=== PATIENT | male | born 1940 | race Caucasian/White ===

== ENCOUNTER 2016-11-19 09:12 | Inpatient (IN) | payer OTHER, MEDICARE ==
[~2016-11-19] VITALS: Ht 188 cm; Wt 93.3 kg
[2016-11-19] VITALS (13 sets, daily range): BP systolic 114–157; BP diastolic 59–89; PULSE 73–108; RESP 16–20; TEMP 97.4–98.7; O2SAT 90–98
[2016-11-19] MEDS ORDERED: SODIUM CHLORIDE 0.9% FLUSH 5 ML FLUSH IVF PRN (09:30)
[2016-11-19] MEDS ORDERED: ASPIRIN 325 MG TAB PO ONE (09:30)
[2016-11-19] MEDS ORDERED: NITROGLYCERIN 0.4 MG SL 25 TABS/BTL SL PRN (09:30)
--- NOTE | 2016-11-19 09:30 | PD ---
HPI Chief Complaint: Cardiac Complaint Time Seen by Provider: 09:19 Travel History International Travel<30 days: No (unknown) Contact w/Intl Traveler<30days: No (unknown) History of Present Illness HPI 76yo M with PMH of CAD s/p cardiac stent in 2004, HLD, NIDDM presents to the ED with c/o intermittent chest discomfort for 3 days. States it is worst with exertion and lasts minutes. States he had sob while walking to the room which is new. Chest discomfort is midsternal and radiates up to throat. Denies any fever, cough, n/v, abdominal pain, focal weakness or numbness. Pt follows with Dr. Oliveira and has not had a stress test in over a year. Former smoker. PFSH Past Medical History Autoimmune Disease: No Blood Disorders: No Cancer: No Cardiovascular Problems: No Endocrine: No Genitourinary: No Musculoskeletal: No Neurologic: No Psychiatric: No Respiratory: No Past Surgical History Abdominal Surgery: Yes (HERNIA REPAIR) Genitourinary Surgery: Yes (CYST REMOVED FROM KIDNEY) Social History Alcohol Use: No Tobacco Use: No Substance Use: No Allergies-Medications (Allergen,Severity, Reaction): Coded Allergies: No Known Allergies (Verified Allergy, Severe, 12/26/04) Uncoded Allergies: AKA (Allergy, Mild, 12/26/04) Reported Meds & Prescriptions Reported Meds & Active Scripts Active Reported Losartan (Losartan Potassium) 25 Mg Tab 25 Mg PO BID Lipitor (Atorvastatin Calcium) 80 Mg Tab 80 Mg PO HS Glimepiride 1 Mg Tab 1 Mg PO DAILY Take with breakfast or first main meal Metoprolol Tartrate 50 Mg Tab 50 Mg PO BID Metformin (Metformin HCl) 500 Mg Tab 500 Mg PO BID With meals Review of Systems Except as stated in HPI: all other systems reviewed are Neg Physical Exam Narrative GENERAL: 76yo M not in distress. SKIN: Warm and dry. HEAD: Atraumatic. Normocephalic. EYES: Pupils equal and round. No scleral icterus. No injection or drainage. ENT: No nasal bleeding or discharge. Mucous membranes pink and moist. NECK: Trachea midline. No JVD. CARDIOVASCULAR: Regular rate and rhythm. No murmur appreciated. RESPIRATORY: No accessory muscle use. Clear to auscultation. Breath sounds equal bilaterally. GASTROINTESTINAL: Abdomen soft, non-tender, nondistended. Hepatic and splenic margins not palpable. MUSCULOSKELETAL: No obvious deformities. No clubbing. No cyanosis. +Trace bilateral lower edema. NEUROLOGICAL: Awake and alert. No obvious cranial nerve deficits. Motor grossly within normal limits. Normal speech. PSYCHIATRIC: Appropriate mood and affect; insight and judgment normal. Data Data Last Documented VS Vital Signs Date Time Temp Pulse Resp B/P Pulse Ox O2 Delivery O2 Flow Rate FiO2 11/19/16 09:20 146/67 141/68 11/19/16 09:20 98 Nasal Cannula 2 11/19/16 09:20 16 11/19/16 09:14 97.6 108 Orders Electrocardiogram (11/19/16 ) Basic Metabolic Panel (Bmp) (11/19/16 09:25) Ckmb (Isoenzyme) Profile (11/19/16 09:25) Complete Blood Count With Diff (11/19/16 09:25) Magnesium (Mg) (11/19/16 09:25) Prothrombin Time / Inr (Pt) (11/19/16 09:25) Act Partial Throm Time (Ptt) (11/19/16 09:25) Troponin I (11/19/16 09:25) Chest, Single Ap (11/19/16 09:25) Ecg Monitoring (11/19/16 09:25) Bilateral Bp Monitoring (11/19/16 09:25) Iv Access Insert/Monitor (11/19/16 09:25) Oximetry (11/19/16 09:25) Oxygen Administration (11/19/16 09:25) Sodium Chloride 0.9% Flush (Ns Flush) (11/19/16 09:30) Aspirin (Aspirin) (11/19/16 09:30) Nitroglycerin Sl (Nitrostat Sl) (11/19/16 09:30) B-Type Natriuretic Peptide (11/19/16 09:30) CKMB (11/19/16 09:35) CKMB% (11/19/16 09:35) Type And Screen (11/19/16 10:56) Red Blood Cells (Rbc) (11/19/16 10:56) Blood Product Administration .UPON TRANSFUSION (11/19/16 10:56) Sodium Chlor 0.9% 250 Ml Inj (Ns 250 Ml (11/19/16 11:00) Pantoprazole Inj (Protonix Inj) (11/19/16 11:00) Pantoprazole Inj (Protonix Inj) (11/19/16 11:00) Consult Cardiology (11/19/16 ) Consult Gastroenterology (11/19/16 ) ^ Other Nursing Orders (11/19/16 11:15) NPO (11/19/16 11:15) ^ Consent (11/19/16 11:16) (Hub Use Only)Inp Phy Cons/Ref (11/19/16 ) (Hub Use Only)Inp Phy Cons/Ref (11/19/16 ) Admit Order (Ed Use Only) (11/19/16 11:23) Labs Laboratory Tests Test 11/19/16 11/19/16 11/19/16 09:35 10:00 11:17 White Blood Count 7.3 TH/MM3 Red Blood Count 3.28 MIL/MM3 Hemoglobin 7.5 GM/DL Hematocrit 24.0 % Mean Corpuscular Volume 73.3 FL Mean Corpuscular Hemoglobin 22.8 PG Mean Corpuscular Hemoglobin 31.1 % Concent Red Cell Distribution Width 16.0 % Platelet Count 244 TH/MM3 Mean Platelet Volume 7.7 FL Neutrophils (%) (Auto) 65.6 % Lymphocytes (%) (Auto) 22.2 % Monocytes (%) (Auto) 6.5 % Eosinophils (%) (Auto) 4.9 % Basophils (%) (Auto) 0.8 % Neutrophils # (Auto) 4.8 TH/MM3 Lymphocytes # (Auto) 1.6 TH/MM3 Monocytes # (Auto) 0.5 TH/MM3 Eosinophils # (Auto) 0.4 TH/MM3 Basophils # (Auto) 0.1 TH/MM3 CBC Comment AUTO DIFF Differential Comment AUTO DIFF CONFIRMED Prothrombin Time 11.3 SEC Prothromb Time International 1.0 RATIO Ratio Activated Partial 26.1 SEC Thromboplast Time Sodium Level 136 MEQ/L Potassium Level 4.4 MEQ/L Chloride Level 102 MEQ/L Carbon Dioxide Level 23.9 MEQ/L Anion Gap 10 MEQ/L Blood Urea Nitrogen 21 MG/DL Creatinine 1.20 MG/DL Estimat Glomerular Filtration 59 ML/MIN Rate Random Glucose 126 MG/DL Calcium Level 8.8 MG/DL Magnesium Level 2.2 MG/DL Total Creatine Kinase 103 U/L Creatine Kinase MB 2.7 NG/ML Troponin I 0.17 NG/ML B-Type Natriuretic Peptide 274 PG/ML Blood Type O NEGATIVE Antibody Screen NEGATIVE Crossmatch Leukocyte-Reduced Red Blood Cells Blood Bank Comment MDM Medical Decision Making Medical Screen Exam Complete: Yes Emergency Medical Condition: Yes Interpretation(s) EKG: NSR 97bpm. LAD. Q wave III, V2. STD I, V5, V6. TWI aVL, V2. Differential Diagnosis Unstable angina vs. GERD vs. musculoskeletal pain vs. PNA Narrative Course 76yo M with history significant for CAD s/p cardiac stent with symptoms concerning for unstable angina. EKG significant for findings of ischemia in lateral leads. Will obtain cardiac enzymes, CXR, and give aspirin and sublingual nitroglycerin PRN chest pain. Pt denies any chest pain while lying down at this time. Labs reviewed, H/H is 7.5/24.0. Pt denies any black stool or hematemesis. However, when I did rectal exam, stool is black and hemaprompt positive. Will transfuse 2units of PRBC and start IV protonix. Troponin is elevated at 0.17. Discussed with Dr. Oliveira who will come see the patient. Pt cannot be anticoagulated at this time because of GI bleed. CXR showed no consolidative infiltrates. Pt states he had colonoscopy about 2 years ago and had polyps removed. Had endoscopy as well 2 years ago with no acute findings. Discussed with Dr. Brar who will come see the patient. Discussed with Dr. Phillips and accepted to his service. Pt is hemodynamically stable at this time. Critical Care Narrative Aggregate critical care time was 40 minutes. Time to perform other separately billable procedures was note included in the critical care time. My time did not include minutes spent treating any other patients simultaneously or on activities that did not directly contribute to the patient's treatment. The services I provided to this patient were to treat and/or prevent clinically significant deterioration that could result in: cardiovascular collapse or . I provided critical care services requiring my management, as noted below: Chart data review, documentation time, medication orders and management, vital sign assessments/reviewing monitor data, ordering and reviewing lab tests, ordering and interpreting/reviewing x-rays and diagnostic studies, care of the patient and discussion of the patient with the admitting physicians. Diagnosis Primary Impression: GI bleed Qualified Code: K92.1 - Gastrointestinal hemorrhage with melena Additional Impression: NSTEMI (non-ST elevated myocardial infarction) Admitting Information Admitting Physician Requests: it Devika Herrera DO Nov 19, 2016 09:30
--- NOTE | 2016-11-19 09:47 | RADRPT ---
EXAM DATE/TIME: 11/19/2016 09:37 [facility] COMPARISON: No previous studies available for comparison. INDICATIONS : Chest pain. MEDICAL HISTORY : Myocardial infarction. SURGICAL HISTORY : Coronary artery stent. ENCOUNTER: Initial ACUITY: 3 days PAIN SCORE: 5/10 LOCATION: Left upper chest FINDINGS: A single view of the chest demonstrates the lungs to be symmetrically aerated without evidence of mas s, consolidative infiltrate or effusion. The cardiomediastinal contours are unremarkable. Osseous s tructures are intact. Mild prominence of the interstitium of indeterminate chronicity. CONCLUSION: Mild prominence of the interstitium indeterminate chronicity. No consolidative infiltrates. Fabricio Gregory MD on November 19, 2016 at 9:45 Board Certified Radiologist. This report was verified electronically.
[2016-11-19 09:50] LABS: AUTOMATED NEUTROPHIL # 4.8 TH/MM3 (1.8-7.7); BASOPHIL # 0.1 TH/MM3 (0-0.2); BASOPHIL % 0.8 % (0.0-2.0); EOSINOPHIL # 0.4 TH/MM3 (0-0.4); EOSINOPHIL % 4.9 % (0.0-4.0); LYMPH % 22.2 % (9.0-44.0); LYMPHOCYTE # 1.6 TH/MM3 (1.0-4.8); MEAN CELL VOLUME 73.3 FL (80.0-100.0); MEAN CORPUSCULAR HEMOGLOBIN 22.8 PG (27.0-34.0); MEAN CORPUSCULAR HGB CONC 31.1 % (32.0-36.0); MONO % 6.5 % (0.0-8.0); NEUT % 65.6 % (16.0-70.0); PLATELET COUNT 244 TH/MM3 (150-450); RED BLOOD COUNT 3.28 MIL/MM3 (4.50-5.90); WHITE BLOOD COUNT 7.3 TH/MM3 (4.0-11.0)
[2016-11-19 09:53] LABS: HEMO FLAGS AUTO DIFF
[2016-11-19 10:01] LABS: APTT (PATIENT) 26.1 SEC (24.3-30.1); PROTHROMBIN TIME - PATIENT 11.3 SEC (9.8-11.6)
[2016-11-19 10:12] LABS: ANION GAP 10 MEQ/L (5-15); BICARBONATE 23.9 MEQ/L (21.0-32.0); BLOOD UREA NITROGEN 21 MG/DL (7-18); CHLORIDE 102 MEQ/L (98-107); GLOMERULAR FILTRATION RATE 59 ML/MIN (>89); MAGNESIUM 2.2 MG/DL (1.5-2.5); POTASSIUM 4.4 MEQ/L (3.5-5.1); SODIUM (NA) 136 MEQ/L (136-145)
[2016-11-19 10:16] LABS: CREATINE KINASE 103 U/L (39-308)
[2016-11-19 10:22] LABS: SCAN/DIFF AUTO DIFF CONFIRMED
[2016-11-19 10:29] LABS: CKMB 2.7 NG/ML (0.5-3.6)
[2016-11-19] MEDS ORDERED: PANTOPRAZOLE INJ 80 MG in SODIUM CHLORIDE 0.9% INJ 35 ML IV ONE (11:00)
[2016-11-19] MEDS ORDERED: SODIUM CHLOR 0.9% 250 ML INJ 250 ML IV ONE (11:00)
[2016-11-19] MEDS ORDERED: MORPHINE SULFATE 4 MG/ML INJ IV PUSH PRN (11:30)
[2016-11-19] MEDS: SODIUM CHLOR 0.9% 1000 ML INJ 1,000 ML IV SCH (11:30)
[2016-11-19] MEDS ORDERED: ONDANSETRON HCL 4 MG/2 ML VIAL IV PUSH PRN (11:30)
--- NOTE | 2016-11-19 11:50 | PD.CONS ---
HPI History of Present Illness This is a 76 year old male patient with a hx of coronary artery disease on daily ASA, who has been having acid indigestion with shortness of breath on minimal exertion x 3 days. He states that these were the same symptoms he had with his first heart attack and therefore decided to come to the ER. He reports that the pressure goes from his epigastric area, up his esophagus and to bilateral shoulders and neck. He denies any nausea or vomiting. No significant abdominal pain, other than occasional slight/mild suprapubic pain related to his prostate/decreased flow. He occasionally gets reflux and takes Pepto Bismol as needed. Usually, he only occasionally has symptoms of GERD, but he has been having this more frequently over the past 3 days. Of note, he did take the Pepto Bismol last night. He is not sure if it helped or not, because he has found that his symptoms are aggravated by activity and if he sits down and rests, then it will be okay. He called Dr. Oliveira to see if he could get in to see him today and was instructed to come to the ER for evaluation. He was noted to have anemia. He denies any nausea, vomiting, or bowel changes at home. He has lost 10 lbs over the past few months, but has changed his diet and eating differently. He reports that he last had an EGD/ Colonoscopy about 2 years ago and he reports that this was normal other than removal of 3-4 small polyps. He cannot recall who did this. (Nahomy Rodriguez) PFSH Past Medical History CAD/IA Colon Polyps BPH Pilonidal cyst GERD Past Surgical History Cardiac cath I&D Pilonidal cyst Right carotid endarterectomy EGD/Colonoscopy (Nahomy Rodriguez) Coded Allergies: No Known Allergies (Verified Allergy, Severe, 12/26/04) Uncoded Allergies: AKA (Allergy, Mild, 12/26/04) Medications Allergies Coded Allergies Type Severity Reaction Last Updated Verified No Known Allergies Allergy Severe 12/26/04 Yes Uncoded Allergies Type Severity Reaction Last Updated Verified AKA Allergy Mild 12/26/04 Family History No family hx of esophageal, gastric, colorectal cancer. Social History no tobacco, etoh, or illicit drug (Nahomy Rodriguez) Review of Systems Constitutional: COMPLAINS OF: Fatigue, Weight loss (diet has changed) Respiratory: COMPLAINS OF: Cough, Shortness of breath Cardiovascular: COMPLAINS OF: Chest pain Gastrointestinal: COMPLAINS OF: Black stools, Heartburn, DENIES: Abdominal pain, Bloody stools, Constipation, Diarrhea, Nausea, Vomiting, Anorexia, Hematemesis Integumentary: DENIES: Abnormal pigmentation Hematologic/lymphatic: DENIES: Bruising Neurologic: DENIES: Headache Psychiatric: DENIES: Confusion (Nahomy Rodriguez) GI Exam Vitals I&O Vital Signs Date Time Temp Pulse Resp B/P Pulse Ox O2 Delivery O2 Flow Rate FiO2 11/19/16 09:20 146/67 141/68 11/19/16 09:20 98 Nasal Cannula 2 11/19/16 09:20 16 97 Nasal Cannula 2 11/19/16 09:14 97.6 108 20 140/63 90 Room Air Imaging Last Impressions Chest X-Ray 11/19/16 0925 Signed Impressions: Service Date/Time: Saturday, November 19, 2016 09:37 - CONCLUSION: Mild prominence of the interstitium indeterminate chronicity. No consolidative infiltrates. Fabricio Gregory MD Laboratory Test 11/19/16 11/19/16 09:35 10:00 White Blood Count 7.3 TH/MM3 Red Blood Count 3.28 MIL/MM3 Hemoglobin 7.5 GM/DL Hematocrit 24.0 % Mean Corpuscular Volume 73.3 FL Mean Corpuscular Hemoglobin 22.8 PG Mean Corpuscular Hemoglobin 31.1 % Concent Red Cell Distribution Width 16.0 % Platelet Count 244 TH/MM3 Mean Platelet Volume 7.7 FL Neutrophils (%) (Auto) 65.6 % Lymphocytes (%) (Auto) 22.2 % Monocytes (%) (Auto) 6.5 % Eosinophils (%) (Auto) 4.9 % Basophils (%) (Auto) 0.8 % Neutrophils # (Auto) 4.8 TH/MM3 Lymphocytes # (Auto) 1.6 TH/MM3 Monocytes # (Auto) 0.5 TH/MM3 Eosinophils # (Auto) 0.4 TH/MM3 Basophils # (Auto) 0.1 TH/MM3 CBC Comment AUTO DIFF Differential Comment AUTO DIFF CONFIRMED Prothrombin Time 11.3 SEC Prothromb Time International 1.0 RATIO Ratio Activated Partial 26.1 SEC Thromboplast Time Sodium Level 136 MEQ/L Potassium Level 4.4 MEQ/L Chloride Level 102 MEQ/L Carbon Dioxide Level 23.9 MEQ/L Anion Gap 10 MEQ/L Blood Urea Nitrogen 21 MG/DL Creatinine 1.20 MG/DL Estimat Glomerular Filtration 59 ML/MIN Rate Random Glucose 126 MG/DL Calcium Level 8.8 MG/DL Magnesium Level 2.2 MG/DL Total Creatine Kinase 103 U/L Creatine Kinase MB 2.7 NG/ML Troponin I 0.17 NG/ML B-Type Natriuretic Peptide 274 PG/ML Physical Examination HEENT: Normocephalic; atraumatic; no jaundice. CHEST: CTA. CARDIAC: RRR ABDOMEN: Soft, nondistended, nontender; no hepatosplenomegaly; bowel sounds are present in all four quadrants. EXTREMITIES: No clubbing, cyanosis, or edema. SKIN: Normal; no rash; no jaundice. [employer]: No focal deficits; alert and oriented times three. (Nahomy Rodriguez) Assessment and Plan Plan ASSESSMENT: - GIB, Hemoccult (+) Stool. Pt found to have microcytic anemia on admission and was noted to have black stool on exam. Of note, he has not seen black stool at home and did take Pepto Bismol last night. However, it was hemoccult positive. He is on a daily ASA at home. Had EGD/Colonoscopy 2 years ago and was unremarkable other than colon polyps. - Anemia, Microcytic, hypochromic. 7.5/24.0. MCV 73.3. MCHC 31.1. - GERD. States usually only has occasional symptoms. However, has had frequent episodes x 3 days- but related to activity/exertion and improves with rest. - Chest pain/SOB. Pt c/o reflux pain in esophagus radiating to shoulders and neck with associated sob that is aggravated by movement and relieved with rest. States this is the same discomfort he had with his previous IA. Cardiology consulted. - CAD, Hx stent placement. Followed by Dr. Oliveira. PLAN: - Plan for EGD once cleared by cardiology - Obtain consents - NPO - Protonix Gtt - Monitor HH - Transfuse as necessary - Supportive care - Further recommendations to follow based on results of above - Pt seen and examined by Dr. Brar and myself and this note is written on her behalf (Nahomy Rodriguez) Physician Comments seen, examined agree with above ct abdomen/pelvis if not cleared for egd until late afternoon today-cler liquid he has microcytic anemia, suggesting possible iron deficiency, chronic most likely -needs further investigation (Yue Brar MD) Nahomy Rodrgiuez Nov 19, 2016 11:50 Yue Brar MD Nov 19, 2016 15:25
[2016-11-19] MEDS ORDERED: GLUCAGON 1 MG/ML VIAL OTHER PRN (12:00)
[2016-11-19] MEDS ORDERED: DEXTROSE 50% IN WATER 50 ML VIAL(D50) IV PUSH PRN (12:00)
--- NOTE | 2016-11-19 12:06 | HHI.HP ---
[facility]ician Chaka Greenwood MD Admission Diagnosis NSTEMI, GI bleed Diagnoses: (1) NSTEMI (non-ST elevated myocardial infarction) Diagnosis: Principal (2) GI bleed Diagnosis: Principal Chief Complaint: chest pain Travel History International Travel<30 Days: No (unknown) Contact w/Intl Traveler <30 Da: No (unknown) Traveled to Known Affected Are: No History of Present Illness patient is a pleasant 76 y/o male with history of CAD- s/p stent placement, hypertension, dyslipidemia and diabetes who presented to ER with chest pain. he says that he's had on and off midsternal chest pain for the past few days. the pain is worse with exertion and is associated with exertional dyspnea. he says that he's feeling lightheaded whenever he's standing up. he denies any abdominal pain, nausea or vomiting. he denies any rectal bleed or black stools. Review of Systems Constitutional: COMPLAINS OF: Dizziness, DENIES: Fever, Weight loss, Chills, Night Sweats Eyes: DENIES: Blurred vision, Diplopia, Vision loss, Double Vision Ears, nose, mouth, throat: DENIES: Tinnitus, Vertigo, Throat pain, Epistaxis Respiratory: DENIES: Apneas, Cough, Snoring, Wheezing, Hemoptysis, Sputum production, Shortness of breath Cardiovascular: COMPLAINS OF: Chest pain, Dyspnea on Exertion, DENIES: Palpitations, Syncope, PND, Lower Extremity Edema, Orthopnea, Claudication Gastrointestinal: DENIES: Abdominal pain, Black stools, Bloody stools, Constipation, Diarrhea, Nausea, Vomiting, Difficulty Swallowing, Anorexia Genitourinary: DENIES: Urinary frequency, Urgency, Hematuria, Dysuria Musculoskeletal: DENIES: Joint pain, Muscle aches, Stiffness, Joint Swelling Integumentary: DENIES: Rash Neurologic: DENIES: Abnormal gait, Headache, Localized weakness, Paresthesias, Seizures, Speech Problems, Tremor, Poor Balance Psychiatric: DENIES: Anxiety, Confusion, Mood changes, Depression, Hallucinations, Agitation, Suicidal Ideation, Homicidal Ideation, Delusions Past Family Social History Past Medical History CAD/OR Colon Polyps BPH Pilonidal cyst Past Surgical History Cardiac cath I&D Pilonidal cyst carotid endarterectomy Reported Medications to be verified. Allergies: Coded Allergies: No Known Allergies (Verified Allergy, Severe, 12/26/04) Uncoded Allergies: AKA (Allergy, Mild, 12/26/04) Active Ordered Medications Current Medications IV Flush (NS Flush) 2 ml UNSCH PRN IVF FLUSH AFTER USING IV ACCESS; Start 11/19 at 09:30 Aspirin (Aspirin) 325 mg ONCE ONCE PO Last administered on 11/19/16 10:07; Start 11/19/16 at 09:30; Stop 11/19/16 at 09:31; Status DC Nitroglycerin 0.4 mg 0.4 mg Q5M PRN SL CHEST PAIN Last administered on 10:07; Start 11/19/16 at 09:30 Sodium Chloride 250 ml @ 15 mls/hr ONCE ONCE IV ; Start 11/19/16 at 11:00; Stop 11/20/16 at 03:39 Pantoprazole Sodium 80 mg/ Sodium Chloride 35 ml @ 420 mls/hr ONCE ONCE IV ; Start 11/19/16 at 11:00; Stop 11/19/16 at 11:04; Status DC Pantoprazole Sodium/Sodium Chloride (Protonix Inj/NS Inj) 100 ml @ 10 mls/hr Q10H IV ; Start 11/19/16 at 11:00 Pantoprazole Sodium 40 mg 40 mg Q24H IV PUSH ; Start 11/20/16 at 09:00 Sodium Chloride (NS 1000 ml Inj) 1,000 ml @ 75 mls/hr [id number] IV ; Start at 11:30 Morphine Sulfate (Morphine Inj) 2 mg Q4HR PRN IV PUSH PAIN; Start 11/19/16 at 11:30 Ondansetron HCl (Zofran Inj) 4 mg Q8HR PRN IV PUSH NAUSEA; Start 11/19/16 at 11 :30 Family History No family hx of esophageal, gastric, colorectal cancer. Social History no tobacco, etoh, or illicit drug Physical Exam Vital Signs Vital Signs Date Time Temp Pulse Resp B/P Pulse Ox O2 Delivery O2 Flow Rate FiO2 11/19/16 09:20 146/67 141/68 11/19/16 09:20 98 Nasal Cannula 2 11/19/16 09:20 16 97 Nasal Cannula 2 11/19/16 09:14 97.6 108 20 140/63 90 Room Air Physical Exam GENERAL: This is a well-nourished, well-developed patient, in no apparent distress. SKIN: No rashes, ecchymoses or lesions. Cool and dry. HEAD: Atraumatic. Normocephalic. No temporal or scalp tenderness. EYES: Pupils equal round and reactive. Extraocular motions intact. No scleral icterus. No injection or drainage. ENT: Nose without bleeding, purulent drainage or septal hematoma. Throat without erythema, tonsillar hypertrophy or exudate. Uvula midline. Airway patent. NECK: Trachea midline. No JVD or lymphadenopathy. Supple, nontender, no meningeal signs. CARDIOVASCULAR: Regular rate and rhythm without murmurs, gallops, or rubs. RESPIRATORY: Clear to auscultation. Breath sounds equal bilaterally. No wheezes , rales, or rhonchi. GASTROINTESTINAL: Abdomen soft, non-tender, nondistended. No hepato-splenomegaly , or palpable masses. No guarding. MUSCULOSKELETAL: Extremities without clubbing, cyanosis, or edema. No joint tenderness, effusion, or edema noted. No calf tenderness. Negative Homans sign bilaterally. NEUROLOGICAL: Awake and alert. Cranial nerves II through XII intact. Motor and sensory grossly within normal limits. Five out of 5 muscle strength in all muscle groups. Normal speech. Laboratory Laboratory Tests Test 11/19/16 11/19/16 09:35 10:00 White Blood Count 7.3 Red Blood Count 3.28 Hemoglobin 7.5 Hematocrit 24.0 Mean Corpuscular Volume 73.3 Mean Corpuscular Hemoglobin 22.8 Mean Corpuscular Hemoglobin 31.1 Concent Red Cell Distribution Width 16.0 Platelet Count 244 Mean Platelet Volume 7.7 Neutrophils (%) (Auto) 65.6 Lymphocytes (%) (Auto) 22.2 Monocytes (%) (Auto) 6.5 Eosinophils (%) (Auto) 4.9 Basophils (%) (Auto) 0.8 Neutrophils # (Auto) 4.8 Lymphocytes # (Auto) 1.6 Monocytes # (Auto) 0.5 Eosinophils # (Auto) 0.4 Basophils # (Auto) 0.1 CBC Comment AUTO DIFF Differential Comment AUTO DIFF CONFIRMED Prothrombin Time 11.3 Prothromb Time International 1.0 Ratio Activated Partial 26.1 Thromboplast Time Sodium Level 136 Potassium Level 4.4 Chloride Level 102 Carbon Dioxide Level 23.9 Anion Gap 10 Blood Urea Nitrogen 21 Creatinine 1.20 Estimat Glomerular Filtration 59 Rate Random Glucose 126 Calcium Level 8.8 Magnesium Level 2.2 Total Creatine Kinase 103 Creatine Kinase MB 2.7 Troponin I 0.17 B-Type Natriuretic Peptide 274 Result Diagram: 11/19/1693411/19/16934 Imaging Last Impressions Chest X-Ray 11/19/16924 Signed Impressions: Service Date/Time: Saturday, November 19, 2016 09:37 - CONCLUSION: Mild prominence of the interstitium indeterminate chronicity. No consolidative infiltrates. Fabricio Gregory MD Assessment and Plan Assessment and Plan A/P - NSTEMI with history of CAD- s/p stent placement received aspirin- will continue to trend the enzymes- no anticoagulation due to GI bleed- cardiology consulted -anemia due to GI bleed will receive PRBC transfusion- will monitor H/H- started on PPI- GI consulted -diabetes mellitus; accu-check with SSI -hypertension/ dyslipidemia; will verify and resume home meds as appropriate -DVT prophylaxis with SCD's- no chemical prophylaxis due to GI bleed Discussed Condition With ER physician and the patient. Physician Certification 2 Midnight Certification Type: Admission for Inpatient Services Order for Inpatient Services The services are ordered in accordance with Medicare regulations or non- Medicare payer requirements, as applicable. In the case of services not specified as inpatient-only, they are appropriately provided as inpatient services in accordance with the 2-midnight benchmark. Estimated LOS (days): 2 days is the estimated time the patient will need to remain in the hospital, assuming treatment plan goals are met and no additional complications. Post-Hospital Plan: Home Problem Qualifiers (1) GI bleed: Qualified Code: K92.1 - Gastrointestinal hemorrhage with melena Pepito Phillips MD Nov 19, 2016 12:06
[2016-11-19] MEDS: PANTOPRAZOLE INJ 80 MG in SODIUM CHLORIDE 0.9% INJ 100 ML IV SCH ×2 (12:19→22:03)
[2016-11-19] MEDS ORDERED: METF500T PO (12:21)
[2016-11-19] MEDS ORDERED: GLIM1TAB PO (12:22)
[2016-11-19] MEDS ORDERED: METO50TA PO (12:22)
[2016-11-19] MEDS ORDERED: LOSA25TA PO (12:23)
[2016-11-19] MEDS ORDERED: LIPI80TA PO (12:23)
--- NOTE | 2016-11-19 14:58 | EKG ---
Date Performed: 11/19/2016 Time Performed: 09:30:29 PTAGE: 76 years EKG: BASELINE ARTIFACT PRESENT. Sinus rhythm POSSIBLE RIGHT VENTRICULAR CONDUCTION DELAY ANTERIOR MYOCARDIAL INFARCTION ABNORMAL ECG COMPARED TO PRIOR ELECTROCARDIOGRAM, Both EKGs have marked artifact but there appears to be evolutionary changes consistent with prior anteroseptal myocardial infarction. PREVIOUS TRACING : 12/28/2004 08.53 DOCTOR: Shane Oliveira Interpretating Date/Time 11/19/2016 14:56:34
[2016-11-19] MEDS: DIATRIZOATE MEGLUM/DIATRIZOATE SOD 9 ML CUP PO ONE (15:45)
[2016-11-19] MEDS: INSULIN ASPART SUPPLEMENTAL SCALE SQ SCH ×2 (16:00→21:00)
[2016-11-19] MEDS: METFORMIN HOLD POST IV CONTRAST XX SCH (21:18)
[2016-11-19] MEDS ORDERED: IOHEXOL 350 MG/ML 10 ML VIAL (for RAD DIAG) IV ONE (21:20)
--- NOTE | 2016-11-19 21:35 | RADRPT ---
EXAM DATE/TIME: 11/19/2016 21:11 [place] COMPARISON: No previous studies available for comparison. INDICATIONS : Diffuse abdominal pain and rectal bleeding. IV CONTRAST: 96 cc Omnipaque 350 (iohexol) IV ORAL CONTRAST: Prescribed oral contrast ingested. RADIATION DOSE: 13.62 CTDIvol (mGy) MEDICAL HISTORY : Cardiovascular disease. Hypertension. SURGICAL HISTORY : None. ENCOUNTER: Initial ACUITY: 1 day PAIN SCALE: 5/10 LOCATION: abdomen TECHNIQUE: Volumetric scanning of the abdomen and pelvis was performed. Using automated exposure control and ad justment of the mA and/or kV according to patient size, radiation dose was kept as low as reasonably achievable to obtain optimal diagnostic quality images. FINDINGS: LOWER LUNGS: The visualized lower lungs are clear. LIVER: Homogeneous density without lesion. There is no dilation of the biliary tree. No calcified gallston es. SPLEEN: Normal size without lesion. PANCREAS: Within normal limits. KIDNEYS: Normal in size and shape. There is no mass, stone or hydronephrosis. There are renal vascular calcif ications. There are minimal bilateral pleural effusions. ADRENAL GLANDS: Within normal limits. VASCULAR: There is no aortic aneurysm. BOWEL/MESENTERY: The stomach, small bowel, and colon demonstrate no acute abnormality. There is no free intraperitone al air or fluid. ABDOMINAL WALL: Within normal limits. RETROPERITONEUM: There is no lymphadenopathy. BLADDER: No wall thickening or mass. REPRODUCTIVE: Within normal limits. INGUINAL: There is no lymphadenopathy or hernia. MUSCULOSKELETAL: Within normal limits for patient age. CONCLUSION: 1. Bilateral pleural effusions. 2. Unremarkable bowel gas pattern with no inflammatory change. Brandan Caro MD on November 19, 2016 at 21:26 Board Certified Radiologist. This report was verified electronically.
[2016-11-19 23:14] LABS: HEMATOCRIT 29.5 % (39.0-51.0)
[2016-11-19 23:47] LABS: INDIRECT BILIRUBIN 0.5 MG/DL (0.0-0.8); TOTAL BILIRUBIN ADULT 0.7 MG/DL (0.2-1.0)
[2016-11-20] VITALS (18 sets, daily range): BP systolic 127–159; BP diastolic 64–85; PULSE 72–102; RESP 16–18; TEMP 98–99.1; O2SAT 94–96
[2016-11-20] MEDS: SODIUM CHLOR 0.9% 1000 ML INJ 1,000 ML IV SCH ×2 (00:50→12:23)
[2016-11-20] MEDS: PANTOPRAZOLE INJ 80 MG in SODIUM CHLORIDE 0.9% INJ 100 ML IV SCH ×2 (05:37→16:15)
--- NOTE | 2016-11-20 05:59 | MB ---
cc: REGINALDO MOORE,TOMASZ PICKERING M.D. DATE OF CONSULTATION 11/19/[address] Tomasz Greenwood. PRIMARY FIELD SERVICE TECHNICIAN Dr. Shane Oliveira REASON FOR CONSULTATION Elevation of troponins. HISTORY OF PRESENT ILLNESS Dwight Brown is a pleasant 76-year-old male who presented to [facility] on November 19, 2016, with a complaint of chest pain and shortness of breath. He states that over the past few days he has noticed some mid-sternal chest pain. The pain seems to get worse with exertion and he has also noticed some dyspnea. He has also been feeling lightheaded whenever he stands up. He denies any abdominal pain, nausea or vomiting. She also denies any rectal bleeding or black stool. PAST MEDICAL HISTORY 1. Coronary artery disease with myocardial infarction (2004). 2. Colon polyps. 3. BPH. 4. Pilonidal cyst. 5. GERD. PAST SURGICAL HISTORY 1. Cardiac catheterization (December 27, 2004): LAD is a medium to large vessel with a moderate 75% mid-lesion and then a 95% mid to distal lesion. The left circumflex is nondominant and has a long 75% narrowing. The RCA is dominant with diffusely mild to moderate irregularity. Intervention on the [id number] LAD with a Cypher stent (2.5 x 13). The proximal to mid-LAD with a bifurcation intervention of the LAD and diagonal with a Cypher stent (2.5 x 13) in the diagonal and a Cypher stent(3 x 23) in the LAD. 2. I&D of pilonidal cyst 3. Right carotid endarterectomy. 4. EGD/colonoscopy. ALLERGIES No known drug allergies. MEDICATIONS 1. Losartan 25 mg b.i.d. 2. Metoprolol tartrate 50 mg b.i.d. 3. Metformin 500 mg b.i.d. 4. Lipitor 80 mg every night 5. Glimepiride 1 mg p.o. daily. FAMILY HISTORY Denies premature coronary artery disease or sudden cardiac within the family. SOCIAL HISTORY Denies tobacco, alcohol and no illicit drug use. REVIEW OF SYSTEMS 14 systems were reviewed including osteopathic pertinent positives and negatives above, otherwise negative. PHYSICAL EXAMINATION Vital Signs: Temperature 98.7, heart rate 81, blood pressure 116/89, respirations 18, pulse ox 98% on room air. In General: The patient appears well, in no acute distress, alert, awake and oriented x 3. Extraocular muscles intact. Mucous membranes moist. Neck: Supple. No JVD at 45 degrees. No carotid bruits heard bilaterally. Carotid upstroke is brisk in nature. Heart: Regular rate and rhythm. Positive first and second heart sounds with no murmurs, gallops or rubs. PMI is nondisplaced. Lungs: Clear to auscultation bilaterally. No wheezes, rales or rhonchi. Abdomen: Soft, nontender, nondistended. No organomegaly noted. Extremities: No clubbing, cyanosis or edema. Femoral and distal pulses intact bilaterally. Neurologically: No focal deficits. Skin: Warm, dry and intact. Osteopathic Exam: No kyphoscoliosis, lordosis or paraspinal tender points. LABORATORY WORK Hemoglobin 7.5 increasing to 9.3 after 2 units of blood, platelets 244. Potassium 4.4, BUN 21, creatinine 1.2. Troponin 0.17 increasing to 0.2. ELECTROCARDIOGRAM (November 19, 2016 at 0930) Sinus rhythm, possible right ventricular conduction delay, anterior myocardial infarction, IMPRESSIONS 1. Elevated troponin most likely due to symptomatic anemia with demand ischemia. 2. Symptomatic anemia. 3. GI bleed with hemoccult-positive stool. 4. GERD. 5. Coronary artery disease with above coronary artery stenting. RECOMMENDATIONS 1. Dwight Brown was having chest pain and shortness of breath as well as lightheadedness and was found to have a hemoglobin of 7.5. He most likely has symptomatic anemia. He was noted to have mild elevation of his troponins. 2. He is to undergo EGD and colonoscopy. He is at moderate to high risk with elevation of his troponins, although I feel that at this time there is no further intervention from a cardiology standpoint which will change his overall risk. He would be unable to undergo cardiac catheterization and further intervention due to his current GI bleed. 3. Depending on the results of the EGD and colonoscopy, it is felt that he should be placed on full anticoagulation and antiplatelet therapy. Consideration would be made for stress testing due to elevated troponins. 4. We will check a 2-D echo to look at his overall left ventricular function, cardiac structure and possible valvopathies. 5. Since receiving blood the patient feels better and has been up and moving without chest pain, shortness of breath or dizziness. Thank you for allowing me to see Dwight Brown. If there are any questions, please do not hesitate to call. Reginaldo Moore DO VGP/SSB /11:33 PM /5:36 AM
[2016-11-20] MEDS: INSULIN ASPART SUPPLEMENTAL SCALE SQ SCH ×4 (07:00→21:00)
[2016-11-20 07:21] LABS: HEMATOCRIT 27.9 % (39.0-51.0)
[2016-11-20 07:40] LABS: HDL CHOLESTEROL 44.5 MG/DL (40.0-60.0)
--- NOTE | 2016-11-20 08:51 | HHI.PR ---
Subjective Remarks resting comfortably with no chest pain, sob or dizziness. says that he feels good now after blood transfusion. no other complaints. Objective Vitals Vital Signs Date Time Temp Pulse Resp B/P Pulse Ox O2 Delivery O2 Flow Rate FiO2 11/20/16 08:00 99.1 83 16 142/68 96 11/20/16 08:00 75 11/20/16 04:00 82 11/20/16 04:00 98.5 82 16 127/69 96 11/20/16 00:00 86 11/20/16 00:00 98.7 86 18 134/64 96 11/19/16 20:00 98.4 87 18 157/76 97 11/19/16 20:00 87 11/19/16 18:00 76 11/19/16 17:00 77 11/19/16 16:45 98.7 81 18 116/89 98 11/19/16 16:00 95 11/19/16 16:00 98.7 82 18 136/71 95 11/19/16 15:00 83 11/19/16 14:00 73 11/19/16 14:00 98.4 81 16 114/66 98 11/19/16 13:45 97.9 88 16 115/59 98 11/19/16 13:00 83 11/19/16 12:45 97.4 86 18 154/72 98 11/19/16 12:45 90 11/19/16 12:15 78 16 141/67 98 Nasal Cannula 2 11/19/16 09:20 146/67 141/68 11/19/16 09:20 98 Nasal Cannula 2 11/19/16 09:20 16 97 Nasal Cannula 2 11/19/16 09:14 97.6 108 20 140/63 90 Room Air I/O 11/19/16 11/19/16 11/19/16 11/20/16 11/20/16 11/20/16 07:00 15:00 23:00 07:00 15:00 23:00 Intake Total 646 ml 1105 ml Output Total 850 ml 3100 ml Balance -204 ml -1995 ml Intake Oral 0 ml 480 ml IV Total 646 ml 625 ml Output Urine Total 850 ml 3100 ml # Bowel Movements 0 0 Result Diagram: 11/20/16 0640 11/19/16 0935 Imaging Last Impressions Chest X-Ray 11/19/1625 Signed Impressions: Service Date/Time: Saturday, November 19, 2016 09:37 - CONCLUSION: Mild prominence of the interstitium indeterminate chronicity. No consolidative infiltrates. Fabricio Gregory MD Abdomen/Pelvis CT 11/19/16 0000 Signed Impressions: Service Date/Time: Saturday, November 19, 2016 21:11 - CONCLUSION: 1. Bilateral pleural effusions. 2. Unremarkable bowel gas pattern with no inflammatory change. Brandan Caro MD Objective Remarks GENERAL: This is a well-nourished, well-developed patient, in no apparent distress. CARDIOVASCULAR: Regular rate and regular rhythm without murmurs, gallops, or rubs. RESPIRATORY: Clear to auscultation. Breath sounds equal bilaterally. No wheezes , rales, or rhonchi. GASTROINTESTINAL: Abdomen soft, non-tender, nondistended. Normal, active bowel sounds MUSCULOSKELETAL: Extremities without clubbing, cyanosis, or edema. NEURO: Alert & Oriented x4 to person, place, time, situation. Moves all ext x4 Procedures none Medications and IVs Current Medications IV Flush (NS Flush) 2 ml UNSCH PRN IVF FLUSH AFTER USING IV ACCESS; Start 11/19 at 09:30 Aspirin (Aspirin) 325 mg ONCE ONCE PO Last administered on 11/19/16 10:07; Start 11/19/16 at 09:30; Stop 11/19/16 at 09:31; Status DC Nitroglycerin 0.4 mg 0.4 mg Q5M PRN SL CHEST PAIN Last administered on 10:07; Start 11/19/16 at 09:30 Sodium Chloride 250 ml @ 15 mls/hr ONCE ONCE IV Last administered on 11:00; Start 11/19/16 at 11:00; Stop 11/20/16 at 03:39; Status DC Pantoprazole Sodium 80 mg/ Sodium Chloride 35 ml @ 420 mls/hr ONCE ONCE IV Last administered on 11/19/16 12:19; Start 11/19/16 at 11:00; Stop 11/19/16 at 11:04; Status DC Pantoprazole Sodium/Sodium Chloride (Protonix Inj/NS Inj) 100 ml @ 10 mls/hr Q10H IV Last administered on 11/20/16 05:37; Start 11/19/16 at 11:00 Pantoprazole Sodium 40 mg 40 mg Q24H IV PUSH ; Start 11/20/16 at 09:00; Stop at 09:00; Status DC Sodium Chloride (NS 1000 ml Inj) 1,000 ml @ 75 mls/hr [id number] IV Last administered on 11/20/16 00:50; Start 11/19/16 at 11:30 Morphine Sulfate (Morphine Inj) 2 mg Q4HR PRN IV PUSH PAIN; Start 11/19/16 at 11:30 Ondansetron HCl (Zofran Inj) 4 mg Q8HR PRN IV PUSH NAUSEA; Start 11/19/16 at 11 :30 Dextrose (D50w (Vial) Inj) 25 ml UNSCH PRN IV PUSH HYPOGLYCEMIA-SEE COMMENTS; Start 11/19/16 at 12:00 Glucagon (Glucagon Inj) 1 mg UNSCH PRN OTHER HYPOGLYCEMIA-SEE COMMENTS; Start 11/19/16 at 12:00 Insulin Aspart (NovoLOG SUPPLEMENTAL SCALE) 1 ACHS SLIDING SCALE SQ ; Start at 16:00 Diatrizoate Meglum/ Diatrizoate Sod ( Gastroview Liq) 18 ml ONCE ONCE PO Last administered on 11/19/16 15:45; Start 11/19/16 at 15:45; Stop 11/19/16 at 15:46; Status DC Iohexol (Omnipaque 350 Inj) 96 ml STK-MED ONCE IV Last administered on 21:20; Start 11/19/16 at 21:20; Stop 11/19/16 at 21:21; Status DC Miscellaneous Information HOLD METFORMIN FOR... Q24H XX Last administered on 21:18; Start 11/19/16 at 21:18; Stop 11/21/16 at 21:18 A/P Assessment and Plan - elevated troponin- likely due to demand ischemia with history of CAD- s/p stent placement no anticoagulation due to GI bleed- cardiology consult appreciated- echo pending. -anemia due to GI bleed s/p PRBC transfusion- will monitor H/H- started on PPI- GI consult appreciated- needs further GI workup. -diabetes mellitus; accu-check with SSI -hypertension/ dyslipidemia; will gradually start BP meds if BP stable- resume statin. -DVT prophylaxis with SCD's- no chemical prophylaxis due to GI bleed Pepito Phillips MD Nov 20, 2016 08:51
[2016-11-20] MEDS ORDERED: PANTOPRAZOLE SODIUM 40 MG VIAL IV PUSH SCH (09:00)
--- NOTE | 2016-11-20 11:54 | PD.CARD.PN ---
Subjective Subjective Remarks No chest pain, no shortness of breath, no lightheadedness Objective Medications Current Medications Medications (Trade) Dose Ordered Sig/Kell Route Start Time Stop Time Status Last Admin (NS Flush) 2 ml UNSCH PRN IVF 11/19/16 09:30 Nitroglycerin 0.4 mg 0.4 mg Q5M PRN SL 11/19/16 09:30 11/19/16 10:07 Pantoprazole Sodium 80 mg/ Sodium Chloride 100 ml @ 10 mls/hr Q10H IV 11/19/16 11:00 11/20/16 05:37 (NS 1000 ml Inj) 1,000 ml @ 75 mls/hr [id number] IV 11/19/16 11:30 11/20/16 00:50 (Morphine Inj) 2 mg Q4HR PRN IV PUSH 11/19/16 11:30 (Zofran Inj) 4 mg Q8HR PRN IV PUSH 11/19/16 11:30 (D50w (Vial) Inj) 25 ml UNSCH PRN IV PUSH 11/19/16 12:00 (Glucagon Inj) 1 mg UNSCH PRN OTHER 11/19/16 12:00 Miscellaneous Information HOLD METFORMIN FOR... Q24H XX 11/19/16 21:18 11/21/16 21:18 11/19/16 21:18 (Lipitor) 80 mg HS PO 11/20/16 21:00 Vital Signs / I&O Vital Signs Date Time Temp Pulse Resp B/P Pulse Ox O2 Delivery O2 Flow Rate FiO2 11/20/16 11:00 72 11/20/16 10:00 78 11/20/16 09:00 78 11/20/16 08:00 99.1 83 16 142/68 96 11/20/16 08:00 75 11/20/16 07:00 75 11/20/16 04:00 82 11/20/16 04:00 98.5 82 16 127/69 96 11/20/16 00:00 86 11/20/16 00:00 98.7 86 18 134/64 96 11/19/16 20:00 98.4 87 18 157/76 97 11/19/16 20:00 87 11/19/16 18:00 76 11/19/16 17:00 77 11/19/16 16:45 98.7 81 18 116/89 98 11/19/16 16:00 95 11/19/16 16:00 98.7 82 18 136/71 95 11/19/16 15:00 83 11/19/16 14:00 73 11/19/16 14:00 98.4 81 16 114/66 98 11/19/16 13:45 97.9 88 16 115/59 98 11/19/16 13:00 83 11/19/16 12:45 97.4 86 18 154/72 98 11/19/16 12:45 90 11/19/16 12:15 78 16 141/67 98 Nasal Cannula 2 I/O 11/19/16 11/19/16 11/19/16 11/20/16 11/20/16 11/20/16 07:00 15:00 23:00 07:00 15:00 23:00 Intake Total 646 ml 1105 ml Output Total 850 ml 3100 ml Balance -204 ml -1995 ml Intake Oral 0 ml 480 ml IV Total 646 ml 625 ml Output Urine Total 850 ml 3100 ml # Bowel Movements 0 0 Physical Exam GENERAL: NAD SKIN: Warm and dry. HEAD: Atraumatic. Normocephalic. EYES: Pupils equal and round. No scleral icterus. No injection or drainage. ENT: No nasal bleeding or discharge. Mucous membranes pink and moist. NECK: Trachea midline. No JVD. CARDIOVASCULAR: Regular rate and rhythm. RESPIRATORY: No accessory muscle use. Decreased breath sounds bilaterally GASTROINTESTINAL: Abdomen soft, non-tender, nondistended. Hepatic and splenic margins not palpable. MUSCULOSKELETAL: Extremities without clubbing, cyanosis, or edema. No obvious deformities. NEUROLOGICAL: Awake and alert. No obvious cranial nerve deficits. Motor grossly within normal limits. Five out of 5 muscle strength in the arms and legs. Normal speech. PSYCHIATRIC: Appropriate mood and affect; insight and judgment normal. Laboratory Laboratory Tests Test 11/19/16 11/19/16 11/19/16 11/20/16 16:01 22:30 22:39 06:40 Troponin I 0.20 NG/ML 0.24 NG/ML Total Bilirubin 0.7 MG/DL Direct Bilirubin 0.2 MG/DL Indirect Bilirubin 0.5 MG/DL Aspartate Amino Transf 17 U/L (AST/SGOT) Alanine Aminotransferase 23 U/L (ALT/SGPT) Alkaline Phosphatase 47 U/L Total Protein 6.9 GM/DL Albumin 3.8 GM/DL Lipase 96 U/L Hemoglobin 9.3 GM/DL 8.7 GM/DL Hematocrit 29.5 % 27.9 % Triglycerides Level 86 MG/DL Cholesterol Level 94 MG/DL LDL Cholesterol 32 MG/DL HDL Cholesterol 44.5 MG/DL Cholesterol/HDL Ratio 2.11 RATIO Assessment and Plan Problem List: (1) GI bleed (2) NSTEMI (non-ST elevated myocardial infarction) Assessment and Plan 1) Elevated troponin secondary to symptomatic anemia 2) CP/SOB/Lightheadedness due to symptomatic anemia 3) Hemodynamically stable with no chest pain after blood transfusion 4) For EGD/C-scope 5) Received blood, will give Lasix due to the amount of fluid given Problem Qualifiers (1) GI bleed: Qualified Code: K92.1 - Gastrointestinal hemorrhage with melena Reginaldo Moore DO Nov 20, 2016 11:54
[2016-11-20] MEDS ORDERED: FUROSEMIDE 40 MG/4 ML VIAL IV PUSH ONE (12:00)
--- NOTE | 2016-11-20 12:02 | EC ---
Study Study Date:11/20/2016 STUDY CONCLUSIONS SUMMARY - Left ventricle: The cavity size was normal. Wall thickness was normal. Systolic function was at the lower limits of normal. The estimated ejection fraction was in the range of 50% to 55%. Moderate hypokinesis of the mid-distal anteroseptal, anterior, and anterolateral myocardium. - Aortic valve: Valve area: 2.74cm^2 (Vmax). - Pulmonary arteries: Systolic pressure was mildly increased. PA peak pressure: 48mm Hg (S). If LV function is below 40, please consider prescribing an ACEI or ARB or document rationale for non-use. PROCEDURE DATA STUDY STATUS: Elective. Procedure: Transthoracic echocardiography. Image quality was good. Scanning was performed from the parasternal, apical, and subcostal acoustic windows. Study completion: The patient tolerated the procedure well. Transthoracic echocardiography. M-mode, complete 2D, complete spectral Doppler, and color Doppler. Patient status: Inpatient. CARDIAC ANATOMY LEFT VENTRICLE: The cavity size was normal. Wall thickness was normal. Systolic function was at the lower limits of normal. The estimated ejection fraction was in the range of 50% to 55%. Regional wall motion abnormalities: Moderate hypokinesis of the mid-distal anteroseptal, anterior, and anterolateral myocardium. AORTIC VALVE: Trileaflet; mildly thickened, mildly calcified leaflets. Doppler: Transvalvular velocity was within the normal range. There was no stenosis. No regurgitation. Valve area: 2.74cm^2 (Vmax). AORTA: Aortic root: The aortic root was normal in size. MITRAL VALVE: Structurally normal valve. Doppler: Transvalvular velocity was within the normal range. There was no evidence for stenosis. Trace regurgitation. Peak gradient: 3mm Hg (D). LEFT ATRIUM: The atrium was normal in size. RIGHT VENTRICLE: The cavity size was normal. Wall thickness was normal. PULMONIC VALVE: Doppler: Transvalvular velocity was within the normal range. There was no evidence for stenosis. No regurgitation. TRICUSPID VALVE: Structurally normal valve. Doppler: Transvalvular velocity was within the normal range. Trace regurgitation. PULMONARY ARTERY: Systolic pressure was mildly increased. RIGHT ATRIUM: The atrium was normal in size. PERICARDIUM: There was no pericardial effusion. SYSTEMIC VEINS: Inferior vena cava: The vessel was normal in size. BASIC MEASUREMENTS ADULT NORMAL Left ventricle LV internal dimension, ED, chordal level, 50.1 mm 43-52 PLAX LV internal dimension, ES, chordal level, 35.9 mm 23-38 PLAX Fractional shortening, chordal level, PLAX *28 % >29 LV posterior wall thickness, ED 8.41 mm IVS/LVPW ratio, ED 0.98 <1.3 Ventricular septum Septal thickness, ED 8.28 mm Aortic valve Leaflet separation 17 mm 15-26 BASIC MEASUREMENTS ADULT NORMAL Aortic valve Leaflet separation 17 mm 15-26 Aorta Root diameter, ED 26 mm 20-37 Left atrium Anterior-posterior dimension, ES 37 mm 19-40 LA/aortic root ratio 1.42 DOPPLER MEASUREMENTS ADULT NORMAL Main pulmonary artery Pressure, S *48 mm Hg =30 Aortic valve Peak velocity, S 125 cm/s Valve area, Vmax 2.74 cm^2 Mitral valve Peak E-wave velocity 82.9 cm/s Peak A-wave velocity 87.9 cm/s Deceleration time *120 ms 150-230 Peak gradient, D 3 mm Hg Peak E/A ratio 0.9 Maximal regurgitant velocity 277 cm/s Tricuspid valve Regurgitant peak velocity 225 cm/s Peak RV-RA gradient, S 20 mm Hg Maximal regurgitant velocity 225 cm/s Systemic veins Estimated CVP 10 mm Hg Right ventricle RV pressure, S *51 mm Hg <30 Pulmonic valve Peak velocity, S 82.8 cm/s LEGEND: Mean values are shown as u=mean value. Asterisk (*) desai values outside specified normal range. Amended Aelxandro Benson [id number]
[2016-11-20] MEDS ORDERED: PROPOFOL 200 MG/20 ML AMP IV ONE (14:39)
[2016-11-20] MEDS ORDERED: PEG (High)/E-LYTE SOLN 4000 ML BTL PO ONE (15:00)
[2016-11-20] MEDS ORDERED: ATORVASTATIN 80 MG TAB PO SCH (21:00)
[2016-11-20] MEDS: METFORMIN HOLD POST IV CONTRAST XX SCH (21:18)
[2016-11-21] VITALS (18 sets, daily range): BP systolic 107–159; BP diastolic 46–84; PULSE 73–105; RESP 18; TEMP 98–98.3; O2SAT 93–98
[2016-11-21] MEDS: PANTOPRAZOLE INJ 80 MG in SODIUM CHLORIDE 0.9% INJ 100 ML IV SCH (03:00)
[2016-11-21] MEDS: SODIUM CHLOR 0.9% 1000 ML INJ 1,000 ML IV SCH ×2 (03:30→16:50)
[2016-11-21] MEDS: INSULIN ASPART SUPPLEMENTAL SCALE SQ SCH ×3 (05:53→16:00)
[2016-11-21 06:47] LABS: HEMATOCRIT 26.5 % (39.0-51.0)
[2016-11-21] MEDS ORDERED: PROPOFOL 200 MG/20 ML AMP IV ONE (09:00)
--- NOTE | 2016-11-21 10:43 | HHI.PR ---
Subjective Remarks resting comfortably with no distress. denies abdominal pain, chest pain or sob. d/w the RN and no acute issues over night. Objective Vitals Vital Signs Date Time Temp Pulse Resp B/P Pulse Ox O2 Delivery O2 Flow Rate FiO2 11/21/16 09:30 82 20 111/63 95 11/21/16 09:13 97.9 83 18 110/61 93 11/21/16 08:22 98.0 85 18 107/46 98 11/21/16 06:00 78 11/21/16 05:00 85 11/21/16 04:00 85 11/21/16 04:00 98.0 86 18 107/46 94 11/21/16 03:00 90 11/21/16 02:05 90 11/21/16 01:00 105 11/21/16 00:00 90 11/21/16 00:00 98.0 96 18 159/84 94 11/20/16 23:00 102 11/20/16 22:00 100 11/20/16 21:00 90 11/20/16 20:00 98.0 96 18 159/84 94 11/20/16 20:00 90 11/20/16 19:00 87 11/20/16 18:00 84 11/20/16 17:00 93 11/20/16 16:00 98.7 94 18 145/85 95 11/20/16 16:00 100 11/20/16 15:10 99 16 130/66 94 11/20/16 15:00 105 16 123/64 95 11/20/16 14:48 98.3 106 16 Automatic Cuff 95 11/20/16 14:25 99.0 78 16 139/79 96 11/20/16 13:00 96 11/20/16 12:00 78 11/20/16 12:00 99.0 92 16 139/79 96 11/20/16 11:00 72 I/O 11/20/16 11/20/16 11/20/16 11/21/16 11/21/16 11/21/16 07:00 15:00 23:00 07:00 15:00 23:00 Intake Total 1105 ml 400 ml 1430 ml 1440 ml 300 ml Output Total 3100 ml 2100 ml 1200 ml Balance -1995 ml 400 ml -670 ml 240 ml 300 ml Intake Oral 480 ml 100 ml 420 ml IV Total 625 ml 1330 ml 1020 ml 300 ml Other 400 ml Output Urine Total 3100 ml 2100 ml 1200 ml # Bowel Movements 0 0 8 Result Diagram: 11/21/16 0611/19/16 0935 Imaging Last Impressions Chest X-Ray 11/19/1625 Signed Impressions: Service Date/Time: Saturday, November 19, 2016 09:37 - CONCLUSION: Mild prominence of the interstitium indeterminate chronicity. No consolidative infiltrates. Fabricio Gregory MD Abdomen/Pelvis CT 11/19/16 0000 Signed Impressions: Service Date/Time: Saturday, November 19, 2016 21:11 - CONCLUSION: 1. Bilateral pleural effusions. 2. Unremarkable bowel gas pattern with no inflammatory change. Brandan Caro MD Objective Remarks GENERAL: This is a well-nourished, well-developed patient, in no apparent distress. CARDIOVASCULAR: Regular rate and regular rhythm without murmurs, gallops, or rubs. RESPIRATORY: Clear to auscultation. Breath sounds equal bilaterally. No wheezes , rales, or rhonchi. GASTROINTESTINAL: Abdomen soft, non-tender, nondistended. Normal, active bowel sounds MUSCULOSKELETAL: Extremities without clubbing, cyanosis, or edema. NEURO: Alert & Oriented x4 to person, place, time, situation. Moves all ext x4 Procedures colonoscopy Medications and IVs Current Medications IV Flush (NS Flush) 2 ml UNSCH PRN IVF FLUSH AFTER USING IV ACCESS; Start 11/19 at 09:30 Aspirin (Aspirin) 325 mg ONCE ONCE PO Last administered on 11/19/16 10:07; Start 11/19/16 at 09:30; Stop 11/19/16 at 09:31; Status DC Nitroglycerin 0.4 mg 0.4 mg Q5M PRN SL CHEST PAIN Last administered on 10:07; Start 11/19/16 at 09:30 Sodium Chloride 250 ml @ 15 mls/hr ONCE ONCE IV Last administered on 11:00; Start 11/19/16 at 11:00; Stop 11/20/16 at 03:39; Status DC Pantoprazole Sodium 80 mg/ Sodium Chloride 35 ml @ 420 mls/hr ONCE ONCE IV Last administered on 11/19/16 12:19; Start 11/19/16 at 11:00; Stop 11/19/16 at 11:04; Status DC Pantoprazole Sodium/Sodium Chloride (Protonix Inj/NS Inj) 100 ml @ 10 mls/hr Q10H IV Last administered on 11/20/16 16:15; Start 11/19/16 at 11:00 Pantoprazole Sodium 40 mg 40 mg Q24H IV PUSH ; Start 11/20/16 at 09:00; Stop at 09:00; Status DC Sodium Chloride (NS 1000 ml Inj) 1,000 ml @ 75 mls/hr [id number] IV Last administered on 11/21/16 03:30; Start 11/19/16 at 11:30 Morphine Sulfate (Morphine Inj) 2 mg Q4HR PRN IV PUSH PAIN; Start 11/19/16 at 11:30 Ondansetron HCl (Zofran Inj) 4 mg Q8HR PRN IV PUSH NAUSEA; Start 11/19/16 at 11 :30 Dextrose (D50w (Vial) Inj) 25 ml UNSCH PRN IV PUSH HYPOGLYCEMIA-SEE COMMENTS; Start 11/19/16 at 12:00 Glucagon (Glucagon Inj) 1 mg UNSCH PRN OTHER HYPOGLYCEMIA-SEE COMMENTS; Start 11/19/16 at 12:00 Insulin Aspart (NovoLOG SUPPLEMENTAL SCALE) 1 ACHS SLIDING SCALE SQ ; Start at 16:00 Diatrizoate Meglum/ Diatrizoate Sod ( Gastroview Liq) 18 ml ONCE ONCE PO Last administered on 11/19/16 15:45; Start 11/19/16 at 15:45; Stop 11/19/16 at 15:46; Status DC Iohexol (Omnipaque 350 Inj) 96 ml STK-MED ONCE IV Last administered on 21:20; Start 11/19/16 at 21:20; Stop 11/19/16 at 21:21; Status DC Miscellaneous Information HOLD METFORMIN FOR... Q24H XX Last administered on 21:18; Start 11/19/16 at 21:18; Stop 11/21/16 at 21:18 Atorvastatin Calcium (Lipitor) 80 mg HS PO Last administered on 11/20/16 20:27 ; Start 11/20/16 at 21:00 Furosemide (Lasix Inj) 40 mg ONCE ONCE IV PUSH Last administered on 11/20/16 12:00; Start 11/20/16 at 12:00; Stop 11/20/16 at 12:01; Status DC Polyethylene Glycol/ Electrolytes (Colyte Liq) 4,000 ml ONCE ONCE PO Last administered on 11/20/16t 16:15; Start 11/20/16 at 15:00; Stop 11/20/16 at 15:01 ; Status DC Propofol (Diprivan 200 Mg/20 ml Inj) 140 mg STK-MED ONCE IV ; Start 11/20/16 at 14:39; Stop 11/20/16 at 14:54; Status DC Propofol (Diprivan 200 Mg/20 ml Inj) 140 mg STK-MED ONCE IV ; Start 11/21/16 at 09:00; Stop 11/21/16 at 09:17; Status DC A/P Assessment and Plan - elevated troponin- likely due to demand ischemia with history of CAD- s/p stent placement cardiology following- echo with EF 50% to 55%.Moderate hypokinesis of the mid-distal anteroseptal, anterior,and anterolateral myocardium. -anemia due to GI bleed s/p PRBC transfusion- H/H fairly stable. s/p colonoscopy with diverticulosis and internal/external hemorrhoids hematology and capsule endoscopy as outpatient. cleared for discharge by GI.consider starting aspirin as outpatient when ok with GI. -diabetes mellitus; accu-check with SSI -hypertension/ dyslipidemia; will gradually start BP meds if BP stable- f/u as outpatient.resumed statin. -DVT prophylaxis with SCD's- no chemical prophylaxis due to GI bleed Discharge Planning dc home when cleared by cardiology. see med list. f/u; pcp,GI, hematology and cardiology. d/w the patient and RN. Pepito Phillips MD Nov 21, 2016 10:43 Pepito Phillips MD Nov 21, 2016 10:43
[2016-11-21] MEDS ORDERED: METO25TA3 PO (10:47)
--- NOTE | 2016-11-21 10:48 | HHI.DCPOC ---
Discharge Care Plan Diagnosis: (1) GI bleed Your Health Problems Are: Bleeding Tendency Shortness of Breath Goals to Promote Your Health * To prevent worsening of your condition and complications * To maintain your health at the optimal level Directions to Meet Your Goals Take your medications as prescribed Follow your dietary instruction Follow activity as directed Keep your appointments as scheduled Take your immunizations and boosters as scheduled If your symptoms worsen call your PCP, if no PCP go to Urgent Care Center or Emergency Room Smoking is Dangerous to Your Health. Avoid second hand smoke Call the 24-hour hour crisis hotline for domestic abuse at Pepito Phillips MD Nov 21, 2016 10:47
[2016-11-21] MEDS ORDERED: BENEPOW8 PO (10:49)
--- NOTE | 2016-11-21 12:29 | PD.CARD.PN ---
Subjective Subjective Remarks No chest pain, no shortness of breath, doing well since receiving blood Objective Medications Current Medications Medications (Trade) Dose Ordered Sig/Kell Route Start Time Stop Time Status Last Admin (NS Flush) 2 ml UNSCH PRN IVF 11/19/16 09:30 Nitroglycerin 0.4 mg 0.4 mg Q5M PRN SL 11/19/16 09:30 11/19/16 10:07 (NS 1000 ml Inj) 1,000 ml @ 75 mls/hr [id number] IV 11/19/16 11:30 11/21/16 03:30 (Morphine Inj) 2 mg Q4HR PRN IV PUSH 11/19/16 11:30 (Zofran Inj) 4 mg Q8HR PRN IV PUSH 11/19/16 11:30 (D50w (Vial) Inj) 25 ml UNSCH PRN IV PUSH 11/19/16 12:00 (Glucagon Inj) 1 mg UNSCH PRN OTHER 11/19/16 12:00 Miscellaneous Information HOLD METFORMIN FOR... Q24H XX 11/19/16 21:18 11/21/16 21:18 11/19/16 21:18 (Lipitor) 80 mg HS PO 11/20/16 21:00 11/20/16 20:27 Vital Signs / I&O Vital Signs Date Time Temp Pulse Resp B/P Pulse Ox O2 Delivery O2 Flow Rate FiO2 11/21/16 12:16 91 11/21/16 12:16 98.2 96 18 123/62 93 11/21/16 09:30 82 20 111/63 95 11/21/16 09:13 97.9 83 18 110/61 93 11/21/16 08:22 98.0 85 18 107/46 98 11/21/16 08:00 90 11/21/16 08:00 98.0 90 18 125/65 95 11/21/16 06:00 78 11/21/16 05:00 85 11/21/16 04:00 85 11/21/16 04:00 98.0 86 18 107/46 94 11/21/16 03:00 90 11/21/16 02:05 90 11/21/16 01:00 105 11/21/16 00:00 90 11/21/16 00:00 98.0 96 18 159/84 94 11/20/16 23:00 102 11/20/16 22:00 100 11/20/16 21:00 90 11/20/16 20:00 98.0 96 18 159/84 94 11/20/16 20:00 90 11/20/16 19:00 87 11/20/16 18:00 84 11/20/16 17:00 93 11/20/16 16:00 98.7 94 18 145/85 95 11/20/16 16:00 100 11/20/16 15:10 99 16 130/66 94 11/20/16 15:00 105 16 123/64 95 11/20/16 14:48 98.3 106 16 Automatic Cuff 95 11/20/16 14:25 99.0 78 16 139/79 96 11/20/16 13:00 96 I/O 11/20/16 11/20/16 11/20/16 11/21/16 11/21/16 11/21/16 07:00 15:00 23:00 07:00 15:00 23:00 Intake Total 1105 ml 400 ml 1430 ml 1440 ml 300 ml Output Total 3100 ml 2100 ml 1200 ml Balance -1995 ml 400 ml -670 ml 240 ml 300 ml Intake Oral 480 ml 100 ml 420 ml IV Total 625 ml 1330 ml 1020 ml 300 ml Other 400 ml Output Urine Total 3100 ml 2100 ml 1200 ml # Bowel Movements 0 0 8 Physical Exam GENERAL: NAD SKIN: Warm and dry. HEAD: Atraumatic. Normocephalic. EYES: Pupils equal and round. No scleral icterus. No injection or drainage. ENT: No nasal bleeding or discharge. Mucous membranes pink and moist. NECK: Trachea midline. No JVD. CARDIOVASCULAR: Regular rate and rhythm. RESPIRATORY: No accessory muscle use. Decreased breath sounds bilaterally GASTROINTESTINAL: Abdomen soft, non-tender, nondistended. Hepatic and splenic margins not palpable. MUSCULOSKELETAL: Extremities without clubbing, cyanosis, or edema. No obvious deformities. NEUROLOGICAL: Awake and alert. No obvious cranial nerve deficits. Motor grossly within normal limits. Five out of 5 muscle strength in the arms and legs. Normal speech. PSYCHIATRIC: Appropriate mood and affect; insight and judgment normal. Laboratory Laboratory Tests Test 11/20/16 11/21/16 19:03 06:25 Hemoglobin 9.7 GM/DL 8.5 GM/DL Hematocrit 31.0 % 26.5 % Assessment and Plan Problem List: (1) GI bleed (2) NSTEMI (non-ST elevated myocardial infarction) Assessment and Plan 1) Elevated troponin secondary to symptomatic anemia 2) CP/SOB/Lightheadedness due to symptomatic anemia 3) Hemodynamically stable with no chest pain after blood transfusion 4) Had C-scope, possible EGD today 5) Would restart ASA as soon as allowable by GI 6) Can follow up outpatient for stress test with Dr. Oliveira on discharge Problem Qualifiers (1) GI bleed: Qualified Code: K92.1 - Gastrointestinal hemorrhage with melena Reginaldo Moore DO Nov 21, 2016 12:29
--- NOTE | 2016-11-21 18:02 | HHI.DS ---
Discharge Summary Admission Date Nov 19, 2016 at 11:25 Discharge Date: Nov 21, 2016 Admitting Diagnosis NSTEMI, GI bleed (1) NSTEMI (non-ST elevated myocardial infarction) ICD Code: I21.4 Diagnosis: Principal (2) GI bleed ICD Code: K92.2 Diagnosis: Principal Procedures colonoscopy Brief History - From Admission patient is a pleasant 76 y/o male with history of CAD- s/p stent placement, hypertension, dyslipidemia and diabetes who presented to ER with chest pain. he says that he's had on and off midsternal chest pain for the past few days. the pain is worse with exertion and is associated with exertional dyspnea. he says that he's feeling lightheaded whenever he's standing up. he denies any abdominal pain, nausea or vomiting. he denies any rectal bleed or black stools. CBC/BMP: 11/21/16 0625 11/19/16 0935 Significant Findings Laboratory Tests Test 11/19/16 11/19/16 11/19/16 11/19/16 09:35 10:00 16:01 22:30 Red Blood Count 3.28 MIL/MM3 (4.50-5.90) Hemoglobin 7.5 GM/DL (13.0-17.0) Hematocrit 24.0 % (39.0-51.0) Mean Corpuscular Volume 73.3 FL (80.0-100.0) Mean Corpuscular Hemoglobin 22.8 PG (27.0-34.0) Mean Corpuscular Hemoglobin 31.1 % Concent (32.0-36.0) Eosinophils (%) (Auto) 4.9 % (0.0-4.0) Blood Urea Nitrogen 21 MG/DL (7-18) Estimat Glomerular Filtration 59 ML/MIN (>89) Rate Random Glucose 126 MG/DL (74-106) Troponin I 0.17 NG/ML 0.20 NG/ML 0.24 NG/ML (0.02-0.05) (0.02-0.05) (0.02-0.05) B-Type Natriuretic Peptide 274 PG/ML (0-100) Test 11/19/16 11/20/16 11/20/16 11/21/16 22:39 06:40 19:03 06:25 Hemoglobin 9.3 GM/DL 8.7 GM/DL 9.7 GM/DL 8.5 GM/DL (13.0-17.0) (13.0-17.0) (13.0-17.0) (13.0-17.0) Hematocrit 29.5 % 27.9 % 31.0 % 26.5 % (39.0-51.0) (39.0-51.0) (39.0-51.0) (39.0-51.0) Cholesterol Level 94 MG/DL (120-200) Imaging Last Impressions Chest X-Ray 11/19/16 0925 Signed Impressions: Service Date/Time: Saturday, November 19, 2016 09:37 - CONCLUSION: Mild prominence of the interstitium indeterminate chronicity. No consolidative infiltrates. Fabricio Gregory MD Abdomen/Pelvis CT 11/19/16 0000 Signed Impressions: Service Date/Time: Saturday, November 19, 2016 21:11 - CONCLUSION: 1. Bilateral pleural effusions. 2. Unremarkable bowel gas pattern with no inflammatory change. Brandan Caro MD PE at Discharge GENERAL: This is a well-nourished, well-developed patient, in no apparent distress. CARDIOVASCULAR: Regular rate and regular rhythm without murmurs, gallops, or rubs. RESPIRATORY: Clear to auscultation. Breath sounds equal bilaterally. No wheezes , rales, or rhonchi. GASTROINTESTINAL: Abdomen soft, non-tender, nondistended. Normal, active bowel sounds MUSCULOSKELETAL: Extremities without clubbing, cyanosis, or edema. NEURO: Alert & Oriented x4 to person, place, time, situation. Moves all ext x4 Hospital Course - elevated troponin- likely due to demand ischemia with history of CAD- s/p stent placement cardiology following- echo with EF 50% to 55%.Moderate hypokinesis of the mid-distal anteroseptal, anterior,and anterolateral myocardium. -anemia due to GI bleed s/p PRBC transfusion- H/H fairly stable. s/p colonoscopy with diverticulosis and internal/external hemorrhoids hematology and capsule endoscopy as outpatient. cleared for discharge by GI. -diabetes mellitus; accu-check with SSI -hypertension/ dyslipidemia; will gradually start BP meds if BP stable- f/u as outpatient.resumed statin. -DVT prophylaxis with SCD's- no chemical prophylaxis due to GI bleed Pt Condition on Discharge: Good Discharge Disposition: Discharge Home Discharge Time: <= 30 minutes Discharge Instructions DIET: Follow Instructions for: Heart Healthy Diet, Diabetic Diet Activities you can perform: Regular-No Restrictions Follow up Referrals: Cardiology Gastroenterology Oncology PCP Follow-up New Medications: Metoprolol Tartrate (Metoprolol Tartrate) 25 Mg Tab 25 MG PO DAILY cad #30 Ref 0 TAB Wheat Dextrin Powder (Benefiber Powder) 1 Scoop Container 1 SCOOP PO DAILY Mix in water or juice Constipation #1 Ref 0 CONTAINER Continued Medications: Atorvastatin (Lipitor) 80 Mg Tab 80 MG PO HS Cholesterol Management #30 Ref 0 TAB Glimepiride (Glimepiride) 1 Mg Tab 1 MG PO DAILY Take with breakfast or first main meal Blood Sugar Management #30 Ref 0 TAB Losartan (Losartan) 25 Mg Tab 25 MG PO BID Blood Pressure Management #30 Ref 0 TAB Metformin (Metformin) 500 Mg Tab 500 MG PO BID With meals Blood Sugar Management #60 Ref 0 TAB Discontinued Medications: Metoprolol Tartrate (Metoprolol Tartrate) 50 Mg Tab 50 MG PO BID #60 Ref 0 TAB Pepito Phillips MD Nov 21, 2016 18:02
== END 2016-11-21 19:40 | disposition home or self-care (01) | DRG 281 ==
LOC: NEPA 09:12 → NEDA 11:25 → HCIN 12:34
PROVIDERS: ADMIT Internal Medicine; ATTEND Internal Medicine
PROC: 30233N1 Transfusion of Nonautologous Red Blood Cells into Peripheral Vein, Percutaneous Approach (ICD-10-PCS; 2016-11-19)
PROC: 0DB38ZX Excision of Lower Esophagus, Via Natural or Artificial Opening Endoscopic, Diagnostic (ICD-10-PCS; 2016-11-20)
PROC: 0DB68ZX Excision of Stomach, Via Natural or Artificial Opening Endoscopic, Diagnostic (ICD-10-PCS; 2016-11-20)
PROC: 0DB98ZX Excision of Duodenum, Via Natural or Artificial Opening Endoscopic, Diagnostic (ICD-10-PCS; 2016-11-20)
PROC: 0DJD8ZZ Inspection of Lower Intestinal Tract, Via Natural or Artificial Opening Endoscopic (ICD-10-PCS; principal; 2016-11-21 08:20)
DX: I21.4 Non-ST elevation (NSTEMI) myocardial infarction (principal); K92.2 Gastrointestinal hemorrhage, unspecified; D50.0 Iron deficiency anemia secondary to blood loss (chronic); K20.9 Esophagitis, unspecified; I10 Essential (primary) hypertension; K29.80 Duodenitis without bleeding; K29.70 Gastritis, unspecified, without bleeding; K57.90 Diverticulosis of intestine, part unspecified, without perforation or abscess without bleeding; E11.9 Type 2 diabetes mellitus without complications; K64.8 Other hemorrhoids; K64.4 Residual hemorrhoidal skin tags; K21.9 Gastro-esophageal reflux disease without esophagitis; E78.5 Hyperlipidemia, unspecified; I25.10 Atherosclerotic heart disease of native coronary artery without angina pectoris; I25.2 Old myocardial infarction; K46.9 Unspecified abdominal hernia without obstruction or gangrene; N40.0 Benign prostatic hyperplasia without lower urinary tract symptoms; Z86.010 Personal history of colon polyps; Z95.5 Presence of coronary angioplasty implant and graft; Z87.891 Personal history of nicotine dependence; Z79.82 Long term (current) use of aspirin
CPT/HCPCS: 36430; 71010; 74177; 80048; 80061; 80076; 82550; 82552; 82948; 83690; 83735; 83880; 84484; 85014; 85018; 85025; 85610; 85730; 86850; 86900; 86901; 86920; 88305; 88312; 93005; 93306; 96374; C9113; J1815; J1940; J7030; J7050; P9016; Q9963; Q9967

== ENCOUNTER 2016-12-12 09:03 | Inpatient (IN) | payer OTHER, MEDICARE ==
[2016-12-12] VITALS (16 sets, daily range): BP systolic 114–189; BP diastolic 53–85; PULSE 72–123; RESP 14–24; TEMP 97.6–98; O2SAT 92–100
[~2016-12-12] VITALS: Ht 188 cm; Wt 93.8 kg
[~2016-12-12 09:03] MED LIST: BENEPOW8 PO; GLIM1TAB PO; LIPI80TA PO; LOSA25TA PO; METF500T PO; METO25TA3 PO
[2016-12-12 09:09] LABS: MEAN CORPUSCULAR HGB CONC 29.2 % (32.0-36.0)
[2016-12-12] MEDS ORDERED: SODIUM CHLORIDE 0.9% FLUSH 5 ML FLUSH IVF PRN (09:15)
[2016-12-12] MEDS ORDERED: FUROSEMIDE 100 MG/10 ML VIAL IV PUSH ONE (09:30)
[2016-12-12] MEDS ORDERED: PIPERACIL-TAZO 3.375 GM PREMIX 50 ML IV ONE (09:30)
[2016-12-12] MEDS ORDERED: VANCOMYCIN INJ 1,000 MG in SODIUM CHLOR 0.9% 250 ML INJ 250 ML IV ONE (09:30)
[2016-12-12 09:36] LABS: AUTOMATED NEUTROPHIL # 8.5 TH/MM3 (1.8-7.7); BASOPHIL # 0.1 TH/MM3 (0-0.2); BASOPHIL % 0.9 % (0.0-2.0); EOSINOPHIL # 1.3 TH/MM3 (0-0.4); EOSINOPHIL % 7.9 % (0.0-4.0); HEMATOCRIT 30.3 % (39.0-51.0); LYMPH % 31.2 % (9.0-44.0); LYMPHOCYTE # 5.1 TH/MM3 (1.0-4.8); MEAN CELL VOLUME 73.2 FL (80.0-100.0); MEAN CORPUSCULAR HEMOGLOBIN 21.4 PG (27.0-34.0); MONO % 7.8 % (0.0-8.0); NEUT % 52.2 % (16.0-70.0); PLATELET COUNT 455 TH/MM3 (150-450); RED BLOOD COUNT 4.14 MIL/MM3 (4.50-5.90); RED CELL DISTRIBUTION WIDTH 18.2 % (11.6-17.2); WHITE BLOOD COUNT 16.2 TH/MM3 (4.0-11.0)
[2016-12-12 09:37] LABS: HEMO FLAGS AUTO DIFF
[2016-12-12 09:43] LABS: APTT (PATIENT) 21.3 SEC (24.3-30.1); PROTHROMBIN TIME - PATIENT 10.7 SEC (9.8-11.6)
[2016-12-12 09:48] LABS: BLOOD GAS CARBOXYHEMOGLOBIN 2.2 % (0-4); BLOOD GAS HCO3 24 mmol/L (22-26); BLOOD GAS METHEMOGLOBIN 0.9 % (0-2); BLOOD GAS O2 HGB SATURATION 97 % (90-100); BLOOD GAS OXYGEN CONTENT 13.2 Vol % (12.0-20.0); BLOOD GAS PCO2 48 mmHg (38-42); BLOOD GAS PO2 472 mmHG (61-120); BLOOD GAS TOTAL HGB 8.7 G/DL (12.0-16.0); CRITICAL VALUE NO; TEMP CORR TO 98.6
[2016-12-12 09:49] LABS: DRAW SITE LT RADIAL; FIO2 100 %; NUMBER OF ARTERIAL PUNCTURES 1; OXYGEN DEVICE BIPAP; STAT YES; ULNAR PULSE Y; VENT SETTINGS IPAP 10/ EPAP 5
[2016-12-12 09:58] LABS: ANION GAP 9 MEQ/L (5-15); BICARBONATE 26.4 MEQ/L (21.0-32.0); BLOOD UREA NITROGEN 18 MG/DL (7-18); CHLORIDE 98 MEQ/L (98-107); GLOMERULAR FILTRATION RATE 53 ML/MIN (>89); MAGNESIUM 2.3 MG/DL (1.5-2.5); POTASSIUM 3.9 MEQ/L (3.5-5.1); SODIUM (NA) 133 MEQ/L (136-145)
--- NOTE | 2016-12-12 10:00 | RADRPT ---
EXAM DATE/TIME: 12/12/2016 09:26 [facility] COMPARISON: CHEST SINGLE AP, November 19, 2016, 9:37. INDICATIONS : Chest pain and short of breath today MEDICAL HISTORY : Myocardial infarction. SURGICAL HISTORY : Coronary artery stent. ENCOUNTER: Initial ACUITY: 1 day PAIN SCORE: Non-responsive. LOCATION: Bilateral chest FINDINGS: A single AP portable erect view of the chest was obtained and demonstrates new bilateral interstitial and alveolar opacities in the perihilar regions and both lung bases. The left costophrenic angle is now blunted. The heart size is at the upper limits of normal. The bony thorax remains intact and ther e are overlying electrocardiogram leads. CONCLUSION: New bilateral pulmonary infiltrates and small left effusion. Findings are most characteristic of adelaida estive heart failure. Brandan Caro MD on December 12, 2016 at 9:54 Board Certified Radiologist. This report was verified electronically.
[2016-12-12] MEDS ORDERED: ATOR40TA16 PO (10:10)
[2016-12-12] MEDS ORDERED: METO50TA PO (10:10)
[2016-12-12 10:12] LABS: DIGOXIN LESS THAN 0.1 NG/ML (0.8-2.0)
[2016-12-12 10:14] LABS: CREATINE KINASE 70 U/L (39-308)
[2016-12-12] MEDS ORDERED: ASPI81CH CHEW (10:20)
[2016-12-12] MEDS ORDERED: BENEPOW8 PO (10:20)
[2016-12-12] MEDS ORDERED: VITA100018 PO (10:20)
[2016-12-12] MEDS ORDERED: MULT-207 PO (10:20)
[2016-12-12 10:28] LABS: SCAN/DIFF AUTO DIFF CONFIRMED
--- NOTE | 2016-12-12 10:29 | PD ---
HPI Chief Complaint: Respiratory Distress Time Seen by Provider: 09:07 Travel History International Travel<30 days: No Contact w/Intl Traveler<30days: No Traveled to known affect area: No History of Present Illness HPI Patient 76-year-old male presents emergency Department with acute onset shortness of breath. Per EMS he was sat 92 on room air on their first arrival and by the time they had amount of the embolus he was satting 80% on room air. He was placed on CPAP prior to arrival. Patient states she's type symptoms never happened to him before. Denies any fever states she's had cough with production of sputum but he swallows it and does not know what color it is. Patient does have significant history of admitted for non-elevation VT in October of this year at which time he was also anemic to hemoglobin of 7.3. He was managed medically did have a colonoscopy which was negative and was ultimately discharged home. He had an EF of 50-55% at that time. He did have some mild elevations of pulmonary artery pressures. Denies history of COPD or CHF. PFSH Past Medical History Autoimmune Disease: No Blood Disorders: No Cancer: No Cardiac Catheterization: Yes Cardiovascular Problems: Yes Diabetes: Yes Patient Takes Glucophage: Yes Endocrine: No Gastrointestinal Disorders: No Genitourinary: No Hypertension: Yes Musculoskeletal: No Neurologic: No Psychiatric: No Respiratory: Yes Myocardial Infarction: Yes Past Surgical History Abdominal Surgery: Yes (HERNIA REPAIR) Genitourinary Surgery: Yes (CYST REMOVED FROM KIDNEY) Other Surgery: Yes Social History Alcohol Use: No Tobacco Use: No Substance Use: No Allergies-Medications (Allergen,Severity, Reaction): Coded Allergies: No Known Allergies (Verified Allergy, Severe, 12/26/04) Uncoded Allergies: AKA (Allergy, Mild, 12/26/04) Reported Meds & Prescriptions Reported Meds & Active Scripts Active Reported One Daily (Multiple Vitamin) 1 Tab 1 Tab PO DAILY Vitamin D3 (Cholecalciferol) 1,000 Unit Tab 1,000 Units PO BID Aspirin 81 Mg Chew 162 Mg CHEW HS Benefiber Powder (Wheat Dextrin Powder) 1 Scoop Container 1 Scoop PO DAILY PRN Mix in water or juice Metoprolol Tartrate 50 Mg Tab 50 Mg PO BID Atorvastatin (Atorvastatin Calcium) 40 Mg Tab 40 Mg PO HS Losartan (Losartan Potassium) 25 Mg Tab 25 Mg PO BID Glimepiride 1 Mg Tab 1 Mg PO DAILY Take with breakfast or first main meal Metformin (Metformin HCl) 500 Mg Tab 500 Mg PO BID With meals Review of Systems Except as stated in HPI: all other systems reviewed are Neg Physical Exam Narrative GENERAL: Well-developed, well-nourished, obvious respiratory distress. SKIN: Warm and dry. HEAD: Atraumatic. Normocephalic. EYES: Pupils equal and round. No scleral icterus. No injection or drainage. ENT: No nasal bleeding or discharge. Mucous membranes pink and moist. NECK: Trachea midline. No JVD. CARDIOVASCULAR: Regular rate and rhythm. No murmur appreciated. RESPIRATORY: No accessory muscle use. Diffuse rales. Breath sounds equal bilaterally. Intercostal and super clavicular retractions. Tripod position, leaning forward. GASTROINTESTINAL: Abdomen soft, non-tender, nondistended. Hepatic and splenic margins not palpable. MUSCULOSKELETAL: No obvious deformities. No clubbing. No cyanosis. No edema. NEUROLOGICAL: Awake and alert. No obvious cranial nerve deficits. Motor grossly within normal limits. Normal speech. PSYCHIATRIC: Appropriate mood and affect; insight and judgment normal. Data Data Last Documented VS Vital Signs Date Time Temp Pulse Resp B/P Pulse Ox O2 Delivery O2 Flow Rate FiO2 12/12/16 10:00 100 22 123/58 100 BiPAP 12/12/16 09:24 100 12/12/16 09:03 97.6 Orders Electrocardiogram (12/12/16 09:07) Basic Metabolic Panel (Bmp) (12/12/16 09:07) B-Type Natriuretic Peptide (12/12/16 09:07) Ckmb (Isoenzyme) Profile (12/12/16 09:07) Complete Blood Count With Diff (12/12/16 09:07) Digoxin (12/12/16 09:07) Magnesium (Mg) (12/12/16 09:07) Prothrombin Time / Inr (Pt) (12/12/16 09:07) Act Partial Throm Time (Ptt) (12/12/16 09:07) Troponin I (12/12/16 09:07) Chest, Single Ap (12/12/16 09:07) Ecg Monitoring (12/12/16 09:07) Bilateral Bp Monitoring (12/12/16 09:07) Iv Access Insert/Monitor (12/12/16 09:07) Oximetry (12/12/16 09:07) Oxygen Administration (12/12/16 09:07) Sodium Chloride 0.9% Flush (Ns Flush) (12/12/16 09:15) Arterial Blood Gas (Abg) (12/12/16 ) Blood Culture (12/12/16 09:10) Lactic Acid (12/12/16 09:10) Furosemide Inj (Lasix Inj) (12/12/16 09:30) Vancomycin Inj (Vancomycin Inj) (12/12/16 09:30) Piperacil-Tazo 3.375 Gm Premix (Zosyn 3. (12/12/16 09:30) Electrocardiogram (12/12/16 ) Type And Screen (12/12/16 09:38) Admit Order (Ed Use Only) (12/12/16 ) Vital Signs (Adult) TOÑA.Q4H (12/12/16 10:38) Diet Heart Healthy (12/12/16 Lunch) Ondansetron Inj (Zofran Inj) (12/12/16 10:45) Resp Oxygen Truong C Titrat 1-4 L (12/12/16 ) Intake + Output 06,14,22 (12/12/16 10:38) Basic Metabolic Panel (Bmp) (12/13/16 06:00) Troponin I (12/12/16 15:00) Troponin I (12/12/16 21:00) Complete Blood Count With Diff (12/13/16 06:00) Labs Laboratory Tests Test 12/12/16 12/12/16 09:10 09:45 White Blood Count 16.2 TH/MM3 Red Blood Count 4.14 MIL/MM3 Hemoglobin 8.9 GM/DL Hematocrit 30.3 % Mean Corpuscular Volume 73.2 FL Mean Corpuscular Hemoglobin 21.4 PG Mean Corpuscular Hemoglobin 29.2 % Concent Red Cell Distribution Width 18.2 % Platelet Count 455 TH/MM3 Mean Platelet Volume 8.2 FL Neutrophils (%) (Auto) 52.2 % Lymphocytes (%) (Auto) 31.2 % Monocytes (%) (Auto) 7.8 % Eosinophils (%) (Auto) 7.9 % Basophils (%) (Auto) 0.9 % Neutrophils # (Auto) 8.5 TH/MM3 Lymphocytes # (Auto) 5.1 TH/MM3 Monocytes # (Auto) 1.3 TH/MM3 Eosinophils # (Auto) 1.3 TH/MM3 Basophils # (Auto) 0.1 TH/MM3 CBC Comment AUTO DIFF Differential Comment AUTO DIFF CONFIRMED Prothrombin Time 10.7 SEC Prothromb Time International 1.0 RATIO Ratio Activated Partial 21.3 SEC Thromboplast Time Sodium Level 133 MEQ/L Potassium Level 3.9 MEQ/L Chloride Level 98 MEQ/L Carbon Dioxide Level 26.4 MEQ/L Anion Gap 9 MEQ/L Blood Urea Nitrogen 18 MG/DL Creatinine 1.32 MG/DL Estimat Glomerular Filtration 53 ML/MIN Rate Random Glucose 252 MG/DL Lactic Acid Level 2.4 mmol/L Calcium Level 8.8 MG/DL Magnesium Level 2.3 MG/DL Total Creatine Kinase 70 U/L Troponin I 0.20 NG/ML B-Type Natriuretic Peptide 278 PG/ML Digoxin Level LESS THAN 0.1 NG/ML Blood Gas Puncture Site LT RADIAL Blood Gas Patient Temperature 98.6 Blood Gas HCO3 24 mmol/L Blood Gas Base Excess -1.0 mmol/L Blood Gas Oxygen Saturation 97 % Arterial Blood pH 7.33 Arterial Blood Partial 48 mmHg Pressure CO2 Arterial Blood Partial 472 mmHG Pressure O2 Arterial Blood Oxygen Content 13.2 Vol % Arterial Blood 2.2 % Carboxyhemoglobin Arterial Blood Methemoglobin 0.9 % Blood Gas Hemoglobin 8.7 G/DL Oxygen Delivery Device BIPAP Blood Gas Ventilator Setting IPAP 10/ EPAP 5 Blood Gas Inspired Oxygen 100 % [facility] Medical Decision Making Medical Screen Exam Complete: Yes Emergency Medical Condition: Yes Differential Diagnosis Acute pulmonary edema, hypertensive emergency, ACS, VT, CHF, COPD, pneumonia. Narrative Course Patient was roomed in the emergency department, he is significant short of breath on CPAP on arrival. Transferred to the bed and immediately changed to BiPAP, over the next 10-15 minutes he was doing significantly better and saturations remained at 100%. He was tachycardic on arrival to the 130s and over the next hour his heart rate actually normalized. ABG is reassuring showing only minimal respiratory acidosis. Chest x-ray does show signs consistent with acute pulmonary edema. Initially hypertensive in the 180s 190s systolic without intervention other than BiPAP his blood pressure normalized to 120-130's systolic. He was given Lasix 80 mg IV. Continued on BiPAP. The remainder of his labs do show an elevated troponin of 0.20. On his last admission in October was 0.25. Creatinine elevated to 1.4. White blood cell count of 16,000. Patient does meet SIRS criteria and is possible is from pneumonia and he was given vancomycin and Zosyn and blood cultures were drawn and sent. A lactic acid of 2.4. Additional fluid bolus was kept to a minimum secondary to acute pulmonary edema. Patient overall emergency department is improving significantly. We'll discuss with [facility], and will consider starting heparin drip given a troponin of 0.20. The patient does have a history of anemia but has a recent colonoscopy which is negative. Patient was discussed with and we agree at this point to hold heparin given how well he is doing and that his troponin falls in the equivocal range. Patient does follow with Dr. Oliveira states he just saw him and states his EKG has been unchanged for several years. His EKG is reassuring here. We'll go to the ICU, patient has improved significantly during ER course. Critical Care Narrative Aggregate critical care time was 35 minutes. Time to perform other separately billable procedures was not included in the critical care time. My time did not include minutes spent treating any other patients simultaneously or on activities that did not directly contribute to the patient's treatment. The services I provided to this patient were to treat and/or prevent clinically significant deterioration that could result in: , Disability, Organ failure. I provided critical care services requiring my management, as noted below: Chart data review, documentation time, medication orders and management, vital sign assessments/reviewing monitor data, ordering and reviewing lab tests, ordering and interpreting/reviewing x-rays and diagnostic studies, care of the patient and discussion of the patient with the admitting physicians. Diagnosis Primary Impression: Acute pulmonary edema Additional Impressions: Acute respiratory failure with hypoxia Elevated troponin Anemia Admitting Information Admitting Physician Requests: Admit Condition: Stable Doug Franco MD Dec 12, 2016 10:29
[2016-12-12] MEDS ORDERED: ONDANSETRON HCL 4 MG/2 ML VIAL IV PUSH PRN (10:45)
--- NOTE | 2016-12-12 11:42 | HHI.HP ---
[facility] Primary Care Physician Chaka Greenwood MD Admission Diagnosis Hypoxic Respiratory Failure, Acute Pulmonary Edema. Diagnoses: (1) Acute respiratory failure with hypoxia Diagnosis: Principal (2) Acute pulmonary edema Diagnosis: Principal Chief Complaint: shortness of breath Travel History International Travel<30 Days: No Contact w/Intl Traveler <30 Da: No Traveled to Known Affected Are: No History of Present Illness patient is a 76 y/o male , known to me from previous admission, who was just recently evaluated by GI for anemia- presented to ER with shortness of breath. he says that his sob started earlier this morning. he denies any chest pain, fever, chills although had mild dry cough. he denies any recent weight gain or worsening pedal edema. he received IV diuretic in ER and placed on BiPaP. at the time of my evaluation he was feeling better with some improvement of his sob. Review of Systems Constitutional: DENIES: Fever, Weight loss, Chills, Night Sweats Eyes: DENIES: Blurred vision, Diplopia, Vision loss, Double Vision Ears, nose, mouth, throat: DENIES: Tinnitus, Vertigo, Throat pain, Epistaxis Respiratory: COMPLAINS OF: Cough, Shortness of breath, DENIES: Apneas, Snoring , Wheezing, Hemoptysis, Sputum production Cardiovascular: DENIES: Chest pain, Palpitations, Syncope, Dyspnea on Exertion , PND, Lower Extremity Edema, Orthopnea, Claudication Gastrointestinal: DENIES: Abdominal pain, Black stools, Bloody stools, Constipation, Diarrhea, Nausea, Vomiting, Difficulty Swallowing, Anorexia Genitourinary: DENIES: Urinary frequency, Urgency, Hematuria, Dysuria Musculoskeletal: DENIES: Joint pain, Muscle aches, Stiffness, Joint Swelling Integumentary: DENIES: Rash Neurologic: DENIES: Abnormal gait, Headache, Localized weakness, Paresthesias, Seizures, Speech Problems, Tremor, Poor Balance Psychiatric: DENIES: Anxiety, Confusion, Mood changes, Depression, Hallucinations, Agitation, Suicidal Ideation, Homicidal Ideation, Delusions Past Family Social History Past Medical History CAD- s/p stent anemia diabetes mellitus dyslipidemia hypertension Past Surgical History cardiac stent placement. Reported Medications One Daily (Multiple Vitamin) 1 Tab 1 Tab PO DAILY Vitamin D3 (Cholecalciferol) 1,000 Unit Tab 1,000 Units PO BID Aspirin 81 Mg Chew 162 Mg CHEW HS Benefiber Powder (Wheat Dextrin Powder) 1 Scoop Container 1 Scoop PO DAILY PRN Mix in water or juice Metoprolol Tartrate 50 Mg Tab 50 Mg PO BID Atorvastatin (Atorvastatin Calcium) 40 Mg Tab 40 Mg PO HS Losartan (Losartan Potassium) 25 Mg Tab 25 Mg PO BID Glimepiride 1 Mg Tab 1 Mg PO DAILY Take with breakfast or first main meal Metformin (Metformin HCl) 500 Mg Tab 500 Mg PO BID With meals Allergies: Coded Allergies: No Known Allergies (Verified Allergy, Severe, 12/26/04) Uncoded Allergies: AKA (Allergy, Mild, 12/26/04) Active Ordered Medications Current Medications IV Flush (NS Flush) 2 ml UNSCH PRN IVF FLUSH AFTER USING IV ACCESS; Start 12/12 at 09:15 Furosemide 80 mg 80 mg ONCE ONCE IV PUSH Last administered on 12/12/16 09:39 ; Start 12/12/16 at 09:30; Stop 12/12/16 at 09:31; Status DC Vancomycin HCl 1000 mg/Sodium Chloride 250 ml @ 250 mls/hr ONCE ONCE IV Last administered on 12/12/16 10:23; Start 12/12/16 at 09:30; Stop 12/12/16 at 10:29 ; Status DC Piperacillin Sod/ Tazobactam Sod (Zosyn 3.375 Gm Premix) 50 ml @ 100 mls/hr ONCE ONCE IV Last administered on 12/12/16 09:39; Start 12/12/16 at 09:30; Stop 12/12/16 at 09:59; Status DC Ondansetron HCl (Zofran Inj) 4 mg Q8H PRN IV PUSH NAUSEA; Start 12/12/16 at 10: 45 Social History no smoking or drinking. Physical Exam Vital Signs Vital Signs Date Time Temp Pulse Resp B/P Pulse Ox O2 Delivery O2 Flow Rate FiO2 12/12/16 10:00 100 22 123/58 100 BiPAP 12/12/16 09:24 107 24 130/77 100 BiPAP 100 12/12/16 09:11 100 BiPAP 100 12/12/16 09:11 100 100 12/12/16 09:11 100 BiPAP 100 12/12/16 09:03 114 24 100 BiPAP 100 12/12/16 09:03 97.6 123 24 189/85 99 Physical Exam GENERAL:on BiPaP SKIN: No rashes, ecchymoses or lesions. Cool and dry. HEAD: Atraumatic. Normocephalic. No temporal or scalp tenderness. EYES: Pupils equal round and reactive. Extraocular motions intact. No scleral icterus. No injection or drainage. ENT: Nose without bleeding, purulent drainage or septal hematoma. Throat without erythema, tonsillar hypertrophy or exudate. Uvula midline. Airway patent. NECK: Trachea midline. No JVD or lymphadenopathy. Supple, nontender, no meningeal signs. CARDIOVASCULAR: Regular rate and rhythm without murmurs, gallops, or rubs. RESPIRATORY: Clear to auscultation. Breath sounds equal bilaterally. No wheezes , rales, or rhonchi. GASTROINTESTINAL: Abdomen soft, non-tender, nondistended. No hepato-splenomegaly , or palpable masses. No guarding. MUSCULOSKELETAL: Extremities without clubbing, cyanosis, or edema. No joint tenderness, effusion, or edema noted. No calf tenderness. Negative Homans sign bilaterally. NEUROLOGICAL: Awake and alert. Cranial nerves II through XII intact. Motor and sensory grossly within normal limits. Five out of 5 muscle strength in all muscle groups. Normal speech. Laboratory Laboratory Tests Test 12/12/16 12/12/16 12/12/16 09:10 09:45 09:50 White Blood Count 16.2 Red Blood Count 4.14 Hemoglobin 8.9 Hematocrit 30.3 Mean Corpuscular Volume 73.2 Mean Corpuscular Hemoglobin 21.4 Mean Corpuscular Hemoglobin 29.2 Concent Red Cell Distribution Width 18.2 Platelet Count 455 Mean Platelet Volume 8.2 Neutrophils (%) (Auto) 52.2 Lymphocytes (%) (Auto) 31.2 Monocytes (%) (Auto) 7.8 Eosinophils (%) (Auto) 7.9 Basophils (%) (Auto) 0.9 Neutrophils # (Auto) 8.5 Lymphocytes # (Auto) 5.1 Monocytes # (Auto) 1.3 Eosinophils # (Auto) 1.3 Basophils # (Auto) 0.1 CBC Comment AUTO DIFF Differential Comment AUTO DIFF CONFIRMED Prothrombin Time 10.7 Prothromb Time International 1.0 Ratio Activated Partial 21.3 Thromboplast Time Sodium Level 133 Potassium Level 3.9 Chloride Level 98 Carbon Dioxide Level 26.4 Anion Gap 9 Blood Urea Nitrogen 18 Creatinine 1.32 Estimat Glomerular Filtration 53 Rate Random Glucose 252 Lactic Acid Level 2.4 Calcium Level 8.8 Magnesium Level 2.3 Total Creatine Kinase 70 Troponin I 0.20 B-Type Natriuretic Peptide 278 Digoxin Level LESS THAN 0.1 Blood Gas Puncture Site LT RADIAL Blood Gas Patient Temperature 98.6 Blood Gas HCO3 24 Blood Gas Base Excess -1.0 Blood Gas Oxygen Saturation 97 Arterial Blood pH 7.33 Arterial Blood Partial 48 Pressure CO2 Arterial Blood Partial 472 Pressure O2 Arterial Blood Oxygen Content 13.2 Arterial Blood 2.2 Carboxyhemoglobin Arterial Blood Methemoglobin 0.9 Blood Gas Hemoglobin 8.7 Oxygen Delivery Device BIPAP Blood Gas Ventilator Setting IPAP 10/ EPAP 5 Blood Gas Inspired Oxygen 100 Blood Type O NEGATIVE Antibody Screen NEGATIVE Date/Time Procedure Status Source Growth 12/12/16 09:10 Aerobic Blood Culture Received Blood Peripheral Pending 12/12/16 09:10 Anaerobic Blood Culture Received Blood Peripheral Pending Result Diagram: 12/12/16 0910 12/12/16 0910 Imaging Last Impressions Chest X-Ray 12/12/16906 Signed Impressions: Service Date/Time: Monday, December 12, 2016 09:26 - CONCLUSION: New bilateral pulmonary infiltrates and small left effusion. Findings are most characteristic of congestive heart failure. Brandan Caro MD EKG; sinus tachycardia Assessment and Plan Assessment and Plan A/P - acute hypoxemic respiratory failure to acute on chronic diastolic CHF continue with diuretics- monitor I/O- keep on oxygen to keep O2 sat > 90%- neb treatment as needed- will consult cardiology -mildly elevated troponin likely due to fluid overload- will check the trend- continue aspirin and BB- cardiology consult as noted above -diabetes mellitus; hold oral hypoglycemics- accu-check with SSI -hypertension/ dyslipidemia; resume home meds -anemia- recently evaluated by GI- will monitor H/H -DVT prophylaxis with SCD's Discussed Condition With ER physician and the patient. Physician Certification 2 Midnight Certification Type: Admission for Inpatient Services Order for Inpatient Services The services are ordered in accordance with Medicare regulations or non- Medicare payer requirements, as applicable. In the case of services not specified as inpatient-only, they are appropriately provided as inpatient services in accordance with the 2-midnight benchmark. Estimated LOS (days): 2 days is the estimated time the patient will need to remain in the hospital, assuming treatment plan goals are met and no additional complications. Post-Hospital Plan: Home Pepito Phillips MD Dec 12, 2016 11:42
[2016-12-12] MEDS ORDERED: DEXTROSE 50% IN WATER 50 ML VIAL(D50) IV PUSH PRN (11:45)
[2016-12-12] MEDS ORDERED: GLUCAGON 1 MG/ML VIAL OTHER PRN (11:45)
[2016-12-12] MEDS: POTASSIUM CHLORIDE 20 MEQ CONTROLLED RELEASE TAB PO SCH (12:20)
--- NOTE | 2016-12-12 16:49 | EKG ---
Date Performed: 12/12/2016 Time Performed: 09:10:56 PTAGE: 76 years EKG: SINUS TACHYCARDIA POSSIBLE RIGHT VENTRICULAR CONDUCTION DELAY POSSIBLE INFERIOR MYOCARDIAL INFARCTION ANTEROLATERAL MYOCARDIAL INFARCTION ACUTE [place] PREVIOUS TRACING : 11/19/2016 09.30 Largely unchanged from prior tracing, but cannot rule out acute ischemia. Clinical correlation recommended. DOCTOR: Goyo Young Interpretating Date/Time 12/12/2016 16:48:13
--- NOTE | 2016-12-12 16:55 | EKG ---
Date Performed: 12/12/2016 Time Performed: 10:01:45 PTAGE: 76 years EKG: SINUS TACHYCARDIA POSSIBLE RIGHT VENTRICULAR CONDUCTION DELAY ANTEROLATERAL MYOCARDIAL INFA RCTION Compared to prior tracing no significant change ABNORMAL ECG PREVIOUS TRACING : 12/12/2016 09.10 DOCTOR: Goyo Young Interpretating Date/Time 12/12/2016 16:53:21
[2016-12-12] MEDS: INSULIN ASPART SUPPLEMENTAL SCALE SQ SCH ×2 (17:35→20:55)
[2016-12-12] MEDS: METOPROLOL TARTRATE 50 MG TAB PO SCH (20:54)
[2016-12-12] MEDS: ATORVASTATIN 40 MG TAB PO SCH (20:55)
[2016-12-12] MEDS: ASPIRIN 81 MG CHEW TAB CHEW SCH (20:55)
[2016-12-12] MEDS ORDERED: LOSARTAN 25 MG TAB PO SCH (21:00)
--- NOTE | 2016-12-12 23:27 | MB ---
cc: REGINALDO LOYA DO DATE OF CONSULTATION 12/12/16 REASON FOR CONSULTATION Shortness of breath/ elevated troponin. HISTORY OF PRESENT ILLNESS Dwight Brown is a pleasant 76-year-old male who presented to [facility] emergency room on December 12, 2016 due to shortness of breath. He states that he was sleeping at home. He woke up and appeared to be short of breath. He denies any chest pain during the events. On arrival to the emergency room, he was found to have a heart rate of 114, blood pressure of 189/85. At that time he was placed on BiPap. He received IV diuretics while in the emergency room. At the time of me seeing him he says the shortness of breath has greatly improved and no longer is on BiPap. PAST MEDICAL HISTORY 1. Coronary artery disease with a history of myocardial infarction (2004) 2. Colon polyps. 3. BPH. 4. Pilonidal cyst 5. Gastroesophageal reflux disease 6. Recent GI bleed with symptomatic anemia. PAST SURGICAL HISTORY 1. Colonoscopy (November 21, 2016) showing diverticulosis and internal and external hemorrhoids. 2. Cardiac catheterization (December 27, 2004) LAD with moderate 75% mid-lesion and then a 95% mid to distal lesion. A left circumflex is nondominant and has a long 75% narrowing. The RCA is dominant with diffuse mild to moderate irregularities. Intervention of the [id number] LAD with a Cypher stent (2.5 x 13). The proximal to mid LAD with a bifurcation intervention of the LAD and diagonal with a Cypher stent (2.5 x 13) in the diagonal and a Cypher stent (12/24/2022) in the LAD. 3. I&D of a pilonidal cyst 4. Right carotid endarterectomy. ALLERGIES NO KNOWN DRUG ALLERGIES. MEDICATIONS 1. Aspirin 81 mg daily 2. Losartan 25 mg b.i.d. 3. Metoprolol tartrate 50 mg b.i.d. 4. Metformin 500 mg b.i.d. 5. Lipitor 40 mg every night. 6. Glimepiride 1 mg daily. FAMILY HISTORY Denies premature coronary artery disease or sudden cardiac within the family. SOCIAL HISTORY Denies tobacco, alcohol or drugs. REVIEW OF SYSTEMS 14 systems were reviewed including osteopathic. Pertinent positives and negatives as above, otherwise negative. PHYSICAL EXAMINATION VITAL SIGNS: Temperature 98.0, heart rate 72, blood pressure 114/55, respirations 20, pulse ox 99% on 5 liters. GENERAL: The patient appears well in no acute distress, alert, awake and oriented x3. HEENT: Extraocular muscles intact. Mucous membranes moist. NECK: Supple. No JVD at 45 degrees. No carotid bruits heard bilaterally. Carotid upstroke is brisk in nature. HEART: Regular rate and rhythm. Positive first and second heart sounds with no murmurs, gallops or rubs. PMI is difficult to ascertain. LUNGS: Decreased breath sounds at bilateral bases with minimal rales. ABDOMEN: Soft, nontender, nondistended. No organomegaly noted. EXTREMITIES: No clubbing, cyanosis or edema. Femoral and distal pulses intact bilaterally. NEUROLOGIC: No focal deficits. SKIN: Warm, dry and intact. OSTEOPATHIC: No kyphoscoliosis, lordosis or paraspinal tender points. LABORATORY FINDINGS White blood cells 16.2, hemoglobin 8.9, hematocrit 30.3, platelets 455. Potassium 3.9, BUN 18, creatinine 1.32, lactic acid 2.4. Troponin 0.26, total creatinine kinase 70. BNP 278. CARDIOLOGY STUDIES Electrocardiogram (December 12, 2016 at 10:01) sinus tachycardia, incomplete right bundle branch block, possible old anterolateral myocardial infarction. IMPRESSION 1. Acute congestive heart failure. 2. Accelerated hypertension 3. Mild elevation of troponin which may be type 1 versus type 2 in nature. 4. Acute kidney injury. 5. Lactic acidosis. 6. History of coronary artery disease as above. 7. Anemia with recent GI bleed. 8. Leukocytosis. RECOMMENDATIONS 1. Mr. Brown came in with accelerated hypertension and shortness of breath and has since been diuresed. We will continue to diurese him. 2. He does have a mildly elevated troponin which may be due to his accelerated hypertension and fluid overload state. 3. He may need an ischemic workup at some point whether inpatient or outpatient as before. My only concern is with his recent GI bleed and anemia. This will be further discussed with him throughout the hospital course. 4. We will continue him on his aspirin, metoprolol and losartan. 5. Further recommendations will be made based on hospital course. Thank you for allowing me to see Dwight Brown. If you have any questions, please do not hesitate to call. Reginaldo IKRK /10:35 PM /11:09 PM
[2016-12-13] VITALS (14 sets, daily range): BP systolic 94–123; BP diastolic 50–57; PULSE 67–92; RESP 14–22; TEMP 97.6–98.2; O2SAT 92–98
[2016-12-13] MEDS ORDERED: CHLORHEXIDINE GLUCONATE 2 % 1 PACK (2 CLOTHS)(extra cloths) TOP PRN (02:00)
[2016-12-13] MEDS: CHLORHEXIDINE GLUCONATE 2 % 1 PACK (2 CLOTHS)(taper/protocol) TOP SCH (04:00)
[2016-12-13] MEDS: INSULIN ASPART SUPPLEMENTAL SCALE SQ SCH ×4 (06:23→21:00)
[2016-12-13 07:46] LABS: AUTOMATED NEUTROPHIL # 6.8 TH/MM3 (1.8-7.7); BASOPHIL # 0.1 TH/MM3 (0-0.2); BASOPHIL % 0.5 % (0.0-2.0); EOSINOPHIL # 0.5 TH/MM3 (0-0.4); EOSINOPHIL % 4.9 % (0.0-4.0); HEMATOCRIT 22.5 % (39.0-51.0); LYMPH % 21.5 % (9.0-44.0); LYMPHOCYTE # 2.3 TH/MM3 (1.0-4.8); MEAN CELL VOLUME 71.4 FL (80.0-100.0); MEAN CORPUSCULAR HEMOGLOBIN 22.2 PG (27.0-34.0); MEAN CORPUSCULAR HGB CONC 31.1 % (32.0-36.0); MONO % 9.7 % (0.0-8.0); NEUT % 63.4 % (16.0-70.0); PLATELET COUNT 260 TH/MM3 (150-450); RED BLOOD COUNT 3.15 MIL/MM3 (4.50-5.90); RED CELL DISTRIBUTION WIDTH 18.3 % (11.6-17.2); WHITE BLOOD COUNT 10.8 TH/MM3 (4.0-11.0)
[2016-12-13 07:58] LABS: HEMO FLAGS AUTO DIFF
[2016-12-13 08:16] LABS: BICARBONATE 29.7 MEQ/L (21.0-32.0); POTASSIUM 3.8 MEQ/L (3.5-5.1)
--- NOTE | 2016-12-13 08:21 | HHI.PR ---
Subjective Remarks resting comfortably with no distress. sob has much improved. no chest pain. no evidence of active GI bleed. Objective Vitals Vital Signs Date Time Temp Pulse Resp B/P Pulse Ox O2 Delivery O2 Flow Rate FiO2 12/13/16 06:00 73 12/13/16 04:00 75 12/13/16 04:00 98.2 75 20 94/50 97 12/13/16 02:00 72 12/13/16 00:00 97.8 77 22 117/56 98 12/13/16 00:00 77 12/12/16 22:00 72 12/12/16 20:00 98.0 92 20 114/55 96 12/12/16 20:00 92 12/12/16 19:10 99 Nasal Cannula 5.00 12/12/16 18:00 87 12/12/16 16:24 100 Nasal Cannula 5.00 12/12/16 16:00 97.6 91 16 115/59 99 12/12/16 16:00 91 12/12/16 15:10 89 12/12/16 14:00 78 16 116/53 93 Nasal Cannula 5 12/12/16 13:00 86 15 147/62 92 Nasal Cannula 4 12/12/16 12:20 96 Nasal Cannula 5 12/12/16 12:00 75 15 130/63 95 Nasal Cannula 5 12/12/16 11:34 95 35 12/12/16 11:00 92 14 121/62 100 BiPAP 12/12/16 10:00 100 22 123/58 100 BiPAP 12/12/16 09:24 107 24 130/77 100 BiPAP 100 12/12/16 09:11 100 BiPAP 100 12/12/16 09:11 100 100 12/12/16 09:11 100 BiPAP 100 12/12/16 09:03 114 24 100 BiPAP 100 12/12/16 09:03 97.6 123 24 189/85 99 I/O 12/12/16 12/12/16 12/12/16 12/13/16 12/13/16 12/13/16 07:00 15:00 23:00 07:00 15:00 23:00 Intake Total 140 ml 120 ml Output Total 2000 ml 1800 ml 650 ml Balance -2000 ml -1660 ml -530 ml Intake Oral 140 ml 120 ml IV Total 0 ml 0 ml Output Urine Total 2000 ml 1800 ml 650 ml # Voids 2 # Bowel Movements 0 1 Result Diagram: 12/13/16 0610 12/12/16 0910 Imaging Last Impressions Chest X-Ray 12/12/16906 Signed Impressions: Service Date/Time: Monday, December 12, 2016 09:26 - CONCLUSION: New bilateral pulmonary infiltrates and small left effusion. Findings are most characteristic of congestive heart failure. Brandan Caro MD Objective Remarks GENERAL: This is a well-nourished, well-developed patient, in no apparent distress. CARDIOVASCULAR: Regular rate and regular rhythm without murmurs, gallops, or rubs. RESPIRATORY: Clear to auscultation. Breath sounds equal bilaterally. No wheezes , rales, or rhonchi. GASTROINTESTINAL: Abdomen soft, non-tender, nondistended. Normal, active bowel sounds MUSCULOSKELETAL: Extremities without clubbing, cyanosis, or edema. NEURO: Alert & Oriented x4 to person, place, time, situation. Moves all ext x4 Procedures none Medications and IVs Current Medications IV Flush (NS Flush) 2 ml UNSCH PRN IVF FLUSH AFTER USING IV ACCESS; Start 12/12 at 09:15 Furosemide 80 mg 80 mg ONCE ONCE IV PUSH Last administered on 12/12/16 09:39 ; Start 12/12/16 at 09:30; Stop 12/12/16 at 09:31; Status DC Vancomycin HCl 1000 mg/Sodium Chloride 250 ml @ 250 mls/hr ONCE ONCE IV Last administered on 12/12/16 10:23; Start 12/12/16 at 09:30; Stop 12/12/16 at 10:29 ; Status DC Piperacillin Sod/ Tazobactam Sod (Zosyn 3.375 Gm Premix) 50 ml @ 100 mls/hr ONCE ONCE IV Last administered on 12/12/16 09:39; Start 12/12/16 at 09:30; Stop 12/12/16 at 09:59; Status DC Ondansetron HCl (Zofran Inj) 4 mg Q8H PRN IV PUSH NAUSEA; Start 12/12/16 at 10: 45 Furosemide (Lasix Inj) 40 mg DAILY IV PUSH ; Start 12/13/16 at 09:00 Potassium Chloride (KCl) 20 meq DAILY PO Last administered on 12/12/16 12:20; Start 12/12/16 at 12:00 Aspirin (Aspirin Chew) 162 mg HS CHEW Last administered on 12/12/16 20:55; Start 12/12/16 at 21:00 Atorvastatin Calcium (Lipitor) 40 mg HS PO Last administered on 12/12/16 20:55 ; Start 12/12/16 at 21:00 Losartan Potassium (Cozaar) 25 mg BID PO Last administered on 12/12/16 22:03; Start 12/12/16 at 21:00 Metoprolol Tartrate (Lopressor) 50 mg BID PO Last administered on 12/12/16 20: 54; Start 12/12/16 at 21:00 Dextrose (D50w (Vial) Inj) 25 ml UNSCH PRN IV PUSH HYPOGLYCEMIA-SEE COMMENTS; Start 12/12/16 at 11:45 Glucagon (Glucagon Inj) 1 mg UNSCH PRN OTHER HYPOGLYCEMIA-SEE COMMENTS; Start 12/12/16 at 11:45 Insulin Aspart (NovoLOG SUPPLEMENTAL SCALE) 1 ACHS SLIDING SCALE SQ Last administered on 12/12/16 17:35; Start 12/12/16 at 16:00 Miscellaneous Information Patient in critical care unit? Ass... Q361D XX ; Start 12/13/16 at 02:00 Chlorhexidine Gluconate (Chlorhexidine 2% Cloth) 3 pack DAILY@04 TOP Last administered on 12/13/16 04:00; Start 12/13/16 at 04:00; Stop 12/17/16 at 04:01 Chlorhexidine Gluconate (Chlorhexidine 2% Cloth) 3 pack UNSCH PRN TOP HYGIENIC CARE; Start 12/13/16 at 02:00; Stop 12/18/16 at 01:51 A/P Assessment and Plan A/P - acute hypoxemic respiratory failure to acute on chronic diastolic CHF- improving continue with diuretics- monitor I/O- keep on oxygen to keep O2 sat > 90%- neb treatment as needed- consulted cardiology -mildly elevated troponin likely due to fluid overload- continue aspirin and BB - cardiology consulted -diabetes mellitus; hold oral hypoglycemics- accu-check with SSI -hypertension;hold Cozaar due to low-normal BP's- will continue BB- will monitor and adjust the regimen as needed -anemia- recently evaluated by GI- repeat H/H this afternoon and transfuse as needed- will consider GI reevaluation -DVT prophylaxis with SCD's Pepito Phillips MD Dec 13, 2016 08:21
[2016-12-13] MEDS: FUROSEMIDE 40 MG/4 ML VIAL IV PUSH SCH (08:50)
[2016-12-13] MEDS: METOPROLOL TARTRATE 50 MG TAB PO SCH ×2 (08:51→21:40)
[2016-12-13] MEDS: POTASSIUM CHLORIDE 20 MEQ CONTROLLED RELEASE TAB PO SCH (08:51)
--- NOTE | 2016-12-13 09:24 | PD.CARD.PN ---
Subjective Subjective Remarks No chest pain, no shortness of breath Objective Medications Current Medications Medications (Trade) Dose Ordered Sig/Kell Route Start Time Stop Time Status Last Admin (NS Flush) 2 ml UNSCH PRN IVF 12/12/16 09:15 (Zofran Inj) 4 mg Q8H PRN IV PUSH 12/12/16 10:45 (Lasix Inj) 40 mg DAILY IV PUSH 12/13/16 09:00 12/13/16 08:50 (KCl) 20 meq DAILY PO 12/12/16 12:00 12/13/16 08:51 (Aspirin Chew) 162 mg HS CHEW 12/12/16 21:00 12/12/16 20:55 (Lipitor) 40 mg HS PO 12/12/16 21:00 12/12/16 20:55 (Cozaar) 25 mg BID PO 12/12/16 21:00 Hold 12/12/16 22:03 (Lopressor) 50 mg BID PO 12/12/16 21:00 12/13/16 08:51 (D50w (Vial) Inj) 25 ml UNSCH PRN IV PUSH 12/12/16 11:45 (Glucagon Inj) 1 mg UNSCH PRN OTHER 12/12/16 11:45 Miscellaneous Information Patient in critical care unit? Ass... Q361D XX 12/13/16 02:00 (Chlorhexidine 2% Cloth) 3 pack DAILY@04 TOP 12/13/16 04:00 12/17/16 04:01 12/13/16 04:00 (Chlorhexidine 2% Cloth) 3 pack UNSCH PRN TOP 12/13/16 02:00 12/18/16 01:51 Vital Signs / I&O Vital Signs Date Time Temp Pulse Resp B/P Pulse Ox O2 Delivery O2 Flow Rate FiO2 12/13/16 08:11 93 Nasal Cannula 5.00 12/13/16 06:00 73 12/13/16 04:00 75 12/13/16 04:00 98.2 75 20 94/50 97 12/13/16 02:00 72 12/13/16 00:00 97.8 77 22 117/56 98 12/13/16 00:00 77 12/12/16 22:00 72 12/12/16 20:00 98.0 92 20 114/55 96 12/12/16 20:00 92 12/12/16 19:10 99 Nasal Cannula 5.00 12/12/16 18:00 87 12/12/16 16:24 100 Nasal Cannula 5.00 12/12/16 16:00 97.6 91 16 115/59 99 12/12/16 16:00 91 12/12/16 15:10 89 12/12/16 14:00 78 16 116/53 93 Nasal Cannula 5 12/12/16 13:00 86 15 147/62 92 Nasal Cannula 4 12/12/16 12:20 96 Nasal Cannula 5 12/12/16 12:00 75 15 130/63 95 Nasal Cannula 5 12/12/16 11:34 95 35 12/12/16 11:00 92 14 121/62 100 BiPAP 12/12/16 10:00 100 22 123/58 100 BiPAP 12/12/16 09:24 107 24 130/77 100 BiPAP 100 I/O 12/12/16 12/12/16 12/12/16 12/13/16 12/13/16 12/13/16 07:00 15:00 23:00 07:00 15:00 23:00 Intake Total 140 ml 120 ml Output Total 2000 ml 1800 ml 650 ml Balance -2000 ml -1660 ml -530 ml Intake Oral 140 ml 120 ml IV Total 0 ml 0 ml Output Urine Total 2000 ml 1800 ml 650 ml # Voids 2 # Bowel Movements 0 1 Physical Exam GENERAL: NAD, AAOx3 SKIN: Warm and dry. HEAD: Atraumatic. Normocephalic. EYES: Pupils equal and round. No scleral icterus. No injection or drainage. ENT: No nasal bleeding or discharge. Mucous membranes pink and moist. NECK: Trachea midline. No JVD. CARDIOVASCULAR: Regular rate and rhythm. RESPIRATORY: No accessory muscle use. Clear to auscultation. Breath sounds equal bilaterally. GASTROINTESTINAL: Abdomen soft, non-tender, nondistended. Hepatic and splenic margins not palpable. MUSCULOSKELETAL: Extremities without clubbing, cyanosis, or edema. No obvious deformities. NEUROLOGICAL: Awake and alert. No obvious cranial nerve deficits. Motor grossly within normal limits. Five out of 5 muscle strength in the arms and legs. Normal speech. PSYCHIATRIC: Appropriate mood and affect; insight and judgment normal. Laboratory Laboratory Tests Test 12/12/16 12/12/16 12/12/16 12/12/16 09:45 09:50 15:41 21:50 Blood Gas Puncture Site LT RADIAL Blood Gas Patient Temperature 98.6 Blood Gas HCO3 24 mmol/L Blood Gas Base Excess -1.0 mmol/L Blood Gas Oxygen Saturation 97 % Arterial Blood pH 7.33 Arterial Blood Partial 48 mmHg Pressure CO2 Arterial Blood Partial 472 mmHG Pressure O2 Arterial Blood Oxygen Content 13.2 Vol % Arterial Blood 2.2 % Carboxyhemoglobin Arterial Blood Methemoglobin 0.9 % Blood Gas Hemoglobin 8.7 G/DL Oxygen Delivery Device BIPAP Blood Gas Ventilator Setting IPAP 10/ EPAP 5 Blood Gas Inspired Oxygen 100 % Blood Type O NEGATIVE Antibody Screen NEGATIVE Troponin I 0.26 NG/ML 0.26 NG/ML Test 12/13/16 12/13/16 03:30 06:10 Nasal Screen MRSA (PCR) NEGATIVE White Blood Count 10.8 TH/MM3 Red Blood Count 3.15 MIL/MM3 Hemoglobin 7.0 GM/DL Hematocrit 22.5 % Mean Corpuscular Volume 71.4 FL Mean Corpuscular Hemoglobin 22.2 PG Mean Corpuscular Hemoglobin 31.1 % Concent Red Cell Distribution Width 18.3 % Platelet Count 260 TH/MM3 Mean Platelet Volume 8.2 FL Neutrophils (%) (Auto) 63.4 % Lymphocytes (%) (Auto) 21.5 % Monocytes (%) (Auto) 9.7 % Eosinophils (%) (Auto) 4.9 % Basophils (%) (Auto) 0.5 % Neutrophils # (Auto) 6.8 TH/MM3 Lymphocytes # (Auto) 2.3 TH/MM3 Monocytes # (Auto) 1.0 TH/MM3 Eosinophils # (Auto) 0.5 TH/MM3 Basophils # (Auto) 0.1 TH/MM3 CBC Comment AUTO DIFF Sodium Level 136 MEQ/L Potassium Level 3.8 MEQ/L Chloride Level 98 MEQ/L Carbon Dioxide Level 29.7 MEQ/L Anion Gap 8 MEQ/L Blood Urea Nitrogen 20 MG/DL Creatinine 1.20 MG/DL Estimat Glomerular Filtration 59 ML/MIN Rate Random Glucose 106 MG/DL Calcium Level 8.4 MG/DL Assessment and Plan Problem List: (1) Acute respiratory failure with hypoxia (2) Acute pulmonary edema (3) Elevated troponin (4) Anemia (5) GI bleed Assessment and Plan 1) No active ACS, will continue medical management of elevated trop 2) Elevated trop most likely due to fluid overload status, accelerated hypertension 3) Would hold off further ischemic evaluation with anemia, recent GI bleed 4) Drop in Hgb over night, may need repeat GI evaluation but more specifically capsule endoscopy outpt, avoid anticoagulation at this time Reginaldo Moore DO Dec 13, 2016 09:24
[2016-12-13 10:01] LABS: OVALOCYTES 1+ (NORMAL); SCAN/DIFF AUTO DIFF CONFIRMED
[2016-12-13 13:27] LABS: HEMATOCRIT 23.7 % (39.0-51.0)
[2016-12-13] MEDS: ASPIRIN 81 MG CHEW TAB CHEW SCH (21:40)
[2016-12-13] MEDS: ATORVASTATIN 40 MG TAB PO SCH (21:40)
[2016-12-14] VITALS (16 sets, daily range): BP systolic 114–142; BP diastolic 56–68; PULSE 65–81; RESP 14–20; TEMP 97.8–98.5; O2SAT 93–98
[2016-12-14] MEDS: CHLORHEXIDINE GLUCONATE 2 % 1 PACK (2 CLOTHS)(taper/protocol) TOP SCH (04:37)
[2016-12-14] MEDS: INSULIN ASPART SUPPLEMENTAL SCALE SQ SCH ×4 (06:29→21:00)
[2016-12-14 07:41] LABS: AUTOMATED NEUTROPHIL # 5.5 TH/MM3 (1.8-7.7); BASOPHIL # 0.1 TH/MM3 (0-0.2); BASOPHIL % 0.7 % (0.0-2.0); EOSINOPHIL # 0.6 TH/MM3 (0-0.4); EOSINOPHIL % 6.4 % (0.0-4.0); HEMATOCRIT 23.8 % (39.0-51.0); LYMPHOCYTE # 2.3 TH/MM3 (1.0-4.8); MEAN CORPUSCULAR HEMOGLOBIN 21.9 PG (27.0-34.0); MEAN CORPUSCULAR HGB CONC 30.4 % (32.0-36.0); MONO % 8.1 % (0.0-8.0); NEUT % 59.8 % (16.0-70.0); PLATELET COUNT 260 TH/MM3 (150-450); RED CELL DISTRIBUTION WIDTH 18.1 % (11.6-17.2); WHITE BLOOD COUNT 9.2 TH/MM3 (4.0-11.0)
[2016-12-14 07:48] LABS: HEMO FLAGS AUTO DIFF
[2016-12-14 08:18] LABS: BICARBONATE 29.9 MEQ/L (21.0-32.0); POTASSIUM 4.1 MEQ/L (3.5-5.1)
--- NOTE | 2016-12-14 08:22 | PD.CARD.PN ---
Subjective Subjective Remarks No chest pain, no shortness of breath Objective Medications Current Medications Medications (Trade) Dose Ordered Sig/Kell Route Start Time Stop Time Status Last Admin (NS Flush) 2 ml UNSCH PRN IVF 12/12/16 09:15 (Zofran Inj) 4 mg Q8H PRN IV PUSH 12/12/16 10:45 (Lasix Inj) 40 mg DAILY IV PUSH 12/13/16 09:00 12/13/16 08:50 (KCl) 20 meq DAILY PO 12/12/16 12:00 12/13/16 08:51 (Aspirin Chew) 162 mg HS CHEW 12/12/16 21:00 12/13/16 21:40 (Lipitor) 40 mg HS PO 12/12/16 21:00 12/13/16 21:40 (Cozaar) 25 mg BID PO 12/12/16 21:00 Hold 12/12/16 22:03 (Lopressor) 50 mg BID PO 12/12/16 21:00 12/13/16 21:40 (D50w (Vial) Inj) 25 ml UNSCH PRN IV PUSH 12/12/16 11:45 (Glucagon Inj) 1 mg UNSCH PRN OTHER 12/12/16 11:45 Miscellaneous Information Patient in critical care unit? Ass... Q361D XX 12/13/16 02:00 (Chlorhexidine 2% Cloth) 3 pack DAILY@04 TOP 12/13/16 04:00 12/17/16 04:01 12/14/16 04:37 (Chlorhexidine 2% Cloth) 3 pack UNSCH PRN TOP 12/13/16 02:00 12/18/16 01:51 Vital Signs / I&O Vital Signs Date Time Temp Pulse Resp B/P Pulse Ox O2 Delivery O2 Flow Rate FiO2 12/14/16 06:00 72 12/14/16 04:00 98.1 71 18 125/59 94 12/14/16 04:00 73 12/14/16 02:00 71 12/14/16 00:00 97.9 70 15 122/58 93 12/14/16 00:00 70 12/13/16 22:00 92 12/13/16 21:09 92 Nasal Cannula 5.00 12/13/16 20:00 80 12/13/16 20:00 98.0 80 14 123/57 98 12/13/16 18:00 88 12/13/16 16:00 69 12/13/16 16:00 97.9 69 14 112/56 96 12/13/16 14:00 78 12/13/16 12:00 97.6 67 14 115/56 98 12/13/16 12:00 80 12/13/16 10:00 80 I/O 12/13/16 12/13/16 12/13/16 12/14/16 12/14/16 12/14/16 07:00 15:00 23:00 07:00 15:00 23:00 Intake Total 120 ml 200 ml 300 ml 480 ml Output Total 650 ml 1200 ml 950 ml 300 ml Balance -530 ml -1000 ml -650 ml 180 ml Intake Oral 120 ml 200 ml 300 ml 480 ml IV Total 0 ml 0 ml 0 ml 0 ml Output Urine Total 650 ml 1200 ml 950 ml 300 ml # Voids 2 2 1 # Bowel Movements 1 0 0 1 Physical Exam GENERAL: NAD, AAOx3 SKIN: Warm and dry. HEAD: Atraumatic. Normocephalic. EYES: Pupils equal and round. No scleral icterus. No injection or drainage. ENT: No nasal bleeding or discharge. Mucous membranes pink and moist. NECK: Trachea midline. No JVD. CARDIOVASCULAR: Regular rate and rhythm. RESPIRATORY: No accessory muscle use. Clear to auscultation. Breath sounds equal bilaterally. GASTROINTESTINAL: Abdomen soft, non-tender, nondistended. Hepatic and splenic margins not palpable. MUSCULOSKELETAL: Extremities without clubbing, cyanosis, or edema. No obvious deformities. NEUROLOGICAL: Awake and alert. No obvious cranial nerve deficits. Motor grossly within normal limits. Five out of 5 muscle strength in the arms and legs. Normal speech. PSYCHIATRIC: Appropriate mood and affect; insight and judgment normal. Laboratory Laboratory Tests Test 12/13/16 12/14/16 13:10 07:10 Hemoglobin 7.4 GM/DL 7.2 GM/DL Hematocrit 23.7 % 23.8 % White Blood Count 9.2 TH/MM3 Red Blood Count 3.30 MIL/MM3 Mean Corpuscular Volume 72.0 FL Mean Corpuscular Hemoglobin 21.9 PG Mean Corpuscular Hemoglobin 30.4 % Concent Red Cell Distribution Width 18.1 % Platelet Count 260 TH/MM3 Mean Platelet Volume 7.9 FL Neutrophils (%) (Auto) 59.8 % Lymphocytes (%) (Auto) 25.0 % Monocytes (%) (Auto) 8.1 % Eosinophils (%) (Auto) 6.4 % Basophils (%) (Auto) 0.7 % Neutrophils # (Auto) 5.5 TH/MM3 Lymphocytes # (Auto) 2.3 TH/MM3 Monocytes # (Auto) 0.7 TH/MM3 Eosinophils # (Auto) 0.6 TH/MM3 Basophils # (Auto) 0.1 TH/MM3 CBC Comment AUTO DIFF Sodium Level 137 MEQ/L Potassium Level 4.1 MEQ/L Chloride Level 99 MEQ/L Carbon Dioxide Level 29.9 MEQ/L Anion Gap 8 MEQ/L Blood Urea Nitrogen 19 MG/DL Creatinine 1.06 MG/DL Estimat Glomerular Filtration 68 ML/MIN Rate Random Glucose 106 MG/DL Calcium Level 8.4 MG/DL Assessment and Plan Problem List: (1) Acute respiratory failure with hypoxia (2) Acute pulmonary edema (3) Elevated troponin (4) Anemia (5) GI bleed Assessment and Plan 1) No active ACS, will continue medical management of elevated trop 2) Elevated trop most likely due to fluid overload status, accelerated hypertension 3) Would hold off further ischemic evaluation with anemia, recent GI bleed 4) Hgb 7.2, may need 1 unit PRBC, will discuss with primary team Reginaldo Moore DO Dec 14, 2016 08:22
[2016-12-14] MEDS: METOPROLOL TARTRATE 50 MG TAB PO SCH ×2 (08:23→21:20)
[2016-12-14] MEDS: FUROSEMIDE 40 MG/4 ML VIAL IV PUSH SCH (08:23)
[2016-12-14] MEDS: POTASSIUM CHLORIDE 20 MEQ CONTROLLED RELEASE TAB PO SCH (08:23)
--- NOTE | 2016-12-14 08:42 | HHI.PR ---
Subjective Remarks resting comfortably with no distress. no chest pain. d/w the RN and no acute issues over night. Objective Vitals Vital Signs Date Time Temp Pulse Resp B/P Pulse Ox O2 Delivery O2 Flow Rate FiO2 12/14/16 08:28 96 Nasal Cannula 2.00 12/14/16 06:00 72 12/14/16 04:00 98.1 71 18 125/59 94 12/14/16 04:00 73 12/14/16 02:00 71 12/14/16 00:00 97.9 70 15 122/58 93 12/14/16 00:00 70 12/13/16 22:00 92 12/13/16 21:09 92 Nasal Cannula 5.00 12/13/16 20:00 80 12/13/16 20:00 98.0 80 14 123/57 98 12/13/16 18:00 88 12/13/16 16:00 69 12/13/16 16:00 97.9 69 14 112/56 96 12/13/16 14:00 78 12/13/16 12:00 97.6 67 14 115/56 98 12/13/16 12:00 80 12/13/16 10:00 80 I/O 12/13/16 12/13/16 12/13/16 12/14/16 12/14/16 12/14/16 07:00 15:00 23:00 07:00 15:00 23:00 Intake Total 120 ml 200 ml 300 ml 480 ml Output Total 650 ml 1200 ml 950 ml 300 ml Balance -530 ml -1000 ml -650 ml 180 ml Intake Oral 120 ml 200 ml 300 ml 480 ml IV Total 0 ml 0 ml 0 ml 0 ml Output Urine Total 650 ml 1200 ml 950 ml 300 ml # Voids 2 2 1 # Bowel Movements 1 0 0 1 Result Diagram: 12/14/16 0710 12/14/16 0710 Imaging Last Impressions Chest X-Ray 12/12/1607 Signed Impressions: Service Date/Time: Monday, December 12, 2016 09:26 - CONCLUSION: New bilateral pulmonary infiltrates and small left effusion. Findings are most characteristic of congestive heart failure. Brandan Caro MD Objective Remarks GENERAL: This is a well-nourished, well-developed patient, in no apparent distress. CARDIOVASCULAR: Regular rate and regular rhythm without murmurs, gallops, or rubs. RESPIRATORY: Clear to auscultation. Breath sounds equal bilaterally. No wheezes , rales, or rhonchi. GASTROINTESTINAL: Abdomen soft, non-tender, nondistended. Normal, active bowel sounds MUSCULOSKELETAL: Extremities without clubbing, cyanosis, or edema. NEURO: Alert & Oriented x4 to person, place, time, situation. Moves all ext x4 Procedures none Medications and IVs Current Medications IV Flush (NS Flush) 2 ml UNSCH PRN IVF FLUSH AFTER USING IV ACCESS; Start 12/12 at 09:15 Furosemide 80 mg 80 mg ONCE ONCE IV PUSH Last administered on 12/12/16 09:39 ; Start 12/12/16 at 09:30; Stop 12/12/16 at 09:31; Status DC Vancomycin HCl 1000 mg/Sodium Chloride 250 ml @ 250 mls/hr ONCE ONCE IV Last administered on 12/12/16 10:23; Start 12/12/16 at 09:30; Stop 12/12/16 at 10:29 ; Status DC Piperacillin Sod/ Tazobactam Sod (Zosyn 3.375 Gm Premix) 50 ml @ 100 mls/hr ONCE ONCE IV Last administered on 12/12/16 09:39; Start 12/12/16 at 09:30; Stop 12/12/16 at 09:59; Status DC Ondansetron HCl (Zofran Inj) 4 mg Q8H PRN IV PUSH NAUSEA; Start 12/12/16 at 10: 45 Furosemide (Lasix Inj) 40 mg DAILY IV PUSH Last administered on 12/14/16 08:23 ; Start 12/13/16 at 09:00 Potassium Chloride (KCl) 20 meq DAILY PO Last administered on 12/14/16 08:23; Start 12/12/16 at 12:00 Aspirin (Aspirin Chew) 162 mg HS CHEW Last administered on 12/13/16 21:40; Start 12/12/16 at 21:00 Atorvastatin Calcium (Lipitor) 40 mg HS PO Last administered on 12/13/16 21:40 ; Start 12/12/16 at 21:00 Losartan Potassium (Cozaar) 25 mg BID PO Last administered on 12/12/16 22:03; Start 12/12/16 at 21:00; Status Hold Metoprolol Tartrate (Lopressor) 50 mg BID PO Last administered on 12/14/16 08: 23; Start 12/12/16 at 21:00 Dextrose (D50w (Vial) Inj) 25 ml UNSCH PRN IV PUSH HYPOGLYCEMIA-SEE COMMENTS; Start 12/12/16 at 11:45 Glucagon (Glucagon Inj) 1 mg UNSCH PRN OTHER HYPOGLYCEMIA-SEE COMMENTS; Start 12/12/16 at 11:45 Insulin Aspart (NovoLOG SUPPLEMENTAL SCALE) 1 ACHS SLIDING SCALE SQ Last administered on 12/13/16 11:00; Start 12/12/16 at 16:00 Miscellaneous Information Patient in critical care unit? Ass... Q361D XX ; Start 12/13/16 at 02:00 Chlorhexidine Gluconate (Chlorhexidine 2% Cloth) 3 pack DAILY@04 TOP Last administered on 12/14/16 04:37; Start 12/13/16 at 04:00; Stop 12/17/16 at 04:01 Chlorhexidine Gluconate (Chlorhexidine 2% Cloth) 3 pack UNSCH PRN TOP HYGIENIC CARE; Start 12/13/16 at 02:00; Stop 12/18/16 at 01:51 A/P Assessment and Plan A/P - acute hypoxemic respiratory failure to acute on chronic diastolic CHF- improving continue with diuretics- monitor I/O- keep on oxygen to keep O2 sat > 90%- neb treatment as needed- cardiology following. -mildly elevated troponin likely due to fluid overload- continue aspirin and BB - cardiology follow-up appreciated; no ischemic work-up at this time due to GI bleed. -diabetes mellitus; hold oral hypoglycemics- accu-check with SSI -hypertension;hold Cozaar due to low-normal BP's- will continue BB- will monitor and adjust the regimen as needed -anemia- recently evaluated by GI- H/H slowly dropping; will transfuse with PRBC and continue to monitor H/H -DVT prophylaxis with SCD's transfer to telemetry. Pepito Phillips MD Dec 14, 2016 08:42
[2016-12-14] MEDS ORDERED: FUROSEMIDE 20 MG/2 ML VIAL IV PUSH ONE (08:45)
[2016-12-14 09:15] LABS: SCAN/DIFF AUTO DIFF CONFIRMED
[2016-12-14 20:24] LABS: HEMATOCRIT 29.6 % (39.0-51.0)
[2016-12-14] MEDS: ASPIRIN 81 MG CHEW TAB CHEW SCH (21:20)
[2016-12-14] MEDS: ATORVASTATIN 40 MG TAB PO SCH (21:20)
[2016-12-15] VITALS (13 sets, daily range): BP systolic 120–128; BP diastolic 60–71; PULSE 63–91; RESP 18–20; TEMP 97.5–98.8; O2SAT 94–97
[2016-12-15] MEDS: CHLORHEXIDINE GLUCONATE 2 % 1 PACK (2 CLOTHS)(taper/protocol) TOP SCH (04:00)
[2016-12-15] MEDS: INSULIN ASPART SUPPLEMENTAL SCALE SQ SCH ×3 (06:46→15:49)
[2016-12-15] MEDS: FUROSEMIDE 40 MG/4 ML VIAL IV PUSH SCH (08:24)
[2016-12-15] MEDS: POTASSIUM CHLORIDE 20 MEQ CONTROLLED RELEASE TAB PO SCH (08:24)
[2016-12-15] MEDS: METOPROLOL TARTRATE 50 MG TAB PO SCH (08:25)
--- NOTE | 2016-12-15 09:50 | HHI.PR ---
Subjective Remarks resting comfortably with no distress. no sob, chest pain or active GI bleed. d/w the RN and no acute issues over night. Objective Vitals Vital Signs Date Time Temp Pulse Resp B/P Pulse Ox O2 Delivery O2 Flow Rate FiO2 12/15/16 09:00 87 12/15/16 08:00 75 12/15/16 07:00 67 12/15/16 07:00 97.5 63 18 127/60 96 12/15/16 04:00 75 12/15/16 04:00 98.2 75 18 122/65 96 12/15/16 00:00 97.9 64 18 126/60 96 12/15/16 00:00 64 12/14/16 21:33 94 Nasal Cannula 2.00 12/14/16 20:00 98.1 81 18 126/59 94 12/14/16 20:00 81 12/14/16 19:00 81 12/14/16 18:34 77 12/14/16 17:00 70 12/14/16 16:00 98.5 80 17 142/67 93 12/14/16 16:00 73 12/14/16 15:00 70 12/14/16 14:00 65 12/14/16 12:00 72 12/14/16 12:00 97.9 65 20 120/68 98 12/14/16 10:00 66 I/O 12/14/16 12/14/16 12/14/16 12/15/16 12/15/16 12/15/16 07:00 15:00 23:00 07:00 15:00 23:00 Intake Total 480 ml 300 ml 220 ml Output Total 300 ml 2200 ml 500 ml Balance 180 ml -1900 ml -280 ml Intake Oral 480 ml 300 ml 220 ml IV Total 0 ml Output Urine Total 300 ml 2200 ml 500 ml # Voids 1 4 # Bowel Movements 1 0 0 Result Diagram: 12/14/16195812/14/16709 Imaging Last Impressions Chest X-Ray 12/12/16906 Signed Impressions: Service Date/Time: Monday, December 12, 2016 09:26 - CONCLUSION: New bilateral pulmonary infiltrates and small left effusion. Findings are most characteristic of congestive heart failure. Brandan Caro MD Objective Remarks GENERAL: This is a well-nourished, well-developed patient, in no apparent distress. CARDIOVASCULAR: Regular rate and regular rhythm without murmurs, gallops, or rubs. RESPIRATORY: Clear to auscultation. Breath sounds equal bilaterally. No wheezes , rales, or rhonchi. GASTROINTESTINAL: Abdomen soft, non-tender, nondistended. Normal, active bowel sounds MUSCULOSKELETAL: Extremities without clubbing, cyanosis, or edema. NEURO: Alert & Oriented x4 to person, place, time, situation. Moves all ext x4 Procedures none Medications and IVs Current Medications IV Flush (NS Flush) 2 ml UNSCH PRN IVF FLUSH AFTER USING IV ACCESS; Start 12/12 at 09:15 Furosemide 80 mg 80 mg ONCE ONCE IV PUSH Last administered on 12/12/16 09:39 ; Start 12/12/16 at 09:30; Stop 12/12/16 at 09:31; Status DC Vancomycin HCl 1000 mg/Sodium Chloride 250 ml @ 250 mls/hr ONCE ONCE IV Last administered on 12/12/16 10:23; Start 12/12/16 at 09:30; Stop 12/12/16 at 10:29 ; Status DC Piperacillin Sod/ Tazobactam Sod (Zosyn 3.375 Gm Premix) 50 ml @ 100 mls/hr ONCE ONCE IV Last administered on 12/12/16 09:39; Start 12/12/16 at 09:30; Stop 12/12/16 at 09:59; Status DC Ondansetron HCl (Zofran Inj) 4 mg Q8H PRN IV PUSH NAUSEA; Start 12/12/16 at 10: 45 Furosemide (Lasix Inj) 40 mg DAILY IV PUSH Last administered on 12/15/16 08:24 ; Start 12/13/16 at 09:00 Potassium Chloride (KCl) 20 meq DAILY PO Last administered on 12/15/16 08:24; Start 12/12/16 at 12:00 Aspirin (Aspirin Chew) 162 mg HS CHEW Last administered on 12/14/16 21:20; Start 12/12/16 at 21:00 Atorvastatin Calcium (Lipitor) 40 mg HS PO Last administered on 12/14/16 21:20 ; Start 12/12/16 at 21:00 Losartan Potassium (Cozaar) 25 mg BID PO Last administered on 12/12/16 22:03; Start 12/12/16 at 21:00; Status Hold Metoprolol Tartrate (Lopressor) 50 mg BID PO Last administered on 12/15/16 08: 25; Start 12/12/16 at 21:00 Dextrose (D50w (Vial) Inj) 25 ml UNSCH PRN IV PUSH HYPOGLYCEMIA-SEE COMMENTS; Start 12/12/16 at 11:45 Glucagon (Glucagon Inj) 1 mg UNSCH PRN OTHER HYPOGLYCEMIA-SEE COMMENTS; Start 12/12/16 at 11:45 Insulin Aspart (NovoLOG SUPPLEMENTAL SCALE) 1 ACHS SLIDING SCALE SQ Last administered on 12/14/16 21:00; Start 12/12/16 at 16:00 Miscellaneous Information Patient in critical care unit? Ass... Q361D XX ; Start 12/13/16 at 02:00 Chlorhexidine Gluconate (Chlorhexidine 2% Cloth) 3 pack DAILY@04 TOP Last administered on 12/15/16 04:00; Start 12/13/16 at 04:00; Stop 12/17/16 at 04:01 Chlorhexidine Gluconate (Chlorhexidine 2% Cloth) 3 pack UNSCH PRN TOP HYGIENIC CARE; Start 12/13/16 at 02:00; Stop 12/18/16 at 01:51 Furosemide (Lasix Inj) 20 mg ONCE ONCE IV PUSH Last administered on 12/14/16 12:40; Start 12/14/16 at 08:45; Stop 12/14/16 at 09:01; Status DC A/P Assessment and Plan A/P - acute hypoxemic respiratory failure due to acute on chronic diastolic CHF- improving continue with diuretics- monitor I/O-- neb treatment as needed- cardiology following. walk test today. -mildly elevated troponin likely due to fluid overload- continue aspirin ( per my discussion with ) and BB- cardiology follow-up appreciated; no ischemic work-up at this time due to recent GI bleed. -diabetes mellitus; hold oral hypoglycemics- accu-check with SSI -hypertension;hold Cozaar due to low-normal BP's- will continue BB- will monitor and adjust the regimen as needed -anemia- recently evaluated by GI- transfused with PRBC with improved H/H; will repeat H/H today. of note case was briefly d/w the GI and recommended outpatient f/u with capsule endoscopy and this was d/w the patient. -DVT prophylaxis with SCD's transfer to telemetry. Discharge Planning likely dc home later today - pending H/H and walk test. see med list. f/u; pcp, GI and cardiology. d/w the patient and RN. Pepito Phillips MD Dec 15, 2016 09:50
[2016-12-15] MEDS ORDERED: POTA-163 PO (09:53)
[2016-12-15] MEDS ORDERED: FURO1TAB60 PO (09:53)
--- NOTE | 2016-12-15 09:53 | HHI.DCPOC ---
Discharge Care Plan Diagnosis: (1) Anemia (2) Acute pulmonary edema Your Health Problems Are: Bleeding Tendency Cough Shortness of Breath Goals to Promote Your Health * To prevent worsening of your condition and complications * To maintain your health at the optimal level Directions to Meet Your Goals Take your medications as prescribed Follow your dietary instruction Follow activity as directed Keep your appointments as scheduled Take your immunizations and boosters as scheduled If your symptoms worsen call your PCP, if no PCP go to Urgent Care Center or Emergency Room Smoking is Dangerous to Your Health. Avoid second hand smoke Call the 24-hour hour crisis hotline for domestic abuse at Pepito Phillips MD Dec 15, 2016 09:53
--- NOTE | 2016-12-15 09:54 | HHI.DS ---
Discharge Summary Admission Date Dec 12, 2016 at 10:40 Discharge Date: Dec 15, 2016 Admitting Diagnosis Hypoxic Respiratory Failure, Acute Pulmonary Edema. (1) Acute respiratory failure with hypoxia ICD Code: J96.01 Diagnosis: Principal (2) Acute pulmonary edema ICD Code: J81.0 Diagnosis: Principal Procedures none Brief History - From Admission patient is a 76 y/o male , known to me from previous admission, who was just recently evaluated by GI for anemia- presented to ER with shortness of breath. he says that his sob started earlier this morning. he denies any chest pain, fever, chills although had mild dry cough. he denies any recent weight gain or worsening pedal edema. he received IV diuretic in ER and placed on BiPaP. at the time of my evaluation he was feeling better with some improvement of his sob. CBC/BMP: 12/14/16195812/14/16 0710 Significant Findings Laboratory Tests Test 12/12/16 12/12/16 12/13/16 12/13/16 15:41 21:50 06:10 13:10 Troponin I 0.26 NG/ML 0.26 NG/ML (0.02-0.05) (0.02-0.05) Red Blood Count 3.15 MIL/MM3 (4.50-5.90) Hemoglobin 7.0 GM/DL 7.4 GM/DL (13.0-17.0) (13.0-17.0) Hematocrit 22.5 % 23.7 % (39.0-51.0) (39.0-51.0) Mean Corpuscular Volume 71.4 FL (80.0-100.0) Mean Corpuscular Hemoglobin 22.2 PG (27.0-34.0) Mean Corpuscular Hemoglobin 31.1 % Concent (32.0-36.0) Red Cell Distribution Width 18.3 % (11.6-17.2) Monocytes (%) (Auto) 9.7 % (0.0-8.0) Eosinophils (%) (Auto) 4.9 % (0.0-4.0) Monocytes # (Auto) 1.0 TH/MM3 (0-0.9) Eosinophils # (Auto) 0.5 TH/MM3 (0-0.4) Ovalocytes 1+ (NORMAL) Blood Urea Nitrogen 20 MG/DL (7-18) Estimat Glomerular Filtration 59 ML/MIN (>89) Rate Calcium Level 8.4 MG/DL (8.5-10.1) Test 12/14/16 12/14/16 07:10 19:59 Red Blood Count 3.30 MIL/MM3 (4.50-5.90) Hemoglobin 7.2 GM/DL 9.4 GM/DL (13.0-17.0) (13.0-17.0) Hematocrit 23.8 % 29.6 % (39.0-51.0) (39.0-51.0) Mean Corpuscular Volume 72.0 FL (80.0-100.0) Mean Corpuscular Hemoglobin 21.9 PG (27.0-34.0) Mean Corpuscular Hemoglobin 30.4 % Concent (32.0-36.0) Red Cell Distribution Width 18.1 % (11.6-17.2) Monocytes (%) (Auto) 8.1 % (0.0-8.0) Eosinophils (%) (Auto) 6.4 % (0.0-4.0) Eosinophils # (Auto) 0.6 TH/MM3 (0-0.4) Blood Urea Nitrogen 19 MG/DL (7-18) Estimat Glomerular Filtration 68 ML/MIN (>89) Rate Calcium Level 8.4 MG/DL (8.5-10.1) Imaging Last Impressions Chest X-Ray 12/12/16 0907 Signed Impressions: Service Date/Time: Monday, December 12, 2016 09:26 - CONCLUSION: New bilateral pulmonary infiltrates and small left effusion. Findings are most characteristic of congestive heart failure. Brandan Caro MD PE at Discharge GENERAL: This is a well-nourished, well-developed patient, in no apparent distress. CARDIOVASCULAR: Regular rate and regular rhythm without murmurs, gallops, or rubs. RESPIRATORY: Clear to auscultation. Breath sounds equal bilaterally. No wheezes , rales, or rhonchi. GASTROINTESTINAL: Abdomen soft, non-tender, nondistended. Normal, active bowel sounds MUSCULOSKELETAL: Extremities without clubbing, cyanosis, or edema. NEURO: Alert & Oriented x4 to person, place, time, situation. Moves all ext x4 Hospital Course - acute hypoxemic respiratory failure due to acute on chronic diastolic CHF- improving continue with diuretics- monitor I/O-- neb treatment as needed- cardiology following. -mildly elevated troponin likely due to fluid overload- continue BB and aspirin. cardiology follow-up appreciated; no ischemic work-up at this time due to recent GI bleed. -diabetes mellitus; hold oral hypoglycemics- accu-check with SSI -hypertension;hold Cozaar due to low-normal BP's- will continue BB- will monitor and adjust the regimen as needed -anemia- recently evaluated by GI- transfused with PRBC with improved H/H; will repeat H/H today. of note case was briefly d/w the GI and recommended outpatient f/u with capsule endoscopy and this was d/w the patient. -DVT prophylaxis with SCD's Pt Condition on Discharge: Good Discharge Disposition: Disch w/ Home Health Serv Discharge Time: <= 30 minutes Discharge Instructions DIET: Follow Instructions for: Heart Healthy Diet, Diabetic Diet Activities you can perform: Regular-No Restrictions Follow up Referrals: Cardiology Gastroenterology PCP Follow-up New Medications: Aspirin (Aspirin) 81 Mg Chew 81 MG CHEW DAILY cad Days 30 Ref 0 TAB Furosemide (Lasix) 40 Mg Tab 40 MG PO DAILY chf Days 14 Ref 0 TAB Potassium Chloride ER (Potassium Chloride ER) 20 Meq Tab 20 MEQ PO DAILY Electrolyte Replacement Days 14 Ref 0 TAB Continued Medications: Atorvastatin (Atorvastatin) 40 Mg Tab 40 MG PO HS Cholesterol Management #30 Ref 0 TAB Cholecalciferol (Vitamin D3) 1,000 Unit Tab 1000 UNITS PO BID Nutritional Supplement #1 Ref 0 BOTTLE Glimepiride (Glimepiride) 1 Mg Tab 1 MG PO DAILY Take with breakfast or first main meal Blood Sugar Management #30 Ref 0 TAB Metformin (Metformin) 500 Mg Tab 500 MG PO BID With meals Blood Sugar Management #60 Ref 0 TAB Metoprolol Tartrate (Metoprolol Tartrate) 50 Mg Tab 50 MG PO BID #60 Ref 0 TAB Multiple Vitamin (One Daily) 1 Tab 1 TAB PO DAILY Nutritional Supplement Ref 0 TAB Wheat Dextrin Powder (Benefiber Powder) 1 Scoop Container 1 SCOOP PO DAILY Mix in water or juice PRN CONSTIPATION #1 Ref 0 CONTAINER Discontinued Medications: Aspirin (Aspirin) 81 Mg Chew 162 MG CHEW HS Ref 0 TAB Losartan (Losartan) 25 Mg Tab 25 MG PO BID Blood Pressure Management #30 Ref 0 TAB Pepito Phillips MD Dec 15, 2016 09:54
[2016-12-15] MEDS ORDERED: ASPI81CH CHEW (10:29)
[2016-12-15 10:58] LABS: HEMATOCRIT 29.7 % (39.0-51.0)
[2016-12-15] MEDS ORDERED: OXYGENTANK NAS.CANULA (11:39)
--- NOTE | 2016-12-15 11:40 | HHI.FF ---
Face to Face Verification Diagnosis: (1) CHF (congestive heart failure) Home Health Nursing Order: Medical education Signs/symptoms of disease process CHF education Oxygen administration education Nursing assessment with vital signs I have seen patient Dwight BrownJr on 12/15/16. My clinical findings support the need for the requested home health care services because: Ltd mobility - disease progression I certify that my clinical findings support that this patient is homebound because: Poor cardiac reserve Pepito Phillips MD Dec 15, 2016 11:40
--- NOTE | 2016-12-15 11:43 | HHI.PR ---
Addendum To [facility] Progress Not Reason for addendum: Additonal documentation (walk test performed.failed the walk test; case management consulted for home oxygen.otherwise ok for discharge when home oxygen is available- this was d/w the RN.) Pepito Phillips MD Dec 15, 2016 11:43
--- NOTE | 2016-12-15 15:22 | PD.CARD.PN ---
Subjective Subjective Remarks Patient seen earlier, no chest pain, no shortness of breath Objective Medications Current Medications Medications (Trade) Dose Ordered Sig/Kell Route Start Time Stop Time Status Last Admin (NS Flush) 2 ml UNSCH PRN IVF 12/12/16 09:15 (Zofran Inj) 4 mg Q8H PRN IV PUSH 12/12/16 10:45 (Lasix Inj) 40 mg DAILY IV PUSH 12/13/16 09:00 12/15/16 08:24 (KCl) 20 meq DAILY PO 12/12/16 12:00 12/15/16 08:24 (Aspirin Chew) 162 mg HS CHEW 12/12/16 21:00 12/14/16 21:20 (Lipitor) 40 mg HS PO 12/12/16 21:00 12/14/16 21:20 (Cozaar) 25 mg BID PO 12/12/16 21:00 Hold 12/12/16 22:03 (Lopressor) 50 mg BID PO 12/12/16 21:00 12/15/16 08:25 (D50w (Vial) Inj) 25 ml UNSCH PRN IV PUSH 12/12/16 11:45 (Glucagon Inj) 1 mg UNSCH PRN OTHER 12/12/16 11:45 Miscellaneous Information Patient in critical care unit? Ass... Q361D XX 12/13/16 02:00 (Chlorhexidine 2% Cloth) 3 pack DAILY@04 TOP 12/13/16 04:00 12/17/16 04:01 12/15/16 04:00 (Chlorhexidine 2% Cloth) 3 pack UNSCH PRN TOP 12/13/16 02:00 12/18/16 01:51 Vital Signs / I&O Vital Signs Date Time Temp Pulse Resp B/P Pulse Ox O2 Delivery O2 Flow Rate FiO2 12/15/16 15:00 74 12/15/16 15:00 98.5 81 18 128/60 94 12/15/16 14:00 73 12/15/16 13:00 63 12/15/16 12:00 66 12/15/16 11:15 2.00 12/15/16 11:00 97.9 80 18 125/60 96 12/15/16 11:00 72 12/15/16 10:45 96 Nasal Cannula 2.00 12/15/16 10:00 78 12/15/16 09:00 87 12/15/16 08:00 75 12/15/16 07:00 67 12/15/16 07:00 97.5 63 18 127/60 96 12/15/16 04:00 75 12/15/16 04:00 98.2 75 18 122/65 96 12/15/16 00:00 97.9 64 18 126/60 96 12/15/16 00:00 64 12/14/16 21:33 94 Nasal Cannula 2.00 12/14/16 20:00 98.1 81 18 126/59 94 12/14/16 20:00 81 12/14/16 19:00 81 12/14/16 18:34 77 12/14/16 17:00 70 12/14/16 16:00 98.5 80 17 142/67 93 12/14/16 16:00 73 I/O 12/14/16 12/14/16 12/14/16 12/15/16 12/15/16 12/15/16 07:00 15:00 23:00 07:00 15:00 23:00 Intake Total 480 ml 300 ml 220 ml Output Total 300 ml 2200 ml 500 ml Balance 180 ml -1900 ml -280 ml Intake Oral 480 ml 300 ml 220 ml IV Total 0 ml Output Urine Total 300 ml 2200 ml 500 ml # Voids 1 4 # Bowel Movements 1 0 0 Physical Exam GENERAL: NAD, AAOx3 SKIN: Warm and dry. HEAD: Atraumatic. Normocephalic. EYES: Pupils equal and round. No scleral icterus. No injection or drainage. ENT: No nasal bleeding or discharge. Mucous membranes pink and moist. NECK: Trachea midline. No JVD. CARDIOVASCULAR: Regular rate and rhythm. RESPIRATORY: No accessory muscle use. Clear to auscultation. Breath sounds equal bilaterally. GASTROINTESTINAL: Abdomen soft, non-tender, nondistended. Hepatic and splenic margins not palpable. MUSCULOSKELETAL: Extremities without clubbing, cyanosis, or edema. No obvious deformities. NEUROLOGICAL: Awake and alert. No obvious cranial nerve deficits. Motor grossly within normal limits. Five out of 5 muscle strength in the arms and legs. Normal speech. PSYCHIATRIC: Appropriate mood and affect; insight and judgment normal. Laboratory Laboratory Tests Test 12/14/16 12/15/16 19:59 10:21 Hemoglobin 9.4 GM/DL 9.3 GM/DL Hematocrit 29.6 % 29.7 % Assessment and Plan Problem List: (1) Acute respiratory failure with hypoxia (2) Acute pulmonary edema (3) Elevated troponin (4) Anemia (5) GI bleed Assessment and Plan 1) No active ACS, will continue medical management of elevated trop 2) Elevated trop most likely due to fluid overload status, accelerated hypertension 3) Would hold off further ischemic evaluation with anemia, recent GI bleed, needs further work up with capsule endoscopy by GI 4) Hgb stable after 2 units 5) Try to continue ASA 81mg, if not increased risk of stent thrombosis 6) Cardiovascularly stable for discharge Reginaldo Moore DO Dec 15, 2016 15:22
== END 2016-12-15 16:33 | disposition home health service (06) | DRG 291 ==
LOC: NEPE 09:03 → NEDA 10:40 → HIMN 14:29 → HCPC 12-14 14:24
PROVIDERS: ADMIT Internal Medicine; ATTEND Internal Medicine
PROC: 5A09357 Assistance with Respiratory Ventilation, Less than 24 Consecutive Hours, Continuous Positive Airway Pressure (ICD-10-PCS; principal; 2016-12-12)
PROC: 30233N1 Transfusion of Nonautologous Red Blood Cells into Peripheral Vein, Percutaneous Approach (ICD-10-PCS; 2016-12-14)
DX: I50.33 Acute on chronic diastolic (congestive) heart failure (principal); J96.01 Acute respiratory failure with hypoxia; N17.9 Acute kidney failure, unspecified; E87.2 Acidosis; E11.9 Type 2 diabetes mellitus without complications; Z79.84 Long term (current) use of oral hypoglycemic drugs; D64.9 Anemia, unspecified; I10 Essential (primary) hypertension; E78.5 Hyperlipidemia, unspecified; R74.8 Abnormal levels of other serum enzymes; I25.10 Atherosclerotic heart disease of native coronary artery without angina pectoris; Z95.5 Presence of coronary angioplasty implant and graft; I25.2 Old myocardial infarction; Z79.82 Long term (current) use of aspirin; N40.0 Benign prostatic hyperplasia without lower urinary tract symptoms; Z86.010 Personal history of colon polyps; K21.9 Gastro-esophageal reflux disease without esophagitis; K57.90 Diverticulosis of intestine, part unspecified, without perforation or abscess without bleeding; D72.829 Elevated white blood cell count, unspecified
CPT/HCPCS: 36430; 36600; 71010; 80048; 80162; 82550; 82805; 82948; 83605; 83735; 83880; 84484; 85014; 85018; 85025; 85610; 85730; 86850; 86900; 86901; 86920; 87040; 87641; 93005; 94620; 96365; 96367; 96375; J1815; J1940; J2543; J3370; J7050; P9016

== ENCOUNTER 2017-03-01 10:19 | Inpatient (IN) | payer OTHER, MEDICARE ==
[~2017-03-01] VITALS: Ht 188 cm; Wt 97.0 kg
[2017-03-01] VITALS (62 sets, daily range): BP systolic 75–138; BP diastolic 37–62; PULSE 90–126; RESP 12–41; TEMP 98–98.8; O2SAT 87–99
[~2017-03-01 10:19] MED LIST changes: +ASPI81CH CHEW; +ATOR40TA16 PO; +FURO1TAB60 PO; -LIPI80TA PO; -LOSA25TA PO; -METO25TA3 PO; +METO50TA PO; +MULT-207 PO; +OXYGENTANK NAS.CANULA; +POTA-163 PO; +VITA100018 PO
[2017-03-01] MEDS ORDERED: TOPR50TA PO (10:34)
[2017-03-01 10:57] LABS: AUTOMATED NEUTROPHIL # 18.7 TH/MM3 (1.8-7.7); BASOPHIL % 0.2 % (0.0-2.0); EOSINOPHIL # 0.2 TH/MM3 (0-0.4); EOSINOPHIL % 0.7 % (0.0-4.0); LYMPHOCYTE # 1.1 TH/MM3 (1.0-4.8); MEAN CELL VOLUME 83.6 FL (80.0-100.0); MEAN CORPUSCULAR HEMOGLOBIN 26.6 PG (27.0-34.0); MEAN CORPUSCULAR HGB CONC 31.8 % (32.0-36.0); MONO % 11.6 % (0.0-8.0); NEUT % 82.5 % (16.0-70.0); PLATELET COUNT 416 TH/MM3 (150-450); RED BLOOD COUNT 3.35 MIL/MM3 (4.50-5.90); RED CELL DISTRIBUTION WIDTH 15.5 % (11.6-17.2); WHITE BLOOD COUNT 22.6 TH/MM3 (4.0-11.0)
[2017-03-01 11:00] LABS: HEMO FLAGS AUTO DIFF
[2017-03-01] MEDS ORDERED: methylPREDNISolone SOD SUCC 125 MG/2 ML VIAL IVP ONE (11:00)
[2017-03-01] MEDS ORDERED: SODIUM CHLOR 0.9% 1000 ML INJ 1,000 ML IV ONE ×2 (11:00→13:30)
--- NOTE | 2017-03-01 11:01 | PD ---
HPI Chief Complaint: Respiratory Symptoms Time Seen by Provider: 10:45 Travel History International Travel<30 days: No Contact w/Intl Traveler<30days: No Traveled to known affect area: No History of Present Illness HPI Patient is a 76-year-old male who presents to emergency room with complaints of cough, congestion, fever and overall not feeling well. Patient reports that his symptoms began last week on , reports that he began developing subjective fevers and chills, reports that he has had a productive cough and congestion. Denies chest pain. He does complain of shortness of breath with this cough and is symptoms. Reports myalgias. Patient reports that he has been taking Tylenol for his fevers, take Tylenol prior to coming to the emergency room. Patient reports that he is not feeling better at this time, patient is concerned that has the flu or pneumonia. Patient reports that he didn't get the flu vaccine this year. PFSH Past Medical History Autoimmune Disease: No Blood Disorders: No Anxiety: No Depression: No Heart Rhythm Problems: No Cancer: No Cardiac Catheterization: Yes Cardiovascular Problems: Yes High Cholesterol: Yes Cerebrovascular Accident: No Diabetes: Yes Patient Takes Glucophage: Yes Diminished Hearing: No Endocrine: Yes Gastrointestinal Disorders: No Genitourinary: No Hypertension: Yes Immune Disorder: No Musculoskeletal: No Neurologic: No Psychiatric: No Reproductive: No Respiratory: No Myocardial Infarction: Yes Thyroid Disease: No Influenza Vaccination: Yes ?: Not Past Surgical History Abdominal Surgery: Yes (HERNIA REPAIR) Cardiac Surgery: No Genitourinary Surgery: No Thoracic Surgery: No Other Surgery: Yes (pilonidal cyst) Social History Alcohol Use: Yes Tobacco Use: No Substance Use: No Allergies-Medications (Allergen,Severity, Reaction): Coded Allergies: No Known Allergies (Verified , 03/01/17) Reported Meds & Prescriptions Reported Meds & Active Scripts Active Oxygen tank (Oxygen) 1 Ea Tank 2 Liter SHAKEEL.CANULA CONTINUOUS Oxygen Concentrator Portable Gaseous 2 L/min via Nasal Cannula Continuous For 99 months Aspirin 81 Mg Chew 81 Mg CHEW DAILY 30 Days Reported One Daily (Multiple Vitamin) 1 Tab 1 Tab PO DAILY Vitamin D3 (Cholecalciferol) 1,000 Unit Tab 1,000 Units PO BID Benefiber Powder (Wheat Dextrin Powder) 1 Scoop Container 1 Scoop PO DAILY PRN Mix in water or juice Metoprolol Tartrate 50 Mg Tab 50 Mg PO BID Atorvastatin (Atorvastatin Calcium) 40 Mg Tab 40 Mg PO HS Metformin (Metformin HCl) 500 Mg Tab 500 Mg PO BID With meals Review of Systems General / Constitutional: Positive: Fever, Chills Eyes: No: Visual changes HENT: No: Headaches Cardiovascular: No: Chest Pain or Discomfort, Palpitations, Syncope Respiratory: Positive: Cough, Shortness of Breath, Wheezing Gastrointestinal: No: Nausea, Vomiting, Abdominal Pain Genitourinary: No: Dysuria Musculoskeletal: No: Pain Skin: No Rash Neurologic: No: Weakness Psychiatric: No: Depression Endocrine: No: Polydipsia Hematologic/Lymphatic: No: Easy Bruising Physical Exam Narrative GENERAL: moderate distress SKIN: Focused skin assessment warm/dry. HEAD: Atraumatic. Normocephalic. EYES: Pupils equal and round. No scleral icterus. No injection or drainage. ENT: No nasal bleeding or discharge. Mucous membranes pink and moist. NECK: Trachea midline. No JVD. CARDIOVASCULAR: Regular rate and rhythm. No murmur appreciated. RESPIRATORY: No accessory muscle use. Patient with rales throughout lungs GASTROINTESTINAL: Abdomen soft, non-tender, nondistended. Hepatic and splenic margins not palpable. MUSCULOSKELETAL: No obvious deformities. No clubbing. No cyanosis. No edema. NEUROLOGICAL: Awake and alert. Normal speech. PSYCHIATRIC: Appropriate mood and affect; insight and judgment normal. Data Data Last Documented VS Vital Signs Date Time Temp Pulse Resp B/P Pulse Ox O2 Delivery O2 Flow Rate FiO2 03/01/17 11:48 94 Nasal Cannula 2 03/01/17 11:48 22 03/01/17 11:47 120 109/43 03/01/17 10:21 98.3 Orders Complete Blood Count With Diff (03/01/17 10:44) Basic Metabolic Panel (Bmp) (03/01/17 10:44) Chest, Pa & Lat (03/01/17 10:44) Blood Culture (03/01/17 10:44) Iv Access Insert/Monitor (03/01/17 10:44) Ecg Monitoring (03/01/17 10:44) Oxygen Administration (03/01/17 10:44) Oximetry (03/01/17 10:44) Electrocardiogram (03/01/17 10:44) Electrocardiogram (03/01/17 10:51) Lactic Acid Sepsis Protocol (03/01/17 10:51) Influenzae A/B Antigen (03/01/17 10:51) Arterial Blood Gas (Abg) (03/01/17 10:51) Methylprednisolone So Succ Inj (Solumedr (03/01/17 11:00) Albuterol-Ipratropium Neb (Duoneb Neb) (03/01/17 11:00) Sodium Chlor 0.9% 1000 Ml Inj (Ns 1000 M (03/01/17 11:00) B-Type Natriuretic Peptide (03/01/17 10:58) Azithromycin Inj (Zithromax Inj) (03/01/17 11:30) Ceftriaxone Inj (Rocephin Inj) (03/01/17 11:30) Admit Order (Ed Use Only) (03/01/17 11:54) Labs Laboratory Tests Test 03/01/17 03/01/17 03/01/17 10:35 11:27 11:41 White Blood Count 22.6 TH/MM3 Red Blood Count 3.35 MIL/MM3 Hemoglobin 8.9 GM/DL Hematocrit 28.0 % Mean Corpuscular Volume 83.6 FL Mean Corpuscular Hemoglobin 26.6 PG Mean Corpuscular Hemoglobin 31.8 % Concent Red Cell Distribution Width 15.5 % Platelet Count 416 TH/MM3 Mean Platelet Volume 8.4 FL Neutrophils (%) (Auto) 82.5 % Lymphocytes (%) (Auto) 5.0 % Monocytes (%) (Auto) 11.6 % Eosinophils (%) (Auto) 0.7 % Basophils (%) (Auto) 0.2 % Neutrophils # (Auto) 18.7 TH/MM3 Lymphocytes # (Auto) 1.1 TH/MM3 Monocytes # (Auto) 2.6 TH/MM3 Eosinophils # (Auto) 0.2 TH/MM3 Basophils # (Auto) 0.0 TH/MM3 CBC Comment AUTO DIFF Differential Total Cells 100 Counted Neutrophils % (Manual) 79 % Band Neutrophils % 6 % Lymphocytes % 5 % Monocytes % 9 % Neutrophils # (Manual) 19.4 TH/MM3 Metamyelocytes 1 % Differential Comment FINAL DIFF MANUAL Platelet Estimate NORMAL Platelet Morphology Comment NORMAL Sodium Level 132 MEQ/L Potassium Level 4.4 MEQ/L Chloride Level 90 MEQ/L Carbon Dioxide Level 28.3 MEQ/L Anion Gap 14 MEQ/L Blood Urea Nitrogen 40 MG/DL Creatinine 1.50 MG/DL Estimat Glomerular Filtration 46 ML/MIN Rate Random Glucose 234 MG/DL Calcium Level 8.8 MG/DL B-Type Natriuretic Peptide 888 PG/ML Lactic Acid Level 4.1 mmol/L Blood Gas Puncture Site RT RADIAL Blood Gas Patient Temperature 98.6 Blood Gas HCO3 26 mmol/L Blood Gas Base Excess 2.0 mmol/L Blood Gas Oxygen Saturation 87 % Arterial Blood pH 7.44 Arterial Blood Partial 39 mmHG Pressure CO2 Arterial Blood Partial 58 mmHG Pressure O2 Arterial Blood Oxygen Content 9.1 Vol % Arterial Blood 2.8 % Carboxyhemoglobin Arterial Blood Methemoglobin 0.3 % Blood Gas Hemoglobin 7.4 G/DL Oxygen Delivery Device ROOM AIR Blood Gas Inspired Oxygen 21 % MDM Medical Decision Making Medical Screen Exam Complete: Yes Emergency Medical Condition: Yes Interpretation(s) EKG at 1106: afib at 107bpm, qt/qtc: 310/392 Vital Signs Date Time Temp Pulse Resp B/P Pulse Ox O2 Delivery O2 Flow Rate FiO2 03/01/17 10:21 98.3 90 22 108/62 89 Laboratory Tests Test 03/01/17 10:35 White Blood Count 22.6 TH/MM3 (4.0-11.0) Red Blood Count 3.35 MIL/MM3 (4.50-5.90) Hemoglobin 8.9 GM/DL (13.0-17.0) Hematocrit 28.0 % (39.0-51.0) Mean Corpuscular Volume 83.6 FL (80.0-100.0) Mean Corpuscular Hemoglobin 26.6 PG (27.0-34.0) Mean Corpuscular Hemoglobin 31.8 % Concent (32.0-36.0) Red Cell Distribution Width 15.5 % (11.6-17.2) Platelet Count 416 TH/MM3 (150-450) Mean Platelet Volume 8.4 FL (7.0-11.0) Neutrophils (%) (Auto) 82.5 % (16.0-70.0) Lymphocytes (%) (Auto) 5.0 % (9.0-44.0) Monocytes (%) (Auto) 11.6 % (0.0-8.0) Eosinophils (%) (Auto) 0.7 % (0.0-4.0) Basophils (%) (Auto) 0.2 % (0.0-2.0) Neutrophils # (Auto) 18.7 TH/MM3 (1.8-7.7) Lymphocytes # (Auto) 1.1 TH/MM3 (1.0-4.8) Monocytes # (Auto) 2.6 TH/MM3 (0-0.9) Eosinophils # (Auto) 0.2 TH/MM3 (0-0.4) Basophils # (Auto) 0.0 TH/MM3 (0-0.2) CBC Comment AUTO DIFF Sodium Level 132 MEQ/L (136-145) Potassium Level 4.4 MEQ/L (3.5-5.1) Chloride Level 90 MEQ/L (98-107) Carbon Dioxide Level 28.3 MEQ/L (21.0-32.0) Anion Gap 14 MEQ/L (5-15) Blood Urea Nitrogen 40 MG/DL (7-18) Creatinine 1.50 MG/DL (0.60-1.30) Estimat Glomerular Filtration 46 ML/MIN (>89) Rate Random Glucose 234 MG/DL (74-106) Calcium Level 8.8 MG/DL (8.5-10.1) Last Impressions Chest X-Ray 03/01/17 1044 Signed Impressions: Service Date/Time: Thursday, March 01, 2017 10:59 - CONCLUSION: Bilateral hazy pulmonary infiltrates. This could represent pneumonia versus pulmonary edema. Brandan Caro MD Differential Diagnosis Pneumonia, influenza, viral syndrome, acute bronchitis, electrolyte abnormality , ACS Narrative Course Patient is a 76-year-old male who presents to emergency room with complaints of cough, congestion, fevers and chills since last . Reports that he has been symptomatic for the past week, reports the symptoms are not getting any better; in fact they're getting much worse. Patient reports that he cannot stop coughing, reports myalgias. Patient concerned that he may have pneumonia versus influenza. Patient is hypoxic on evaluation with a pulse ox of 89% on room air. Patient does not use oxygen at home, patient with increased respiratory rate. Patient with rhonchi and rales on exam, steroids as well as neb treatment ordered for patient. X-ray of the chest ordered to evaluate for possible pneumonia. Blood cultures as well as labs and lactate ordered as well. ABG ordered to assess his hypoxia Laboratory Tests Test 03/01/17 10:35 White Blood Count 22.6 TH/MM3 (4.0-11.0) Red Blood Count 3.35 MIL/MM3 (4.50-5.90) Hemoglobin 8.9 GM/DL (13.0-17.0) Hematocrit 28.0 % (39.0-51.0) Mean Corpuscular Volume 83.6 FL (80.0-100.0) Mean Corpuscular Hemoglobin 26.6 PG (27.0-34.0) Mean Corpuscular Hemoglobin 31.8 % Concent (32.0-36.0) Red Cell Distribution Width 15.5 % (11.6-17.2) Platelet Count 416 TH/MM3 (150-450) Mean Platelet Volume 8.4 FL (7.0-11.0) Neutrophils (%) (Auto) 82.5 % (16.0-70.0) Lymphocytes (%) (Auto) 5.0 % (9.0-44.0) Monocytes (%) (Auto) 11.6 % (0.0-8.0) Eosinophils (%) (Auto) 0.7 % (0.0-4.0) Basophils (%) (Auto) 0.2 % (0.0-2.0) Neutrophils # (Auto) 18.7 TH/MM3 (1.8-7.7) Lymphocytes # (Auto) 1.1 TH/MM3 (1.0-4.8) Monocytes # (Auto) 2.6 TH/MM3 (0-0.9) Eosinophils # (Auto) 0.2 TH/MM3 (0-0.4) Basophils # (Auto) 0.0 TH/MM3 (0-0.2) CBC Comment AUTO DIFF Sodium Level 132 MEQ/L (136-145) Potassium Level 4.4 MEQ/L (3.5-5.1) Chloride Level 90 MEQ/L (98-107) Carbon Dioxide Level 28.3 MEQ/L (21.0-32.0) Anion Gap 14 MEQ/L (5-15) Blood Urea Nitrogen 40 MG/DL (7-18) Random Glucose 234 MG/DL (74-106) Calcium Level 8.8 MG/DL (8.5-10.1) Microbiology Date/Time Procedure Status Source Growth 03/01/17 10:35 Aerobic Blood Culture Received Blood Peripheral Pending 03/01/17 10:35 Anaerobic Blood Culture Received Blood Peripheral Pending Microbiology Date/Time Procedure Status Source Growth 03/01/17 10:35 Aerobic Blood Culture Received Blood Peripheral Pending 03/01/17 10:35 Anaerobic Blood Culture Received Blood Peripheral Pending Last Impressions Chest X-Ray 03/01/17 1044 Signed Impressions: Service Date/Time: Wednesday, March 01, 2017 10:59 - CONCLUSION: Bilateral hazy pulmonary infiltrates. This could represent pneumonia versus pulmonary edema. Brandan Caro MD Patient with a WBC of 22.6, patient with shift on his CBC, patient with bilateral hazy pulmonary infiltrates on chest x-ray. Patient with sepsis with source of infection lungs as patient appears to have multilobar pneumonia. Patient has been pancultured, azithromycin as Rocephin ordered. Lactate pending. Sepsis Criteria SIRS Criteria (2 or more): Heart rate over 90, WBC > 50403, < 4000 or > 10% bands Criteria Outcome: Meets sepsis criteria Physician Communication Physician Communication case reviewed with dr garcia who accepts pt to service Diagnosis Primary Impression: Pneumonia Qualified Code: J18.9 - Pneumonia of both upper lobes due to infectious organism Additional Impression: Sepsis Qualified Code: A41.9 - Sepsis, due to unspecified organism Admitting Information Admitting Physician Requests: Admit Christelle Barbosa DO March 01, 2017 11:01
[2017-03-01] MEDS: RESP: ALBUTEROL 2.5 MG/IPRATROPIUM 0.5 MG NEB (SCH) INH ×5 (11:04→23:28)
[2017-03-01 11:05] LABS: POTASSIUM 4.4 MEQ/L (3.5-5.1)
[2017-03-01 11:09] LABS: BICARBONATE 28.3 MEQ/L (21.0-32.0)
--- NOTE | 2017-03-01 11:11 | RADHPO ---
EXAM DATE/TIME: 03/01/2017 10:59 [facility] COMPARISON: CHEST SINGLE AP, December 12, 2016, 9:26. INDICATIONS : Short of breath, cough, fever MEDICAL HISTORY : None. SURGICAL HISTORY : None. ENCOUNTER: Initial ACUITY: 1 week PAIN SCORE: 0/10 LOCATION: Bilateral chest FINDINGS: AP erect and lateral views of the chest were obtained and demonstrate hazy bilateral alveolar infiltr ates greatest in right perihilar region. There is no effusion. The heart size is within normal limits . The bony thorax is intact. There are multiple overlying electrocardiogram leads. CONCLUSION: Bilateral hazy pulmonary infiltrates. This could represent pneumonia versus pulmonary edema. Brandan Caro MD on March 01, 2017 at 11:07 Board Certified Radiologist. This report was verified electronically.
[2017-03-01] MEDS ORDERED: cefTRIAXone INJ 1,000 MG in SODIUM CHLORIDE 0.9% INJ 100 ML IV ONE (11:30)
[2017-03-01] MEDS ORDERED: AZITHROMYCIN INJ 500 MG in SODIUM CHLOR 0.9% 250 ML INJ 250 ML IV ONE (11:30)
[2017-03-01 11:33] LABS: BANDS 6 % (0-6); METAMYELOCYTES 1 % (0-1); NEUTROPHIL # MANUAL DIFF 19.4 TH/MM3 (1.8-7.7); PLATELET ESTIMATE SMEAR NORMAL (NORMAL); PLATELET MORPHOLOGY NORMAL (NORMAL); POLYS (SEG NEUTROPHILS) 79 % (16-70); SCAN/DIFF FINAL DIFF MANUAL; WBC DIFF SAMPLE 100
[2017-03-01 11:49] LABS: BLOOD GAS CARBOXYHEMOGLOBIN 2.8 % (0-4); BLOOD GAS HCO3 26 mmol/L (22-26); BLOOD GAS METHEMOGLOBIN 0.3 % (0-2); BLOOD GAS O2 HGB SATURATION 87 % (90-100); BLOOD GAS OXYGEN CONTENT 9.1 Vol % (12.0-20.0); BLOOD GAS PCO2 39 mmHG (38-42); BLOOD GAS PO2 58 mmHG (61-120); BLOOD GAS TOTAL HGB 7.4 G/DL (12.0-16.0); CRITICAL VALUE YES; DRAW SITE RT RADIAL; FIO2 21 %; NUMBER OF ARTERIAL PUNCTURES 1; OXYGEN DEVICE ROOM AIR; TEMP CORR TO 98.6
[2017-03-01 11:50] LABS: STAT YES; ULNAR PULSE PRESENT
[2017-03-01] MEDS: methylPREDNISolone SOD SUCC 40 MG/1 ML VIAL IV SCH ×2 (12:00)
[2017-03-01] MEDS ORDERED: RESP: ALBUTEROL 2.5 MG/3 ML NEB (PRN) INH ×2 (12:30→18:30)
--- NOTE | 2017-03-01 12:30 | HHI.HP ---
HPI Service [facility] Primary Care Physician Chaka Greenwood MD Admission Diagnosis Sepsis, hypoxia, multilobar pneumonia Diagnoses: Chief Complaint: Cough Travel History International Travel<30 Days: No Contact w/Intl Traveler <30 Da: No Traveled to Known Affected Are: No Sepsis Criteria SIRS Criteria (2 or more): Heart rate over 90, RR > 20 or PaCO2 < 32, WBC > 03994, < 4000 or > 10% bands Sepsis Criteria (SIRS+source): Infect source susp/known Septic Shock Criteria: Lactic acid >=4 Criteria Outcome: Meets SIRS criteria, Meets sepsis criteria, Meets severe sepsis criteria, Meets septic shock criteria History of Present Illness This is a 76-year-old male with a history of chronic respiratory failure, diastolic heart failure, coronary artery disease status post stents, hyperlipidemia, diabetes mellitus, hypertension and chronic anemia with guaiac- positive stool status post colonoscopy 11/11 with diverticulosis, internal and external hemorrhoids. Patient states he also underwent upper endoscopy and capsule endoscopy with negative findings. He presents to emergency room with complaints of cough, congestion, fever and overall not feeling well starting last , reports that he began developing subjective fevers and chills, productive cough with ugly Grayish phlegm, congestion, BIANCHI and myalgias. Denies chest pain, orthopnea, PND, leg swelling and weight gain. In the emergency department, chest x-ray shows bilateral hazy infiltrates could be pneumonia versus pulmonary edema. He was started on IV Rocephin, Zithromax and IV Solu-Medrol. He was also given 1 L fluid bolus. Review of Systems Except as stated in HPI: all other systems reviewed are Neg Past Family Social History Past Medical History As previously mentioned Past Surgical History Hernia repair, pilonidal cyst Reported Medications Oxygen tank (Oxygen) 1 Ea Tank 2 Liter SHAKEEL.CANULA CONTINUOUS Oxygen Concentrator Portable Gaseous 2 L/min via Nasal Cannula Continuous For 99 months Aspirin 81 Mg Chew 81 Mg CHEW DAILY 30 Days Reported One Daily (Multiple Vitamin) 1 Tab 1 Tab PO DAILY Vitamin D3 (Cholecalciferol) 1,000 Unit Tab 1,000 Units PO BID Benefiber Powder (Wheat Dextrin Powder) 1 Scoop Container 1 Scoop PO DAILY PRN Mix in water or juice Metoprolol Tartrate 50 Mg Tab 50 Mg PO BID Atorvastatin (Atorvastatin Calcium) 40 Mg Tab 40 Mg PO HS Metformin (Metformin HCl) 500 Mg Tab 500 Mg PO BID With meals Allergies: Coded Allergies: No Known Allergies (Verified , 03/01/17) Family History No heart disease Social History Occasional alcohol use. Quit tobacco 16 years ago 90 pack year smoker. He lives alone Physical Exam Vital Signs Vital Signs Date Time Temp Pulse Resp B/P Pulse Ox O2 Delivery O2 Flow Rate FiO2 03/01/17 11:48 94 Nasal Cannula 2 03/01/17 11:48 22 94 Nasal Cannula 2 03/01/17 11:47 120 20 109/43 95 Nasal Cannula 2 03/01/17 10:21 98.3 90 22 108/62 89 Physical Exam GENERAL: This is a well-nourished, well-developed patient who is critically ill on nasal cannula SKIN: No rashes, ecchymoses or lesions. Cool and dry. HEAD: Atraumatic. Normocephalic. No temporal or scalp tenderness. EYES: Pupils equal round and reactive. Extraocular motions intact. No scleral icterus. No injection or drainage. ENT: Nose without bleeding, purulent drainage or septal hematoma. Throat without erythema, tonsillar hypertrophy or exudate. Uvula midline. Airway patent. NECK: Trachea midline. + JVD. Supple, nontender, no meningeal signs. CARDIOVASCULAR: Tachycardic RESPIRATORY: Bibasal Rales no wheezes. No retractions GASTROINTESTINAL: Abdomen soft, non-tender, nondistended. No guarding. MUSCULOSKELETAL: Extremities without clubbing, cyanosis with trace leg edema. No joint tenderness, effusion, or edema noted. No calf tenderness. Negative Homans sign bilaterally. NEUROLOGICAL: Awake and alert. Cranial nerves II through XII intact. Motor and sensory grossly within normal limits. Five out of 5 muscle strength in all muscle groups. Normal speech. Laboratory Laboratory Tests Test 03/01/17 03/01/17 03/01/17 10:35 11:27 11:41 White Blood Count 22.6 Red Blood Count 3.35 Hemoglobin 8.9 Hematocrit 28.0 Mean Corpuscular Volume 83.6 Mean Corpuscular Hemoglobin 26.6 Mean Corpuscular Hemoglobin 31.8 Concent Red Cell Distribution Width 15.5 Platelet Count 416 Mean Platelet Volume 8.4 Neutrophils (%) (Auto) 82.5 Lymphocytes (%) (Auto) 5.0 Monocytes (%) (Auto) 11.6 Eosinophils (%) (Auto) 0.7 Basophils (%) (Auto) 0.2 Neutrophils # (Auto) 18.7 Lymphocytes # (Auto) 1.1 Monocytes # (Auto) 2.6 Eosinophils # (Auto) 0.2 Basophils # (Auto) 0.0 CBC Comment AUTO DIFF Differential Total Cells 100 Counted Neutrophils % (Manual) 79 Band Neutrophils % 6 Lymphocytes % 5 Monocytes % 9 Neutrophils # (Manual) 19.4 Metamyelocytes 1 Differential Comment FINAL DIFF MANUAL Platelet Estimate NORMAL Platelet Morphology Comment NORMAL Sodium Level 132 Potassium Level 4.4 Chloride Level 90 Carbon Dioxide Level 28.3 Anion Gap 14 Blood Urea Nitrogen 40 Creatinine 1.50 Estimat Glomerular Filtration 46 Rate Random Glucose 234 Calcium Level 8.8 B-Type Natriuretic Peptide 888 Lactic Acid Level 4.1 Blood Gas Puncture Site RT RADIAL Blood Gas Patient Temperature 98.6 Blood Gas HCO3 26 Blood Gas Base Excess 2.0 Blood Gas Oxygen Saturation 87 Arterial Blood pH 7.44 Arterial Blood Partial 39 Pressure CO2 Arterial Blood Partial 58 Pressure O2 Arterial Blood Oxygen Content 9.1 Arterial Blood 2.8 Carboxyhemoglobin Arterial Blood Methemoglobin 0.3 Blood Gas Hemoglobin 7.4 Oxygen Delivery Device ROOM AIR Blood Gas Inspired Oxygen 21 Date/Time Procedure Status Source Growth 03/01/17 11:30 Influenza Types A,B Antigen (BIANCA) - Final Complete Nasal Aspirate NEGATIVE FOR FLU A AND B ANTIGEN.... 03/01/17 11:25 Aerobic Blood Culture Received Blood Peripheral Pending 03/01/17 11:25 Anaerobic Blood Culture Received Blood Peripheral Pending Result Diagram: 03/01/17 1035 03/01/17 1035 Imaging EKG tracing interpreted by me with sinus tachycardia with Q waves in the anterior and inferiorly leads no significant change from previous Chest x-ray image interpreted by me with bilateral hazy pulmonary infiltrates Last Impressions Chest X-Ray 03/01/17 1044 Signed Impressions: Service Date/Time: Wednesday, March 01, 2017 10:59 - CONCLUSION: Bilateral hazy pulmonary infiltrates. This could represent pneumonia versus pulmonary edema. Brandan Caro MD Assessment and Plan Problem List: (1) Sepsis ICD Code: A41.9 Status: Acute (2) Pneumonia ICD Code: J18.9 Status: Acute (3) CHF (congestive heart failure) ICD Code: I50.9 Status: Acute (4) Acute pulmonary edema ICD Code: J81.0 Status: Acute Assessment and Plan This is a 76-year-old male who presents to emergency room with complaints of cough, congestion, fever and overall not feeling well starting last . Chest x-ray shows bilateral hazy infiltrates. He was started on IV Rocephin, Zithromax and IV Solu-Medrol. He was also given 1 L fluid bolus. Septic shock with tachycardia, tachypnea, leukocytosis and lactic acid 4.1. FLOOR TECH just alerted me SBP 74 post bolus. Will give another liter bolus at 250 Cc an Hour and initiate vasopressor with Levophed. Cautious fluid resuscitation since patient could be in pulmonary edema with history of diastolic heart failure. Continue IV Solu-Medrol. Case discussed with on-call team psychologist Community acquired pneumonia with hypoxia history of chronic respiratory failure. Negative flu antigen. Obtain sputum culture, urinary pneumococcal and Legionella antigen. Start IV Zosyn and follow-up blood culture. Scheduled nebulizations and keep oxygen saturation at least 92% Pulmonary edema with history of diastolic heart failure. As above Acute kidney injury. Patient to receive another liter of fluid. Avoid nephrotoxin. Obtain urinalysis Sinus tachycardia secondary to above. Monitor on telemetry Chronic medical conditions of coronary artery disease status post stents, hyperlipidemia, diabetes mellitus, hypertension and chronic anemia with guaiac- positive stool status post colonoscopy 11/11 with diverticulosis, internal and external hemorrhoids. Patient states he also underwent upper endoscopy and capsule endoscopy with negative findings. Continue outpatient medications as appropriate hold antihypertensives for now. Monitor fingerstick with sliding scale coverage DVT prophylaxis with SCD and early ambulation. Hold pharmacological prophylaxis pending Hemoccult Code Status Full Discussed Condition With Patient and ER staff. He is critically ill with high likelihood of decompensation requiring intubation, mechanical ventilatory evaluation and use of vasodepressor. Patient will be admitted to ICU. Critical care time spent 45 minutes Physician Certification 2 Midnight Certification Type: Admission for Inpatient Services Order for Inpatient Services The services are ordered in accordance with Medicare regulations or non- Medicare payer requirements, as applicable. In the case of services not specified as inpatient-only, they are appropriately provided as inpatient services in accordance with the 2-midnight benchmark. Estimated LOS (days): 2 days is the estimated time the patient will need to remain in the hospital, assuming treatment plan goals are met and no additional complications. Post-Hospital Plan: Not yet determined Problem Qualifiers (1) Sepsis: Qualified Code: A41.9 - Sepsis, due to unspecified organism (2) Pneumonia: Qualified Code: J18.9 - Pneumonia of both upper lobes due to infectious organism Cooper Mcginnis MD March 01, 2017 12:30
[2017-03-01] MEDS ORDERED: ACETAMINOPHEN 325 MG TAB PO PRN ×2 (12:45→18:30)
[2017-03-01] MEDS ORDERED: GLUCAGON 1 MG/ML VIAL OTHER PRN (12:45)
[2017-03-01] MEDS ORDERED: NALOXONE HCL 0.4 MG/ML AMP IV PRN (12:45)
[2017-03-01] MEDS ORDERED: BISACODYL 10 MG SUPP RECTAL PRN (12:45)
[2017-03-01] MEDS ORDERED: SODIUM CHLORIDE 0.9% FLUSH 10 ML FLUSH IV FLUSH PRN ×2 (12:45→18:30)
[2017-03-01] MEDS ORDERED: DEXTROSE 50% IN WATER 50 ML VIAL(D50) IV PUSH PRN (12:45)
[2017-03-01] MEDS ORDERED: ONDANSETRON HCL 4 MG/2 ML VIAL IVP PRN (12:45)
[2017-03-01] MEDS ORDERED: HEPARIN SODIUM - SQ 10,000 UNITS/ML VIAL SQ SCH (13:00)
[2017-03-01] MEDS ORDERED: TERBUTALINE INJ 1 MG/ML AMP SQ PRN (13:15)
[2017-03-01 13:32] LABS: LACTIC ACID GHOST NOT REPORTABLE
[2017-03-01] MEDS ORDERED: CHLORHEXIDINE GLUCONATE 2 % 1 PACK (2 CLOTHS)(extra cloths) TOPICAL PRN (13:45)
[2017-03-01 13:46] LABS: INDIRECT BILIRUBIN 0.5 MG/DL (0.0-0.8); TOTAL BILIRUBIN ADULT 0.8 MG/DL (0.2-1.0)
[2017-03-01] MEDS: PANTOPRAZOLE SOD 40 MG DELAYED RELEASE TAB PO SCH (15:35)
[2017-03-01] MEDS: NOREPINEPHRINE-DEXTROSE DRIP 250 ML IV PRN (15:35)
[2017-03-01] MEDS: PIPERACIL-TAZO 4.5 GM PREMIX 100 ML IV SCH ×2 (15:36→20:38)
[2017-03-01] MEDS ORDERED: RESP: ALBUTEROL 2.5 MG/IPRATROPIUM 0.5 MG NEB (SCH) INH (16:00)
[2017-03-01] MEDS: INSULIN ASPART SUPPLEMENTAL SCALE SQ SCH ×2 (18:00→20:38)
--- NOTE | 2017-03-01 18:00 | PD.PROCEDR ---
Central Line Procedure REASON FOR PROCEDURE Central venous access PROCEDURE PERFORMED Central line placement: Right IJ CONSENT Informed consent for procedure was obtained. The risks and benefits of the procedure were discussed to include but limited to bleeding, clot formation, infection, and even . ANESTHESIA Local injection of 1% Lidocaine DESCRIPTION OF THE PROCEDURE The patient was placed in supine, mild Trendelenburg position. The area was exposed and cleansed with ChloraPrep, times two. Large sterile drape was used to cover the patient, with the site exposed, under sterile conditions including cap, face mask, sterile gown, and sterile gloves. On single attempt, the introducer needle was inserted with negative pressure in syringe and venous flash was obtained. The guide wire was then advanced without any restriction and the needle was removed. The dilator was used without any complications. Using Seldinger technique the triple-lumen catheter was advanced over the guide wire to a depth of 16 centimeters. The guide wire was removed. All ports were aspirated with dark venous blood return and flushed easily with sterile saline. All ports were capped. Antibiotic disc was placed around central line at puncture site. The central line was secured to the skin with two interrupted 2.0 silk sutures. The area was bandaged with sterile see-through central line bandage. RADIOLOGICAL DATA Ultrasound guidance was used to locate right internal jugular vein. Doppler/ color flow was used to confirm venous flow. COMPLICATIONS: No apparent complications ESTIMATED BLOOD LOSS: Less than 1 cc. Abdiel Montejo MD March 01, 2017 18:00
--- NOTE | 2017-03-01 18:06 | PD.CONS ---
[facility] Service Critical Care Medicine Consult Requested By Dr. Thomas Reason for Consult Sepsis Primary Care Physician Chaka Greenwood MD History of Present Illness 76-year-old male. Date of admission 03/01/2017. Date of consultation . Past medical history includes history microinfarction status post stents in 2004, diabetes mellitus, coronary disease, hypertension, gastroesophageal reflux disease, diverticulosis, colonic polyps and BPH. Negative workup for GI bleed 2016 including capsule endoscopy. Patient presents to [place] subjective complaints of cough, fever, sputum production chills since last . No recent sick contacts.\ n the emergency department, chest x-ray shows bilateral hazy infiltrates he had a white cell count 22,000. A lactate of 4.1. Recheck creatinine 1.5. He was started on IV Rocephin, Zithromax and IV Solu-Medrol. He was also given 1 L fluid bolus. On the floor, patient became hypotensive requiring norepinephrine. Chemical Operations Specialist consult for medical management. Patient is not septic appearing. Currently in 4 mcg/m norepinephrine. Making urine. Mentating fine Review of Systems Constitutional: COMPLAINS OF: Fatigue, Fever, DENIES: Weight gain, Weight loss Endocrine: DENIES: Polydipsia, Polyuria Eyes: DENIES: Blurred vision Ears, nose, mouth, throat: DENIES: Tinnitus, Toothache Respiratory: COMPLAINS OF: Cough, Sputum production, Shortness of breath, DENIES: Apneas Cardiovascular: DENIES: Chest pain Gastrointestinal: DENIES: Abdominal pain Genitourinary: DENIES: Urgency Musculoskeletal: DENIES: Joint pain Integumentary: DENIES: Abnormal pigmentation Hematologic/lymphatic: DENIES: Bruising Immunologic/allergic: DENIES: Eczema Neurologic: DENIES: Abnormal gait, Headache Psychiatric: DENIES: Anxiety, Confusion Past Family Social History Allergies: Coded Allergies: No Known Allergies (Verified , 03/01/17) Past Medical History Diverticulosis Gastroesophageal reflux disease Colonic polyps BPH Coronary artery disease status post LA 2004 Hypertension Dyslipidemia Osteoporosis/osteoarthritis internal hemorrhoids Diabetes mellitus Past Surgical History I&D pilonidal cyst Right carotid endarterectomy Hernia repair Cardiac catheterization Reported Medications Metoprolol 50 mg by mouth twice a day Metformin 500 mg by mouth twice a day Atorvastatin 40 mg by mouth daily Multivitamin 1 tablet daily Aspirin 81 mg by mouth daily Oxygen 2 L vitamin D3 1000 units by mouth twice a day Active Ordered Medications Reviewed in EMR Family History Mother from, patient diabetes possibility osteomyelitis. Father unknown. Social History Prior tobacco 3 packs per day tobacco for 55 years quit 2002 no current alcohol or IV drug use Physical Exam Vital Signs Vital Signs Date Time Temp Pulse Resp B/P Pulse Ox O2 Delivery O2 Flow Rate FiO2 03/01/17 16:30 110 24 109/58 96 03/01/17 16:15 114 23 114/60 96 03/01/17 16:00 98.1 106 21 99/53 98 03/01/17 15:45 106 20 103/49 96 03/01/17 15:31 94 Nasal Cannula 3.00 03/01/17 15:30 102 18 110/59 95 03/01/17 15:15 104 20 100/53 91 03/01/17 15:00 108 24 109/61 96 03/01/17 14:45 108 21 97/57 96 03/01/17 14:30 104 15 100/54 93 03/01/17 14:15 106 23 109/52 93 03/01/17 14:00 112 32 91/50 95 03/01/17 13:45 116 22 92/43 92 03/01/17 13:40 114 23 107/49 92 03/01/17 13:30 118 27 90/44 93 03/01/17 13:18 116 17 80/37 92 03/01/17 13:15 120 27 84/49 03/01/17 13:12 118 29 75/43 89 03/01/17 13:00 98.8 110 20 117/53 93 03/01/17 11:48 94 Nasal Cannula 2 03/01/17 11:48 22 94 Nasal Cannula 2 03/01/17 11:47 120 20 109/43 95 Nasal Cannula 2 03/01/17 10:21 98.3 90 22 108/62 89 Physical Exam GENERAL: 76-year-old male, critically ill currently resting in bed in no acute distress SKIN: Warm and dry. HEAD: Atraumatic. Normocephalic. EYES: Pupils equal and round. No scleral icterus. No injection or drainage. ENT: No nasal bleeding or discharge. Mucous membranes pink and moist. NECK: Trachea midline. No JVD. Right IJ clean dry and intact. Prior scar from endarterectomy CARDIOVASCULAR: Tachycardic, RR. S1, S2 no S4. No murmur RESPIRATORY: Few crackles scattered throughout. No wheeze. Breath sounds equal bilaterally. GASTROINTESTINAL: Abdomen soft, non-tender, nondistended. Hypoactive bowel sounds MUSCULOSKELETAL: Extremities without significant peripheral edema. No obvious deformities. NEUROLOGICAL: Awake and alert. No obvious cranial nerve deficits. Motor grossly within normal limits. Five out of 5 muscle strength in the arms and legs. Normal speech. PSYCHIATRIC: Appropriate mood and affect; insight and judgment normal. Laboratory Laboratory Tests Test 03/01/17 03/01/17 03/01/17 03/01/17 10:35 11:27 11:41 13:50 White Blood Count 22.6 Red Blood Count 3.35 Hemoglobin 8.9 Hematocrit 28.0 Mean Corpuscular Volume 83.6 Mean Corpuscular Hemoglobin 26.6 Mean Corpuscular Hemoglobin 31.8 Concent Red Cell Distribution Width 15.5 Platelet Count 416 Mean Platelet Volume 8.4 Neutrophils (%) (Auto) 82.5 Lymphocytes (%) (Auto) 5.0 Monocytes (%) (Auto) 11.6 Eosinophils (%) (Auto) 0.7 Basophils (%) (Auto) 0.2 Neutrophils # (Auto) 18.7 Lymphocytes # (Auto) 1.1 Monocytes # (Auto) 2.6 Eosinophils # (Auto) 0.2 Basophils # (Auto) 0.0 CBC Comment AUTO DIFF Differential Total Cells 100 Counted Neutrophils % (Manual) 79 Band Neutrophils % 6 Lymphocytes % 5 Monocytes % 9 Neutrophils # (Manual) 19.4 Metamyelocytes 1 Differential Comment FINAL DIFF MANUAL Platelet Estimate NORMAL Platelet Morphology Comment NORMAL Sodium Level 132 Potassium Level 4.4 Chloride Level 90 Carbon Dioxide Level 28.3 Anion Gap 14 Blood Urea Nitrogen 40 Creatinine 1.50 Estimat Glomerular Filtration 46 Rate Random Glucose 234 Calcium Level 8.8 Total Bilirubin 0.8 Direct Bilirubin 0.3 Indirect Bilirubin 0.5 Aspartate Amino Transf 55 (AST/SGOT) Alanine Aminotransferase 41 (ALT/SGPT) Alkaline Phosphatase 87 B-Type Natriuretic Peptide 888 Total Protein 7.3 Albumin 2.9 Thyroid Stimulating Hormone 1.310 3rd Gen Lactic Acid Level 4.1 3.6 Blood Gas Puncture Site RT RADIAL Blood Gas Patient Temperature 98.6 Blood Gas HCO3 26 Blood Gas Base Excess 2.0 Blood Gas Oxygen Saturation 87 Arterial Blood pH 7.44 Arterial Blood Partial 39 Pressure CO2 Arterial Blood Partial 58 Pressure O2 Arterial Blood Oxygen Content 9.1 Arterial Blood 2.8 Carboxyhemoglobin Arterial Blood Methemoglobin 0.3 Blood Gas Hemoglobin 7.4 Oxygen Delivery Device ROOM AIR Blood Gas Inspired Oxygen 21 Date/Time Procedure Status Source Growth 03/01/17 11:30 Influenza Types A,B Antigen (BIANCA) - Final Complete Nasal Aspirate NEGATIVE FOR FLU A AND B ANTIGEN.... 03/01/17 11:25 Aerobic Blood Culture Received Blood Peripheral Pending 03/01/17 11:25 Anaerobic Blood Culture Received Blood Peripheral Pending Result Diagram: 03/01/17 1035 03/01/17 1035 Imaging Last Impressions Chest X-Ray 03/01/17 1044 Signed Impressions: Service Date/Time: Wednesday, March 01, 2017 10:59 - CONCLUSION: Bilateral hazy pulmonary infiltrates. This could represent pneumonia versus pulmonary edema. Brandan Caro MD Septic Shock Reassessment Heart: Regular rate and rhythm, Other Lungs: Crackles Skin: Warm, [place] Peripheral Pulses: Bounding Right Radial Bounding Left Radial Bounding Right Popliteal Bounding Left Popliteal Bounding Right Dorsalis Pedis Bounding Left Dorsalis Pedis Bounding Right Posterior Tibial Bounding Left Posterior Tibial Capillary Refill: Brisk, <2 seconds Assessment and Plan Assessment and Plan Neuro/Psych: Acetaminophen for fever [place]/morphine for pain management CV: Septic shock Lactic acidosis History of hypertension History dyslipidemia Coronary artery disease status post stent 2. 2004 Dr. Oliveira Currently normal saline in the 100 cc an hour. Check CVP On norepinephrine at 4 mcg/m. Titrate to keep MAP greater than 65 Follow-up EKG/troponin Holding metoprolol 50 mg by mouth twice a day/home medication for hypertension. Resume when not hypotensive Holding atorvastatin 40 mg by mouth daily/home medication for dyslipidemia. Resume when clinically indicated Serial lactates until clear. Echocardiogram ordered. Prior echocardiogram revealed EF 50-55%. Mild hypokinesis of the anterior septum, anterior and anterolateral mills. GURMEET 48 mmHg. Noted cardiac catheterization Dr. Oliveira 2012 placement of 2 stents in LAD. Continue aspirin 81 mg by mouth daily Resp: Acute hypoxemic respiratory failure Chronic oxygen requirement Prior tobaccoism Chest x-ray reveals bilateral infiltrates. Nasal cannula to maintain saturations greater than equal to 92% Incentive spirometry while awake Duo nebs every 4 hours with albuterol every 2 hours when necessary Follow-up chest x-ray in a.m. GI: Colonic polyps Hemorrhoids Gastroesophageal reflux disease Diverticulosis Elevated AST On ADA/heart healthy diet. Protonix for GI prophylaxis Colace/as needed Senokot for bowel regimen Follow-up CMP in a.m. : BPH [place] will be placed for accurate I's and O's in a critically ill patient Endo: Diabetes mellitus Hold metformin 500 mg by mouth twice a day Sliding scale insulin with Accu-Cheks to maintain euglycemia/before meals chest moderate regimen TSH nl Renal: Acute kidney injury Monitor urine output closely. Accurate I's and O's Follow BMP in a.m. Making greater than 30 cc an hour. Heme: Leukocytosis Normocytic anemia Follow-up CBC in AM. Monitor trends ID: Likely community-acquired pneumonia Vancomycin, Zosyn and Zithromax day #1 Received Rocephin in the ED. Pertinent cultures Influenza negative Blood cultures 2 03/01 pending Sputum, Legionella and pneumococcal antigens pending FEN: Hyponatremia Replace electrolytes as clinically indicated MSK: Osteoporosis At home on vitamin D 3 1000 units by mouth twice a day. PT evaluate and treat Access - Right IJ CVL day 1 placed / Prophylaxis - GI - Protonix - DVT - SCD/heparin Critical Care: The total critical care time was 55 minutes. Time to perform other separately billable procedures was not included in the critical care time. Code Status Full code Discussed Condition With Patient. Care plan discussed and all questions answered. Abdiel Montejo MD March 01, 2017 18:06 Abdiel Montejo MD March 01, 2017 18:06
[2017-03-01] MEDS ORDERED: Vancomycin Consult Pharmacy 1 EA OTHER SCH (18:15)
[2017-03-01] MEDS ORDERED: ONDANSETRON HCL 4 MG/2 ML VIAL IV PRN (18:30)
[2017-03-01] MEDS ORDERED: CHLORHEXIDINE GLUCONATE 2 % 1 PACK (2 CLOTHS) TOP PRN (18:30)
[2017-03-01] MEDS ORDERED: MORPHINE SULFATE 4 MG/ML INJ IV PRN (18:30)
[2017-03-01] MEDS ORDERED: MISCELLANEOUS NURSING INFORMATION XX SCH (18:30)
[2017-03-01] MEDS ORDERED: SENNOSIDES 8.6 MG TAB PO PRN (18:30)
--- NOTE | 2017-03-01 18:50 | RADHPO ---
EXAM DATE/TIME: 03/01/2017 17:53 [facility] COMPARISON: CHEST PA & LAT, March 01, 2017, 10:59. INDICATIONS : Central line placement MEDICAL HISTORY : None. SURGICAL HISTORY : None. ENCOUNTER: Subsequent ACUITY: 1 day PAIN SCORE: 0/10 LOCATION: Right upper chest FINDINGS: A single view of the chest demonstrates right central line in superior vena cava. Bilateral mostly ba silar airspace disease. Small effusions. Heart size within normal limits. CONCLUSION: Right central line in superior vena cava without pneumothorax. Increasing basilar airspace disease si nce exam earlier today. Keith Lopez MD on March 01, 2017 at 18:46 Board Certified Radiologist. This report was verified electronically.
[2017-03-01] MEDS: SODIUM CHLOR 0.9% 1000 ML INJ 1,000 ML IV SCH (20:37)
[2017-03-01] MEDS: CHOLECALCIFEROL (VIT D3) 1000 UNIT TAB PO SCH (20:38)
[2017-03-01] MEDS: DOCUSATE SODIUM 100 MG CAP PO SCH (20:38)
[2017-03-01] MEDS: SODIUM CHLORIDE 0.9% FLUSH 10 ML FLUSH IV FLUSH SCH (20:39)
[2017-03-01 20:56] LABS: MAGNESIUM 2.3 MG/DL (1.5-2.5)
[2017-03-01] MEDS ORDERED: SODIUM CHLORIDE 0.9% FLUSH 10 ML FLUSH IV FLUSH SCH (21:00)
[2017-03-01] MEDS: VANCOMYCIN INJ 1,400 MG in SODIUM CHLORID 0.9% 500 ML INJ 500 ML IV SCH (22:18)
[2017-03-02] VITALS (70 sets, daily range): BP systolic 79–134; BP diastolic 42–70; PULSE 98–136; RESP 15–38; TEMP 97.7–98.6; O2SAT 88–99
[2017-03-02] MEDS: methylPREDNISolone SOD SUCC 40 MG/1 ML VIAL IV SCH (00:05)
[2017-03-02] MEDS: PIPERACIL-TAZO 4.5 GM PREMIX 100 ML IV SCH ×4 (02:59→20:32)
[2017-03-02] MEDS: SODIUM CHLOR 0.9% 1000 ML INJ 1,000 ML IV SCH ×2 (03:00→05:23)
[2017-03-02] MEDS ORDERED: CHLORHEXIDINE GLUCONATE 2 % 1 PACK (2 CLOTHS) TOP SCH (04:00)
[2017-03-02] MEDS: CHLORHEXIDINE GLUCONATE 2 % 1 PACK (2 CLOTHS)(taper/protocol) TOPICAL SCH (04:00)
[2017-03-02] MEDS: RESP: ALBUTEROL 2.5 MG/IPRATROPIUM 0.5 MG NEB (SCH) INH ×5 (04:02→19:19)
[2017-03-02] MEDS: INSULIN ASPART SUPPLEMENTAL SCALE SQ SCH (05:52)
[2017-03-02 06:09] LABS: AUTOMATED NEUTROPHIL # 11.2 TH/MM3 (1.8-7.7); BASOPHIL % 0.1 % (0.0-2.0); EOSINOPHIL % 0.1 % (0.0-4.0); HEMATOCRIT 21.8 % (39.0-51.0); LYMPH % 3.4 % (9.0-44.0); LYMPHOCYTE # 0.4 TH/MM3 (1.0-4.8); MEAN CELL VOLUME 82.4 FL (80.0-100.0); MEAN CORPUSCULAR HEMOGLOBIN 26.3 PG (27.0-34.0); MONO % 5.3 % (0.0-8.0); NEUT % 91.1 % (16.0-70.0); PLATELET COUNT 311 TH/MM3 (150-450); RED BLOOD COUNT 2.64 MIL/MM3 (4.50-5.90); WHITE BLOOD COUNT 12.3 TH/MM3 (4.0-11.0)
[2017-03-02 06:15] LABS: CHLORIDE 95 MEQ/L (98-107); POTASSIUM 3.8 MEQ/L (3.5-5.1); SODIUM (NA) 131 MEQ/L (136-145)
--- NOTE | 2017-03-02 06:15 | RADHPO ---
EXAM DATE/TIME: 03/02/2017 06:04 [facility] COMPARISON: CHEST SINGLE AP, March 01, 2017, 17:53. INDICATIONS : Follow up pneumonia. Short of breath. MEDICAL HISTORY : None. SURGICAL HISTORY : None. ENCOUNTER: Subsequent ACUITY: 3 days PAIN SCORE: 6/10 LOCATION: Bilateral chest FINDINGS: Single portable frontal view the chest shows no interval change in the diffuse bilateral pulmonary in filtrates. Heart is normal in size. No effusions. Right-sided central line. CONCLUSION: Unchanged diffuse pulmonary infiltrates. Dale Ram Jr., MD on March 02, 2017 at 6:13 Board Certified Radiologist. This report was verified electronically.
[2017-03-02 06:16] LABS: HEMO FLAGS DIFF FINAL
[2017-03-02 07:28] LABS: ALKALINE PHOSPHATASE 80 U/L (45-117); ALT (GPT) 35 U/L (12-78); AMYLASE 28 U/L (25-115); AST (GOT) 40 U/L (15-37); BLOOD UREA NITROGEN 45 MG/DL (7-18); CREATINE KINASE 136 U/L (39-308); GLOMERULAR FILTRATION RATE 46 ML/MIN (>89); MAGNESIUM 2.5 MG/DL (1.5-2.5)
[2017-03-02 07:29] LABS: ANION GAP 11 MEQ/L (5-15); BICARBONATE 24.7 MEQ/L (21.0-32.0); TOTAL BILIRUBIN ADULT 0.5 MG/DL (0.2-1.0)
[2017-03-02] MEDS: CHOLECALCIFEROL (VIT D3) 1000 UNIT TAB PO SCH ×2 (09:00→20:32)
[2017-03-02] MEDS: AZITHROMYCIN 250 MG TAB PO SCH (09:01)
[2017-03-02] MEDS: PANTOPRAZOLE SOD 40 MG DELAYED RELEASE TAB PO SCH (09:01)
[2017-03-02] MEDS: ASPIRIN 81 MG CHEW TAB CHEW SCH (09:01)
[2017-03-02] MEDS: Central Line Short Term Adult 7Fr or larger Daily NS Lock Flush IV FLUSH SCH (09:02)
[2017-03-02] MEDS: DOCUSATE SODIUM 100 MG CAP PO SCH ×2 (09:02→20:32)
[2017-03-02] MEDS: SODIUM CHLORIDE 0.9% FLUSH 10 ML FLUSH IV FLUSH SCH ×2 (09:03→20:32)
[2017-03-02] MEDS: ARTIFICIAL TEARS OPTH SOLN 15 ML BTL EACH EYE SCH ×3 (09:03→18:00)
[2017-03-02] MEDS: NOREPINEPHRINE-DEXTROSE DRIP 250 ML IV PRN (10:56)
--- NOTE | 2017-03-02 11:17 | EKG ---
Date Performed: 03/01/2017 Time Performed: 22:12:48 PTAGE: 76 years EKG: Sinus tachycardia. Leftward axis Possible septal infarct - age undetermined Low QRS voltage s in precordial leads Abnormal ECG PREVIOUS TRACING : 03/01/2017 11.06 DOCTOR: Mak Rainey Interpretating Date/Time 03/02/2017 11:13:55
--- NOTE | 2017-03-02 11:28 | EKG ---
Date Performed: 03/01/2017 Time Performed: 11:06:30 PTAGE: 76 years EKG: Sinus rhythm Anteroseptal infarct - age undetermined Low QRS voltages in precordial leads Abnormal ECG PREVIOUS TRACING : 12/12/2016 10.01 DOCTOR: Mak Rainey Interpretating Date/Time 03/02/2017 11:22:08
--- NOTE | 2017-03-02 12:07 | EC ---
Study Study Date:03/02/2017 STUDY CONCLUSIONS SUMMARY - Left ventricle: The cavity size was normal. Wall thickness was normal. The estimated ejection fraction was 50%. Systolic function was unchanged from the previous study. Moderate diffuse hypokinesis with distinct regional wall motion abnormalities. Hypokinesis of the anteroseptal, anterolateral, and apical myocardium. THIS WALL MOTION ABNORMALITES ARE UNCHANGED FROM PREVIOUS STUDY - Aortic valve: Valve area: 1.77cm^2(VTI). Valve area: 1.81cm^2 (Vmax). - Mitral valve: Severe regurgitation. - Pulmonary arteries: PA peak pressure: 67mm Hg (S). If LV function is below 40, please consider prescribing an ACEI or ARB or document rationale for non-use. PROCEDURE DATA STUDY STATUS: Elective. Procedure: Transthoracic echocardiography. Image quality was good. Scanning was performed from the parasternal, apical, and subcostal acoustic windows. Study completion: The patient tolerated the procedure well. Transthoracic echocardiography. M-mode, complete 2D, complete spectral Doppler, and color Doppler. Height: Height: 74in. Weight: Weight: 209.6lb. Body mass index: BMI: 27kg/m^2. Body surface area: BSA: 2.22m^2. Patient status: Inpatient. CARDIAC ANATOMY LEFT VENTRICLE: The cavity size was normal. Wall thickness was normal. The estimated ejection fraction was 50%. Systolic function was unchanged from the previous study. Moderate diffuse hypokinesis with distinct regional wall motion abnormalities. Regional wall motion abnormalities: Hypokinesis of the anteroseptal, anterolateral, and apical myocardium. AORTIC VALVE: Trileaflet; normal thickness leaflets. Doppler: Transvalvular velocity was within the normal range. There was no stenosis. No regurgitation. Valve area: 1.77cm^2(VTI). Indexed valve area: 0.8cm^2/m^2 (VTI). Valve area: 1.81cm^2 (Vmax). Indexed valve area: 0.82cm^2/m^2 (Vmax). Mean gradient: 4mm Hg (S). AORTA: Aortic root: The aortic root was normal in size. MITRAL VALVE: Structurally normal valve. Doppler: Transvalvular velocity was within the normal range. There was no evidence for stenosis. Severe regurgitation. Peak gradient: 4mm Hg (D). LEFT ATRIUM: The atrium was normal in size. RIGHT VENTRICLE: The cavity size was normal. Wall thickness was normal. PULMONIC VALVE: Doppler: Transvalvular velocity was within the normal range. There was no evidence for stenosis. No regurgitation. TRICUSPID VALVE: Structurally normal valve. Doppler: Transvalvular velocity was within the normal range. No regurgitation. PULMONARY ARTERY: The main pulmonary artery was normal-sized. Systolic pressure was within the normal range. RIGHT ATRIUM: The atrium was normal in size. PERICARDIUM: There was no pericardial effusion. SYSTEMIC VEINS: Inferior vena cava: The vessel was normal in size. Patient weight: 209.6lb _Ejection fraction:_ 65-75% _Fractional shortening:_ 32% up to 5Kg 5-11.5Kg 11.6-22.9Kg 23-45Kg 45-57Kg Aortic Root 7-13 <17 13-22 17-27 17-27 LA diam 6-13 <23 24-38 33-47 37-40 RVID 10-17 7-15 7-15 7-18 8-17 LVIDd 12-22 <32 24-38 33-47 37-40 LVPW 2-4 3-6 5-7 6-8 7-8 IVS 2-4 3-6 5-7 6-8 7-8 BASIC MEASUREMENTS ADULT NORMAL Left ventricle LV internal dimension, ED, chordal *56.2 mm 43-52 level, PLAX LV internal dimension, ES, chordal *45.3 mm 23-38 level, PLAX Fractional shortening, chordal level, *19 % >29 PLAX LV posterior wall thickness, ED 8.09 mm IVS/LVPW ratio, ED 1 <1.3 Ventricular septum Septal thickness, ED 8.06 mm Aortic valve Leaflet separation 17 mm 15-26 Aorta Root diameter, ED 25 mm Left atrium Anterior-posterior dimension 42 mm Anterior-posterior dimension index 1.89 cm/m^2 <2.2 BASIC MEASUREMENTS ADULT NORMAL Aortic valve Leaflet separation 17 mm 15-26 DOPPLER MEASUREMENTS ADULT NORMAL Main pulmonary artery Pressure, S *67 mm Hg =30 Aortic valve Peak velocity, S 131 cm/s Mean velocity, S 99.6 cm/s VTI, S 21.7 cm Mean gradient, S 4 mm Hg Valve area, VTI 1.77 cm^2 Valve area index, VTI 0.8 cm^2/m^2 Valve area, Vmax 1.81 cm^2 Valve area index, Vmax 0.82 cm^2/m^2 Mitral valve Peak E-wave velocity 97.5 cm/s Peak A-wave velocity 114 cm/s Deceleration time *81 ms 150-230 Peak gradient, D 4 mm Hg Peak E/A ratio 0.9 Tricuspid valve Regurgitant peak velocity 369 cm/s Peak RV-RA gradient, S 54 mm Hg Maximal regurgitant velocity 369 cm/s Systemic veins Estimated CVP 10 mm Hg Right ventricle RV pressure, S *69 mm Hg <30 Pulmonic valve Peak velocity, S 73.7 cm/s LEGEND: Mean values are shown as u=mean value. Asterisk (*) desai values outside specified normal range. Amended Mak Rainey [id number]
[2017-03-02] MEDS ORDERED: POTASSIUM CHLOR 20 MEQ PREMIX 100 ML IV PRN ×2 (12:30)
[2017-03-02] MEDS ORDERED: DEXTROSE 50% IN WATER 50 ML VIAL(D50) IV PUSH PRN (12:30)
[2017-03-02] MEDS ORDERED: MAGNESIUM SULFATE INJ 4 GM in SODIUM CHLORIDE 0.9% INJ 92 ML IV PRN (12:30)
[2017-03-02] MEDS ORDERED: POTASSIUM PHOSPHATE MONOBASIC 500 MG TAB PO/TUBE PRN (12:30)
[2017-03-02] MEDS ORDERED: MAGNESIUM SULFATE INJ 2 GM in SODIUM CHLORIDE 0.9% INJ 96 ML IV PRN (12:30)
[2017-03-02] MEDS ORDERED: GLUCAGON 1 MG/ML VIAL OTHER PRN (12:30)
[2017-03-02] MEDS ORDERED: POTASSIUM PHOSPHATE MONOBASIC 500 MG TAB PO PRN (12:30)
[2017-03-02] MEDS ORDERED: POTASSIUM CHLOR 40 MEQ PREMIX 100 ML IV PRN ×2 (12:30)
[2017-03-02] MEDS ORDERED: MAGNESIUM OXIDE 400 MG TAB PO PRN (12:30)
[2017-03-02] MEDS ORDERED: POTASSIUM CHLORIDE 25 MEQ EFFERVESCENT TAB PO PRN (12:30)
[2017-03-02] MEDS: INSULIN NovoLIN REGULAR SUPPLEMENTAL SCALE SQ SCH ×3 (12:52→23:01)
[2017-03-02] MEDS ORDERED: BUMETANIDE INJ 1 MG/4 ML VIAL IV PUSH ONE ×2 (13:00→20:00)
[2017-03-02] MEDS: SODIUM PHOSPHATE INJ 30 MMOL in SODIUM CHLOR 0.9% 250 ML INJ 240 ML IV PRN (13:20)
[2017-03-02] MEDS: VANCOMYCIN INJ 1,400 MG in SODIUM CHLORID 0.9% 500 ML INJ 500 ML IV SCH (14:48)
--- NOTE | 2017-03-02 17:07 | HHI.CCPN ---
Subjective Remarks/Hospital Course 76-year-old male. Date of admission 03/01/2017. Date of consultation . Past medical history includes history microinfarction status post stents in 2004, diabetes mellitus, coronary disease, hypertension, gastroesophageal reflux disease, diverticulosis, colonic polyps and BPH. Negative workup for GI bleed 2016 including capsule endoscopy. Patient presents to [place] subjective complaints of cough, fever, sputum production chills since last . No recent sick contacts. In the emergency department, chest x-ray shows bilateral hazy infiltrates he had a white cell count 22,000. A lactate of 4.1. Recheck creatinine 1.5. He was started on IV Rocephin, Zithromax and IV Solu-Medrol. He was also given 1 L fluid bolus.On the floor, patient became hypotensive requiring norepinephrine. [employer] consult for medical management. Patient is not septic appearing. Currently in 4 mcg/m norepinephrine. Making urine. 03/02 Patient is off Levophed receiving 1unit PRBC for Hgb 6.9. Awake and alert on 3L oxygen. Objective Vital Signs Date Time Temp Pulse Resp B/P Pulse Ox O2 Delivery O2 Flow Rate FiO2 03/02/17 16:01 98.6 112 22 97/50 93 03/02/17 11:24 Nasal Cannula 3.00 Intake and Output 03/01/17 03/01/17 03/01/17 07:59 15:59 23:59 Intake Total 100 ml 2473 ml Balance 100 ml 2473 ml Result Diagram: 03/02/17 0545 03/02/17 0545 Other Results Laboratory Tests Test 03/01/17 03/01/17 03/02/17 03/02/17 20:39 22:15 05:45 12:40 Phosphorus Level 2.3 MG/DL 2.1 MG/DL 2.4 MG/DL Magnesium Level 2.3 MG/DL 2.5 MG/DL Lactic Acid Level 3.8 mmol/L 2.9 mmol/L 2.1 mmol/L White Blood Count 12.3 TH/MM3 Red Blood Count 2.64 MIL/MM3 Hemoglobin 6.9 GM/DL Hematocrit 21.8 % Mean Corpuscular Volume 82.4 FL Mean Corpuscular Hemoglobin 26.3 PG Mean Corpuscular Hemoglobin 32.0 % Concent Red Cell Distribution Width 16.0 % Platelet Count 311 TH/MM3 Mean Platelet Volume 8.1 FL Neutrophils (%) (Auto) 91.1 % Lymphocytes (%) (Auto) 3.4 % Monocytes (%) (Auto) 5.3 % Eosinophils (%) (Auto) 0.1 % Basophils (%) (Auto) 0.1 % Neutrophils # (Auto) 11.2 TH/MM3 Lymphocytes # (Auto) 0.4 TH/MM3 Monocytes # (Auto) 0.7 TH/MM3 Eosinophils # (Auto) 0.0 TH/MM3 Basophils # (Auto) 0.0 TH/MM3 CBC Comment DIFF FINAL Differential Comment Sodium Level 131 MEQ/L Potassium Level 3.8 MEQ/L Chloride Level 95 MEQ/L Carbon Dioxide Level 24.7 MEQ/L Anion Gap 11 MEQ/L Blood Urea Nitrogen 45 MG/DL Creatinine 1.50 MG/DL Estimat Glomerular Filtration 46 ML/MIN Rate Random Glucose 383 MG/DL Calcium Level 7.7 MG/DL Total Bilirubin 0.5 MG/DL Aspartate Amino Transf 40 U/L (AST/SGOT) Alanine Aminotransferase 35 U/L (ALT/SGPT) Alkaline Phosphatase 80 U/L Total Creatine Kinase 136 U/L Total Protein 6.0 GM/DL Albumin 2.2 GM/DL Amylase Level 28 U/L Lipase 120 U/L Blood Type O NEGATIVE Antibody Screen NEGATIVE Crossmatch Leukocyte-Reduced Red Blood Cells Blood Bank Comment Imaging Last Impressions Chest X-Ray 03/02/17 0600 Signed Impressions: Service Date/Time: Thursday, March 02, 2017 06:04 - CONCLUSION: Unchanged diffuse pulmonary infiltrates. Dale Ram Jr., MD Objective Remarks GENERAL: Patient is lying in bed in NAD SKIN: Warm and dry. HEAD: Normocephalic. EYES: No scleral icterus. No injection or drainage. NECK: Supple, trachea midline. No JVD or lymphadenopathy. Right IJ clean dry and intact. Prior scar from endarterectomy CARDIOVASCULAR: Regular rate and rhythm without murmurs, gallops, or rubs. RESPIRATORY: Breath sounds equal bilaterally. No accessory muscle use. GASTROINTESTINAL: Abdomen soft, non-tender, nondistended. MUSCULOSKELETAL: No cyanosis, or edema. Neuro: awake and alert A/P Assessment and Plan Neuro/Psych: Acetaminophen for fever [place]/morphine for pain management CV: Septic shock Lactic acidosis..trending down History of hypertension History dyslipidemia Coronary artery disease status post stent 2. 2004 Dr. Oliveira Off Levophed monitor HR and BP keep MAP>65mmHg Lactic acid trending down 2.1 Echo showed cardiomyopathy with EF 15%, diffuse hypokinesis, severe MR Prior echocardiogram revealed EF 50-55%. Mild hypokinesis of the anterior septum, anterior and anterolateral mills. GURMEET 48 mmHg. Noted cardiac catheterization Dr. Oliveira 2012 placement of 2 stents in LAD. Continue aspirin 81 mg by mouth daily, diurese with Bumex 1mg x1, cards cards Not on BB or James-I due to borderline low BP Resp: Acute hypoxemic respiratory failure Chronic oxygen requirement Prior tobaccoism Continue with oxygen keep sat >92% Incentive spirometry while awake Duo nebs every 4 hours with albuterol every 2 hours when necessary Decrease Solumederol 40mg IV daily GI: Colonic polyps Hemorrhoids Gastroesophageal reflux disease Diverticulosis Elevated AST On ADA/heart healthy diet. Protonix for GI prophylaxis Colace/as needed Senokot for bowel regimen GI eval for anemia : BPH Monitor renal function, I/O's, avoid nephrotoxins Cr: 1.5 today, UO 675 ml since yesterday Diurese with Bumex 1mg x1 Endo: Diabetes mellitus Place on SSI ( medium scale ) for glycemic control TSH nl Heme: Leukocytosis Normocytic anemia Monitor CBC for transfusion1 unit PRBC. Check H/H post transfusion, GI eval. ID: Likely community-acquired pneumonia Continue with abx (Vancomycin, Zosyn and Zithromax day) monitor for signs of infections ( Fever, WBC) Received Rocephin in the ED. Pertinent cultures Influenza negative Blood cultures 2 5 NGTD Sputum, Legionella and pneumococcal antigens negative MSK: Osteoporosis At home on vitamin D 3 1000 units by mouth twice a day. PT evaluate and treat Access - Right IJ CVL day 1 placed 03/01 Prophylaxis - GI - Protonix - DVT - SCD/ hold Heparin for anemia requiring blood transfusion and Hemoccult positive Level 3 Naresh Christian MD March 02, 2017 17:06
[2017-03-02 20:54] LABS: HEMATOCRIT 25.7 % (39.0-51.0)
[2017-03-02 21:02] LABS: POTASSIUM 3.8 MEQ/L (3.5-5.1)
[2017-03-02 21:04] LABS: REVIEW FLAG FINAL
[2017-03-02 21:38] LABS: BICARBONATE 24.4 MEQ/L (21.0-32.0)
[2017-03-02] MEDS: TEMAZEPAM 15 MG CAP PO PRN (21:40)
[2017-03-02 21:58] LABS: CALCIUM-PROTEIN CORRECTED 7.8 MG/DL (8.5-10.1)
[2017-03-03] VITALS (40 sets, daily range): BP systolic 102–147; BP diastolic 50–76; PULSE 98–152; RESP 16–32; TEMP 98–98.6; O2SAT 89–98
[2017-03-03] MEDS: RESP: ALBUTEROL 2.5 MG/IPRATROPIUM 0.5 MG NEB (SCH) INH ×5 (00:32→16:00)
[2017-03-03] MEDS: PIPERACIL-TAZO 4.5 GM PREMIX 100 ML IV SCH ×4 (00:49→20:04)
[2017-03-03] MEDS: CHLORHEXIDINE GLUCONATE 2 % 1 PACK (2 CLOTHS)(taper/protocol) TOPICAL SCH ×2 (04:00→23:39)
[2017-03-03 04:34] LABS: AUTOMATED NEUTROPHIL # 18.9 TH/MM3 (1.8-7.7); BASOPHIL # 0.1 TH/MM3 (0-0.2); BASOPHIL % 0.5 % (0.0-2.0); EOSINOPHIL % 0.1 % (0.0-4.0); HEMATOCRIT 25.3 % (39.0-51.0); LYMPH % 5.2 % (9.0-44.0); LYMPHOCYTE # 1.1 TH/MM3 (1.0-4.8); MEAN CELL VOLUME 84.6 FL (80.0-100.0); MEAN CORPUSCULAR HEMOGLOBIN 26.6 PG (27.0-34.0); MEAN CORPUSCULAR HGB CONC 31.4 % (32.0-36.0); MONO % 8.2 % (0.0-8.0); PLATELET COUNT 365 TH/MM3 (150-450); RED BLOOD COUNT 2.99 MIL/MM3 (4.50-5.90); RED CELL DISTRIBUTION WIDTH 16.3 % (11.6-17.2); WHITE BLOOD COUNT 21.9 TH/MM3 (4.0-11.0)
[2017-03-03 04:45] LABS: HEMO FLAGS AUTO DIFF
[2017-03-03 04:50] LABS: CHLORIDE 98 MEQ/L (98-107); POTASSIUM 3.6 MEQ/L (3.5-5.1); SODIUM (NA) 137 MEQ/L (136-145)
[2017-03-03 04:54] LABS: ANION GAP 10 MEQ/L (5-15); BICARBONATE 29.3 MEQ/L (21.0-32.0); BLOOD UREA NITROGEN 38 MG/DL (7-18)
[2017-03-03] MEDS: INSULIN NovoLIN REGULAR SUPPLEMENTAL SCALE SQ SCH ×4 (04:56→23:39)
[2017-03-03 04:57] LABS: ALT (GPT) 40 U/L (12-78); AST (GOT) 38 U/L (15-37); GLOMERULAR FILTRATION RATE 49 ML/MIN (>89)
[2017-03-03 04:58] LABS: TOTAL BILIRUBIN ADULT 0.6 MG/DL (0.2-1.0)
[2017-03-03 05:00] LABS: ALKALINE PHOSPHATASE 76 U/L (45-117)
[2017-03-03 06:37] LABS: BANDS 15 % (0-6); NEUTROPHIL # MANUAL DIFF 17.3 TH/MM3 (1.8-7.7); POLYS (SEG NEUTROPHILS) 64 % (16-70); WBC DIFF SAMPLE 100
[2017-03-03 06:38] LABS: PLATELET ESTIMATE SMEAR NORMAL (NORMAL); PLATELET MORPHOLOGY NORMAL (NORMAL); SCAN/DIFF FINAL DIFF MANUAL
--- NOTE | 2017-03-03 07:52 | MB ---
cc: JACKELIN MOTT DATE OF 05/28/1942 DATE OF CONSULTATION March 02, 2016 REASON FOR CONSULTATION Cardiomyopathy. HISTORY OF PRESENT ILLNESS 76-year-old male with a past medical history significant for CAD, status post myocardial infarction in 2004, hypertension, hyperlipidemia, diabetes, ongoing GI bleeding who presented to the [facility] with complaints of cough, fever and overall weakness. He was found to have bilateral infiltrates on chest x-ray as well as an elevated white cell count and lactate he was admitted pneumonia. While in the hospital he became severely hypotensive in the setting of severe hemoglobin drop, requiring vasopressor and transfer to ICU. No obvious signs of active bleeding. Cardiology has been consulted due to echocardiogram findings showing moderately depressed LV systolic function in the anterior and apical region. The patient denies chest pain, palpitations, syncope, PND or noncompliance with medications. He has been following with Dr. Oliveira every six months. REVIEW OF SYSTEMS Negative except for what is mentioned in the HPI. PAST MEDICAL HISTORY 1. Coronary artery disease with history of AK in 2004, status post PCI to the LAD and diagonal. 2. Colon polyps. 3. BPH. 4. Pilonidal cyst. 5. GERD. 6. Recent GI bleeding with symptomatic anemia. PAST SURGICAL HISTORY 1. Colonoscopy on November 21, 2016, showing diverticulosis, internal and external hemorrhoids. 2. Cardiac catheterization in 2004 showing status post PCI to LAD and diagonal. 3. I&D of pilonidal cyst. 4. Right carotid endarterectomy. ALLERGIES No known drug allergies. CARDIAC HOME MEDICATIONS 1. Aspirin 81 mg p.o. daily. 2. Lipitor 40 mg p.o. daily. 3. Metoprolol 50 mg p.o. b.i.d. FAMILY HISTORY Noncontributory. SOCIAL HISTORY Denies tobacco, alcohol or illicit drug use. PHYSICAL EXAMINATION VITAL SIGNS: Temperature 98.6, respiratory rate 19, pulse 106, blood pressure 101/50, O2 sat 98% on room air. GENERAL: Awake, alert, oriented x 3, in no acute distress. NECK: No JVD, no carotid bruits. HEART: Regular rate and rhythm. Tachycardic. No murmurs, rubs or gallops. LUNGS: Decreased inspiratory efforts bilaterally. No wheezes, no rhonchi, no rales. ABDOMEN: Soft, nontender, nondistended. Positive bowel sounds. EXTREMITIES: No cyanosis or edema. Pale. Pulses throughout. DATA CBC: Hemoglobin 6.9 trending down from 8.9, hematocrit 21 trending down from 28 , platelet count 311. Chemistries: Sodium 131, potassium 3.8, BUN 45, creatinine 1.5, calcium 7.7, lactic acid 4.1 trending down to 2.1, AST 40. EKG Sinus tachycardia with an incomplete right bundle branch block and there is an old anterolateral myocardial infarction. ECHOCARDIOGRAM Done today shows moderate LV systolic dysfunction, estimated ejection fraction of 15% at the apex in the anterior apical region. In comparison to the echo done on November 20, 2016, the apex LV dysfunction is the same, even though the ejection fraction was calculated to be normal in October. He does have hypokinesis in the same regions with good LV function in the basal aspect of the left ventricle. Again, this apical hypokinesis appears to be old. Also in the cath 2005 there is mention of mild to moderate dysfunction in this region. ASSESSMENT AND PLAN 76-year-old male with known coronary artery disease, admitted with questionable sepsis and acute GI bleeding. He remains afebrile, hemodynamically stable, off pressors, getting blood transfusion. He does not have any cardiovascular complaints and echo findings seems to be unchanged. Shortness of breath and weakness likely is due to severe anemia. At this point I would not pursue any other cardiac workup. I would rather assess his bleeding appropriately. The patient should follow up with Dr. Oliveira upon discharge. Unfortunately, due to the bleeding, his aspirin should be put on hold and as well as his blood pressure medications given his episode of hypotension. These medications can be resumed when he is more stable from his bleeding and blood pressure standpoint. Thank you for the opportunity to take part in the care of this patient. Will be available on a PRN basis for further question or concerns Case discussed with Rehabilitation Case Coordinator. MD BLOSSOM Hall/SSB /7:49 PM /7:36 AM TANIYA
[2017-03-03] MEDS: ASPIRIN 81 MG CHEW TAB CHEW SCH (07:59)
[2017-03-03] MEDS: AZITHROMYCIN 250 MG TAB PO SCH (07:59)
[2017-03-03] MEDS: DOCUSATE SODIUM 100 MG CAP PO SCH ×2 (07:59→20:05)
[2017-03-03] MEDS: ARTIFICIAL TEARS OPTH SOLN 15 ML BTL EACH EYE SCH ×3 (08:00→18:00)
[2017-03-03] MEDS: methylPREDNISolone SOD SUCC 40 MG/1 ML VIAL IV SCH (08:00)
[2017-03-03] MEDS: SODIUM CHLORIDE 0.9% FLUSH 10 ML FLUSH IV FLUSH SCH ×2 (09:00→20:05)
[2017-03-03] MEDS: CHOLECALCIFEROL (VIT D3) 1000 UNIT TAB PO SCH ×2 (09:00→20:05)
[2017-03-03] MEDS: PANTOPRAZOLE SOD 40 MG DELAYED RELEASE TAB PO SCH (11:21)
[2017-03-03] MEDS: VANCOMYCIN INJ 1,400 MG in SODIUM CHLORID 0.9% 500 ML INJ 500 ML IV SCH (11:21)
[2017-03-03] MEDS: Central Line Short Term Adult 7Fr or larger PRN NS Lock Flush IV FLUSH (11:23)
[2017-03-03] MEDS: Central Line Short Term Adult 7Fr or larger Daily NS Lock Flush IV FLUSH SCH (11:23)
[2017-03-03] MEDS ORDERED: BUMETANIDE INJ 1 MG/4 ML VIAL IV PUSH ONE ×2 (13:30→20:00)
--- NOTE | 2017-03-03 15:15 | RADHPO ---
EXAM DATE/TIME: 03/03/2017 14:01 [facility] COMPARISON: CHEST SINGLE AP, March 02, 2017, 6:04. INDICATIONS : Pneumonia, short of breath. MEDICAL HISTORY : Cardiovascular disease. SURGICAL HISTORY : Coronary artery stent. ENCOUNTER: Subsequent ACUITY: 4 - 6 days PAIN SCORE: 0/10 LOCATION: Bilateral chest FINDINGS: Diffuse interstitial vascular prominence with patchy airspace disease and small bilateral effusions a re noted. There is increasing fluid in the right minor fissure. Heart and mediastinal structures are stable. Right internal jugular central line remains in good position. CONCLUSION: Bilateral interstitial vascular prominence with bilateral patchy airspace disease and small bilateral effusions. No significant improvement since prior day. Juan Acosta MD on March 03, 2017 at 15:02 Board Certified Radiologist. This report was verified electronically.
--- NOTE | 2017-03-03 16:58 | HHI.CCPN ---
Subjective Remarks/Hospital Course 76-year-old male. Date of admission 03/01/2017. Date of consultation . Past medical history includes history microinfarction status post stents in 2004, diabetes mellitus, coronary disease, hypertension, gastroesophageal reflux disease, diverticulosis, colonic polyps and BPH. Negative workup for GI bleed 2016 including capsule endoscopy. Patient presents to [facility] subjective complaints of cough, fever, sputum production chills since last . No recent sick contacts. In the emergency department, chest x-ray shows bilateral hazy infiltrates he had a white cell count 22,000. A lactate of 4.1. Recheck creatinine 1.5. He was started on IV Rocephin, Zithromax and IV Solu-Medrol. He was also given 1 L fluid bolus.On the floor, patient became hypotensive requiring norepinephrine. Store Clerk Checker consult for medical management. Patient is not septic appearing. Currently in 4 mcg/m norepinephrine. Making urine. 03/02 Patient is off Levophed receiving 1unit PRBC for Hgb 6.9. Awake and alert on 3L oxygen. 03/03 Patient required Levophed overnight but was weaned off this morning, Afebrile feeling better bot now on 6L oxygen. CXR today showed b/l airspace disease. Objective Vital Signs Date Time Temp Pulse Resp B/P Pulse Ox O2 Delivery O2 Flow Rate FiO2 03/03/17 14:01 118 26 112/64 95 03/03/17 12:00 98.6 03/03/17 08:00 Nasal Cannula 4.00 Intake and Output 03/02/17 03/02/17 03/03/17 08:00 16:00 00:00 Intake Total 2129 ml 1623 ml 580 ml Output Total 600 ml 675 ml 900 ml Balance 1529 ml 948 ml -320 ml Result Diagram: 03/03/17 0423 03/03/17 0423 Other Results Laboratory Tests Test 03/02/17 03/02/17 03/03/17 03/03/17 20:00 20:30 04:23 04:25 Sodium Level 135 MEQ/L 137 MEQ/L Potassium Level 3.8 MEQ/L 3.6 MEQ/L Chloride Level 97 MEQ/L 98 MEQ/L Carbon Dioxide Level 24.4 MEQ/L 29.3 MEQ/L Anion Gap 14 MEQ/L 10 MEQ/L Blood Urea Nitrogen 42 MG/DL 38 MG/DL Creatinine 1.60 MG/DL 1.40 MG/DL Estimat Glomerular Filtration 42 ML/MIN 49 ML/MIN Rate Random Glucose 293 MG/DL 224 MG/DL Calcium Level 7.4 MG/DL 7.9 MG/DL Protein Corrected Calcium 7.8 MG/DL Total Protein 6.3 GM/DL 6.0 GM/DL Hemoglobin 8.1 GM/DL 7.9 GM/DL Hematocrit 25.7 % 25.3 % White Blood Count 21.9 TH/MM3 Red Blood Count 2.99 MIL/MM3 Mean Corpuscular Volume 84.6 FL Mean Corpuscular Hemoglobin 26.6 PG Mean Corpuscular Hemoglobin 31.4 % Concent Red Cell Distribution Width 16.3 % Platelet Count 365 TH/MM3 Mean Platelet Volume 8.0 FL Neutrophils (%) (Auto) 86.0 % Lymphocytes (%) (Auto) 5.2 % Monocytes (%) (Auto) 8.2 % Eosinophils (%) (Auto) 0.1 % Basophils (%) (Auto) 0.5 % Neutrophils # (Auto) 18.9 TH/MM3 Lymphocytes # (Auto) 1.1 TH/MM3 Monocytes # (Auto) 1.8 TH/MM3 Eosinophils # (Auto) 0.0 TH/MM3 Basophils # (Auto) 0.1 TH/MM3 CBC Comment AUTO DIFF Differential Total Cells 100 Counted Neutrophils % (Manual) 64 % Band Neutrophils % 15 % Lymphocytes % 9 % Monocytes % 12 % Neutrophils # (Manual) 17.3 TH/MM3 Differential Comment FINAL DIFF MANUAL Platelet Estimate NORMAL Platelet Morphology Comment NORMAL Red Cell Morphology Comment NORMAL Total Bilirubin 0.6 MG/DL Aspartate Amino Transf 38 U/L (AST/SGOT) Alanine Aminotransferase 40 U/L (ALT/SGPT) Alkaline Phosphatase 76 U/L Albumin 2.3 GM/DL B-Type Natriuretic Peptide 1107 PG/ML Imaging Last Impressions Chest X-Ray 03/03/17 0000 Signed Impressions: Service Date/Time: Friday, March 03, 2017 14:01 - CONCLUSION: Bilateral interstitial vascular prominence with bilateral patchy airspace disease and small bilateral effusions. No significant improvement since prior day. Juan Acosta MD Objective Remarks GENERAL: Patient is lying in bed in NAD SKIN: Warm and dry. HEAD: Normocephalic. EYES: No scleral icterus. No injection or drainage. NECK: Supple, trachea midline. No JVD or lymphadenopathy. Right IJ clean dry and intact. Prior scar from endarterectomy CARDIOVASCULAR: Tachycardic without murmurs, gallops, or rubs. RESPIRATORY: Breath sounds equal bilaterally. No accessory muscle use. GASTROINTESTINAL: Abdomen soft, non-tender, nondistended. MUSCULOSKELETAL: No cyanosis, or edema. Neuro: awake and alert A/P Assessment and Plan Neuro/Psych: Acetaminophen for fever [place]/morphine for pain management CV: s/p Septic shock Lactic acidosis..trending down History of hypertension History dyslipidemia Coronary artery disease status post stent 2. 2004 Dr. Oliveira Off Levophed monitor HR and BP keep MAP>65mmHg Lactic acid trending down 2.1 Echo showed EF 50%, diffuse hypokinesis unchanged. Prior echocardiogram revealed EF 50-55%. Mild hypokinesis of the anterior septum, anterior and anterolateral mills. GURMEET 48 mmHg. Noted cardiac catheterization Dr. Oliveira 2012 placement of 2 stents in LAD. Continue aspirin 81 mg by mouth daily, diurese with Bumex 1mg x1, cards is following Start Lopressor 25mg BID for rate control. Resp: Acute hypoxemic respiratory failure Chronic oxygen requirement Prior tobaccoism Continue with oxygen keep sat >92% Incentive spirometry while awake Change DuoNeb to Atrovent nebs ( avoid albuterol for tachycardia) Solumederol 40mg IV daily GI: Colonic polyps Hemorrhoids Gastroesophageal reflux disease Diverticulosis Elevated AST On ADA/heart healthy diet. Protonix for GI prophylaxis Colace/as needed Senokot for bowel regimen GI eval for anemia and positive Hemoccult. : BPH Monitor renal function, I/O's, avoid nephrotoxins Cr: 1.4 from 1.60 Diurese with Bumex 1mg x1 Endo: Diabetes mellitus Place on SSI ( medium scale ) for glycemic control TSH nl Heme: Leukocytosis Normocytic anemia Monitor CBC s/p transfusion1 unit PRBC. GI consulted possible need for EGD/ colonoscopy ID: Likely community-acquired pneumonia Continue with abx (Vancomycin, Zosyn and Zithromax day) monitor for signs of infections ( Fever, WBC) Received Rocephin in the ED. Pertinent cultures Influenza negative Blood cultures 2 5/7 NGTD Sputum, Legionella and pneumococcal antigens negative MSK: Osteoporosis At home on vitamin D 3 1000 units by mouth twice a day. PT evaluate and treat Access - Right IJ CVL day 1 placed 03/01 Prophylaxis - GI - Protonix - DVT - SCD/ hold Heparin for anemia requiring blood transfusion and Hemoccult positive stool Level 3 Naresh Christian MD March 03, 2017 16:58
[2017-03-03] MEDS ORDERED: RESP: IPRATROPIUM 0.5 MG/2.5 ML NEB NEB PRN (17:00)
[2017-03-03] MEDS ORDERED: METOPROLOL TARTRATE 25 MG TAB PO PRN (18:45)
[2017-03-03] MEDS: RESP: IPRATROPIUM 0.5 MG/2.5 ML NEB NEB SCH ×2 (19:42→23:32)
[2017-03-03 20:56] LABS: BLOOD, URINE NEG (NEG); GLUCOSE,URINE 500 mg/dL (NEG); KETONE, URINE NEG (NEG); NITRITE,URINE NEG (NEG)
[2017-03-03 21:07] LABS: URINE COLOR YELLOW (YELLW/STRAW)
[2017-03-03 21:08] LABS: MUCUS URINE FEW /lpf (OCC)
[2017-03-03 21:09] LABS: BACTERIA, URINE FEW /hpf; COMMENT (UR) CATH-CULTURE IND; CULTURE IF INDICATED CATH CULTURE IND; RBC, URINE 0-3 /hpf (0-3)
[2017-03-03 21:43] LABS: SQUAMOUS EPITHELIAL CELL URINE 0-5 /hpf (0-5); WBC, URINE 0-2 /hpf (0-5)
[2017-03-03] MEDS: METOPROLOL TARTRATE 25 MG TAB PO SCH (21:44)
[2017-03-03 22:00] LABS: MAGNESIUM 2.3 MG/DL (1.5-2.5)
--- NOTE | 2017-03-03 22:00 | MB ---
cc: JAGRUTI NOLAND M.D., LOUIS ABANDO, JOSE R. MD DATE OF CONSULTATION: 03/03/2017 REASON FOR CONSULTATION: Melena, anemia. HISTORY: Mr. Brown is a 76-year-old gentleman who was admitted to the hospital with pneumonia and with melena. GI service has been consulted for anemia and melena. He had a similar presentation in October where he had an EGD, colonoscopy done which revealed some duodenitis, diverticulosis and hemorrhoids. This was followed up by a pill camera study in December as an outpatient which is essentially unremarkable for site of bleeding. He presents with shortness of breath and is currently being treated for sepsis and pneumonia. He says his stools are dark but they are mushy. No evidence of bleeding. He has been transfused one unit of blood this admission. REVIEW OF SYSTEMS: Shortness of breath, no other complaints, no active bleeding. PAST MEDICAL HISTORY: 1. Coronary artery disease status post [place]. 2. History of colon polyps. 3. BPH. 4. Pilonidal cyst. 5. Reflux. PAST SURGICAL HISTORY: 1. Colonoscopy. 2. Endoscopy in October of 2016. 3. Cardiac catheterization. 4. Carotid endarterectomy ALLERGIES: None documented. MEDICATIONS: On admission. 1. Aspirin. 2. Lipitor. 3. Metoprolol. FAMILY HISTORY: Noncontributory. SOCIAL HISTORY No tobacco, no alcohol reported. PHYSICAL EXAMINATION: Physical examination reveals a well-nourished man in no apparent distress. Vitals are stable. Head and neck examination: Anicteric sclerae. Chest: Bilateral air entry with rales. Abdomen is soft, nontender. No hepatosplenomegaly. Bowel sounds are present. THIN FILM TECHNICIAN: Exam is nonfocal. Rectal: Exam deferred at this time. LABORATORY DATA: Reveal creatinine of 1.40, hemoglobin is 7.9, MCV is 84.6. IMPRESSION GI bleeding, anemia and melena. RECOMMENDATIONS Recent workup has been unremarkable for bleeding. Currently keep hemoglobin above 8. Protonix daily as ordered. Tentatively plan for an EGD tomorrow if the patient is stable for this procedure, n.p.o. after midnight. This has been discussed with him. Thank you for the referral. MD KINZA Ramirez/SHAKEEL /5:46 PM /9:30 PM
[2017-03-03] MEDS: SODIUM PHOSPHATE INJ 30 MMOL in SODIUM CHLOR 0.9% 250 ML INJ 240 ML IV PRN (23:23)
[2017-03-04] VITALS (32 sets, daily range): BP systolic 87–129; BP diastolic 51–77; PULSE 96–136; RESP 15–39; TEMP 98–98.5; O2SAT 81–100
[2017-03-04] MEDS: PIPERACIL-TAZO 4.5 GM PREMIX 100 ML IV SCH ×4 (01:42→20:27)
[2017-03-04] MEDS: VANCOMYCIN INJ 1,400 MG in SODIUM CHLORID 0.9% 500 ML INJ 500 ML IV SCH ×2 (02:18→20:41)
[2017-03-04] MEDS: RESP: IPRATROPIUM 0.5 MG/2.5 ML NEB NEB SCH (04:00)
[2017-03-04] MEDS: INSULIN NovoLIN REGULAR SUPPLEMENTAL SCALE SQ SCH ×3 (05:28→18:08)
[2017-03-04] MEDS ORDERED: SODIUM CHLORIDE 0.9% FLUSH 10 ML FLUSH IVF PRN (06:30)
--- NOTE | 2017-03-04 06:31 | PD.PROCEDR ---
Central Line Procedure REASON FOR PROCEDURE Central venous access PROCEDURE PERFORMED Central line placement: right IJ cvl CONSENT Informed consent for procedure was obtained. The risks and benefits of the procedure were discussed to include but limited to bleeding, clot formation, infection, and even . ANESTHESIA Local injection of 1% Lidocaine DESCRIPTION OF THE PROCEDURE The patient was placed in supine, mild Trendelenburg position. The area was exposed and cleansed with ChloraPrep, times two. Large sterile drape was used to cover the patient, with the site exposed, under sterile conditions including cap, face mask, sterile gown, and sterile gloves. On single attempt, the introducer needle was inserted with negative pressure in syringe and venous flash was obtained. The guide wire was then advanced without any restriction and the needle was removed. The dilator was used without any complications. Using Seldinger technique the triple lumen catheter was advanced over the guide wire to a depth of 16 centimeters. The guide wire was removed. All ports were aspirated with dark venous blood return and flushed easily with sterile saline. All ports were capped. Antibiotic disc was placed around central line at puncture site. The central line was secured to the skin with two interrupted 2.0 silk sutures. The area was bandaged with sterile see-through central line bandage. RADIOLOGICAL DATA Ultrasound guidance was used to locate right IJ. Doppler/color flow was used to confirm venous flow. COMPLICATIONS: No apparent complications ESTIMATED BLOOD LOSS: Less than 1 cc. Abdiel Montejo MD March 04, 2017 06:31
[2017-03-04 07:06] LABS: AUTOMATED NEUTROPHIL # 16.8 TH/MM3 (1.8-7.7); BASOPHIL # 0.5 TH/MM3 (0-0.2); BASOPHIL % 2.3 % (0.0-2.0); EOSINOPHIL % 0.2 % (0.0-4.0); HEMATOCRIT 24.6 % (39.0-51.0); LYMPHOCYTE # 2.5 TH/MM3 (1.0-4.8); MEAN CELL VOLUME 83.1 FL (80.0-100.0); MEAN CORPUSCULAR HEMOGLOBIN 26.4 PG (27.0-34.0); MEAN CORPUSCULAR HGB CONC 31.7 % (32.0-36.0); MONO % 12.1 % (0.0-8.0); NEUT % 74.4 % (16.0-70.0); PLATELET COUNT 410 TH/MM3 (150-450); RED BLOOD COUNT 2.97 MIL/MM3 (4.50-5.90); RED CELL DISTRIBUTION WIDTH 15.9 % (11.6-17.2); WHITE BLOOD COUNT 22.5 TH/MM3 (4.0-11.0)
[2017-03-04 07:13] LABS: HEMO FLAGS AUTO DIFF
[2017-03-04] MEDS ORDERED: RESP: ALBUTEROL 2.5 MG/3 ML NEB (PRN) NEB (07:30)
--- NOTE | 2017-03-04 07:30 | HHI.CCPN ---
Subjective Remarks/Hospital Course 76-year-old male. Date of admission 03/01/2017. Date of consultation . Past medical history includes history microinfarction status post stents in 2004, diabetes mellitus, coronary disease, hypertension, gastroesophageal reflux disease, diverticulosis, colonic polyps and BPH. Negative workup for GI bleed 2016 including capsule endoscopy. Patient presents to [facility] subjective complaints of cough, fever, sputum production chills since last . No recent sick contacts. In the emergency department, chest x-ray shows bilateral hazy infiltrates he had a white cell count 22,000. A lactate of 4.1. Recheck creatinine 1.5. He was started on IV Rocephin, Zithromax and IV Solu-Medrol. He was also given 1 L fluid bolus.On the floor, patient became hypotensive requiring norepinephrine. Golf Stud Riveter consult for medical management. Patient is not septic appearing. Currently in 4 mcg/m norepinephrine. Making urine. 03/02 Patient is off Levophed receiving 1unit PRBC for Hgb 6.9. Awake and alert on 3L oxygen. 03/03 Patient required Levophed overnight but was weaned off this morning, Afebrile feeling better bot now on 6L oxygen. CXR today showed b/l airspace disease. Subjective 03/04: Off vasopressors as of yesterday morning. Still remains on 4-5 L nasal cannula. Appears slightly volume overloaded. We'll gently diurese today. Plan for EGD today. Hemoglobin stable. He states he feels 80% better than yesterday. Objective Vital Signs Date Time Temp Pulse Resp B/P Pulse Ox O2 Delivery O2 Flow Rate FiO2 03/04/17 07:00 106 21 118/70 95 03/04/17 04:00 98.5 03/03/17 19:42 Nasal Cannula 4.00 Intake and Output 03/03/17 03/03/17 03/04/17 08:00 16:00 00:00 Intake Total 580 ml 1850 ml 700 ml Output Total 1050 ml 800 ml 1750 ml Balance -470 ml 1050 ml -1050 ml Result Diagram: 03/04/17 0645 03/04/17 0645 Other Results Microbiology Date/Time Procedure Status Source Growth 03/03/17 20:25 Urine Culture Received Urine Catheterized Urine Pending 03/02/17 02:56 Legionella Antigen - Final Complete Urine Catheterized Urine PRESUMPTIVE NEGATIVE FOR LEGIONELLA P... 03/02/17 02:56 Streptococcus pneumoniae Antigen (M - Final Complete Urine Catheterized Urine PRESUMPTIVE NEGATIVE FOR STREPTOCOCCU... 03/01/17 19:34 Stool Occult Blood (BIANCA) - Final Complete Stool Stool HEMOCCULT POSITIVE 03/01/17 14:45 Gram Stain Resulted Sputum Expectorated Sputum Pending 03/01/17 14:45 Sputum Culture - Final Resulted Sputum Expectorated Sputum HEAVY GROWTH NORMAL RESPIRATORY JU 03/01/17 11:30 Influenza Types A,B Antigen (BIANCA) - Final Complete Nasal Aspirate NEGATIVE FOR FLU A AND B ANTIGEN.... 03/01/17 11:25 Aerobic Blood Culture - Preliminary Resulted Blood Peripheral NO GROWTH IN 2 DAYS 03/01/17 11:25 Anaerobic Blood Culture - Preliminary Resulted Blood Peripheral NO GROWTH IN 2 DAYS Imaging Last Impressions Chest X-Ray 03/03/17 0000 Signed Impressions: Service Date/Time: Friday, March 03, 2017 14:01 - CONCLUSION: Bilateral interstitial vascular prominence with bilateral patchy airspace disease and small bilateral effusions. No significant improvement since prior day. Juan Acosta MD Objective Remarks GENERAL: 76-year-old male, resting in bed in no acute distress SKIN: Pale, warm and dry HEAD: Normocephalic. Atraumatic EYES: Pupils equally round and react about 3 mm bilaterally No scleral icterus. No injection or drainage. NECK: Supple, trachea midline. No JVD or lymphadenopathy. Right IJ clean dry and intact. Prior scar from endarterectomy CARDIOVASCULAR: RRR. S1, S2. No S4. RESPIRATORY: Coarse crackles appreciated in the bases bilaterally. GASTROINTESTINAL: Abdomen soft, non-tender, nondistended. MUSCULOSKELETAL: Trace lower extremity edema. Neuro: Cranial nerves II through XII grossly intact. Strength is equal and symmetric bilaterally. Normal sensation. Vascular Central Line Catheter: Yes Assessment to: Continue Date of Insertion: March 01, 2017 Side: Right Location: Internal, Jugular A/P Assessment and Plan Neuro/Psych: Acetaminophen for fever [place]/morphine for pain management CV: s/p Septic shock Lactic acidosis.. Resolved History of hypertension History dyslipidemia Coronary artery disease status post stent 2. 2004 Dr. Oliveira Off Levophed monitor HR and BP keep MAP>65mmHg Lactic acid trending down 2.1 Echo showed EF 50%, diffuse hypokinesis unchanged. Prior echocardiogram revealed EF 50-55%. Mild hypokinesis of the anterior septum, anterior and anterolateral mills. GURMEET 48 mmHg. Noted cardiac catheterization Dr. Oliveira 2012 placement of 2 stents in LAD. Continue aspirin 81 mg by mouth daily, Holding atorvastatin 40 mg by mouth daily. Resume when clinically indicated diurese with Bumex 1mg x1, Seen by Dr. Lopez. Medical management only. Signed off Start Lopressor 25mg BID for rate control. On 50 mg twice a day at home Resp: Acute hypoxemic respiratory failure secondary to pneumonia/pulmonary edema Chronic oxygen requirement Prior tobaccoism Duo nebs every 4 hours with albuterol every 2 hours when necessary dyspnea Continue with oxygen keep sat >92% Incentive spirometry while awake Solumederol 40mg IV daily GI: Colonic polyps Hemorrhoids Gastroesophageal reflux disease Diverticulosis Elevated AST On ADA/heart healthy diet. Protonix for GI prophylaxis Colace/as needed Senokot for bowel regimen GI eval for anemia and positive Hemoccult. Plan for EGD today : BPH Monitor renal function, I/O's, avoid nephrotoxins Cr: 1.4 from 1.60 Diurese with Bumex 1mg x1 Endo: Diabetes mellitus Place on SSI ( medium scale ) for glycemic control TSH nl Hold metformin 500 mg by mouth twice a day Heme: Leukocytosis Normocytic anemia Monitor CBC s/p transfusion1 unit PRBC. No indication for transfusion this a.m. ID: Likely community-acquired pneumonia Continue with abx (Vancomycin, Zosyn and Zithromax day) monitor for signs of infections ( Fever, WBC) Received Rocephin in the ED. Pertinent cultures Influenza negative Blood cultures 2 03/01 NGTD Sputum, Legionella and pneumococcal antigens negative MSK: Osteoporosis At home on vitamin D 3 1000 units by mouth twice a day. PT evaluate and treat Access - Right IJ CVL day 4 placed 03/01 Prophylaxis - GI - Protonix - DVT - SCD/ hold Heparin for anemia requiring blood transfusion and Hemoccult positive stool Level 3 Abdiel Montejo MD March 04, 2017 07:30
[2017-03-04 07:40] LABS: MAGNESIUM 2.3 MG/DL (1.5-2.5)
[2017-03-04] MEDS ORDERED: BUMETANIDE INJ 1 MG/4 ML VIAL IV PUSH ONE (07:45)
[2017-03-04 07:53] LABS: BANDS 4 % (0-6); EOSINOPHILS 1 % (0-4); METAMYELOCYTES 2 % (0-1); MYELOCYTES 1 % (0-0); NEUTROPHIL # MANUAL DIFF 17.6 TH/MM3 (1.8-7.7); PLATELET ESTIMATE SMEAR NORMAL (NORMAL); PLATELET MORPHOLOGY NORMAL (NORMAL); POLYS (SEG NEUTROPHILS) 71 % (16-70); SCAN/DIFF FINAL DIFF MANUAL; WBC DIFF SAMPLE 100
[2017-03-04] MEDS: AZITHROMYCIN 250 MG TAB PO SCH (08:18)
[2017-03-04] MEDS: ASPIRIN 81 MG CHEW TAB CHEW SCH (08:18)
[2017-03-04] MEDS: ARTIFICIAL TEARS OPTH SOLN 15 ML BTL EACH EYE SCH ×3 (08:18→18:08)
[2017-03-04] MEDS: DOCUSATE SODIUM 100 MG CAP PO SCH ×2 (08:18→20:41)
[2017-03-04] MEDS: PANTOPRAZOLE SOD 40 MG DELAYED RELEASE TAB PO SCH (08:19)
[2017-03-04] MEDS: CHOLECALCIFEROL (VIT D3) 1000 UNIT TAB PO SCH ×2 (08:19→20:43)
[2017-03-04] MEDS: METOPROLOL TARTRATE 25 MG TAB PO SCH ×2 (08:20→20:41)
[2017-03-04] MEDS: methylPREDNISolone SOD SUCC 40 MG/1 ML VIAL IV SCH (08:20)
[2017-03-04] MEDS: SODIUM CHLORIDE 0.9% FLUSH 10 ML FLUSH IV FLUSH SCH ×2 (08:22→20:41)
[2017-03-04] MEDS: SODIUM CHLORIDE 0.9% FLUSH 10 ML FLUSH IVF SCH (08:22)
[2017-03-04] MEDS: Central Line Short Term Adult 7Fr or larger Daily NS Lock Flush IV FLUSH SCH (08:22)
[2017-03-04] MEDS: RESP: ALBUTEROL 2.5 MG/IPRATROPIUM 0.5 MG NEB (SCH) NEB ×3 (10:00→21:51)
[2017-03-04] MEDS ORDERED: PROPOFOL 200 MG/20 ML AMP IV ONE (14:45)
--- NOTE | 2017-03-04 15:13 | PD.PROCEDR ---
GI Procedure REFERRING PHYSICIAN Dr. Mcginnis PROCEDURE PERFORMED EGD INDICATION FOR PROCEDURE Anemia and melena PROCEDURE: The procedure, risks and benefits were discussed with Mr. Brown and informed consent was obtained. Anesthesia sedated him with Diprivan. He was placed in the left lateral decubitus position. EGD: The Pentax videoscope was introduced through the oropharynx and advanced to the second portion of the duodenum under direct visualization. Retroflexion was performed in the stomach. FINDINGS: The esophagus this was normal The stomach this was normal The duodenum this was normal ESTIMATED BLOOD LOSS: None SPECIMENS REMOVED: None COMPLICATIONS: None IMPRESSION: Normal EGD PLAN: Supportive care Monitor labs Consider hematology evaluation Advance diet Maicol Becker MD March 04, 2017 15:13
[2017-03-04 19:52] LABS: FERRITIN 103 NG/ML (26-388); TRANSFERRIN IRON PROFILE 193 MG/DL (200-360)
[2017-03-04] MEDS ORDERED: PHARMACY ORDERED LAB ONE (20:45)
[2017-03-05] VITALS (33 sets, daily range): BP systolic 107–137; BP diastolic 45–93; PULSE 9–112; RESP 14–39; TEMP 97.9–98.7; O2SAT 86–100
[2017-03-05] MEDS: INSULIN NovoLIN REGULAR SUPPLEMENTAL SCALE SQ SCH ×6 (00:18→20:31)
[2017-03-05] MEDS: PIPERACIL-TAZO 4.5 GM PREMIX 100 ML IV SCH ×4 (03:24→20:28)
[2017-03-05] MEDS: RESP: ALBUTEROL 2.5 MG/IPRATROPIUM 0.5 MG NEB (SCH) NEB ×4 (03:37→21:44)
[2017-03-05 04:45] LABS: AUTOMATED NEUTROPHIL # 20.7 TH/MM3 (1.8-7.7); BASOPHIL # 0.1 TH/MM3 (0-0.2); BASOPHIL % 0.3 % (0.0-2.0); EOSINOPHIL # 0.1 TH/MM3 (0-0.4); EOSINOPHIL % 0.2 % (0.0-4.0); LYMPH % 10.2 % (9.0-44.0); LYMPHOCYTE # 2.6 TH/MM3 (1.0-4.8); MEAN CORPUSCULAR HEMOGLOBIN 26.6 PG (27.0-34.0); MONO % 8.6 % (0.0-8.0); NEUT % 80.7 % (16.0-70.0); PLATELET COUNT 467 TH/MM3 (150-450); RED BLOOD COUNT 2.89 MIL/MM3 (4.50-5.90); RED CELL DISTRIBUTION WIDTH 15.9 % (11.6-17.2); WHITE BLOOD COUNT 25.7 TH/MM3 (4.0-11.0)
[2017-03-05 04:46] LABS: HEMO FLAGS AUTO DIFF
[2017-03-05 04:58] LABS: CHLORIDE 96 MEQ/L (98-107); POTASSIUM 4.3 MEQ/L (3.5-5.1); SODIUM (NA) 136 MEQ/L (136-145)
[2017-03-05 05:06] LABS: ALT (GPT) 45 U/L (12-78); ANION GAP 6 MEQ/L (5-15); AST (GOT) 32 U/L (15-37); BICARBONATE 33.8 MEQ/L (21.0-32.0); BLOOD UREA NITROGEN 42 MG/DL (7-18); GLOMERULAR FILTRATION RATE 49 ML/MIN (>89); MAGNESIUM 2.4 MG/DL (1.5-2.5)
[2017-03-05 05:12] LABS: BANDS 5 % (0-6); CORRECTED NUCLEATED RBC 4 /100 WBC (0-0); METAMYELOCYTES 1 % (0-1); POLYS (SEG NEUTROPHILS) 68 % (16-70); WBC DIFF SAMPLE 100
[2017-03-05 05:13] LABS: PLATELET ESTIMATE SMEAR HIGH (NORMAL); PLATELET MORPHOLOGY NORMAL (NORMAL); SCAN/DIFF FINAL DIFF MANUAL
--- NOTE | 2017-03-05 05:14 | RADHPO ---
EXAM DATE/TIME: 03/05/2017 04:34 [facility] COMPARISON: CHEST SINGLE AP, March 03, 2017, 14:01. INDICATIONS : Shortness of breath MEDICAL HISTORY : Cardiovascular disease. SURGICAL HISTORY : Coronary artery stent. ENCOUNTER: Subsequent ACUITY: 1 week PAIN SCORE: 0/10 LOCATION: Bilateral chest FINDINGS: 2 portable frontal views of the chest show diffuse bilateral pulmonary infiltrates which have progres sed slightly. Tiny bilateral pleural effusions. Heart is normal in size. Right-sided central line. No pneumothorax. CONCLUSION: Progression in the bilateral infiltrates. Tiny effusions. Dale Ram Jr., MD on March 05, 2017 at 5:12 Board Certified Radiologist. This report was verified electronically.
[2017-03-05 05:23] LABS: ALKALINE PHOSPHATASE 86 U/L (45-117); TOTAL BILIRUBIN ADULT 0.5 MG/DL (0.2-1.0)
[2017-03-05 05:31] LABS: CREATINE KINASE 71 U/L (39-308)
[2017-03-05] MEDS: CHLORHEXIDINE GLUCONATE 2 % 1 PACK (2 CLOTHS)(taper/protocol) TOPICAL SCH (06:25)
[2017-03-05] MEDS ORDERED: ALTEPLASE RECOMBINANT 2 MG VIAL INTRACATH ONE (06:30)
[2017-03-05] MEDS ORDERED: MELATONIN 5 MG TAB PO PRN (06:30)
--- NOTE | 2017-03-05 06:35 | HHI.CCPN ---
Subjective Remarks/Hospital Course 76-year-old male. Date of admission 03/01/2017. Date of consultation . Past medical history includes history microinfarction status post stents in 2004, diabetes mellitus, coronary disease, hypertension, gastroesophageal reflux disease, diverticulosis, colonic polyps and BPH. Negative workup for GI bleed 2016 including capsule endoscopy. Patient presents to [facility] subjective complaints of cough, fever, sputum production chills since last . No recent sick contacts. In the emergency department, chest x-ray shows bilateral hazy infiltrates he had a white cell count 22,000. A lactate of 4.1. Recheck creatinine 1.5. He was started on IV Rocephin, Zithromax and IV Solu-Medrol. He was also given 1 L fluid bolus.On the floor, patient became hypotensive requiring norepinephrine. Youth Services Librarian consult for medical management. Patient is not septic appearing. Currently in 4 mcg/m norepinephrine. Making urine. 03/02 Patient is off Levophed receiving 1unit PRBC for Hgb 6.9. Awake and alert on 3L oxygen. 03/03 Patient required Levophed overnight but was weaned off this morning, Afebrile feeling better bot now on 6L oxygen. CXR today showed b/l airspace disease. 03/04: Off vasopressors as of yesterday morning. Still remains on 4-5 L nasal cannula. Appears slightly volume overloaded. We'll gently diurese today. Plan for EGD today. Hemoglobin stable. He states he feels 80% better than yesterday. Subjective 03/05: Desaturated overnight increasing oxygen, 4-6 L. Still appears somewhat dyspneic. Negative EGD yesterday. Mobilizing. Objective Vital Signs Date Time Temp Pulse Resp B/P Pulse Ox O2 Delivery O2 Flow Rate FiO2 03/05/17 03:30 25 03/05/17 01:01 100 107/62 97 03/05/17 00:01 97.9 03/04/17 22:00 Nasal Cannula 4.00 Intake and Output 03/04/17 03/04/17 03/05/17 08:00 16:00 00:00 Intake Total 920 ml 100 ml 540 ml Output Total 375 ml 650 ml 625 ml Balance 545 ml -550 ml -85 ml Result Diagram: 03/05/17 0423 03/05/17 0423 Other Results Microbiology Date/Time Procedure Status Source Growth 03/03/17 20:25 Urine Culture - Preliminary Resulted Urine Catheterized Urine NO GROWTH IN 24 HOURS. 03/02/17 02:56 Legionella Antigen - Final Complete Urine Catheterized Urine PRESUMPTIVE NEGATIVE FOR LEGIONELLA P... 03/02/17 02:56 Streptococcus pneumoniae Antigen (M - Final Complete Urine Catheterized Urine PRESUMPTIVE NEGATIVE FOR STREPTOCOCCU... 03/01/17 19:34 Stool Occult Blood (BIANCA) - Final Complete Stool Stool HEMOCCULT POSITIVE 03/01/17 14:45 Gram Stain - Final Complete Sputum Expectorated Sputum 03/01/17 14:45 Sputum Culture - Final Complete Sputum Expectorated Sputum HEAVY GROWTH NORMAL RESPIRATORY JU 03/01/17 11:30 Influenza Types A,B Antigen (BIANCA) - Final Complete Nasal Aspirate NEGATIVE FOR FLU A AND B ANTIGEN.... 03/01/17 11:25 Aerobic Blood Culture - Preliminary Resulted Blood Peripheral NO GROWTH IN 3 DAYS 03/01/17 11:25 Anaerobic Blood Culture - Preliminary Resulted Blood Peripheral NO GROWTH IN 3 DAYS Imaging Last Impressions Chest X-Ray 03/05/17 0600 Signed Impressions: Service Date/Time: February 04:34 - CONCLUSION: Progression in the bilateral infiltrates. Tiny effusions. Dale Ram Jr., MD Objective Remarks GENERAL: 76-year-old male, resting in bed in no acute distress SKIN: Pale, warm and dry HEAD: Normocephalic. Atraumatic EYES: Pupils equally round and react about 3 mm bilaterally No scleral icterus. No injection or drainage. NECK: Supple, trachea midline. No JVD or lymphadenopathy. Right IJ clean dry and intact. Prior scar from endarterectomy CARDIOVASCULAR: Tachycardic, RR. S1, S2. No S4. RESPIRATORY: Coarse crackles appreciated in the bases bilaterally. GASTROINTESTINAL: Abdomen soft, non-tender, nondistended. MUSCULOSKELETAL: Trace lower extremity edema. Neuro: Cranial nerves II through XII grossly intact. Strength is equal and symmetric bilaterally. Normal sensation. Urinary Catheter: No Assessment to: Continue Vascular Central Line Catheter: Yes Assessment to: Continue Date of Insertion: March 01, 2017 Line: Central Venous Catheter Side: Right Location: Internal, Jugular A/P Assessment and Plan Neuro/Psych: Acetaminophen for fever [place]/morphine for pain management Melatonin 5 mg by mouth daily at bedtime for insomnia CV: s/p Septic shock Lactic acidosis.. Resolved History of hypertension History dyslipidemia Coronary artery disease status post stent 2. 2004 Dr. Oliveira Off Levophed monitor HR and BP keep MAP>65mmHg Lactic acid trending down 2.1 Echo showed EF 50%, diffuse hypokinesis unchanged. Prior echocardiogram revealed EF 50-55%. Mild hypokinesis of the anterior septum, anterior and anterolateral mills. GURMEET 48 mmHg. Noted cardiac catheterization Dr. Oliveira 2012 placement of 2 stents in LAD. Continue aspirin 81 mg by mouth daily, Holding atorvastatin 40 mg by mouth daily. Resume when clinically indicated diurese with acetazolamide 250 mg IV [address] Lopez. Medical management only. Signed off Start Lopressor 25mg BID for rate control. On 50 mg twice a day at home Resp: Acute hypoxemic respiratory failure secondary to pneumonia/pulmonary edema Chronic oxygen requirement Prior tobaccoism Duo nebs every 4 hours with albuterol every 2 hours when necessary dyspnea Continue with oxygen keep sat >92% Incentive spirometry while awake Solumederol 40mg IV daily GI: Colonic polyps Hemorrhoids Gastroesophageal reflux disease Diverticulosis Elevated AST On ADA/heart healthy diet. Protonix for GI prophylaxis Colace/as needed Senokot for bowel regimen GI eval for anemia and positive Hemoccult. EGD revealed negative findings. Recommend a hematology consult : BPH Monitor renal function, I/O's, avoid nephrotoxins Cr: 1.4 from 1.60 Diurese with acetazolamide 250 mg IV x1 Endo: Diabetes mellitus Place on SSI ( medium scale ) for glycemic control Start Levemir 5 units subcutaneous twice a day TSH nl Hold metformin 500 mg by mouth twice a day Heme: Leukocytosis Normocytic anemia Monitor CBC s/p transfusion1 unit PRBC. No indication for transfusion this a.m. ID: Likely community-acquired pneumonia Continue with abx (Vancomycin, Zosyn and Zithromax day) monitor for signs of infections ( Fever, WBC) Received Rocephin in the ED. Pertinent cultures Influenza negative Blood cultures 2 03/01 NGTD Sputum, Legionella and pneumococcal antigens negative MSK: Osteoporosis At home on vitamin D 3 1000 units by mouth twice a day. PT evaluate and treat Access - Right IJ CVL day 5 placed 03/01 Prophylaxis - GI - Protonix - DVT - SCD/ hold Heparin for anemia requiring blood transfusion and Hemoccult positive stool Level 2 Patient is stable from a critical care medicine standpoint. We'll assign care to hospitalist in a.m. 03/06. Abdiel Montejo MD March 05, 2017 06:35
[2017-03-05] MEDS: PANTOPRAZOLE SOD 40 MG DELAYED RELEASE TAB PO SCH (08:20)
[2017-03-05] MEDS: CHOLECALCIFEROL (VIT D3) 1000 UNIT TAB PO SCH ×2 (08:20→20:29)
[2017-03-05] MEDS: ASPIRIN 81 MG CHEW TAB CHEW SCH (08:20)
[2017-03-05] MEDS: AZITHROMYCIN 250 MG TAB PO SCH (08:20)
[2017-03-05] MEDS: METOPROLOL TARTRATE 25 MG TAB PO SCH ×2 (08:20→20:29)
[2017-03-05] MEDS: DOCUSATE SODIUM 100 MG CAP PO SCH ×2 (08:20→20:28)
[2017-03-05] MEDS: methylPREDNISolone SOD SUCC 40 MG/1 ML VIAL IV SCH (08:21)
[2017-03-05] MEDS: Central Line Short Term Adult 7Fr or larger PRN NS Lock Flush IV FLUSH (08:21)
[2017-03-05] MEDS: Central Line Short Term Adult 7Fr or larger Daily NS Lock Flush IV FLUSH SCH (08:21)
[2017-03-05] MEDS: SODIUM CHLORIDE 0.9% FLUSH 10 ML FLUSH IVF SCH (08:22)
[2017-03-05] MEDS: SODIUM CHLORIDE 0.9% FLUSH 10 ML FLUSH IV FLUSH SCH ×2 (08:22→20:28)
--- NOTE | 2017-03-05 08:30 | HHI.GIFU ---
Subjective Remarks laying in bed comfortable, no complains, no sign of active bleed, had EGD yesterday was normal Objective Vitals I&O Vital Signs Date Time Temp Pulse Resp B/P Pulse Ox O2 Delivery O2 Flow Rate FiO2 03/05/17 07:01 110 20 131/71 94 03/05/17 06:01 108 16 122/70 96 03/05/17 06:00 110 03/05/17 05:01 110 21 119/61 95 03/05/17 04:01 106 17 123/73 96 03/05/17 04:00 9 03/05/17 03:30 25 03/05/17 03:01 104 25 110/60 99 03/05/17 02:01 108 21 117/74 98 03/05/17 02:00 92 03/05/17 01:01 100 18 107/62 97 03/05/17 00:01 97.9 100 19 118/69 96 03/05/17 00:00 96 03/04/17 23:00 105 24 129/67 100 03/04/17 22:01 110 22 108/63 97 03/04/17 22:00 99 Nasal Cannula 4.00 03/04/17 22:00 101 03/04/17 21:50 98 Nasal Cannula 6.00 03/04/17 21:01 116 20 120/71 96 03/04/17 20:01 98.2 126 17 126/70 95 03/04/17 20:00 96 03/04/17 19:01 112 20 114/59 93 03/04/17 19:00 99 Nasal Cannula 6.00 03/04/17 18:01 110 17 119/67 94 03/04/17 18:00 108 03/04/17 17:01 118 22 110/51 81 03/04/17 16:01 104 15 115/56 97 03/04/17 16:00 108 03/04/17 15:00 112 100/64 91 03/04/17 14:00 104 03/04/17 14:00 104 21 119/66 98 03/04/17 13:00 104 20 113/66 97 03/04/17 12:00 98.4 104 20 114/58 95 03/04/17 12:00 109 03/04/17 11:00 104 20 109/60 97 03/04/17 10:00 119 03/04/17 10:00 126 29 128/77 03/04/17 09:00 136 39 119/62 I/O 03/04/17 03/04/17 03/04/17 03/05/17 03/05/17 03/05/17 06:59 14:59 22:59 06:59 14:59 22:59 Intake Total 920 ml 100 ml 540 ml 420 ml Output Total 575 ml 650 ml 625 ml 350 ml Balance 345 ml -550 ml -85 ml 70 ml Intake Oral 0 ml 0 ml 240 ml 320 ml IV Total 920 ml 100 ml 300 ml 100 ml Output Urine Total 575 ml 650 ml 625 ml 350 ml # Voids 2 # Bowel Movements 0 0 Laboratory Laboratory Tests Test 03/04/17 03/05/17 20:25 04:23 Vancomycin Level Trough 12.0 White Blood Count 25.7 Red Blood Count 2.89 Hemoglobin 7.7 Hematocrit 24.0 Mean Corpuscular Volume 83.0 Mean Corpuscular Hemoglobin 26.6 Mean Corpuscular Hemoglobin 32.0 Concent Red Cell Distribution Width 15.9 Platelet Count 467 Mean Platelet Volume 8.1 Neutrophils (%) (Auto) 80.7 Lymphocytes (%) (Auto) 10.2 Monocytes (%) (Auto) 8.6 Eosinophils (%) (Auto) 0.2 Basophils (%) (Auto) 0.3 Neutrophils # (Auto) 20.7 Lymphocytes # (Auto) 2.6 Monocytes # (Auto) 2.2 Eosinophils # (Auto) 0.1 Basophils # (Auto) 0.1 CBC Comment AUTO DIFF Differential Total Cells 100 Counted Neutrophils % (Manual) 68 Band Neutrophils % 5 Lymphocytes % 17 Monocytes % 9 Neutrophils # (Manual) 19.0 Metamyelocytes 1 Nucleated Red Blood Cells 4 Differential Comment FINAL DIFF MANUAL Platelet Estimate HIGH Platelet Morphology Comment NORMAL Sodium Level 136 Potassium Level 4.3 Chloride Level 96 Carbon Dioxide Level 33.8 Anion Gap 6 Blood Urea Nitrogen 42 Creatinine 1.40 Estimat Glomerular Filtration 49 Rate Random Glucose 243 Calcium Level 7.8 Phosphorus Level 2.6 Magnesium Level 2.4 Total Bilirubin 0.5 Aspartate Amino Transf 32 (AST/SGOT) Alanine Aminotransferase 45 (ALT/SGPT) Alkaline Phosphatase 86 Total Creatine Kinase 71 Total Protein 6.0 Albumin 2.2 Date/Time Procedure Status Source Growth 03/03/17 20:25 Urine Culture - Preliminary Resulted Urine Catheterized Urine NO GROWTH IN 24 HOURS. 03/02/17 02:56 Legionella Antigen - Final Complete Urine Catheterized Urine PRESUMPTIVE NEGATIVE FOR LEGIONELLA P... 03/02/17 02:56 Streptococcus pneumoniae Antigen (M - Final Complete Urine Catheterized Urine PRESUMPTIVE NEGATIVE FOR STREPTOCOCCU... 03/01/17 19:34 Stool Occult Blood (BIANCA) - Final Complete Stool Stool HEMOCCULT POSITIVE 03/01/17 14:45 Gram Stain - Final Complete Sputum Expectorated Sputum 03/01/17 14:45 Sputum Culture - Final Complete Sputum Expectorated Sputum HEAVY GROWTH NORMAL RESPIRATORY JU 03/01/17 11:30 Influenza Types A,B Antigen (BIANCA) - Final Complete Nasal Aspirate NEGATIVE FOR FLU A AND B ANTIGEN.... 03/01/17 11:25 Aerobic Blood Culture - Preliminary Resulted Blood Peripheral NO GROWTH IN 3 DAYS 03/01/17 11:25 Anaerobic Blood Culture - Preliminary Resulted Blood Peripheral NO GROWTH IN 3 DAYS Physical Exam HEENT: Pupils round and reactive to light; normocephalic; atraumatic; no jaundice. Throat is clear. NECK: Neck is supple, no JVD, no lymphadenopathy. CHEST: Chest is clear to auscultation and percussion. CARDIAC: Regular rate and rhythm with no murmur gallop or rubs. ABDOMEN: Soft, nondistended, nontender; no hepatosplenomegaly; bowel sounds are present in all four quadrants. EXTREMITIES: No clubbing, cyanosis, or edema. SKIN: Normal; no rash; no jaundice. SKIING TEACHER: No focal deficits; alert and oriented times three. Assessment and Plan Plan doing better, no sign of bleed, normal EGD, had capsule endoscopy few wks ago which was negative. hematology consult recommended. we will FU in office in few wks. Ramón Harding MD March 05, 2017 08:30
[2017-03-05] MEDS: INSULIN DETEMIR 100 UNITS/ML VIAL SQ SCH ×2 (08:31→20:32)
[2017-03-05] MEDS: ARTIFICIAL TEARS OPTH SOLN 15 ML BTL EACH EYE SCH ×3 (08:39→17:33)
[2017-03-05 10:07] LABS: LDH SERUM 272 U/L (87-241)
[2017-03-05] MEDS: VANCOMYCIN INJ 1,700 MG in SODIUM CHLORID 0.9% 500 ML INJ 500 ML IV SCH (11:52)
--- NOTE | 2017-03-05 17:54 | MB ---
cc: NOREEN HERNANDEZ M.D. DATE OF CONSULTATION: 03/05/2017. REASON FOR CONSULTATION: Hematology was consulted to render opinion regarding a patient with recurrent anemia. CONSULTING PHYSICIAN: Dr. Montejo. HISTORY OF PRESENT ILLNESS: The patient is a very pleasant 76-year-old male who presented the hospital with complaint of increased cough, congestion and a grayish sputum production. He has also had increased weakness and myalgias. He has had subjective fever and chills. This started about a week ago. He presented to the hospital and was found to have pneumonia. He developed hypotension and septic shock and was admitted to the intensive care unit. He was started on pressors. His hemoglobin was 8.9 when he presented and it dropped down to 6.9 the following day. He received 1 unit of packed red blood cell transfusion and his hemoglobin has been stable at around 7.7. He was admitted the hospital in October and November. He received 2 units of packed blood cells in October and again 2 units in November. At that time, he had microcytosis with an MCV in the 70s. He stated during his hospital stay, his stool was very black and stool occult blood test was positive. He had a colonoscopy and EGD in October, which showed diverticulosis and hemorrhoids but no active bleeding. He had an outpatient capsule endoscopy about 2 months ago which was reported to be unremarkable. During this hospital stay, he just had another upper endoscopy, which was also reportedly negative with no active bleeding. He started taking an iron supplement around November. He is now feeling better. He is off pressors. He denies chest pain. His shortness of breath and cough has improved. He denies nausea, vomiting, abdominal pain. Denies any dysuria or hematuria. PAST MEDICAL HISTORY: 1. Recurrent anemia. 2. Congestive heart failure. 3. Coronary artery disease. 4. Diabetes mellitus. 5. Hyperlipidemia. PAST SURGICAL HISTORY: 1. Coronary stent. 2. Colonoscopy. 3. Upper endoscopy. 4. Capsule endoscopy. 5. Pilonidal cyst excision. 6. Hernia repair. FAMILY HISTORY: Noncontributory. SOCIAL HISTORY: 90 pack-year smoking history; quit about 16 years ago. He denies any alcohol use at this time. ALLERGIES: NO KNOWN DRUG ALLERGIES. CURRENT MEDICATIONS: 1. Vancomycin. 2. Insulin. 3. Melatonin. 4. DuoNebs. 5. Metoprolol. 6. Methylprednisolone. 7. Aspirin. 8. Azithromycin. 9. Vitamin D3. 10. Colace. 11. Zosyn. 12. Protonix. REVIEW OF SYSTEMS: CONSTITUTIONAL: Generalized weakness and fatigue. EYES: Denies any blurry vision or double vision. ENT: Denies any mouth sores or voice changes. CARDIOVASCULAR: Denies any chest pressure or palpitations. RESPIRATORY: As above. GI: As above. : Denies any dysuria or hematuria. MUSCULOSKELETAL: Denies any bone pain. HEMATOLOGIC: As above. ENDOCRINE: Negative. DERMATOLOGIC: Negative. PSYCHIATRIC: Negative. NEUROLOGIC: Negative. PHYSICAL EXAMINATION: VITAL SIGNS: Temperature 98.7, pulse of 100, blood pressure 137/54, O2 saturation 93% on 4 liters nasal cannula. GENERAL: He is alert and oriented x3. He is sitting in a chair and looks comfortable. HEAD, EYES, EARS, NOSE, THROAT: Atraumatic, normocephalic. Pupils equal, round, reactive to light. Extraocular muscles intact. No scleral icterus. OROPHARYNX: Dry mucosa. No lesions. No thrush. NECK: No thyromegaly. No palpable mass. LYMPHATIC: No palpable cervical, clavicular, axillary or inguinal lymph nodes. CARDIOVASCULAR: Regular S1 and S2. No murmur. LUNGS: Bibasilar crackles. ABDOMEN: Abdomen soft and nontender. I could not palpate the liver or spleen. EXTREMITIES: No cyanosis. No significant edema. No calf tenderness. BACK: No paravertebral tenderness. SKIN: Looks pale. No rash or petechiae. NEUROLOGIC EXAM: Nonfocal. LABORATORY DATA: Reviewed. ASSESSMENT: 1. Recurrent anemia. When he was admitted the hospital in October, he received 2 units of packed red blood cell transfusion for a hemoglobin of 7.5. In November, his hemoglobin dropped down to 7 again and he received two units of packed red blood cells transfusion. This admission, he presented with a hemoglobin of 8.9 but dropped to 6.9 and he received one unit of packed red blood cells transfusion. Since then, hemoglobin has been stable around 7.7. In October and November, he had microcytosis. This time, he stated his stool was black and stool occult blood test was positive. In October and November, there was no iron study done. This time iron study was done but it was right after his transfusion and difficult to interpret. I suspect he likely has iron deficiency anemia from occult GI bleed, although his GI workup did not show any active bleeding. He had a colonoscopy in October, which showed diverticulosis and hemorrhoids. He had a capsule endoscopy reportedly two months ago, which was negative. He just had an upper endoscopy which again did not show any active bleeding. His white blood cell count and platelet count are not low and make it less likely to be a primary bone marrow disorder but cannot be totally ruled out that. His hemoglobin has dropped further possibly due to transient marrow suppression from sepsis. At this point, I would recommend giving him a few Venofer infusions and would recommend watching his hemoglobin. If he does not continue to improve, then we could do a bone marrow biopsy to rule out primary bone marrow disorder. This could be done as an outpatient. I explained the workup to the patient and his questions were answered. 2. Septic shock due to pneumonia. He presented with the above symptoms. He has had good response to antibiotics. Culture has been negative. He is now off pressors. 3. History of congestive heart failure. 4. Coronary artery disease. 5. Diabetes mellitus. 6. Hyperlipidemia. RECOMMENDATIONS: 1. Arrange for him to have Venofer infusion. 2. Monitor CBC and recommend transfusion if hemoglobin trends below 7 or if he becomes symptomatic. 3. If his hemoglobin does not continue to trend up, could consider bone marrow biopsy for further evaluation; this however can be done as an outpatient. 4. He can follow up in the hematology clinic after discharge from the hospital. Thank you Dr. Montejo for asking me see this patient. MD HAZEL Hui/JCDandre /5:14 PM /5:38 PM TANIYA
[2017-03-06] VITALS (32 sets, daily range): BP systolic 98–149; BP diastolic 49–92; PULSE 82–114; RESP 14–30; TEMP 97.5–98.3; O2SAT 91–98
[2017-03-06] MEDS: PIPERACIL-TAZO 4.5 GM PREMIX 100 ML IV SCH ×4 (01:51→19:50)
[2017-03-06] MEDS: RESP: ALBUTEROL 2.5 MG/IPRATROPIUM 0.5 MG NEB (SCH) NEB ×4 (04:01→21:53)
[2017-03-06 04:50] LABS: AUTOMATED NEUTROPHIL # 16.5 TH/MM3 (1.8-7.7); BASOPHIL % 0.1 % (0.0-2.0); EOSINOPHIL # 0.2 TH/MM3 (0-0.4); HEMATOCRIT 22.5 % (39.0-51.0); LYMPH % 10.1 % (9.0-44.0); MEAN CELL VOLUME 83.9 FL (80.0-100.0); MEAN CORPUSCULAR HEMOGLOBIN 26.9 PG (27.0-34.0); MEAN CORPUSCULAR HGB CONC 32.1 % (32.0-36.0); MONO % 5.7 % (0.0-8.0); NEUT % 83.1 % (16.0-70.0); PLATELET COUNT 442 TH/MM3 (150-450); RED BLOOD COUNT 2.68 MIL/MM3 (4.50-5.90); RED CELL DISTRIBUTION WIDTH 16.3 % (11.6-17.2); WHITE BLOOD COUNT 19.8 TH/MM3 (4.0-11.0)
[2017-03-06 04:51] LABS: HEMO FLAGS DIFF FINAL
[2017-03-06 04:59] LABS: CHLORIDE 99 MEQ/L (98-107); POTASSIUM 3.7 MEQ/L (3.5-5.1); SODIUM (NA) 137 MEQ/L (136-145)
[2017-03-06 05:05] LABS: ANION GAP 5 MEQ/L (5-15); BICARBONATE 32.8 MEQ/L (21.0-32.0); BLOOD UREA NITROGEN 35 MG/DL (7-18); MAGNESIUM 2.6 MG/DL (1.5-2.5)
[2017-03-06 05:08] LABS: ALT (GPT) 41 U/L (12-78); AST (GOT) 26 U/L (15-37); GLOMERULAR FILTRATION RATE 54 ML/MIN (>89)
[2017-03-06 05:09] LABS: TOTAL BILIRUBIN ADULT 0.5 MG/DL (0.2-1.0)
[2017-03-06 05:10] LABS: ALKALINE PHOSPHATASE 92 U/L (45-117)
--- NOTE | 2017-03-06 05:37 | RADHPO ---
EXAM DATE/TIME: 03/06/2017 03:36 [facility] COMPARISON: CHEST SINGLE AP, March 05, 2017, 4:34. INDICATIONS : Shortness of breath MEDICAL HISTORY : Cardiovascular disease. SURGICAL HISTORY : Coronary artery stent. ENCOUNTER: Subsequent ACUITY: 1 week PAIN SCORE: 0/10 LOCATION: Bilateral chest FINDINGS: There continue to be bilateral scattered pulmonary infiltrates of both lung kelley. The findings are not significant change compared to the prior study. The heart size is stable. There is no pneumothora x. Right central line remains in place. CONCLUSION: No significant interval change in the bilateral pulmonary infiltrates. Trey Genao MD on March 06, 2017 at 5:35 Board Certified Radiologist. This report was verified electronically.
[2017-03-06] MEDS: CHLORHEXIDINE GLUCONATE 2 % 1 PACK (2 CLOTHS)(taper/protocol) TOPICAL SCH (05:49)
[2017-03-06] MEDS: VANCOMYCIN INJ 1,700 MG in SODIUM CHLORID 0.9% 500 ML INJ 500 ML IV SCH ×2 (05:49→23:52)
[2017-03-06] MEDS: INSULIN NovoLIN REGULAR SUPPLEMENTAL SCALE SQ SCH ×4 (06:37→21:07)
[2017-03-06] MEDS: SODIUM CHLORIDE 0.9% FLUSH 10 ML FLUSH IV FLUSH SCH ×2 (09:00→19:51)
[2017-03-06] MEDS: SODIUM CHLORIDE 0.9% FLUSH 10 ML FLUSH IVF SCH (09:00)
[2017-03-06] MEDS: ARTIFICIAL TEARS OPTH SOLN 15 ML BTL EACH EYE SCH ×3 (09:00→17:51)
[2017-03-06] MEDS: AZITHROMYCIN 250 MG TAB PO SCH (09:06)
[2017-03-06] MEDS: methylPREDNISolone SOD SUCC 40 MG/1 ML VIAL IV SCH (09:06)
[2017-03-06] MEDS: ASPIRIN 81 MG CHEW TAB CHEW SCH (09:06)
[2017-03-06] MEDS: CHOLECALCIFEROL (VIT D3) 1000 UNIT TAB PO SCH ×2 (09:06→21:07)
[2017-03-06] MEDS: DOCUSATE SODIUM 100 MG CAP PO SCH ×2 (09:06→21:07)
[2017-03-06] MEDS: IRON SUCROSE INJ 200 MG in SODIUM CHLORIDE 0.9% INJ 100 ML IV SCH (09:06)
[2017-03-06] MEDS: PANTOPRAZOLE SOD 40 MG DELAYED RELEASE TAB PO SCH (09:07)
[2017-03-06] MEDS: METOPROLOL TARTRATE 25 MG TAB PO SCH (09:07)
[2017-03-06] MEDS: Central Line Short Term Adult 7Fr or larger Daily NS Lock Flush IV FLUSH SCH (09:08)
[2017-03-06] MEDS: INSULIN DETEMIR 100 UNITS/ML VIAL SQ SCH ×2 (09:22→21:06)
--- NOTE | 2017-03-06 11:07 | HHI.PR ---
Subjective Remarks Patient reports he is feeling okay. On 3 L nasal cannula. Discussed with respiratory therapist. He denies chest pain. H&H 7.2/22.5 Objective Vitals Vital Signs Date Time Temp Pulse Resp B/P Pulse Ox O2 Delivery O2 Flow Rate FiO2 03/06/17 10:34 97 Nasal Cannula 3.00 03/06/17 07:00 99 Nasal Cannula 4.00 03/06/17 07:00 114 22 91 03/06/17 06:01 86 15 98/56 95 03/06/17 06:00 102 03/06/17 05:01 96 20 109/67 94 03/06/17 04:01 97.9 100 20 110/64 94 03/06/17 04:00 107 03/06/17 03:01 84 14 114/63 97 03/06/17 02:01 82 16 106/60 98 03/06/17 02:00 106 03/06/17 01:01 84 15 104/62 98 03/06/17 00:01 97.9 92 19 110/71 95 03/06/17 00:00 113 03/05/17 23:01 92 15 110/60 100 03/05/17 22:01 96 15 113/64 99 03/05/17 22:00 109 03/05/17 21:01 106 34 115/65 92 03/05/17 20:15 93 Nasal Cannula 3.00 03/05/17 20:01 98.6 98 17 108/58 86 03/05/17 20:00 112 03/05/17 19:01 104 19 116/45 93 03/05/17 19:00 100 4.00 03/05/17 18:00 104 22 122/93 90 03/05/17 18:00 104 03/05/17 17:00 100 19 137/54 93 03/05/17 16:16 97 Nasal Cannula 4.00 03/05/17 16:00 94 03/05/17 16:00 94 18 131/54 96 03/05/17 15:00 98.7 92 14 118/71 97 03/05/17 14:00 98 03/05/17 14:00 98 15 118/72 98 03/05/17 13:00 106 29 126/67 97 03/05/17 13:00 106 03/05/17 12:00 102 03/05/17 12:00 98.5 102 39 114/63 95 03/05/17 11:13 96 Nasal Cannula 6.00 I/O 03/05/17 03/05/17 03/05/17 03/06/17 03/06/17 03/06/17 07:00 15:00 23:00 07:00 15:00 23:00 Intake Total 420 ml 924 ml 460 ml 840 ml Output Total 350 ml 700 ml Balance 70 ml 924 ml 460 ml 140 ml Intake Oral 320 ml 320 ml 360 ml 240 ml IV Total 100 ml 604 ml 100 ml 600 ml Output Urine Total 350 ml 700 ml # Voids 1 2 # Bowel Movements 0 1 1 2 Result Diagram: 03/06/170 03/06/17 042 Imaging Last Impressions Chest X-Ray 03/06/17 06 Signed Impressions: Service Date/Time: Monday, March 06, 2017 03:36 - CONCLUSION: No significant interval change in the bilateral pulmonary infiltrates. Trey Genao MD Objective Remarks GENERAL: Elderly male in no acute distress. CARDIOVASCULAR: Normal rate and regular rhythm without murmurs, gallops, or rubs. RESPIRATORY: Good respiratory efforts. There is diffuse rhonchi and diffuse expiratory wheezing. GASTROINTESTINAL: Abdomen soft, non-tender, non-distended. Normal active bowel sounds MUSCULOSKELETAL: Extremities without cyanosis, or edema. NEURO: Alert & Oriented x4 to person, place, time, situation. Moves all ext x4 PSYCH: Appropriate mood and affect. Date of Insertion: March 01, 2017 Line: Central Venous Catheter Side: Right Location: Internal, Jugular A/P Problem List: (1) Sepsis ICD Code: A41.9 Status: Acute (2) Pneumonia ICD Code: J18.9 Status: Acute (3) CHF (congestive heart failure) ICD Code: I50.9 Status: Acute (4) Acute pulmonary edema ICD Code: J81.0 Status: Acute Assessment and Plan 76-year-old male initially admitted to the ICU with septic shock secondary to pneumonia. Patient is status post aggressive resuscitation by the critical care service. He has improved and is transferred to the hospitalist service to continue management. Acute hypoxemic respiratory failure secondary to pneumonia/pulmonary edema Chronic oxygen requirement Prior tobaccoism - Continue DuoNeb treatments every 4 hours. Albuterol as needed. - Incentive spirometry while awake - Solumederol 40mg IV daily Likely community-acquired pneumonia Continue with abx (Vancomycin, Zosyn and Zithromax day) monitor for signs of infections Received Rocephin in the ED. Pertinent cultures Influenza negative Blood cultures NGTD Sputum, Legionella and pneumococcal antigens negative Normocytic anemia: - Appreciate hematology following. Patient to receive Venofer treatment. If H& H not improving or trending down, hematology will consider bone marrow biopsy. - Follow-up CBC in a.m. -Transfuse for hemoglobin less than 7. Coronary artery disease: Stable. Patient seen by cardiology while signed off. Continue aspirin and statin. Continue Lopressor 25mg BID for rate control. On 50 mg twice a day at home Hemoccult positive in the stool: - Appreciate GI following. Patient had a normal EGD. GI deferring to hematology Diabetes mellitus Place on SSI ( medium scale ) for glycemic control Levemir 5 units subcutaneous twice a day TSH nl Hold metformin 500 mg by mouth twice a day At home on vitamin D 3 1000 units by mouth twice a day. PT evaluate and treat Access - Right IJ CVL day 5 placed 03/01 Prophylaxis - GI - Protonix - DVT - SCD/ hold Heparin for anemia requiring blood transfusion and Hemoccult positive stool Problem Qualifiers (1) Sepsis: Qualified Code: A41.9 - Sepsis, due to unspecified organism (2) Pneumonia: Qualified Code: J18.9 - Pneumonia of both upper lobes due to infectious organism Rizwan Colunga MD March 06, 2017 11:07
--- NOTE | 2017-03-06 16:02 | PD.ONC.PN ---
Subjective Subjective Remarks I just want some encouragement. Stools are still dark. Objective Data Date Time Temp Pulse Resp B/P Pulse Ox O2 Delivery O2 Flow Rate FiO2 03/06/17 14:00 86 16 99/53 98 03/06/17 14:00 88 03/06/17 13:00 112 30 107/67 91 03/06/17 12:00 96 03/06/17 12:00 98.3 94 18 110/62 95 03/06/17 11:00 106 03/06/17 11:00 106 20 129/59 92 03/06/17 10:34 97 Nasal Cannula 3.00 03/06/17 10:00 94 03/06/17 10:00 94 16 111/55 97 03/06/17 09:00 106 03/06/17 09:00 106 15 101/49 96 03/06/17 08:00 97.7 100 26 103/54 92 03/06/17 08:00 100 03/06/17 07:00 99 Nasal Cannula 4.00 03/06/17 07:00 114 22 91 03/06/17 06:01 86 15 98/56 95 03/06/17 06:00 102 03/06/17 05:01 96 20 109/67 94 03/06/17 04:01 97.9 100 20 110/64 94 03/06/17 04:00 107 03/06/17 03:01 84 14 114/63 97 03/06/17 02:01 82 16 106/60 98 03/06/17 02:00 106 03/06/17 01:01 84 15 104/62 98 03/06/17 00:01 97.9 92 19 110/71 95 03/06/17 00:00 113 03/05/17 23:01 92 15 110/60 100 03/05/17 22:01 96 15 113/64 99 03/05/17 22:00 109 03/05/17 21:01 106 34 115/65 92 03/05/17 20:15 93 Nasal Cannula 3.00 03/05/17 20:01 98.6 98 17 108/58 86 03/05/17 20:00 112 03/05/17 19:01 104 19 116/45 93 03/05/17 19:00 100 4.00 03/05/17 18:00 104 22 122/93 90 03/05/17 18:00 104 03/05/17 17:00 100 19 137/54 93 03/05/17 16:16 97 Nasal Cannula 4.00 03/06/17 03/06/17 03/06/17 07:00 15:00 23:00 Intake Total 840 ml Output Total 700 ml Balance 140 ml Result Diagram: 03/06/17 0420 03/06/17 0420 Laboratory Results Laboratory Tests Test 03/06/17 04:20 White Blood Count 19.8 TH/MM3 Red Blood Count 2.68 MIL/MM3 Hemoglobin 7.2 GM/DL Hematocrit 22.5 % Mean Corpuscular Volume 83.9 FL Mean Corpuscular Hemoglobin 26.9 PG Mean Corpuscular Hemoglobin 32.1 % Concent Red Cell Distribution Width 16.3 % Platelet Count 442 TH/MM3 Mean Platelet Volume 8.2 FL Neutrophils (%) (Auto) 83.1 % Lymphocytes (%) (Auto) 10.1 % Monocytes (%) (Auto) 5.7 % Eosinophils (%) (Auto) 1.0 % Basophils (%) (Auto) 0.1 % Neutrophils # (Auto) 16.5 TH/MM3 Lymphocytes # (Auto) 2.0 TH/MM3 Monocytes # (Auto) 1.1 TH/MM3 Eosinophils # (Auto) 0.2 TH/MM3 Basophils # (Auto) 0.0 TH/MM3 CBC Comment DIFF FINAL Differential Comment Sodium Level 137 MEQ/L Potassium Level 3.7 MEQ/L Chloride Level 99 MEQ/L Carbon Dioxide Level 32.8 MEQ/L Anion Gap 5 MEQ/L Blood Urea Nitrogen 35 MG/DL Creatinine 1.30 MG/DL Estimat Glomerular Filtration 54 ML/MIN Rate Random Glucose 138 MG/DL Calcium Level 8.0 MG/DL Phosphorus Level 2.9 MG/DL Magnesium Level 2.6 MG/DL Total Bilirubin 0.5 MG/DL Aspartate Amino Transf 26 U/L (AST/SGOT) Alanine Aminotransferase 41 U/L (ALT/SGPT) Alkaline Phosphatase 92 U/L Total Protein 6.2 GM/DL Albumin 2.1 GM/DL Culture Results Microbiology Date/Time Procedure Status Source Growth 03/03/17 20:25 Urine Culture - Final Complete Urine Catheterized Urine NO GROWTH IN 48 HOURS. Imaging Studies Last 24 hours Impressions Chest X-Ray 03/06/17 0600 Signed Impressions: Service Date/Time: Monday, March 06, 2017 03:36 - CONCLUSION: No significant interval change in the bilateral pulmonary infiltrates. Trey Genao MD Administered Medications Medications (Trade) Dose Ordered Sig/Kell Route PRN Reason Start Time Stop Time Status Last Admin Dose Admin Piperacillin Sod/ Tazobactam Sod (Zosyn 4.5 Gm Premix) 100 ml @ 200 mls/hr Q6H IV 03/01/17 14:00 03/06/17 14:42 Sodium Chloride (NS Flush) 2 ml BID IV FLUSH 03/01/17 21:00 03/06/17 09:00 Aspirin (Aspirin Chew) 81 mg DAILY CHEW 03/02/17 09:00 03/06/17 09:06 Cholecalciferol (Vitamin D3) 1,000 units BID PO 03/01/17 21:00 03/06/17 09:06 Pantoprazole Sodium (Protonix) 40 mg DAILY PO 03/01/17 14:00 03/06/17 09:07 Azithromycin (Zithromax) 500 mg DAILY PO 03/02/17 09:00 03/06/17 09:06 Sodium Chloride (NS Flush) DAILY IV FLUSH 03/02/17 09:00 03/06/17 09:08 Sodium Chloride (NS Flush) UNSCH PRN IV FLUSH SEE PROTOCOL TABLE 03/01/17 18:30 03/05/17 08:21 Morphine Sulfate (Morphine Inj) 2 mg Q2H PRN IV PAIN SCALE 6 TO 10 03/01/17 18:30 03/05/17 03:25 Artificial Tears (Tears Naturale Opth Soln) 1 drop TID EACH EYE 03/02/17 09:00 03/06/17 13:00 Ondansetron HCl (Zofran Inj) 4 mg Q6H PRN IV NAUSEA OR VOMITING 03/01/17 18:30 03/02/17 04:48 Docusate Sodium (Colace) 100 mg BID PO 03/01/17 21:00 03/06/17 09:06 Methylprednisolone Sodium Succinate 40 mg 40 mg DAILY IV 03/03/17 09:00 03/06/17 09:06 Sodium Phosphate/ Sodium Chloride (Sodium Phosphate Inj/NS 250 ml Inj) 250 ml @ 42 mls/hr UNSCH PRN IV For Phosphorus < 2.5 mg/dL 03/02/17 12:30 03/03/17 23:23 Temazepam (Restoril) 15 mg HS PRN PO INSOMNIA 03/02/17 21:45 03/02/17 21:40 Sodium Chloride (NS Flush) DAILY IVF 03/04/17 09:00 03/06/17 09:00 Melatonin (Melatonin) 5 mg HS PRN PO insomnia 03/05/17 06:30 03/05/17 22:35 Insulin Human Regular (NovoLIN R SUPPLEMENTAL SCALE) 1 ACHS SQ 03/05/17 07:00 03/06/17 12:56 Insulin Detemir 5 units 5 units Q12HR SQ 03/05/17 09:00 03/06/17 09:22 Vancomycin HCl 1700 mg/Sodium Chloride 517 ml @ 250 mls/hr Q18H IV 03/05/17 12:00 03/06/17 05:49 Iron Sucrose/ Sodium Chloride (Venofer Inj/NS Inj) 110 ml @ 110 mls/hr DAILY IV 03/06/17 09:00 03/08/17 09:59 03/06/17 09:06 Objective Remarks GENERAL: Well-nourished, well-developed patient. SKIN: Warm and dry. HEAD: Normocephalic. EYES: No scleral icterus. No injection or drainage. NECK: Supple, trachea midline. No JVD or lymphadenopathy. LYMPHATIC: No adenopathy. CARDIOVASCULAR: Regular rate and rhythm without murmurs. RESPIRATORY: Breath sounds equal bilaterally. No accessory muscle use. GASTROINTESTINAL: Abdomen soft, non-tender, nondistended. EXTREMITIES: No cyanosis, or edema. MUSCULOSKELETAL: Adequate muscle tone. NEUROLOGICAL: No obvious focal deficit. Awake, alert, and oriented x3. PSYCHIATRIC: Appropriate mood and affect; insight and judgment normal. Assessment/Plan Problem List: (1) Anemia Status: Acute Plan: Hgb 7.2, treat with iron for iron deficiency due to GI bleed. No RBC transfusion for now, cont w/ Venofer. Assessment 76y/o man extensive GI evaluation unable to reveal source of blood/iron loss, comes in anemic. Plan 1. Cont Venofer. 2. FU as out pt to determine if other cause anemia ie. bone marrow disorder contributing. Vanesa Tobar MD March 06, 2017 16:02
[2017-03-06] MEDS ORDERED: IRON SUCROSE INJ 100 MG in SODIUM CHLORIDE 0.9% INJ 100 ML IV ONE (16:15)
[2017-03-06] MEDS: METOPROLOL TARTRATE 50 MG TAB PO SCH (21:07)
[2017-03-07] VITALS (34 sets, daily range): BP systolic 92–140; BP diastolic 48–78; PULSE 84–110; RESP 0–28; TEMP 97.5–98.5; O2SAT 92–100
[2017-03-07] MEDS: PIPERACIL-TAZO 4.5 GM PREMIX 100 ML IV SCH ×4 (02:29→20:03)
[2017-03-07] MEDS: RESP: ALBUTEROL 2.5 MG/IPRATROPIUM 0.5 MG NEB (SCH) NEB ×4 (04:17→22:00)
[2017-03-07 06:25] LABS: MEAN CELL VOLUME 83.6 FL (80.0-100.0); MEAN CORPUSCULAR HEMOGLOBIN 27.3 PG (27.0-34.0); MEAN CORPUSCULAR HGB CONC 32.6 % (32.0-36.0); PLATELET COUNT 396 TH/MM3 (150-450); RED BLOOD COUNT 2.47 MIL/MM3 (4.50-5.90); RED CELL DISTRIBUTION WIDTH 16.5 % (11.6-17.2); WHITE BLOOD COUNT 13.6 TH/MM3 (4.0-11.0)
[2017-03-07 06:26] LABS: REVIEW FLAG FINAL
[2017-03-07 06:29] LABS: HEMATOCRIT 20.7 % (39.0-51.0)
[2017-03-07 06:32] LABS: POTASSIUM 3.7 MEQ/L (3.5-5.1)
[2017-03-07 06:35] LABS: BICARBONATE 31.1 MEQ/L (21.0-32.0)
[2017-03-07] MEDS: INSULIN NovoLIN REGULAR SUPPLEMENTAL SCALE SQ SCH ×4 (07:00→20:02)
[2017-03-07] MEDS: PANTOPRAZOLE SOD 40 MG DELAYED RELEASE TAB PO SCH (09:51)
[2017-03-07] MEDS: METOPROLOL TARTRATE 50 MG TAB PO SCH ×2 (09:51→20:03)
[2017-03-07] MEDS: INSULIN DETEMIR 100 UNITS/ML VIAL SQ SCH ×2 (09:51→20:00)
[2017-03-07] MEDS: CHOLECALCIFEROL (VIT D3) 1000 UNIT TAB PO SCH ×2 (09:51→20:03)
[2017-03-07] MEDS: AZITHROMYCIN 250 MG TAB PO SCH (09:51)
[2017-03-07] MEDS: ASPIRIN 81 MG CHEW TAB CHEW SCH (09:51)
[2017-03-07] MEDS: DOCUSATE SODIUM 100 MG CAP PO SCH ×2 (09:51→20:03)
[2017-03-07] MEDS: methylPREDNISolone SOD SUCC 40 MG/1 ML VIAL IV SCH (09:52)
[2017-03-07] MEDS: Central Line Short Term Adult 7Fr or larger PRN NS Lock Flush IV FLUSH (09:53)
[2017-03-07] MEDS: Central Line Short Term Adult 7Fr or larger Daily NS Lock Flush IV FLUSH SCH (09:53)
[2017-03-07] MEDS: IRON SUCROSE INJ 200 MG in SODIUM CHLORIDE 0.9% INJ 100 ML IV SCH (10:02)
[2017-03-07] MEDS: ARTIFICIAL TEARS OPTH SOLN 15 ML BTL EACH EYE SCH ×3 (10:03→18:00)
[2017-03-07] MEDS: SODIUM CHLORIDE 0.9% FLUSH 10 ML FLUSH IV FLUSH SCH ×2 (10:04→20:04)
[2017-03-07] MEDS: SODIUM CHLORIDE 0.9% FLUSH 10 ML FLUSH IVF SCH (10:04)
--- NOTE | 2017-03-07 11:05 | HHI.PR ---
Subjective Remarks Patient reports is feeling okay. He had a another episode of dark stool this morning. Hemoglobin dropped below 7. He is currently getting a transfusion. He has no specific complaints today. Denies any pain. Objective Vitals Vital Signs Date Time Temp Pulse Resp B/P Pulse Ox O2 Delivery O2 Flow Rate FiO2 03/07/17 08:36 97 Nasal Cannula 2.00 03/07/17 08:01 98.2 92 19 118/73 98 03/07/17 08:00 97 Nasal Cannula 2.00 03/07/17 08:00 100 Nasal Cannula 3.00 03/07/17 08:00 90 03/07/17 07:01 88 0 115/65 100 03/07/17 07:00 100 Nasal Cannula 3.00 03/07/17 06:01 100 24 106/56 92 03/07/17 06:00 98 03/07/17 05:01 100 13 107/68 93 03/07/17 04:01 98.5 108 28 115/68 96 03/07/17 04:00 108 03/07/17 03:01 88 17 100/48 98 03/07/17 02:01 88 16 92/52 99 03/07/17 02:00 90 03/07/17 01:01 86 16 110/60 98 03/07/17 00:01 97.5 90 18 118/66 94 03/07/17 00:00 92 03/06/17 23:01 86 19 99/64 97 03/06/17 22:01 86 17 109/64 98 03/06/17 22:00 86 03/06/17 21:52 95 Nasal Cannula 3.00 03/06/17 21:01 102 20 123/57 97 03/06/17 20:15 106 03/06/17 20:01 97.5 110 27 126/64 97 03/06/17 20:00 97 Nasal Cannula 3.00 03/06/17 19:01 102 20 125/60 91 03/06/17 18:00 100 22 114/62 94 03/06/17 18:00 100 03/06/17 17:00 92 19 142/65 98 03/06/17 16:00 98 03/06/17 16:00 90 17 149/92 97 03/06/17 15:00 104 21 117/63 92 03/06/17 14:00 86 16 99/53 98 03/06/17 14:00 88 03/06/17 13:00 112 30 107/67 91 03/06/17 12:00 96 03/06/17 12:00 98.3 94 18 110/62 95 I/O 03/06/17 03/06/17 03/06/17 03/07/17 03/07/17 03/07/17 07:00 15:00 23:00 07:00 15:00 23:00 Intake Total 840 ml 771 ml 501 ml 1020 ml Output Total 700 ml 1050 ml 400 ml 250 ml Balance 140 ml -279 ml 101 ml 770 ml Intake Oral 240 ml 500 ml 240 ml 360 ml IV Total 600 ml 271 ml 261 ml 660 ml Output Urine Total 700 ml 1050 ml 400 ml 250 ml # Voids 3 # Bowel Movements 2 1 1 1 Result Diagram: 03/07/17 0555 03/07/17 0555 Imaging Last Impressions Chest X-Ray 03/06/17 0600 Signed Impressions: Service Date/Time: Monday, March 06, 2017 03:36 - CONCLUSION: No significant interval change in the bilateral pulmonary infiltrates. Trey Genao MD Objective Remarks GENERAL: Elderly male in no acute distress. CARDIOVASCULAR: Normal rate and regular rhythm without murmurs, gallops, or rubs. RESPIRATORY: Good respiratory efforts. There is diffuse rhonchi and diffuse expiratory wheezing. GASTROINTESTINAL: Abdomen soft, non-tender, non-distended. Normal active bowel sounds MUSCULOSKELETAL: Extremities without cyanosis, or edema. NEURO: Alert & Oriented x4 to person, place, time, situation. Moves all ext x4 PSYCH: Appropriate mood and affect. Date of Insertion: March 01, 2017 Line: Central Venous Catheter Side: Right Location: Internal, Jugular A/P Problem List: (1) Sepsis ICD Code: A41.9 Status: Acute (2) Pneumonia ICD Code: J18.9 Status: Acute (3) CHF (congestive heart failure) ICD Code: I50.9 Status: Acute (4) Acute pulmonary edema ICD Code: J81.0 Status: Acute Assessment and Plan 76-year-old male initially admitted to the ICU with septic shock secondary to pneumonia. Patient is status post aggressive resuscitation by the critical care service. He has improved and was transferred to the hospitalist service to continue management. Acute hypoxemic respiratory failure secondary to pneumonia/pulmonary edema Chronic oxygen requirement Prior tobaccoism - Continue DuoNeb treatments every 4 hours. Albuterol as needed. - Incentive spirometry while awake - Solumederol 40mg IV daily Normocytic anemia: - Appreciate hematology following. Patient received Venofer treatment. H&H is still trending down requiring transfusion. Appreciate hematology follow-up. -Transfuse for hemoglobin less than 7. Likely community-acquired pneumonia Continue with abx (Vancomycin, Zosyn and Zithromax day) monitor for signs of infections Received Rocephin in the ED. Pertinent cultures Influenza negative Blood cultures NGTD Sputum, Legionella and pneumococcal antigens negative Coronary artery disease: Stable. Patient seen by cardiology, signed off. Continue aspirin and statin. Continue Lopressor 25mg BID for rate control. On 50 mg twice a day at home Hemoccult positive in the stool: - Appreciate GI following. Patient had extensive GI workup without any clear source of bleeding. He continues to have dark stool. Diabetes mellitus Place on SSI ( medium scale ) for glycemic control Levemir 5 units subcutaneous twice a day TSH nl Hold metformin 500 mg by mouth twice a day At home on vitamin D 3 1000 units by mouth twice a day. PT evaluate and treat Access - Right IJ CVL day 5 placed 03/01 Prophylaxis - GI - Protonix - DVT - SCD/ hold Heparin for anemia requiring blood transfusion and Hemoccult positive stool Problem Qualifiers (1) Sepsis: Qualified Code: A41.9 - Sepsis, due to unspecified organism (2) Pneumonia: Qualified Code: J18.9 - Pneumonia of both upper lobes due to infectious organism Rizwan Colunga MD March 07, 2017 11:05
[2017-03-07] MEDS ORDERED: PHARMACY ORDERED LAB ONE (17:45)
[2017-03-07] MEDS: VANCOMYCIN INJ 1,700 MG in SODIUM CHLORID 0.9% 500 ML INJ 500 ML IV SCH (18:14)
[2017-03-07] MEDS: ACETAMINOPHEN/HYDROcodone 325 MG/5 MG TAB PO PRN (21:36)
[2017-03-07] MEDS: TEMAZEPAM 15 MG CAP PO PRN (23:01)
[2017-03-08] VITALS (25 sets, daily range): BP systolic 99–144; BP diastolic 49–87; PULSE 72–104; RESP 13–37; TEMP 97.6–98.9; O2SAT 86–99
[2017-03-08] MEDS: PIPERACIL-TAZO 4.5 GM PREMIX 100 ML IV SCH ×4 (02:03→20:11)
[2017-03-08] MEDS: RESP: ALBUTEROL 2.5 MG/IPRATROPIUM 0.5 MG NEB (SCH) NEB ×3 (03:51→22:11)
[2017-03-08 05:30] LABS: HEMATOCRIT 25.6 % (39.0-51.0); MEAN CELL VOLUME 86.1 FL (80.0-100.0); MEAN CORPUSCULAR HEMOGLOBIN 26.3 PG (27.0-34.0); MEAN CORPUSCULAR HGB CONC 30.5 % (32.0-36.0); PLATELET COUNT 440 TH/MM3 (150-450); RED BLOOD COUNT 2.98 MIL/MM3 (4.50-5.90); RED CELL DISTRIBUTION WIDTH 16.3 % (11.6-17.2); REVIEW FLAG FINAL; WHITE BLOOD COUNT 15.4 TH/MM3 (4.0-11.0)
[2017-03-08 05:38] LABS: POTASSIUM 4.1 MEQ/L (3.5-5.1)
[2017-03-08 05:41] LABS: BICARBONATE 30.4 MEQ/L (21.0-32.0)
[2017-03-08] MEDS: INSULIN DETEMIR 100 UNITS/ML VIAL SQ SCH ×2 (08:11→20:09)
[2017-03-08] MEDS: DOCUSATE SODIUM 100 MG CAP PO SCH ×2 (08:12→20:10)
[2017-03-08] MEDS: ARTIFICIAL TEARS OPTH SOLN 15 ML BTL EACH EYE SCH ×3 (08:12→18:00)
[2017-03-08] MEDS: AZITHROMYCIN 250 MG TAB PO SCH (08:12)
[2017-03-08] MEDS: methylPREDNISolone SOD SUCC 40 MG/1 ML VIAL IV SCH (08:12)
[2017-03-08] MEDS: CHOLECALCIFEROL (VIT D3) 1000 UNIT TAB PO SCH ×2 (08:12→20:10)
[2017-03-08] MEDS: Central Line Short Term Adult 7Fr or larger Daily NS Lock Flush IV FLUSH SCH (08:13)
[2017-03-08] MEDS: SODIUM CHLORIDE 0.9% FLUSH 10 ML FLUSH IV FLUSH SCH ×2 (08:13→20:10)
[2017-03-08] MEDS: METOPROLOL TARTRATE 50 MG TAB PO SCH ×2 (08:13→20:10)
[2017-03-08] MEDS: SODIUM CHLORIDE 0.9% FLUSH 10 ML FLUSH IVF SCH (08:13)
[2017-03-08] MEDS: PANTOPRAZOLE SOD 40 MG DELAYED RELEASE TAB PO SCH (08:13)
[2017-03-08] MEDS: ASPIRIN 81 MG CHEW TAB CHEW SCH (08:16)
[2017-03-08] MEDS: INSULIN NovoLIN REGULAR SUPPLEMENTAL SCALE SQ SCH ×4 (08:17→20:10)
[2017-03-08] MEDS: IRON SUCROSE INJ 200 MG in SODIUM CHLORIDE 0.9% INJ 100 ML IV SCH (09:50)
--- NOTE | 2017-03-08 11:14 | HHI.PR ---
Subjective Remarks Patient reports he is feeling slightly better today. Currently on 39 nasal cannula. He reports he had a bowel movement earlier that was more greenish. Not black. However nursing is unsure whether or not he had a bowel movement at all. He denies abdominal pain. H&H slightly improved today after the transfusion yesterday. Objective Vitals Vital Signs Date Time Temp Pulse Resp B/P Pulse Ox O2 Delivery O2 Flow Rate FiO2 03/08/17 11:00 95 Nasal Cannula 3.00 03/08/17 10:00 90 20 109/69 96 03/08/17 09:00 102 37 140/75 95 03/08/17 08:00 96 Nasal Cannula 4.00 03/08/17 08:00 98.0 102 26 133/82 95 03/08/17 08:00 89 03/08/17 07:00 94 20 101/59 97 03/08/17 06:00 94 03/08/17 06:00 94 20 111/60 99 03/08/17 05:00 97.6 92 22 128/61 91 03/08/17 04:00 84 17 123/66 98 03/08/17 04:00 84 03/08/17 04:00 98 Nasal Cannula 4.00 Humidified 03/08/17 03:00 72 15 102/52 98 03/08/17 03:00 86 Nasal Cannula 4.00 Humidified 03/08/17 02:00 74 14 104/57 98 03/08/17 02:00 74 03/08/17 01:00 74 14 114/62 96 03/08/17 00:00 80 03/08/17 00:00 98.1 80 15 114/63 95 03/07/17 23:00 88 17 113/69 95 03/07/17 22:00 100 Nasal Cannula 4.00 03/07/17 22:00 94 03/07/17 22:00 94 22 137/78 96 03/07/17 21:00 100 23 109/63 97 03/07/17 20:00 100 03/07/17 20:00 98.4 100 21 140/73 98 03/07/17 20:00 98 Nasal Cannula 2.00 03/07/17 19:00 92 18 127/73 99 03/07/17 18:00 92 20 118/77 95 03/07/17 18:00 92 03/07/17 17:00 94 21 125/71 96 03/07/17 16:00 94 03/07/17 16:00 97.7 94 20 121/67 98 03/07/17 15:00 102 25 124/63 03/07/17 14:00 88 03/07/17 14:00 88 17 123/64 92 03/07/17 13:00 84 18 121/68 93 03/07/17 13:00 88 03/07/17 12:00 98.4 94 22 113/62 92 03/07/17 12:00 94 03/07/17 11:45 98.4 94 22 113/62 92 03/07/17 11:30 97.8 110 20 105/55 94 03/07/17 11:15 100 18 105/55 94 I/O 03/07/17 03/07/17 03/07/17 03/08/17 03/08/17 03/08/17 06:59 14:59 22:59 06:59 14:59 22:59 Intake Total 1020 ml 2258 ml 640 ml Output Total 250 ml 1450 ml 1350 ml Balance 770 ml 808 ml -710 ml Intake Oral 360 ml 960 ml 480 ml IV Total 660 ml 1298 ml 160 ml Output Urine Total 250 ml 1450 ml 1350 ml # Bowel Movements 1 1 Result Diagram: 03/08/1752403/08/17524 Objective Remarks GENERAL: Elderly male in no acute distress. CARDIOVASCULAR: Normal rate and regular rhythm without murmurs, gallops, or rubs. RESPIRATORY: Good respiratory efforts. Better air movement. There is some faint expiratory wheezing. Otherwise clear to auscultation. GASTROINTESTINAL: Abdomen soft, non-tender, non-distended. Normal active bowel sounds MUSCULOSKELETAL: Extremities without cyanosis, or edema. NEURO: Alert & Oriented x4 to person, place, time, situation. Moves all ext x4 PSYCH: Appropriate mood and affect. Date of Insertion: March 01, 2017 Line: Central Venous Catheter Side: Right Location: Internal, Jugular A/P Problem List: (1) Sepsis ICD Code: A41.9 Status: Acute (2) Pneumonia ICD Code: J18.9 Status: Acute (3) CHF (congestive heart failure) ICD Code: I50.9 Status: Acute (4) Acute pulmonary edema ICD Code: J81.0 Status: Acute Assessment and Plan 76-year-old male initially admitted to the ICU with septic shock secondary to pneumonia. Patient is status post aggressive resuscitation by the critical care service. He has improved and was transferred to the hospitalist service to continue management. Acute hypoxemic respiratory failure secondary to pneumonia/pulmonary edema Chronic oxygen requirement Prior tobaccoism - Continue DuoNeb treatments every 4 hours. Albuterol as needed. - Incentive spirometry while awake - Solumedrol 40mg IV daily Normocytic anemia: - Appreciate hematology following. Patient receiving Venofer treatment. Appreciate hematology follow-up. Status post transfusion of PRBC yesterday. H& H stable today. - Continue to follow -Transfuse for hemoglobin less than 7. Likely community-acquired pneumonia Continue with abx Vancomycin, Zosyn and Zithromax. Received Rocephin in the ED. Pertinent cultures Influenza negative Blood cultures NGTD Sputum, Legionella and pneumococcal antigens negative Coronary artery disease: Stable. Patient seen by cardiology, signed off. Continue aspirin and statin. Continue Lopressor 25mg BID for rate control. On 50 mg twice a day at home Hemoccult positive in the stool: - Appreciate GI following. Patient had extensive GI workup without any clear source of bleeding. Dark stool reported yesterday. - Continue to follow closely. Diabetes mellitus Place on SSI ( medium scale ) for glycemic control Levemir 5 units subcutaneous twice a day TSH nl Hold metformin 500 mg by mouth twice a day At home on vitamin D 3 1000 units by mouth twice a day. PT evaluate and treat Access - Right IJ CVL day 5 placed 03/01 Prophylaxis - GI - Protonix - DVT - SCD/ hold Heparin for anemia requiring blood transfusion and Hemoccult positive stool Discharge Planning Monitor in the ICU today, if continues to improve plan to transfer to the floor tomorrow. Problem Qualifiers (1) Sepsis: Qualified Code: A41.9 - Sepsis, due to unspecified organism (2) Pneumonia: Qualified Code: J18.9 - Pneumonia of both upper lobes due to infectious organism Rizwan Colunga MD March 08, 2017 11:14
[2017-03-08] MEDS: VANCOMYCIN INJ 1,700 MG in SODIUM CHLORID 0.9% 500 ML INJ 500 ML IV SCH (12:56)
[2017-03-08] MEDS ORDERED: ALTEPLASE RECOMBINANT 2 MG VIAL INTRACATH ONE (20:00)
[2017-03-08] MEDS ORDERED: ALTEPLASE RECOMBINANT 2 MG VIAL ONE (23:30)
[2017-03-09] VITALS (26 sets, daily range): BP systolic 100–140; BP diastolic 49–79; PULSE 76–106; RESP 14–28; TEMP 98.2–98.5; O2SAT 92–99
[2017-03-09] MEDS: PIPERACIL-TAZO 4.5 GM PREMIX 100 ML IV SCH ×2 (01:38→08:15)
[2017-03-09] MEDS: RESP: ALBUTEROL 2.5 MG/IPRATROPIUM 0.5 MG NEB (SCH) NEB ×4 (03:51→21:32)
[2017-03-09] MEDS: INSULIN NovoLIN REGULAR SUPPLEMENTAL SCALE SQ SCH ×4 (05:31→20:39)
[2017-03-09] MEDS: VANCOMYCIN INJ 1,700 MG in SODIUM CHLORID 0.9% 500 ML INJ 500 ML IV SCH (05:31)
[2017-03-09] MEDS: CHOLECALCIFEROL (VIT D3) 1000 UNIT TAB PO SCH ×2 (08:12→20:41)
[2017-03-09] MEDS: PANTOPRAZOLE SOD 40 MG DELAYED RELEASE TAB PO SCH (08:12)
[2017-03-09] MEDS: methylPREDNISolone SOD SUCC 40 MG/1 ML VIAL IV SCH (08:12)
[2017-03-09] MEDS: AZITHROMYCIN 250 MG TAB PO SCH (08:12)
[2017-03-09] MEDS: ARTIFICIAL TEARS OPTH SOLN 15 ML BTL EACH EYE SCH ×3 (08:12→18:25)
[2017-03-09] MEDS: DOCUSATE SODIUM 100 MG CAP PO SCH ×2 (08:12→20:41)
[2017-03-09] MEDS: METOPROLOL TARTRATE 50 MG TAB PO SCH ×2 (08:13→20:42)
[2017-03-09] MEDS: ASPIRIN 81 MG CHEW TAB CHEW SCH (08:15)
[2017-03-09] MEDS: Central Line Short Term Adult 7Fr or larger Daily NS Lock Flush IV FLUSH SCH (08:16)
[2017-03-09] MEDS: SODIUM CHLORIDE 0.9% FLUSH 10 ML FLUSH IV FLUSH SCH ×2 (08:18→20:42)
[2017-03-09] MEDS: SODIUM CHLORIDE 0.9% FLUSH 10 ML FLUSH IVF SCH (08:18)
[2017-03-09] MEDS: INSULIN DETEMIR 100 UNITS/ML VIAL SQ SCH ×2 (08:19→20:40)
[2017-03-09 09:35] LABS: AUTOMATED NEUTROPHIL # 19.3 TH/MM3 (1.8-7.7); EOSINOPHIL # 0.2 TH/MM3 (0-0.4); EOSINOPHIL % 0.9 % (0.0-4.0); HEMATOCRIT 25.7 % (39.0-51.0); LYMPH % 9.6 % (9.0-44.0); LYMPHOCYTE # 2.1 TH/MM3 (1.0-4.8); MEAN CELL VOLUME 86.4 FL (80.0-100.0); MEAN CORPUSCULAR HEMOGLOBIN 27.2 PG (27.0-34.0); MEAN CORPUSCULAR HGB CONC 31.5 % (32.0-36.0); MONO % 1.9 % (0.0-8.0); NEUT % 87.6 % (16.0-70.0); PLATELET COUNT 461 TH/MM3 (150-450); RED BLOOD COUNT 2.98 MIL/MM3 (4.50-5.90); RED CELL DISTRIBUTION WIDTH 15.7 % (11.6-17.2)
[2017-03-09 09:39] LABS: HEMO FLAGS AUTO DIFF
[2017-03-09 09:50] LABS: BICARBONATE 31.4 MEQ/L (21.0-32.0)
[2017-03-09 09:55] LABS: POTASSIUM 3.7 MEQ/L (3.5-5.1)
[2017-03-09 10:32] LABS: BANDS 4 % (0-6); CORRECTED NUCLEATED RBC 1 /100 WBC (0-0); EOSINOPHILS 1 % (0-4); METAMYELOCYTES 2 % (0-1); MYELOCYTES 1 % (0-0); NEUTROPHIL # MANUAL DIFF 19.4 TH/MM3 (1.8-7.7); POLYS (SEG NEUTROPHILS) 81 % (16-70); WBC DIFF SAMPLE 100
[2017-03-09 10:34] LABS: POLYCHROMASIA 2.1 % (0.0-1.9)
[2017-03-09 10:36] LABS: KERATOCYTES OCC (NORMAL); PLATELET ESTIMATE SMEAR HIGH (NORMAL); PLATELET MORPHOLOGY NORMAL (NORMAL); SCAN/DIFF FINAL DIFF MANUAL
--- NOTE | 2017-03-09 11:28 | HHI.PR ---
Subjective Remarks Patient reports is feeling better. Breathing more comfortably. No more dark stools. H&H improved this morning. Objective Vitals Vital Signs Date Time Temp Pulse Resp B/P Pulse Ox O2 Delivery O2 Flow Rate FiO2 03/09/17 11:00 91 14 100/55 98 03/09/17 10:00 97 03/09/17 10:00 97 16 127/61 97 03/09/17 09:15 95 Nasal Cannula 3.00 03/09/17 09:00 104 18 137/79 94 03/09/17 08:00 92 03/09/17 08:00 98.5 100 27 140/74 92 03/09/17 07:00 97 Nasal Cannula 3.00 03/09/17 07:00 88 18 120/76 95 03/09/17 06:00 90 17 120/61 94 03/09/17 06:00 90 03/09/17 05:00 92 17 109/56 93 03/09/17 04:00 88 03/09/17 04:00 88 18 120/62 98 03/09/17 03:00 88 28 112/67 95 03/09/17 02:00 84 03/09/17 02:00 84 18 107/55 95 03/09/17 01:00 76 16 108/65 98 03/09/17 00:05 98.4 94 19 133/74 95 03/09/17 00:00 92 03/08/17 23:00 84 14 105/49 98 03/08/17 22:11 99 Nasal Cannula 3.00 03/08/17 22:00 86 16 119/69 98 03/08/17 22:00 86 03/08/17 21:00 96 15 86 03/08/17 20:00 98.2 104 19 144/87 03/08/17 20:00 104 03/08/17 19:00 100 29 118/68 95 03/08/17 19:00 Nasal Cannula 3.00 03/08/17 18:00 96 03/08/17 18:00 96 13 126/74 97 03/08/17 17:00 96 03/08/17 17:00 96 16 99/57 96 03/08/17 16:00 98.0 104 24 134/62 03/08/17 16:00 104 03/08/17 15:00 92 22 109/63 95 03/08/17 15:00 92 03/08/17 14:00 90 20 121/70 96 03/08/17 14:00 94 03/08/17 13:00 92 29 119/66 96 03/08/17 13:00 92 03/08/17 12:00 98.9 84 16 114/63 93 03/08/17 12:00 84 I/O 03/08/17 03/08/17 03/08/17 03/09/17 03/09/17 03/09/17 07:00 15:00 23:00 07:00 15:00 23:00 Intake Total 640 ml 1049 ml 234 ml 368 ml Output Total 1350 ml 600 ml 600 ml 875 ml Balance -710 ml 449 ml -366 ml -507 ml Intake Oral 480 ml 480 ml 240 ml IV Total 160 ml 569 ml 234 ml 128 ml Output Urine Total 1350 ml 600 ml 600 ml 875 ml # Bowel Movements 1 1 1 Result Diagram: 03/09/17 0903/09/17 09 Objective Remarks GENERAL: Elderly male in no acute distress. CARDIOVASCULAR: Normal rate and regular rhythm without murmurs, gallops, or rubs. RESPIRATORY: Good respiratory efforts. Better air movement. Diminished breath sounds at the bases otherwise clear to auscultation bilaterally. GASTROINTESTINAL: Abdomen soft, non-tender, non-distended. Normal active bowel sounds MUSCULOSKELETAL: 2+ bilateral lower extremity edema. NEURO: Alert & Oriented x4 to person, place, time, situation. Moves all ext x4 PSYCH: Appropriate mood and affect. Date of Insertion: March 01, 2017 Line: Central Venous Catheter Side: Right Location: Internal, Jugular A/P Problem List: (1) Sepsis ICD Code: A41.9 Status: Acute (2) Pneumonia ICD Code: J18.9 Status: Acute (3) CHF (congestive heart failure) ICD Code: I50.9 Status: Acute (4) Acute pulmonary edema ICD Code: J81.0 Status: Acute Assessment and Plan 76-year-old male initially admitted to the ICU with septic shock secondary to pneumonia. Patient is status post aggressive resuscitation by the critical care service. He has improved and was transferred to the hospitalist service to continue management. Acute hypoxemic respiratory failure secondary to pneumonia/pulmonary edema Chronic oxygen requirement Prior tobaccoism - Much improved. - Continue DuoNeb treatments every 4 hours. Albuterol as needed. - Incentive spirometry while awake -Discontinue IV Solu-Medrol and transitioned to prednisone 20 mg by mouth twice a day. Normocytic anemia: - Appreciate hematology following. Patient receiving Venofer treatment. Appreciate hematology follow-up. Status post transfusion of PRBC. H&H improving. - Continue to follow -Transfuse for hemoglobin less than 7. Likely community-acquired pneumonia Patient has been on Vancomycin, Zosyn and Zithromax. Influenza negative Blood cultures NGTD Sputum, Legionella and pneumococcal antigens negative Patient is improving. Discontinue IV antibiotics and start on oral Levaquin for an additional 5 days. Coronary artery disease: Stable. Patient seen by cardiology, signed off. Continue aspirin and statin. Continue Lopressor 25mg BID for rate control. On 50 mg twice a day at home Hemoccult positive in the stool: - Appreciate GI following. Patient had extensive GI workup without any clear source of bleeding. - Continue to follow closely. Diabetes mellitus Place on SSI ( medium scale ) for glycemic control Levemir 5 units subcutaneous twice a day TSH nl Hold metformin 500 mg by mouth twice a day At home on vitamin D 3 1000 units by mouth twice a day. PT evaluate and treat Access - Right IJ CVL day 5 placed 03/01. Can discontinue central line at this point and use peripheral IV. Prophylaxis - GI - Protonix - DVT - SCD/ hold Heparin for anemia requiring blood transfusion and Hemoccult positive stool Discharge Planning Okay to transfer to floor today. Problem Qualifiers (1) Sepsis: Qualified Code: A41.9 - Sepsis, due to unspecified organism (2) Pneumonia: Qualified Code: J18.9 - Pneumonia of both upper lobes due to infectious organism Rizwan Colunga MD March 09, 2017 11:28
[2017-03-09] MEDS: LEVOFLOXACIN 750 MG TAB PO SCH (12:08)
--- NOTE | 2017-03-09 18:21 | PD.ONC.PN ---
Subjective Subjective Remarks Denies any pain. Objective Data Date Time Temp Pulse Resp B/P Pulse Ox O2 Delivery O2 Flow Rate FiO2 03/09/17 17:00 86 15 116/49 92 03/09/17 16:00 98.2 96 18 122/59 95 03/09/17 16:00 96 03/09/17 15:00 92 21 125/67 96 03/09/17 14:00 92 03/09/17 14:00 94 24 120/64 95 03/09/17 13:15 90 22 125/75 94 03/09/17 13:00 90 23 116/61 96 03/09/17 12:00 89 03/09/17 12:00 98.3 89 14 137/64 96 03/09/17 11:00 91 14 100/55 98 03/09/17 10:00 97 03/09/17 10:00 97 16 127/61 97 03/09/17 09:15 95 Nasal Cannula 3.00 03/09/17 09:00 104 18 137/79 94 03/09/17 08:00 92 03/09/17 08:00 98.5 100 27 140/74 92 03/09/17 07:00 97 Nasal Cannula 3.00 03/09/17 07:00 88 18 120/76 95 03/09/17 06:00 90 17 120/61 94 03/09/17 06:00 90 03/09/17 05:00 92 17 109/56 93 03/09/17 04:00 88 03/09/17 04:00 88 18 120/62 98 03/09/17 03:00 88 28 112/67 95 03/09/17 02:00 84 03/09/17 02:00 84 18 107/55 95 03/09/17 01:00 76 16 108/65 98 03/09/17 00:05 98.4 94 19 133/74 95 03/09/17 00:00 92 03/08/17 23:00 84 14 105/49 98 03/08/17 22:11 99 Nasal Cannula 3.00 03/08/17 22:00 86 16 119/69 98 03/08/17 22:00 86 03/08/17 21:00 96 15 86 03/08/17 20:00 98.2 104 19 144/87 03/08/17 20:00 104 03/08/17 19:00 100 29 118/68 95 03/08/17 19:00 Nasal Cannula 3.00 03/09/17 03/09/17 03/09/17 07:00 15:00 23:00 Intake Total 368 ml 630 ml Output Total 875 ml 580 ml Balance -507 ml 50 ml Result Diagram: 03/09/17 0900 03/09/17 0900 Laboratory Results Laboratory Tests Test 03/09/17 09:00 White Blood Count 22.0 TH/MM3 Red Blood Count 2.98 MIL/MM3 Hemoglobin 8.1 GM/DL Hematocrit 25.7 % Mean Corpuscular Volume 86.4 FL Mean Corpuscular Hemoglobin 27.2 PG Mean Corpuscular Hemoglobin 31.5 % Concent Red Cell Distribution Width 15.7 % Platelet Count 461 TH/MM3 Mean Platelet Volume 7.8 FL Neutrophils (%) (Auto) 87.6 % Lymphocytes (%) (Auto) 9.6 % Monocytes (%) (Auto) 1.9 % Eosinophils (%) (Auto) 0.9 % Basophils (%) (Auto) 0.0 % Neutrophils # (Auto) 19.3 TH/MM3 Lymphocytes # (Auto) 2.1 TH/MM3 Monocytes # (Auto) 0.4 TH/MM3 Eosinophils # (Auto) 0.2 TH/MM3 Basophils # (Auto) 0.0 TH/MM3 CBC Comment AUTO DIFF Differential Total Cells 100 Counted Neutrophils % (Manual) 81 % Band Neutrophils % 4 % Lymphocytes % 10 % Monocytes % 1 % Eosinophils % 1 % Neutrophils # (Manual) 19.4 TH/MM3 Metamyelocytes 2 % Myelocytes 1 % Nucleated Red Blood Cells 1 /100 WBC Differential Comment FINAL DIFF MANUAL Platelet Estimate HIGH Platelet Morphology Comment NORMAL Polychromasia 2.1 % Basophilic Stippling MOD Keratocytes OCC Sodium Level 140 MEQ/L Potassium Level 3.7 MEQ/L Chloride Level 102 MEQ/L Carbon Dioxide Level 31.4 MEQ/L Anion Gap 7 MEQ/L Blood Urea Nitrogen 23 MG/DL Creatinine 1.20 MG/DL Estimat Glomerular Filtration 59 ML/MIN Rate Random Glucose 160 MG/DL Calcium Level 8.5 MG/DL Administered Medications Medications (Trade) Dose Ordered Sig/Kell Route PRN Reason Start Time Stop Time Status Last Admin Dose Admin Sodium Chloride (NS Flush) 2 ml BID IV FLUSH 03/01/17 21:00 03/09/17 08:18 Aspirin (Aspirin Chew) 81 mg DAILY CHEW 03/02/17 09:00 03/09/17 08:15 Cholecalciferol (Vitamin D3) 1,000 units BID PO 03/01/17 21:00 03/09/17 08:12 Pantoprazole Sodium (Protonix) 40 mg DAILY PO 03/01/17 14:00 03/09/17 08:12 Sodium Chloride (NS Flush) DAILY IV FLUSH 03/02/17 09:00 03/09/17 08:16 Sodium Chloride (NS Flush) UNSCH PRN IV FLUSH SEE PROTOCOL TABLE 03/01/17 18:30 03/07/17 09:53 Acetaminophen/ Hydrocodone Bitart ([place] 5-325 Mg) 1 tab Q4H PRN PO PAIN SCALE 1 TO 5 03/01/17 18:30 03/07/17 21:36 Morphine Sulfate (Morphine Inj) 2 mg Q2H PRN IV PAIN SCALE 6 TO 10 03/01/17 18:30 03/05/17 03:25 Artificial Tears (Tears Naturale Opth Soln) 1 drop TID EACH EYE 03/02/17 09:00 03/09/17 13:29 Ondansetron HCl (Zofran Inj) 4 mg Q6H PRN IV NAUSEA OR VOMITING 03/01/17 18:30 03/02/17 04:48 Docusate Sodium 100 mg 100 mg BID PO 03/01/17 21:00 03/09/17 08:12 Sodium Phosphate/ Sodium Chloride (Sodium Phosphate Inj/NS 250 ml Inj) 250 ml @ 42 mls/hr UNSCH PRN IV For Phosphorus < 2.5 mg/dL 03/02/17 12:30 03/03/17 23:23 Temazepam (Restoril) 15 mg HS PRN PO INSOMNIA 03/02/17 21:45 03/07/17 23:01 Sodium Chloride (NS Flush) DAILY IVF 03/04/17 09:00 03/09/17 08:18 Melatonin (Melatonin) 5 mg HS PRN PO insomnia 03/05/17 06:30 03/05/17 22:35 Insulin Human Regular (NovoLIN R SUPPLEMENTAL SCALE) 1 ACHS SQ 03/05/17 07:00 03/09/17 16:00 Insulin Detemir (Levemir Inj) 5 units Q12HR SQ 03/05/17 09:00 03/09/17 08:19 Metoprolol Tartrate (Lopressor) 50 mg Q12HR PO 03/06/17 21:00 03/09/17 08:13 Levofloxacin (Levaquin) 750 mg DAILY PO 03/09/17 12:00 03/09/17 12:08 Objective Remarks GENERAL: Well-nourished, elderly pale man, well-developed patient. SKIN: Warm and dry. No rash. HEAD: Normocephalic. EYES: No scleral icterus. No injection or drainage. NECK: Supple, trachea midline. R neck IJ recently removed. No JVD or lymphadenopathy. LYMPHATIC: No adenopathy. CARDIOVASCULAR: Regular rate and rhythm without murmurs. RESPIRATORY: Breath sounds equal bilaterally. No accessory muscle use. GASTROINTESTINAL: Abdomen soft, non-tender, nondistended. EXTREMITIES: No cyanosis, or edema. MUSCULOSKELETAL: Adequate muscle tone. NEUROLOGICAL: No obvious focal deficit. Anxious. Assessment/Plan Problem List: (1) Anemia Status: Acute Plan: 03/09/17. hgb improve 8.1, platelets elevated, reactive. No overt bleeding. Discuss plans to follow, defer BM bx - consider coordinating as out pt. Hgb 7.2, treat with iron for iron deficiency due to GI bleed. No RBC transfusion for now, cont w/ Venofer. Assessment 76y/o man extensive GI evaluation unable to reveal source of blood/iron loss, comes in anemic, course complicated w/ leukocytosis and pneumonia. Plan 1. Venofer tx complete 2. Follow hgb 3. WBC elevated, central line removed, follow cbc in Am. 4. Defer Bm biopsy, Hgb improving. Vanesa Tobar MD March 09, 2017 18:21
[2017-03-09] MEDS: predniSONE 20 MG TAB PO SCH (20:41)
[2017-03-10] VITALS (8 sets, daily range): BP systolic 108–137; BP diastolic 60–74; PULSE 90–104; RESP 18–23; TEMP 98–98.7; O2SAT 92–98
[2017-03-10] MEDS: ACETAMINOPHEN/HYDROcodone 325 MG/5 MG TAB PO PRN ×2 (02:02→23:36)
[2017-03-10] MEDS: RESP: ALBUTEROL 2.5 MG/IPRATROPIUM 0.5 MG NEB (SCH) NEB ×4 (04:31→21:57)
[2017-03-10 05:13] LABS: HEMATOCRIT 26.1 % (39.0-51.0); MEAN CELL VOLUME 87.4 FL (80.0-100.0); MEAN CORPUSCULAR HEMOGLOBIN 27.5 PG (27.0-34.0); MEAN CORPUSCULAR HGB CONC 31.5 % (32.0-36.0); PLATELET COUNT 397 TH/MM3 (150-450); RED BLOOD COUNT 2.99 MIL/MM3 (4.50-5.90); RED CELL DISTRIBUTION WIDTH 16.3 % (11.6-17.2); REVIEW FLAG FINAL; WHITE BLOOD COUNT 16.9 TH/MM3 (4.0-11.0)
[2017-03-10 06:18] LABS: BICARBONATE 30.1 MEQ/L (21.0-32.0); POTASSIUM 4.6 MEQ/L (3.5-5.1)
[2017-03-10] MEDS: INSULIN NovoLIN REGULAR SUPPLEMENTAL SCALE SQ SCH ×4 (07:35→19:31)
[2017-03-10] MEDS: ASPIRIN 81 MG CHEW TAB CHEW SCH (10:37)
[2017-03-10] MEDS: LEVOFLOXACIN 750 MG TAB PO SCH (10:37)
[2017-03-10] MEDS: predniSONE 20 MG TAB PO SCH ×2 (10:37→19:29)
[2017-03-10] MEDS: ARTIFICIAL TEARS OPTH SOLN 15 ML BTL EACH EYE SCH ×3 (10:37→17:12)
[2017-03-10] MEDS: PANTOPRAZOLE SOD 40 MG DELAYED RELEASE TAB PO SCH (10:38)
[2017-03-10] MEDS: Central Line Short Term Adult 7Fr or larger Daily NS Lock Flush IV FLUSH SCH (10:38)
[2017-03-10] MEDS: CHOLECALCIFEROL (VIT D3) 1000 UNIT TAB PO SCH ×2 (10:38→19:28)
[2017-03-10] MEDS: METOPROLOL TARTRATE 50 MG TAB PO SCH ×2 (10:38→19:29)
[2017-03-10] MEDS: DOCUSATE SODIUM 100 MG CAP PO SCH ×2 (10:38→19:28)
[2017-03-10] MEDS: SODIUM CHLORIDE 0.9% FLUSH 10 ML FLUSH IV FLUSH SCH ×2 (10:39→19:29)
[2017-03-10] MEDS: SODIUM CHLORIDE 0.9% FLUSH 10 ML FLUSH IVF SCH (10:39)
[2017-03-10] MEDS: INSULIN DETEMIR 100 UNITS/ML VIAL SQ SCH ×2 (10:43→19:31)
--- NOTE | 2017-03-10 11:39 | HHI.PR ---
Subjective Remarks Patient reports he is gaining more strength. He had one bowel movement today, still loose, greenish, no grayson blood. He is down to 2 L nasal cannula. Gets tachycardic with minimal activities. Objective Vitals Vital Signs Date Time Temp Pulse Resp B/P Pulse Ox O2 Delivery O2 Flow Rate FiO2 03/10/17 10:19 92 Nasal Cannula 2.00 03/10/17 08:00 96 Nasal Cannula 2.00 03/10/17 07:38 98.3 96 21 120/74 03/10/17 04:00 98.0 96 23 108/60 03/10/17 00:00 98.1 90 18 137/74 93 03/09/17 21:32 93 Nasal Cannula 2.00 03/09/17 20:41 98 18 125/60 95 03/09/17 20:00 97 Nasal Cannula 2.00 03/09/17 20:00 100 03/09/17 19:46 98.2 98 20 113/57 99 03/09/17 19:01 106 19 119/68 96 03/09/17 19:00 99 Nasal Cannula 3.00 03/09/17 17:00 86 15 116/49 92 03/09/17 16:00 98.2 96 18 122/59 95 03/09/17 16:00 96 03/09/17 15:00 92 21 125/67 96 03/09/17 14:00 92 03/09/17 14:00 94 24 120/64 95 03/09/17 13:15 90 22 125/75 94 03/09/17 13:00 90 23 116/61 96 03/09/17 12:00 89 03/09/17 12:00 98.3 89 14 137/64 96 I/O 03/09/17 03/09/17 03/09/17 03/10/17 03/10/17 03/10/17 06:59 14:59 22:59 06:59 14:59 22:59 Intake Total 368 ml 630 ml 300 ml 220 ml Output Total 875 ml 580 ml 250 ml 500 ml Balance -507 ml 50 ml 50 ml -280 ml Intake Oral 240 ml 280 ml 300 ml 220 ml IV Total 128 ml 350 ml Output Urine Total 875 ml 580 ml 250 ml 500 ml # Voids 2 2 # Bowel Movements 1 0 1 1 Result Diagram: 03/10/17 0445 03/10/17 0445 Imaging Last Impressions Chest X-Ray 03/06/17 0600 Signed Impressions: Service Date/Time: Monday, March 06, 2017 03:36 - CONCLUSION: No significant interval change in the bilateral pulmonary infiltrates. Trey Genao MD Objective Remarks GENERAL: Elderly male in no acute distress. CARDIOVASCULAR: Normal rate and regular rhythm without murmurs, gallops, or rubs. RESPIRATORY: Good respiratory efforts. Better air movement. Diminished breath sounds at the bases otherwise clear to auscultation bilaterally. GASTROINTESTINAL: Abdomen soft, non-tender, non-distended. Normal active bowel sounds MUSCULOSKELETAL: 2+ bilateral lower extremity edema. NEURO: Alert & Oriented x4 to person, place, time, situation. Moves all ext x4 PSYCH: Appropriate mood and affect. Date of Insertion: March 01, 2017 Line: Central Venous Catheter Side: Right Location: Internal, Jugular A/P Problem List: (1) Sepsis ICD Code: A41.9 Status: Acute (2) Pneumonia ICD Code: J18.9 Status: Acute (3) CHF (congestive heart failure) ICD Code: I50.9 Status: Acute (4) Acute pulmonary edema ICD Code: J81.0 Status: Acute Assessment and Plan 76-year-old male initially admitted to the ICU with septic shock secondary to pneumonia. Patient is status post aggressive resuscitation by the critical care service. He has improved and was transferred to the hospitalist service to continue management. Acute hypoxemic respiratory failure secondary to pneumonia/pulmonary edema Chronic oxygen requirement Prior tobaccoism - Much improved. - Continue DuoNeb treatments every 4 hours. Albuterol as needed. - Incentive spirometry while awake -IV Solu-Medrol and transitioned to prednisone 20 mg by mouth twice a day. Normocytic anemia: - Appreciate hematology following. Patient receiving Venofer treatment. Appreciate hematology follow-up. Status post transfusion of PRBC. H&H improving. - Continue to follow -Transfuse for hemoglobin less than 7. Likely community-acquired pneumonia Patient has been on Vancomycin, Zosyn and Zithromax. Influenza negative Blood cultures NGTD Sputum, Legionella and pneumococcal antigens negative Patient is improving. Discontinue IV antibiotics and start on oral Levaquin for an additional 5 days. Coronary artery disease: Stable. Patient seen by cardiology, signed off. Continue aspirin and statin. Lopressor to home dose 50 mg twice a day. Hemoccult positive in the stool: - Appreciate GI following. Patient had extensive GI workup without any clear source of bleeding. - Continue to follow closely. Diabetes mellitus Place on SSI ( medium scale ) for glycemic control Levemir 5 units subcutaneous twice a day TSH nl Hold metformin 500 mg by mouth twice a day At home on vitamin D 3 1000 units by mouth twice a day. PT evaluate and treat Prophylaxis - GI - Protonix - DVT - SCD/ hold Heparin for anemia requiring blood transfusion and Hemoccult positive stool Discharge Planning Appreciate PT evaluation. Plan to discharge tomorrow with home health care/PT or [facility] facility for rehabilitation. Problem Qualifiers (1) Sepsis: Qualified Code: A41.9 - Sepsis, due to unspecified organism (2) Pneumonia: Qualified Code: J18.9 - Pneumonia of both upper lobes due to infectious organism Rizwan Colunga MD March 10, 2017 11:39
[2017-03-11] VITALS: BP 121/70; PULSE 96; RESP 20; TEMP 98.7; O2SAT 97
[2017-03-11] MEDS: RESP: ALBUTEROL 2.5 MG/IPRATROPIUM 0.5 MG NEB (SCH) NEB ×2 (03:57→10:24)
[2017-03-11 04:00] VITALS: BP 110/72; PULSE 96; RESP 18; TEMP 98.2; O2SAT 97
[2017-03-11] MEDS: INSULIN NovoLIN REGULAR SUPPLEMENTAL SCALE SQ SCH (05:36)
[2017-03-11 05:42] LABS: POTASSIUM 4.1 MEQ/L (3.5-5.1)
[2017-03-11 05:47] LABS: BICARBONATE 31.6 MEQ/L (21.0-32.0); HEMATOCRIT 27.8 % (39.0-51.0); MEAN CELL VOLUME 89.2 FL (80.0-100.0); MEAN CORPUSCULAR HGB CONC 31.4 % (32.0-36.0); PLATELET COUNT 432 TH/MM3 (150-450); RED BLOOD COUNT 3.12 MIL/MM3 (4.50-5.90); RED CELL DISTRIBUTION WIDTH 17.9 % (11.6-17.2); REVIEW FLAG FINAL; WHITE BLOOD COUNT 17.1 TH/MM3 (4.0-11.0)
[2017-03-11] MEDS: Central Line Short Term Adult 7Fr or larger Daily NS Lock Flush IV FLUSH SCH (07:24)
[2017-03-11] MEDS: SODIUM CHLORIDE 0.9% FLUSH 10 ML FLUSH IVF SCH (07:24)
[2017-03-11 08:00] VITALS: BP 121/64; PULSE 96; RESP 20; TEMP 98.7; O2SAT 94
[2017-03-11] MEDS: SODIUM CHLORIDE 0.9% FLUSH 10 ML FLUSH IV FLUSH SCH (09:00)
[2017-03-11] MEDS: LEVOFLOXACIN 750 MG TAB PO SCH (09:00)
[2017-03-11] MEDS: CHOLECALCIFEROL (VIT D3) 1000 UNIT TAB PO SCH (09:46)
[2017-03-11] MEDS: ASPIRIN 81 MG CHEW TAB CHEW SCH (09:46)
[2017-03-11] MEDS: PANTOPRAZOLE SOD 40 MG DELAYED RELEASE TAB PO SCH (09:46)
[2017-03-11] MEDS: predniSONE 20 MG TAB PO SCH (09:46)
[2017-03-11] MEDS: DOCUSATE SODIUM 100 MG CAP PO SCH (09:46)
[2017-03-11] MEDS: ARTIFICIAL TEARS OPTH SOLN 15 ML BTL EACH EYE SCH (09:46)
[2017-03-11] MEDS: METOPROLOL TARTRATE 50 MG TAB PO SCH (09:46)
[2017-03-11] MEDS: INSULIN DETEMIR 100 UNITS/ML VIAL SQ SCH (09:46)
[2017-03-11 10:24] VITALS: O2SAT 94
[2017-03-11] MEDS ORDERED: PRED20 PO (12:06)
[2017-03-11] MEDS ORDERED: LEVA750T PO (12:06)
[2017-03-11] MEDS ORDERED: PANT40TA3 PO (12:06)
[2017-03-11] MEDS ORDERED: FERR325T PO (12:09)
--- NOTE | 2017-03-11 12:23 | HHI.DS ---
Discharge Summary Admission Date March 01, 2017 at 11:56 Discharge Date: March 11, 2017 Admitting Diagnosis Sepsis, hypoxia, multilobar pneumonia (1) Sepsis ICD Code: A41.9 (2) Pneumonia ICD Code: J18.9 (3) CHF (congestive heart failure) ICD Code: I50.9 (4) Acute pulmonary edema ICD Code: J81.0 Procedures Central line placement. EGD Brief History - From Admission History of present illness from the admitting physician This is a 76-year-old male with a history of chronic respiratory failure, diastolic heart failure, coronary artery disease status post stents, hyperlipidemia, diabetes mellitus, hypertension and chronic anemia with guaiac- positive stool status post colonoscopy 11/11 with diverticulosis, internal and external hemorrhoids. Patient states he also underwent upper endoscopy and capsule endoscopy with negative findings. He presents to emergency room with complaints of cough, congestion, fever and overall not feeling well starting last , reports that he began developing subjective fevers and chills, productive cough with ugly Grayish phlegm, congestion, BIANCHI and myalgias. Denies chest pain, orthopnea, PND, leg swelling and weight gain. In the emergency department, chest x-ray shows bilateral hazy infiltrates could be pneumonia versus pulmonary edema. He was started on IV Rocephin, Zithromax and IV Solu-Medrol. He was also given 1 L fluid bolus. CBC/BMP: 03/11/17 0507 03/11/17 0507 Significant Findings Laboratory Tests Test 03/09/17 03/10/17 03/11/17 09:00 04:45 05:07 White Blood Count 22.0 TH/MM3 16.9 TH/MM3 17.1 TH/MM3 (4.0-11.0) (4.0-11.0) (4.0-11.0) Red Blood Count 2.98 MIL/MM3 2.99 MIL/MM3 3.12 MIL/MM3 (4.50-5.90) (4.50-5.90) (4.50-5.90) Hemoglobin 8.1 GM/DL 8.2 GM/DL 8.7 GM/DL (13.0-17.0) (13.0-17.0) (13.0-17.0) Hematocrit 25.7 % 26.1 % 27.8 % (39.0-51.0) (39.0-51.0) (39.0-51.0) Mean Corpuscular Hemoglobin 31.5 % 31.5 % 31.4 % Concent (32.0-36.0) (32.0-36.0) (32.0-36.0) Platelet Count 461 TH/MM3 (150-450) Neutrophils (%) (Auto) 87.6 % (16.0-70.0) Neutrophils # (Auto) 19.3 TH/MM3 (1.8-7.7) Neutrophils % (Manual) 81 % (16-70) Neutrophils # (Manual) 19.4 TH/MM3 (1.8-7.7) Metamyelocytes 2 % (0-1) Myelocytes 1 % (0-0) Nucleated Red Blood Cells 1 /100 WBC (0-0) Platelet Estimate HIGH (NORMAL) Polychromasia 2.1 % (0.0-1.9) Basophilic Stippling MOD (NORMAL) Blood Urea Nitrogen 23 MG/DL (7-18) 24 MG/DL (7-18) 20 MG/DL (7-18) Estimat Glomerular Filtration 59 ML/MIN (>89) 65 ML/MIN (>89) 73 ML/MIN (>89) Rate Random Glucose 160 MG/DL 182 MG/DL 151 MG/DL (74-106) (74-106) (74-106) Red Cell Distribution Width 17.9 % (11.6-17.2) Imaging Last Impressions Chest X-Ray 03/06/17 0600 Signed Impressions: Service Date/Time: Monday, March 06, 2017 03:36 - CONCLUSION: No significant interval change in the bilateral pulmonary infiltrates. Trey Genao MD PE at Discharge GENERAL: Elderly male in no acute distress. CARDIOVASCULAR: Normal rate and regular rhythm without murmurs, gallops, or rubs. RESPIRATORY: Good respiratory efforts. Better air movement. Diminished breath sounds at the bases otherwise clear to auscultation bilaterally. GASTROINTESTINAL: Abdomen soft, non-tender, non-distended. Normal active bowel sounds MUSCULOSKELETAL: 2+ bilateral lower extremity edema. NEURO: Alert & Oriented x4 to person, place, time, situation. Moves all ext x4 PSYCH: Appropriate mood and affect. Pt update on day of discharge Patient reports is feeling much better. Currently on 3 L nasal cannula. He is anxious to go home. He has oxygen at home. He denies chest pain. No bowel movements today. Hospital Course 76-year-old male initially admitted to the ICU with septic shock secondary to pneumonia. Patient is status post aggressive resuscitation by the critical care service. He has improved and was transferred to the hospitalist service to continue management. Evaluation and treatment course detailed below: Acute hypoxemic respiratory failure secondary to pneumonia/pulmonary edema Chronic oxygen requirement Prior tobaccoism - Much improved. -Patient treated with DuoNeb treatments every 4 hours. Albuterol as needed. - Incentive spirometry while awake -IV Solu-Medrol and transitioned to prednisone 20 mg by mouth twice a day. He is discharged on a prednisone taper. Normocytic anemia: -Patient was followed by hematology. Patient received Venofer treatment. Status post transfusion of PRBC. H&H improved and stabilized. -He will follow up outpatient with hematology. Likely community-acquired pneumonia Patient has been on Vancomycin, Zosyn and Zithromax. Influenza negative Blood cultures NGTD Sputum, Legionella and pneumococcal antigens negative Patient improved over time. Discontinue IV antibiotics and was discharged on Levaquin for 3 more days to complete the treatment Coronary artery disease: Stable. Patient seen by cardiology, signed off. Continue aspirin and statin. Lopressor to home dose 50 mg twice a day. Hemoccult positive in the stool: - Appreciate GI following. Patient had extensive GI workup including EGD, colonoscopy, and pill endoscopy without any clear source of bleeding. -Outpatient GI follow-up is recommended. Continue Protonix Diabetes mellitus In the hospital, the patient was placed on SSI ( medium scale ) for glycemic control Levemir 5 units subcutaneous twice a day TSH nl Resume metformin 500 mg by mouth twice a day on discharge. Pt Condition on Discharge: Good Discharge Disposition: Discharge Home Discharge Time: > 30 minutes Discharge Instructions DIET: Follow Instructions for: Diabetic Diet Activities you can perform: Regular-No Restrictions Follow up Referrals: Hematology - 2 Weeks with Vanesa Tobar MD PCP Follow-up - 1 Week New Medications: Ferrous Sulfate (Ferrous Sulfate) 325 Mg Tab 325 MG PO DAILY Nutritional Supplement #30 Ref 0 TAB Prednisone (Prednisone) 20 Mg Tab 20 MG PO DIRECTED 20 MG twice a day x 3 days, then 20 MG daily x 3 days, then 10 MG daily x 3 days Inflammation #12 Ref 0 TAB Levofloxacin (Levaquin) 750 Mg Tab 750 MG PO DAILY #3 TAB Pantoprazole (Pantoprazole) 40 Mg Tab 40 MG PO DAILY #30 TAB Continued Medications: Aspirin (Aspirin) 81 Mg Chew 81 MG CHEW DAILY cad Days 30 Ref 0 TAB Atorvastatin (Atorvastatin) 40 Mg Tab 40 MG PO HS Cholesterol Management #30 Ref 0 TAB Cholecalciferol (Vitamin D3) 1,000 Unit Tab 1000 UNITS PO BID Nutritional Supplement #1 Ref 0 BOTTLE Metformin (Metformin) 500 Mg Tab 500 MG PO BID With meals Blood Sugar Management #60 Ref 0 TAB Metoprolol Tartrate (Metoprolol Tartrate) 50 Mg Tab 50 MG PO BID #60 Ref 0 TAB Multiple Vitamin (One Daily) 1 Tab 1 TAB PO DAILY Nutritional Supplement Ref 0 TAB Wheat Dextrin Powder (Benefiber Powder) 1 Scoop Container 1 SCOOP PO DAILY Mix in water or juice PRN CONSTIPATION #1 Ref 0 CONTAINER Rizwan Colunga MD March 11, 2017 12:09
--- NOTE | 2017-03-11 12:23 | HHI.DCPOC ---
Discharge Care Plan Diagnosis: (1) Sepsis (2) Pneumonia (3) Anemia (4) GI bleed Goals to Promote Your Health * To prevent worsening of your condition and complications * To maintain your health at the optimal level Directions to Meet Your Goals Take your medications as prescribed Follow your dietary instruction Follow activity as directed Keep your appointments as scheduled Take your immunizations and boosters as scheduled If your symptoms worsen call your PCP, if no PCP go to Urgent Care Center or Emergency Room Smoking is Dangerous to Your Health. Avoid second hand smoke Call the 24-hour hour crisis hotline for domestic abuse at Rizwan Colunga MD March 11, 2017 12:08
== END 2017-03-11 13:00 | disposition home or self-care (01) | DRG 871 ==
LOC: PHED 10:19 → PHEDA 11:56 → PHICU 12:55
PROVIDERS: ADMIT Family Medicine; ATTEND Family Medicine
PROC: 05HM33Z Insertion of Infusion Device into Right Internal Jugular Vein, Percutaneous Approach (ICD-10-PCS; 2017-03-01)
PROC: 30233N1 Transfusion of Nonautologous Red Blood Cells into Peripheral Vein, Percutaneous Approach (ICD-10-PCS; principal; 2017-03-02)
PROC: 0DJ08ZZ Inspection of Upper Intestinal Tract, Via Natural or Artificial Opening Endoscopic (ICD-10-PCS; 2017-03-04)
DX: A41.9 Sepsis, unspecified organism (principal); J18.9 Pneumonia, unspecified organism; J96.21 Acute and chronic respiratory failure with hypoxia; R65.21 Severe sepsis with septic shock; N17.9 Acute kidney failure, unspecified; E87.2 Acidosis; I50.32 Chronic diastolic (congestive) heart failure; I42.9 Cardiomyopathy, unspecified; E11.9 Type 2 diabetes mellitus without complications; D50.9 Iron deficiency anemia, unspecified; E87.1 Hypo-osmolality and hyponatremia; K92.1 Melena; D64.9 Anemia, unspecified; Z99.81 Dependence on supplemental oxygen; I10 Essential (primary) hypertension; Z95.5 Presence of coronary angioplasty implant and graft; I25.10 Atherosclerotic heart disease of native coronary artery without angina pectoris; E78.00 Pure hypercholesterolemia, unspecified; I25.2 Old myocardial infarction; Z87.891 Personal history of nicotine dependence; E78.5 Hyperlipidemia, unspecified; M81.0 Age-related osteoporosis without current pathological fracture; Z86.010 Personal history of colon polyps; N40.0 Benign prostatic hyperplasia without lower urinary tract symptoms; K57.90 Diverticulosis of intestine, part unspecified, without perforation or abscess without bleeding; K64.4 Residual hemorrhoidal skin tags; K64.8 Other hemorrhoids; K21.9 Gastro-esophageal reflux disease without esophagitis; M19.90 Unspecified osteoarthritis, unspecified site; G47.00 Insomnia, unspecified
CPT/HCPCS: 36430; 36556; 36600; 71010; 71020; 80048; 80053; 80076; 80202; 81001; 82150; 82272; 82550; 82728; 82805; 82948; 83010; 83540; 83550; 83605; 83615; 83690; 83735; 83880; 84100; 84132; 84155; 84443; 84466; 85007; 85014; 85018; 85025; 85027; 85060; 86850; 86900; 86901; 86920; 87040; 87070; 87086; 87205; 87449; 87641; 87804; 88331; 93005; 93306; 94150; 94640; 94664; 94667; 94668; 96365; 96375; J0456; J0696; J1120; J1756; J1815; J2270; J2405; J2543; J2920; J2930; J2997; J3370; J7030; J7040; J7050; J7512; J7613; J7644; P9016; P9021

== ENCOUNTER 2017-03-28 19:01 | Observation (INO) | payer MEDICARE, OTHER ==
[~2017-03-28] VITALS: Ht 188 cm; Wt 85.4 kg
[~2017-03-28 19:01] MED LIST changes: +FERR325T PO; -FURO1TAB60 PO; -GLIM1TAB PO; +LEVA750T PO; +PANT40TA3 PO; -POTA-163 PO; +PRED20 PO
[2017-03-28 19:12] VITALS: BP 129/61; PULSE 102; RESP 20; TEMP 98.1
[2017-03-28 19:30] VITALS: BP 135/62; PULSE 92; RESP 18; O2SAT 94
--- NOTE | 2017-03-28 19:37 | PD ---
HPI Chief Complaint: General Weakness Time Seen by Provider: 19:19 Travel History International Travel<30 days: No Contact w/Intl Traveler<30days: No Traveled to known affect area: No History of Present Illness HPI 76 years old male complains of generalized malaise and weakness and dyspnea on exertion. Patient states that the symptoms started several days ago. Patient states that he had a short period of tachycardia about 2 nights ago. Patient denies any headache. Patient denies any chest pain. Patient states that he has dyspnea on exertion. Patient states that he has chronic cough and that is not new. Patient denies any abdominal pain. Patient denies any nausea vomiting diarrhea. Patient denies any blood in the stool. Patient denies any dysuria or frequency. Patient denies any back pain. Patient was admitted March 01 and discharged March 11 for sepsis, pneumonia, CHF, anemia. Patient also has history of coronary artery disease status post stents placement, hyperlipidemia , diabetes, hypertension. Patient was seen by ornamental iron worker oncologist and GI specialist with unknown etiology of anemia. PFSH Past Medical History Hx Anticoagulant Therapy: Yes (ASA) Arthritis: Yes Asthma: No Autoimmune Disease: No Blood Disorders: No Anxiety: No Depression: No Heart Rhythm Problems: No Cancer: No Cardiac Catheterization: Yes Cardiovascular Problems: Yes High Cholesterol: Yes Chest Pain: Yes (with OK in 2004) Congestive Heart Failure: Yes (water on lungs) COPD: No Cerebrovascular Accident: No Diabetes: Yes (metformin) Diminished Hearing: No Endocrine: Yes Gastrointestinal Disorders: No GERD: No Genitourinary: No Hiatal Hernia: No Hypertension: Yes Immune Disorder: No Kidney Stones: No Musculoskeletal: No Neurologic: No Psychiatric: No Reproductive: No Respiratory: Yes ("water on lungs" Oxygen at hs) Migraines: No Myocardial Infarction: Yes Renal Failure: No Seizures: No Sleep Apnea: No Thyroid Disease: No Ulcer: No Past Surgical History Abdominal Surgery: Yes (HERNIA REPAIR) Cardiac Surgery: No Ear Surgery: No Eye Surgery: No Genitourinary Surgery: No Oral Surgery: No Thoracic Surgery: No Other Surgery: Yes (pilonidal cyst) Social History Alcohol Use: Yes Tobacco Use: No Substance Use: No Allergies-Medications (Allergen,Severity, Reaction): Coded Allergies: No Known Allergies (Verified , 03/01/17) Reported Meds & Prescriptions Reported Meds & Active Scripts Active Ferrous Sulfate 325 Mg Tab 325 Mg PO DAILY Prednisone 20 Mg Tab 20 Mg PO DIRECTED 20 MG twice a day x 3 days, then 20 MG daily x 3 days, then 10 MG daily x 3 days Pantoprazole (Pantoprazole Sodium) 40 Mg Tab 40 Mg PO DAILY Oxygen tank (Oxygen) 1 Ea Tank 2 Liter SHAKEEL.CANULA CONTINUOUS Oxygen Concentrator Portable Gaseous 2 L/min via Nasal Cannula Continuous For 99 months Aspirin 81 Mg Chew 81 Mg CHEW DAILY 30 Days Reported One Daily (Multiple Vitamin) 1 Tab 1 Tab PO DAILY Vitamin D3 (Cholecalciferol) 1,000 Unit Tab 1,000 Units PO BID Benefiber Powder (Wheat Dextrin Powder) 1 Scoop Container 1 Scoop PO DAILY PRN Mix in water or juice Metoprolol Tartrate 50 Mg Tab 50 Mg PO BID Atorvastatin (Atorvastatin Calcium) 40 Mg Tab 40 Mg PO HS Metformin (Metformin HCl) 500 Mg Tab 500 Mg PO BID With meals Review of Systems General / Constitutional: No: Fever Eyes: No: Visual changes HENT: No: Headaches Cardiovascular: No: Chest Pain or Discomfort Respiratory: Positive: Shortness of Breath Gastrointestinal: No: Abdominal Pain Genitourinary: No: Dysuria Musculoskeletal: No: Pain Skin: No Rash Neurologic: No: Weakness Psychiatric: No: Depression Endocrine: No: Polydipsia Hematologic/Lymphatic: No: Easy Bruising Physical Exam Narrative GENERAL: Well-nourished, well-developed patient. SKIN: Focused skin assessment warm/dry. HEAD: Normocephalic. EYES: No scleral icterus. No injection or drainage. NECK: Supple, trachea midline. No JVD or lymphadenopathy. CARDIOVASCULAR: Regular rate and rhythm without murmurs, gallops, or rubs. RESPIRATORY: Breath sounds equal bilaterally. No accessory muscle use. GASTROINTESTINAL: Abdomen soft, non-tender, nondistended. Patient refuses rectal exam. MUSCULOSKELETAL: No cyanosis, or edema. BACK: Nontender without obvious deformity. No CVA tenderness. Neurologic exam normal. Data Data Last Documented VS Vital Signs Date Time Temp Pulse Resp B/P Pulse Ox O2 Delivery O2 Flow Rate FiO2 03/28/17 19:30 92 18 135/62 94 Room Air 03/28/17 19:12 98.1 Orders Electrocardiogram (03/28/17 19:29) Complete Blood Count With Diff (03/28/17 19:29) Comprehensive Metabolic Panel (03/28/17 19:29) Creatine Kinase (Cpk) (03/28/17 19:29) Troponin I (03/28/17 19:29) B-Type Natriuretic Peptide (03/28/17 19:29) Prothrombin Time / Inr (Pt) (03/28/17 19:29) Act Partial Throm Time (Ptt) (03/28/17 19:29) Urinalysis - C+S If Indicated (03/28/17:29) Thyroid Stimulating Hormone (03/28/17 19:29) Chest, Single Ap (03/28/17 19:29) Iv Access Insert/Monitor (03/28/17:29) Ecg Monitoring (03/28/17:29) Oximetry (03/28/17:29) D-Dimer (03/28/17:) Type And Screen (03/28/17 20:13) Red Blood Cells (Rbc) (03/28/17 20:13) Blood Product Administration .UPON TRANSFUSION (03/28/17 20:13) Sodium Chlor 0.9% 250 Ml Inj (Ns 250 Ml (03/28/17 20:15) Labs Laboratory Tests Test 03/28/17 19:45 White Blood Count 6.2 TH/MM3 Red Blood Count 2.61 MIL/MM3 Hemoglobin 6.9 GM/DL Hematocrit 22.0 % Mean Corpuscular Volume 84.3 FL Mean Corpuscular Hemoglobin 26.4 PG Mean Corpuscular Hemoglobin 31.4 % Concent Red Cell Distribution Width 16.5 % Platelet Count 283 TH/MM3 Mean Platelet Volume 7.3 FL Neutrophils (%) (Auto) 63.6 % Lymphocytes (%) (Auto) 22.6 % Monocytes (%) (Auto) 8.0 % Eosinophils (%) (Auto) 5.1 % Basophils (%) (Auto) 0.7 % Neutrophils # (Auto) 4.0 TH/MM3 Lymphocytes # (Auto) 1.4 TH/MM3 Monocytes # (Auto) 0.5 TH/MM3 Eosinophils # (Auto) 0.3 TH/MM3 Basophils # (Auto) 0.0 TH/MM3 CBC Comment DIFF FINAL Differential Comment Prothrombin Time 10.7 SEC Prothromb Time International 1.0 RATIO Ratio Activated Partial 24.2 SEC Thromboplast Time D-Dimer Quantitative (PE/DVT) 0.67 MG/L FEU Sodium Level 137 MEQ/L Potassium Level 4.6 MEQ/L Chloride Level 100 MEQ/L Carbon Dioxide Level 28.5 MEQ/L Anion Gap 9 MEQ/L Blood Urea Nitrogen 26 MG/DL Creatinine 0.94 MG/DL Estimat Glomerular Filtration 78 ML/MIN Rate Random Glucose 115 MG/DL Calcium Level 8.5 MG/DL Total Bilirubin 0.4 MG/DL Aspartate Amino Transf 21 U/L (AST/SGOT) Alanine Aminotransferase 28 U/L (ALT/SGPT) Alkaline Phosphatase 50 U/L Total Creatine Kinase 52 U/L Troponin I 0.02 NG/ML B-Type Natriuretic Peptide 485 PG/ML Total Protein 6.5 GM/DL Albumin 3.2 GM/DL Thyroid Stimulating Hormone 1.990 uIU/ML 3rd Gen [facility] Medical Decision Making Medical Screen Exam Complete: Yes Emergency Medical Condition: Yes Interpretation(s) 2020 PM. CBC WBC 6.2. Hemoglobin 6.9. Hematocrit 32.0. MCV 84.3. BUN 26. BNP 485. D-dimer 0.67. Differential Diagnosis Differential diagnosis including viral syndrome, electrolyte imbalance, dehydration, anemia, pneumonia, UTI, sepsis. Narrative Course 76 years old male with generalized malaise and weakness and dyspnea on exertion. Patient is anemic. Patient refused rectal exam. Patient had extensive GI workup including colonoscopy in the past without clear etiology of source of blood loss. Patient will be admitted overnight for blood transfusion and follow with his personal physician. Patient requesting blood transfusion only. Patient does not want any GI workup for his anemia. Chest x-ray today shows patchy scatter bilateral non-consolidative infiltrate. Improved since Riley exam. Most likely related to CHF. Patient is not complaining of fever or productive cough. Diagnosis Primary Impression: Severe anemia Additional Impression: History of GI bleed Admitting Information Admitting Physician Requests: Observation Calvin Lazo MD Mar 28, 2017 19:37
[2017-03-28 19:56] LABS: BASOPHIL % 0.7 % (0.0-2.0); EOSINOPHIL # 0.3 TH/MM3 (0-0.4); EOSINOPHIL % 5.1 % (0.0-4.0); LYMPH % 22.6 % (9.0-44.0); LYMPHOCYTE # 1.4 TH/MM3 (1.0-4.8); MEAN CELL VOLUME 84.3 FL (80.0-100.0); MEAN CORPUSCULAR HEMOGLOBIN 26.4 PG (27.0-34.0); MEAN CORPUSCULAR HGB CONC 31.4 % (32.0-36.0); NEUT % 63.6 % (16.0-70.0); PLATELET COUNT 283 TH/MM3 (150-450); RED BLOOD COUNT 2.61 MIL/MM3 (4.50-5.90); RED CELL DISTRIBUTION WIDTH 16.5 % (11.6-17.2); WHITE BLOOD COUNT 6.2 TH/MM3 (4.0-11.0)
[2017-03-28 20:00] LABS: HEMO FLAGS DIFF FINAL
[2017-03-28 20:07] LABS: CHLORIDE 100 MEQ/L (98-107); POTASSIUM 4.6 MEQ/L (3.5-5.1); SODIUM (NA) 137 MEQ/L (136-145)
[2017-03-28 20:11] LABS: ANION GAP 9 MEQ/L (5-15); BICARBONATE 28.5 MEQ/L (21.0-32.0); BLOOD UREA NITROGEN 26 MG/DL (7-18)
[2017-03-28 20:14] LABS: ALT (GPT) 28 U/L (12-78); AST (GOT) 21 U/L (15-37); GLOMERULAR FILTRATION RATE 78 ML/MIN (>89)
[2017-03-28 20:15] LABS: APTT (PATIENT) 24.2 SEC (24.3-30.1); PROTHROMBIN TIME - PATIENT 10.7 SEC (9.8-11.6); TOTAL BILIRUBIN ADULT 0.4 MG/DL (0.2-1.0)
[2017-03-28] MEDS ORDERED: SODIUM CHLOR 0.9% 250 ML INJ 250 ML IV ONE (20:15)
[2017-03-28 20:16] LABS: ALKALINE PHOSPHATASE 50 U/L (45-117)
[2017-03-28 20:23] LABS: CREATINE KINASE 52 U/L (39-308)
--- NOTE | 2017-03-28 20:51 | RADHPO ---
EXAM DATE/TIME: 03/28/2017 19:48 [facility] COMPARISON: CHEST SINGLE AP, March 06, 2017, 3:36. INDICATIONS : Short of breath. MEDICAL HISTORY : Myocardial infarction. Cardiovascular disease. [place]. SURGICAL HISTORY : Coronary artery stent. ENCOUNTER: Initial ACUITY: 1 day PAIN SCORE: 0/10 LOCATION: Bilateral chest FINDINGS: Patchy infiltrates in the mid and lower lungs have improved slightly when compared to prior examinati on of 03/06/17. Both hemidiaphragms are well delineated. No focal areas of consolidation. The heart is normal size. CONCLUSION: Patchy scattered bilateral non-consolidative infiltrates, improved when compared to prior exam. Dale Victoria MD on March 28, 2017 at 20:48 Board Certified Radiologist. This report was verified electronically.
[2017-03-28 20:53] VITALS: BP 108/66; PULSE 95; RESP 16; O2SAT 96
[2017-03-28] MEDS ORDERED: FUROSEMIDE 20 MG/2 ML VIAL IV PUSH ONE (21:00)
[2017-03-28] MEDS ORDERED: DEXTROSE 50% IN WATER 50 ML VIAL(D50) IV PRN (21:30)
[2017-03-28] MEDS ORDERED: MAGNESIUM HYDROXIDE SUSP 30 ML CUP PO PRN (21:30)
[2017-03-28] MEDS ORDERED: SENNOSIDES 8.6 MG TAB PO PRN (21:30)
[2017-03-28] MEDS ORDERED: SODIUM CHLORIDE 0.9% FLUSH 10 ML FLUSH IV FLUSH PRN (21:30)
[2017-03-28] MEDS ORDERED: GLUCAGON 1 MG/ML VIAL OTHER PRN (21:30)
[2017-03-28] MEDS ORDERED: BISACODYL 10 MG SUPP RECTAL PRN (21:30)
[2017-03-28] MEDS ORDERED: LACTULOSE SYRUP 20 GM/30 ML CUP PO PRN (21:30)
[2017-03-28] MEDS ORDERED: ACETAMINOPHEN/HYDROcodone 325 MG/5 MG TAB PO PRN (21:30)
[2017-03-28] MEDS ORDERED: ONDANSETRON HCL 4 MG/2 ML VIAL IVP PRN (21:30)
[2017-03-28] MEDS ORDERED: ACETAMINOPHEN 325 MG TAB PO PRN (21:30)
[2017-03-28] MEDS ORDERED: ACETAMINOPHEN/HYDROcodone 325 MG/10 MG TAB PO PRN (21:30)
[2017-03-29] VITALS (10 sets, daily range): BP systolic 102–137; BP diastolic 52–80; PULSE 91–108; RESP 18–20; TEMP 97.2–99.8; O2SAT 95–98
[2017-03-29] MEDS ORDERED: ATORVASTATIN 40 MG TAB PO SCH ×2 (00:15→21:00)
[2017-03-29] MEDS: metFORMIN HCL 500 MG TAB PO SCH ×2 (01:23→08:43)
[2017-03-29] MEDS: predniSONE 20 MG TAB PO SCH ×2 (01:40→08:40)
[2017-03-29 03:03] LABS: BLOOD, URINE NEG (NEG); GLUCOSE,URINE NEG (NEG); KETONE, URINE NEG (NEG); NITRITE,URINE NEG (NEG); PH, URINE 5.5 (5.0-8.5)
[2017-03-29 03:10] LABS: COMMENT (UR) CULT NOT INDICATED; CULTURE IF INDICATED CULT NOT INDICATED; RBC, URINE 0-2 /hpf (0-3); SQUAMOUS EPITHELIAL CELL URINE 0-5 /hpf (0-5); URINE COLOR YELLOW (YELLW/STRAW); WBC, URINE 0-2 /hpf (0-5)
[2017-03-29] MEDS ORDERED: INSULIN ASPART SUPPLEMENTAL SCALE SQ SCH ×2 (07:00→11:00)
[2017-03-29 07:41] LABS: CHLORIDE 99 MEQ/L (98-107); POTASSIUM 4.4 MEQ/L (3.5-5.1); SODIUM (NA) 137 MEQ/L (136-145)
[2017-03-29 07:43] LABS: AUTOMATED NEUTROPHIL # 5.3 TH/MM3 (1.8-7.7); BASOPHIL % 0.3 % (0.0-2.0); EOSINOPHIL # 0.1 TH/MM3 (0-0.4); EOSINOPHIL % 0.9 % (0.0-4.0); HEMATOCRIT 26.3 % (39.0-51.0); HEMO FLAGS DIFF FINAL; LYMPH % 11.8 % (9.0-44.0); LYMPHOCYTE # 0.7 TH/MM3 (1.0-4.8); MEAN CELL VOLUME 84.1 FL (80.0-100.0); MEAN CORPUSCULAR HEMOGLOBIN 26.4 PG (27.0-34.0); MEAN CORPUSCULAR HGB CONC 31.4 % (32.0-36.0); MONO % 1.9 % (0.0-8.0); NEUT % 85.1 % (16.0-70.0); PLATELET COUNT 268 TH/MM3 (150-450); RED BLOOD COUNT 3.12 MIL/MM3 (4.50-5.90); RED CELL DISTRIBUTION WIDTH 18.1 % (11.6-17.2); WHITE BLOOD COUNT 6.2 TH/MM3 (4.0-11.0)
[2017-03-29 07:47] LABS: ANION GAP 7 MEQ/L (5-15); BICARBONATE 30.7 MEQ/L (21.0-32.0); BLOOD UREA NITROGEN 24 MG/DL (7-18)
[2017-03-29 07:50] LABS: ALT (GPT) 23 U/L (12-78); AST (GOT) 20 U/L (15-37); GLOMERULAR FILTRATION RATE 84 ML/MIN (>89)
[2017-03-29 07:52] LABS: TOTAL BILIRUBIN ADULT 1.7 MG/DL (0.2-1.0)
[2017-03-29 07:53] LABS: ALKALINE PHOSPHATASE 47 U/L (45-117)
[2017-03-29] MEDS ORDERED: LOSA25TA PO (08:43)
[2017-03-29] MEDS ORDERED: METOPROLOL TARTRATE 50 MG TAB PO SCH (09:00)
[2017-03-29] MEDS ORDERED: PANTOPRAZOLE SOD 40 MG DELAYED RELEASE TAB PO SCH (09:00)
[2017-03-29] MEDS ORDERED: metFORMIN HCL 500 MG TAB PO SCH (09:00)
[2017-03-29] MEDS ORDERED: SODIUM CHLORIDE 0.9% FLUSH 10 ML FLUSH IV FLUSH SCH (09:00)
[2017-03-29] MEDS ORDERED: DOCUSATE SODIUM 50 MG/SENNA 8.6 MG TAB PO SCH (09:00)
[2017-03-29] MEDS ORDERED: MULTIVITAMIN TAB PO SCH (09:00)
[2017-03-29] MEDS ORDERED: WHEA1POW13 PO (09:00)
[2017-03-29] MEDS ORDERED: FERR325C PO ×2 (09:00→09:33)
[2017-03-29] MEDS ORDERED: CHOLECALCIFEROL (VIT D3) 1000 UNIT TAB PO SCH (09:00)
--- NOTE | 2017-03-29 09:34 | HHI.DCPOC ---
Discharge Care Plan Diagnosis: (1) Anemia Your Health Problems Are: Difficulty with ADL Exercise Tolerance Goals to Promote Your Health * To prevent worsening of your condition and complications * To maintain your health at the optimal level Directions to Meet Your Goals Take your medications as prescribed Follow your dietary instruction Follow activity as directed Keep your appointments as scheduled Take your immunizations and boosters as scheduled If your symptoms worsen call your PCP, if no PCP go to Urgent Care Center or Emergency Room Smoking is Dangerous to Your Health. Avoid second hand smoke Call the 24-hour hour crisis hotline for domestic abuse at Cooper Mcginnis MD Mar 29, 2017 09:34
--- NOTE | 2017-03-29 09:54 | HHI.HP ---
[facility] Physician Chaka Greenwood MD Admission Diagnosis severe anemia. History of GI bleed. Diagnoses: Chief Complaint: Weakness Travel History International Travel<30 Days: No Contact w/Intl Traveler <30 Da: No Traveled to Known Affected Are: No History of Present Illness This is a 76 years old male with a history of chronic anemia with guaiac- positive stool status post colonoscopy October 2016 showing diverticulosis, internal and external hemorrhoids, unremarkable upper endoscopy and capsule endoscopy on iron, chronic respiratory failure on home oxygen, diastolic heart failure, CAD status post stent on aspirin, hyperlipidemia, diabetes and hypertension. He presents to the emergency department with complaints of generalized malaise and weakness and dyspnea on exertion for the past several days. He knew he needed another blood transfusion. Denies chest pain, palpitations, syncope, dizziness, orthopnea, PND, weight gain and leg swelling. He has improving cough. Patient admitted 3 weeks ago for sepsis, pneumonia, CHF exacerbation and anemia. At that time he was evaluated by hematology because of a unknown etiology of anemia. At one point BM biopsy was contemplated but was not performed. Denies active bleed or dark stools are back pain. On admission hemoglobin of 6.9 and he received 2 units of packed RBC overnight and feels much better and wants to go home. States he agreed to stay for blood transfusion only. He does not want further workup. He states he he has an appointment with his PCP tomorrow and will request referral to hematology. Also advised to have weekly CBCs until source of anemia is found. He also states he has a follow-up CT of the lung this coming Thursday. Review of Systems Except as stated in HPI: all other systems reviewed are Neg Past Family Social History Past Medical History As previously mentioned Past Surgical History Hernia repair Reported Medications Ferrous Sulfate 325 Mg Tab 325 Mg PO DAILY Losartan Pantoprazole (Pantoprazole Sodium) 40 Mg Tab 40 Mg PO DAILY Oxygen tank (Oxygen) 1 Ea Tank 2 Liter SHAKEEL.CANULA CONTINUOUS Oxygen Concentrator Portable Gaseous 2 L/min via Nasal Cannula Continuous For 99 months Aspirin 81 Mg Chew 81 Mg CHEW DAILY 30 Days One Daily (Multiple Vitamin) 1 Tab 1 Tab PO DAILY Vitamin D3 (Cholecalciferol) 1,000 Unit Tab 1,000 Units PO BID Benefiber Powder (Wheat Dextrin Powder) 1 Scoop Container 1 Scoop PO DAILY PRN Mix in water or juice Metoprolol Tartrate 50 Mg Tab 50 Mg PO BID Atorvastatin (Atorvastatin Calcium) 40 Mg Tab 40 Mg PO HS Metformin (Metformin HCl) 500 Mg Tab 500 Mg PO BID With meals Allergies: Coded Allergies: No Known Allergies (Verified , 03/01/17) Family History No CAD or cancer Social History Does not drink or smoke. He lives alone Physical Exam Vital Signs Vital Signs Date Time Temp Pulse Resp B/P Pulse Ox O2 Delivery O2 Flow Rate FiO2 03/29/17 05:41 106 18 122/70 03/29/17 05:22 98.3 91 18 116/67 96 03/29/17 03:35 105 18 121/62 03/29/17 03:20 99.8 104 18 137/73 95 03/29/17 03:05 97.7 105 127/68 03/29/17 00:50 96 121/62 03/29/17 00:35 99 102/52 03/29/17 00:20 108 107/69 03/29/17 00:00 98.0 99 18 112/60 96 03/28/17 20:53 95 16 108/66 96 Nasal Cannula 3 03/28/17 19:30 92 18 135/62 94 Room Air 03/28/17 19:30 18 94 Room Air 03/28/17 19:12 98.1 102 20 129/61 Physical Exam GENERAL: This is a well-nourished, well-developed patient, in no apparent distress on 1 L nasal cannula. SKIN: No rashes, ecchymoses or lesions. Cool and dry. HEAD: Atraumatic. Normocephalic. No temporal or scalp tenderness. EYES: Pupils equal round and reactive. Extraocular motions intact. No scleral icterus. No injection or drainage. ENT: Nose without bleeding, purulent drainage or septal hematoma. Throat without erythema, tonsillar hypertrophy or exudate. Uvula midline. Airway patent. NECK: Trachea midline. No JVD or lymphadenopathy. Supple, nontender, no meningeal signs. CARDIOVASCULAR: Regular rate and rhythm without murmurs, gallops, or rubs. RESPIRATORY: Clear to auscultation. Decreased Breath sounds equal bilaterally. No wheezes, rales, or rhonchi. GASTROINTESTINAL: Abdomen soft, non-tender, nondistended. No guarding. MUSCULOSKELETAL: Extremities without clubbing, cyanosis, or edema. No joint tenderness, effusion, or edema noted. No calf tenderness. Negative Homans sign bilaterally. NEUROLOGICAL: Awake and alert. Cranial nerves II through XII intact. Motor and sensory grossly within normal limits. Five out of 5 muscle strength in all muscle groups. Normal speech. Laboratory Laboratory Tests Test 03/28/17 03/29/17 03/29/17 19:45 02:30 06:45 White Blood Count 6.2 6.2 Red Blood Count 2.61 3.12 Hemoglobin 6.9 8.3 Hematocrit 22.0 26.3 Mean Corpuscular Volume 84.3 84.1 Mean Corpuscular Hemoglobin 26.4 26.4 Mean Corpuscular Hemoglobin 31.4 31.4 Concent Red Cell Distribution Width 16.5 18.1 Platelet Count 283 268 Mean Platelet Volume 7.3 7.4 Neutrophils (%) (Auto) 63.6 85.1 Lymphocytes (%) (Auto) 22.6 11.8 Monocytes (%) (Auto) 8.0 1.9 Eosinophils (%) (Auto) 5.1 0.9 Basophils (%) (Auto) 0.7 0.3 Neutrophils # (Auto) 4.0 5.3 Lymphocytes # (Auto) 1.4 0.7 Monocytes # (Auto) 0.5 0.1 Eosinophils # (Auto) 0.3 0.1 Basophils # (Auto) 0.0 0.0 CBC Comment DIFF FINAL DIFF FINAL Differential Comment Prothrombin Time 10.7 Prothromb Time International 1.0 Ratio Activated Partial 24.2 Thromboplast Time D-Dimer Quantitative (PE/DVT) 0.67 Sodium Level 137 137 Potassium Level 4.6 4.4 Chloride Level 100 99 Carbon Dioxide Level 28.5 30.7 Anion Gap 9 7 Blood Urea Nitrogen 26 24 Creatinine 0.94 0.88 Estimat Glomerular Filtration 78 84 Rate Random Glucose 115 153 Calcium Level 8.5 8.4 Total Bilirubin 0.4 1.7 Aspartate Amino Transf 21 20 (AST/SGOT) Alanine Aminotransferase 28 23 (ALT/SGPT) Alkaline Phosphatase 50 47 Total Creatine Kinase 52 Troponin I 0.02 B-Type Natriuretic Peptide 485 Total Protein 6.5 6.1 Albumin 3.2 3.1 Thyroid Stimulating Hormone 1.990 3rd Gen Blood Type O NEGATIVE Antibody Screen NEGATIVE Crossmatch Leukocyte-Reduced Red Blood Cells Blood Bank Comment Urine Color YELLOW Urine Turbidity CLEAR Urine pH 5.5 Urine Specific Ledbetter 1.016 Urine Protein NEG Urine Glucose (UA) NEG Urine Ketones NEG Urine Occult Blood NEG Urine Nitrite NEG Urine Bilirubin NEG Urine Leukocyte Esterase NEG Urine RBC 0-2 Urine WBC 0-2 Urine Squamous Epithelial 0-5 Cells Urine Bacteria NONE Microscopic Urinalysis Comment CULT NOT INDICATED Result Diagram: 03/29/1745 03/29/17644 Imaging EKG tracing interpreted by me with sinus rhythm poor a progression and low QRS voltages no significant change from previous Chest x-ray image interpreted by me with improving bilateral infiltrates when compared to previous Last Impressions Chest X-Ray 03/28/171928 Signed Impressions: Service Date/Time: Thursday, March 28, 2017 19:48 - CONCLUSION: Patchy scattered bilateral non-consolidative infiltrates, improved when compared to prior exam. Dale Victoria MD Assessment and Plan Problem List: (1) Anemia ICD Code: D64.9 Status: Acute Assessment and Plan This is a 76 years old male who presents to the emergency department with complaints of generalized malaise and weakness and dyspnea on exertion for the past several days. He knew he needed another blood transfusion history of chronic anemia with guaiac-positive stool status post colonoscopy October 2016 showing diverticulosis, internal and external hemorrhoids, unremarkable upper endoscopy and capsule endoscopy on iron. Denies chest pain, palpitations, syncope, dizziness, orthopnea, PND, weight gain and leg swelling. Patient admitted 3 weeks ago for sepsis, pneumonia, CHF exacerbation and anemia. At that time he was evaluated by hematology because of a unknown etiology of anemia. At one point BM biopsy was contemplated but was not performed. Denies active bleed or dark stools are back pain. On admission hemoglobin of 6.9 and he received 2 units of packed RBC overnight and feels much better and wants to go home. Repeat hemoglobin 8.2. States he agreed to stay for blood transfusion only. He does not want further workup. He states he he has an appointment with his PCP tomorrow and will request referral to hematology. Also advised to have weekly CBCs until source of anemia is found. Increase iron to 325 mg twice a day Elevated BNP with hx diastolic heart failure. I don't think he has exacerbation but will give 1 dose of Lasix after the transfusion. I believe his symptoms are related to his anemia Chronic respiratory failure on home oxygen, CAD status post stent on aspirin, hyperlipidemia, diabetes and hypertension. Continue outpatient medications as appropriate. Monitor fingersticks with sliding scale coverage DVT prophylaxis with SCD and early ambulation Discussed Condition With Patient, son and nursing staff Discharge patient to home if patient able to tolerate ambulation Condition on discharge: Improved Regular Diet as tolerated Ad Chelly activity no driving Rx written: Iron twice a day Follow-up with primary care physician in a.m., follow-up with hematology. Repeat CBC tomorrow and then weekly 4 Cooper Mcginnis MD Mar 29, 2017 09:54
[2017-03-29] MEDS ORDERED: FUROSEMIDE 20 MG/2 ML VIAL IV PUSH ONE (10:00)
--- NOTE | 2017-03-29 14:10 | EKG ---
Date Performed: 03/28/2017 Time Performed: 19:32:06 PTAGE: 76 years EKG: Sinus rhythm Anteroseptal infarct - age undetermined Low QRS voltages in precordial leads Compared to prior bill ng no significant change Abnormal ECG NO PREVIOUS TRACING DOCTOR: Johnny Falcon Interpretating Date/Time 03/29/2017 14:08:52
== END 2017-03-29 11:18 | disposition home or self-care (01) ==
LOC: PHED 19:01 → PHEDA 21:15 → PH3A 22:28
PROVIDERS: ADMIT Internal Medicine; ATTEND Internal Medicine
DX: D64.9 Anemia, unspecified (principal); J96.10 Chronic respiratory failure, unspecified whether with hypoxia or hypercapnia; R05 Cough; I25.10 Atherosclerotic heart disease of native coronary artery without angina pectoris; I50.32 Chronic diastolic (congestive) heart failure; I11.0 Hypertensive heart disease with heart failure; E78.5 Hyperlipidemia, unspecified; E11.9 Type 2 diabetes mellitus without complications; Z99.81 Dependence on supplemental oxygen; Z95.5 Presence of coronary angioplasty implant and graft; Z79.82 Long term (current) use of aspirin; Z79.899 Other long term (current) drug therapy; Z79.84 Long term (current) use of oral hypoglycemic drugs; I25.2 Old myocardial infarction; R91.8 Other nonspecific abnormal finding of lung field; M19.90 Unspecified osteoarthritis, unspecified site; Z79.01 Long term (current) use of anticoagulants; E78.00 Pure hypercholesterolemia, unspecified; R94.31 Abnormal electrocardiogram [ECG] [EKG]; R53.1 Weakness
CPT/HCPCS: 36430; 71010; 80053; 81001; 82550; 83880; 84443; 84484; 85025; 85379; 85610; 85730; 86850; 86900; 86901; 86920; 93005; 96360; 99285; G0378; J1940; J7050; J7512; P9016; P9021

== ENCOUNTER 2017-05-12 08:47 | Day surgery (SDC) | payer OTHER ==
[2017-05-12] VITALS (7 sets, daily range): BP systolic 94–136; BP diastolic 48–70; PULSE 76–105; RESP 16–20; TEMP 97.9–98.4; O2SAT 94–98
[~2017-05-12] VITALS: Ht 188 cm; Wt 87.3 kg
[~2017-05-12 08:47] MED LIST changes: -BENEPOW8 PO; +FERR325C PO; -FERR325T PO; -LEVA750T PO; +LOSA25TA PO; -PRED20 PO; +WHEA1POW13 PO
[2017-05-12] MEDS ORDERED: SODIUM CHLOR 0.9% 1000 ML IV SCH (09:00)
[2017-05-12] MEDS ORDERED: IMPLANTED VASCULAR ACCESS DEVICE/PORT - SODIUM CHLORIDE FLUSH IV FLUSH SCH (09:15)
[2017-05-12] MEDS ORDERED: IMPLANTED VASCULAR ACCESS DEVICE/PORT - SODIUM CHLORIDE FLUSH PRN IV FLUSH (09:15)
[2017-05-12 09:29] LABS: AUTOMATED NEUTROPHIL # 4.8 TH/MM3 (1.8-7.7); BASOPHIL # 0.1 TH/MM3 (0-0.2); BASOPHIL % 1.1 % (0.0-2.0); EOSINOPHIL # 0.6 TH/MM3 (0-0.4); EOSINOPHIL % 7.2 % (0.0-4.0); HEMATOCRIT 23.6 % (39.0-51.0); HEMO FLAGS DIFF FINAL; LYMPH % 20.1 % (9.0-44.0); LYMPHOCYTE # 1.6 TH/MM3 (1.0-4.8); MEAN CELL VOLUME 83.1 FL (80.0-100.0); MEAN CORPUSCULAR HEMOGLOBIN 26.2 PG (27.0-34.0); MEAN CORPUSCULAR HGB CONC 31.6 % (32.0-36.0); MONO % 9.6 % (0.0-8.0); PLATELET COUNT 279 TH/MM3 (150-450); RED BLOOD COUNT 2.84 MIL/MM3 (4.50-5.90); RED CELL DISTRIBUTION WIDTH 15.9 % (11.6-17.2); WHITE BLOOD COUNT 7.8 TH/MM3 (4.0-11.0)
[2017-05-12 09:34] LABS: APTT (PATIENT) 25.1 SEC (24.3-30.1); PROTHROMBIN TIME - PATIENT 10.7 SEC (9.8-11.6)
[2017-05-12] MEDS ORDERED: MIDAZOLAM HCL 5 MG/5 ML VIAL ONE (09:57)
[2017-05-12] MEDS ORDERED: fentaNYL CITRATE 250 MCG/5 ML AMP ONE (09:57)
[2017-05-12] MEDS ORDERED: LIDOCAINE 1%/EPINEPHrine 1:100,000 SOLN 20 ML VIAL ONE (10:05)
--- NOTE | 2017-05-12 10:55 | PD.RAD ---
Post CT Procedure Prog Note Pre Procedure Diagnosis: (1) Anemia Post Procedure Diagnosis: Procedure Date: May 12, 2017 Supervising Radiologist: Steve Portillo Anesthesia: Conscious Sedation Plan of Activity Patient to Unit: [facility]OPU Patient Condition: Good See PACS Report for procedural detail/treatment Steve Portillo MD May 12, 2017 10:54
[2017-05-12 11:28] LABS: BONE MARROW PROCESSING COMPLETE; IRON STAIN DONE; JENNER GIEMSA STAIN DONE
--- NOTE | 2017-05-12 16:20 | RADRPT ---
EXAM DATE/TIME: 05/12/2017 10:26 [facility] COMPARISON: No previous studies available for comparison. INDICATIONS : Anemia. SEDATION TIME: 30 minutes BIOPSY SITE: Left MEDICATION(S): 1.) 2 mg midazolam (Versed) IV 2.) 100 mcg fentanyl (Sublimaze) IV DEVICE(S): 1.) 11 gauge Bone marrow biopsy needle MEDICAL HISTORY : Cardiovascular disease. Diabetes mellitus type 2. Anemia SURGICAL HISTORY : None. ENCOUNTER: Initial ACUITY: 1 day PAIN SCORE: 0/10 LOCATION: Left A total of one core specimen(s) were obtained and sent to the laboratory for pathologic evaluation. PROCEDURE: 1. CT guided bone marrow biopsy. 2. Conscious sedation with continuous EKG and oximetry monitoring. 3. EKG and oximetry remained stable throughout the procedure. Prior to the procedure informed consent was obtained. Any appropriate prior imaging studies were rev iewed. Using automated exposure control and adjustment of the mA and/or kV according to patient size , radiation dose was kept as low as reasonably achievable to obtain optimal diagnostic quality images . DICOM format image data is available electronically for review and comparison. The site was prepped in a sterile fashion. Full sterile technique was used, including cap, mask, pradeep rile gloves and gown and a large sterile sheet. Hand hygiene and 2% chlorhexidine and/or betadine/al cohol prep was utilized per protocol for cutaneous antisepsis. The skin and subcutaneous tissues wer e infiltrated with local anesthetic solution. With CT guidance the previously identified target was localized. Biopsy was performed using the presc ribed needle as above. Following biopsy marrow aspiration was performed with repeat puncture. [place] te hemostasis was obtained with compression at the puncture site. Follow-up CT scan reveals no hemorrhage. Conscious sedation was performed with the prescribed dosages and duration as above in the presence of an independent trained radiology nurse to assist in the monitoring of the patient. EKG and oximetry remained stable throughout the procedure. The patient tolerated the procedure well and there were no complications. The patient was sent to Radiology Outpatient Unit in stable condition. CONCLUSION: 1. Uncomplicated CT guided bone marrow aspirate. 2. Uncomplicated CT guided bone marrow biopsy. Steve Portillo MD on May 12, 2017 at 16:18 Board Certified Radiologist. This report was verified electronically.
== END 2017-05-12 13:15 | disposition home or self-care (01) ==
LOC: HRAD 08:47 → HRIP 08:50 → UNDOADMOB 10:51 → HSDI 10:51 → HRAD 13:15
PROVIDERS: ATTEND Internal Medicine Hematology & Oncology
DX: D64.9 Anemia, unspecified (principal); E11.9 Type 2 diabetes mellitus without complications; Z79.84 Long term (current) use of oral hypoglycemic drugs
CPT/HCPCS: 38221; 77012; 85025; 85097; 85610; 85730; 88184; 88185; 88237; 88264; 88280; 88305; 88311; 88313; 99152; 99153; C1830; G0364; J2250; J3010; J7030

== ENCOUNTER → 2017-06-01 | Day surgery (SDC) | payer OTHER ==
[~2017-06-01] MED LIST changes: +ASCO100016; +LACTATED RINGER'S 1000 ML INJ 1,000 ML ONE; +PROPOFOL 200 MG/20 ML AMP IV ONE
--- NOTE | 2017-06-01 12:33 | GIPROC ---
[facility] [address] [facility], [address] COLONOSCOPY PROCEDURE REPORT EXAM DATE: 06/01/2017 PATIENT NAME: Dwight Brown MR #: [id number] BIRTHDATE: 1940 ENDOSCOPIST: Maicol Becker MD ORDER #: [id number] BROILER SUPERVISOR: Noemi Acuña STATUS: outpatient INDICATIONS: The patient is a 77 yr old male here for a colonoscopy due to iron deficiency anemia PROCEDURE PERFORMED: Colonoscopy with biopsy MEDICATIONS: None and Per Anesthesia. PREP QUALITY: good ESTIMATED BLOOD LOSS: None CONSENT: The patient understands the risks and benefits of the procedure and understands that these risks include, but are not limited to: sedation, allergic reaction, infection, perforation and/or bleeding. Alternative means of evaluation and treatment include, among others: physical exam, x-rays, and/or surgical intervention. The patient elects to proceed with this endoscopic procedure. medical equipment was checked for proper function. Hand hygiene and appropriate measures for infection prevention was taken. After the risks, benefits and alternatives of the procedure were thoroughly explained, Informed consent was verified, confirmed and timeout was successfully executed by the treatment team. A digital exam revealed no abnormalities of the rectum The EC-[id number] ([id number]) endoscope was introduced through the anus and advanced to the cecum, which was identified by both the appendix and ileocecal valve. The instrument was then slowly withdrawn as the colon was fully examined. COLON FINDINGS: A diminutive smooth sessile polyp was found in the transverse colon. A polypectomy was performed with cold forceps. The resection was complete and the polyp tissue was completely retrieved. The colon mucosa was otherwise normal. Retroflexed views revealed no abnormalities The scope was then completely withdrawn from the patient and the procedure terminated. PROCEDURE WITHDRAWAL TIME:8.6minutes ADVERSE EVENTS: There were no complications. IMPRESSIONS: 1. A diminutive sessile polyp was found in the transverse colon; polypectomy was performed with cold forceps 2. The colon mucosa was otherwise normal 3. Retroflexed views revealed no abnormalities 4. Revealed no abnormalities of the rectum RECOMMENDATIONS: 1. Await biopsy results. Biopsy results will not be ready for 7-10 days. If you don't hear from us in two weeks, call our office for results. 2. High fiber diet 3. Yearly hemoccult 4. Follow-up: GI Clinic 3 week(s) 5. Cbc prior office visit consider CE and SBFT RECALL: Return 5 years Colonoscopy Maicol Becker MD eSigned: Maicol Becker MD 06/01/2017 12:32 PM cc: Chaka Gerenwood M.D and Adeel [facility]
--- NOTE | 2017-06-01 12:35 | GIPROC ---
[facility] [address] [facility], [address] EGD PROCEDURE REPORT EXAM DATE: 06/01/2017 PATIENT NAME: Dwight Brown MR #: [id number] BIRTHDATE: 1940 ATTENDING: Maicol Becker MD ORDER #: [id number] ENCODING MACHINE OPERATOR: Noemi Acuña STATUS: outpatient INDICATIONS: The patient is a 77 yr old male here for an EGD due to iron deficiency anemia PROCEDURE PERFORMED: EGD w/ biopsy MEDICATIONS: None, Per Anesthesia, None, and Per Anesthesia. TOPICAL ANESTHETIC: CONSENT: The patient understands the risks and benefits of the procedure and understands that these risks include, but are not limited to: sedation, allergic reaction, infection, perforation and/or bleeding. Alternative means of evaluation and treatment include, among others: physical exam, x-rays, and/or surgical intervention. The patient elects to proceed with this endoscopic procedure. medical equipment was checked for proper function. Hand hygiene and appropriate measures for infection prevention was taken. After the risks, benefits and alternatives of the procedure were thoroughly explained, Informed consent was verified, confirmed and timeout was successfully executed by the treatment team. The patient was anesthetized with topical anesthesia and the EC-[id number] ([id number]) endoscope was introduced through the mouth and advanced to the second portion of the duodenum. Retroflexed views revealed no abnormalities The gastroscope was then slowly withdrawn and removed. ESOPHAGUS: The mucosa of the esophagus appeared normal. STOMACH: The mucosa of the stomach appeared normal. DUODENUM: The duodenal mucosa appeared normal. Cold forcep biopsies were taken in the second portion. ADVERSE EVENTS: There were no complications. IMPRESSIONS: 1. The esophagus appeared normal 2. The mucosa of the stomach appeared normal 3. Normal duodenal mucosa 4. Retroflexed views revealed no abnormalities RECOMMENDATIONS: 1. Await biopsy results. Biopsy results will not be ready for 7-10 days. If you don't hear from us in two weeks, call our office for biopsy results. 2. Follow-up: GI clinic 3 week(s) PATIENT CONDITION: stable DISPOSITION: Home REPEAT EXAM: Maicol Becker MD eSigned: Maicol Becker MD 06/01/2017 12:34 PM cc: Chaka Tabares [facility] PATIENT NAME: Dwight Brown MR#: [id number]
== END | disposition home or self-care (01) ==
LOC: ESDC 09:32
PROVIDERS: ATTEND Internal Medicine Gastroenterology
DX: D50.9 Iron deficiency anemia, unspecified (principal); D12.3 Benign neoplasm of transverse colon
CPT/HCPCS: 00740; 00810; 43239; 45380; 88305; J7120

== ENCOUNTER 2017-06-02 19:46 | Emergency (ER) | payer OTHER ==
[~2017-06-02 19:46] MED LIST changes: -ASCO100016; -LACTATED RINGER'S 1000 ML INJ 1,000 ML ONE; -PROPOFOL 200 MG/20 ML AMP IV ONE
[2017-06-02 20:01] VITALS: BP 153/75; PULSE 122; RESP 26; TEMP 97.5; O2SAT 85
[2017-06-02 20:08] VITALS: BP 161/79; PULSE 126; RESP 22; O2SAT 88
[2017-06-02 20:10] VITALS: O2SAT 96
[2017-06-02] MEDS ORDERED: SODIUM CHLORIDE 0.9% FLUSH 10 ML FLUSH IVF PRN (20:15)
[2017-06-02] MEDS ORDERED: FUROSEMIDE 40 MG/4 ML VIAL IV PUSH ONE ×2 (20:15→22:00)
[2017-06-02] MEDS ORDERED: ASCO100016 (20:17)
--- NOTE | 2017-06-02 20:20 | PD ---
HPI Chief Complaint: Respiratory Distress Time Seen by Provider: 20:07 Travel History International Travel<30 days: No Contact w/Intl Traveler<30days: No Traveled to known affect area: No History of Present Illness HPI The patient is a 77-year-old male that presented to the emergency department here was shortness of breath since he receive 2 units of blood at the doctor's office. The patient does have a history of chronic anemia. Yesterday, preparing for endoscopy, he limited his by mouth intake to clear liquids. He states that he took a by mouth diuretic that he uses as needed after he got the blood but he does not know which diuretic it was. He does not regularly take a diuretic. He uses 2 L nasal cannula as needed at home. He denies any chest pain, he just feels like he can't take a deep breath. PFSH Past Medical History Hx Anticoagulant Therapy: Yes (ASA) Arthritis: No Asthma: No Autoimmune Disease: No Blood Disorders: No Anxiety: No Depression: No Heart Rhythm Problems: No (pt says has leaky valve) Cancer: No Cardiac Catheterization: Yes Cardiovascular Problems: Yes High Cholesterol: Yes Chemotherapy: No Chest Pain: No Congestive Heart Failure: No COPD: No Cerebrovascular Accident: No Diabetes: Yes Diminished Hearing: No Endocrine: No Gastrointestinal Disorders: No GERD: No Genitourinary: No Hiatal Hernia: No Hypertension: Yes Immune Disorder: No Kidney Stones: No Musculoskeletal: Yes Neurologic: No Psychiatric: No Reproductive: No Respiratory: No Migraines: No Myocardial Infarction: Yes Radiation Therapy: No Renal Failure: No Seizures: No Sickle Cell Disease: No Sleep Apnea: No Thyroid Disease: No Ulcer: No Past Surgical History Abdominal Surgery: Yes (inguinal hernia repair) AICD: No Arteriovenous Shunt: No Cardiac Surgery: Yes (cardiac 2 stents 2002) Ear Surgery: No Endocrine Surgery: No Eye Surgery: No Genitourinary Surgery: No Gynecologic Surgery: No Insulin Pump: No Joint Replacement: No Oral Surgery: No Pacemaker: No Thoracic Surgery: No Other Surgery: Yes (pilonidal cyst) Social History Alcohol Use: Yes Tobacco Use: No Substance Use: No Allergies-Medications (Allergen,Severity, Reaction): Coded Allergies: No Known Allergies (Verified , 06/02/17) Reported Meds & Prescriptions Reported Meds & Active Scripts Active Pantoprazole (Pantoprazole Sodium) 40 Mg Tab 40 Mg PO DAILY Oxygen tank (Oxygen) 1 Ea Tank 2 Liter SHAKEEL.Altocom CONTINUOUS Oxygen Concentrator Portable Gaseous 2 L/min via Nasal Cannula Continuous For 99 months Aspirin 81 Mg Chew 81 Mg CHEW DAILY 30 Days Reported Vitamin C (Ascorbic Acid) 1,000 Mg Tablet.er Losartan (Losartan Potassium) 25 Mg Tab 25 Mg PO BID One Daily (Multiple Vitamin) 1 Tab 1 Tab PO DAILY Vitamin D3 (Cholecalciferol) 1,000 Unit Tab 1,000 Units PO BID Metoprolol Tartrate 50 Mg Tab 50 Mg PO BID Atorvastatin (Atorvastatin Calcium) 40 Mg Tab 40 Mg PO HS Metformin (Metformin HCl) 500 Mg Tab 500 Mg PO BID With meals Review of Systems Except as stated in HPI: all other systems reviewed are Neg Physical Exam Narrative GENERAL: The patient is alert, oriented 3 and slight respiratory distress. His vital signs show blood pressure 153/75 heart rate of 122 and respirations of 26 oximetry is 85% on room air in triage but he is on oxygen now and oximetry is 97% on 2 L nasal cannula. SKIN: Focused skin assessment warm/dry. HEAD: Atraumatic. Normocephalic. EYES: Pupils equal and round. No scleral icterus. No injection or drainage. ENT: No nasal bleeding or discharge. Mucous membranes pink and moist. NECK: Trachea midline. No JVD. CARDIOVASCULAR: Regular rate and rhythm. No murmur appreciated. RESPIRATORY: No accessory muscle use. Clear to auscultation. Breath sounds equal bilaterally. GASTROINTESTINAL: Abdomen soft, non-tender, nondistended. Hepatic and splenic margins not palpable. MUSCULOSKELETAL: No obvious deformities. No clubbing. No cyanosis. No edema. NEUROLOGICAL: Awake and alert. No obvious cranial nerve deficits. Motor grossly within normal limits. Normal speech. PSYCHIATRIC: Appropriate mood and affect; insight and judgment normal. Data Data Last Documented VS Vital Signs Date Time Temp Pulse Resp B/P Pulse Ox O2 Delivery O2 Flow Rate FiO2 06/02/17 22:26 97.7 105 18 135/64 99 Nasal Cannula 3 Orders Electrocardiogram (06/02/17 20:14) Ckmb (Isoenzyme) Profile (06/02/17 20:14) Complete Blood Count With Diff (06/02/17 20:14) Comprehensive Metabolic Panel (06/02/17 20:14) Magnesium (Mg) (06/02/17 20:14) Troponin I (06/02/17 20:14) Ecg Monitoring (06/02/17 20:14) Iv Access Insert/Monitor (06/02/17 20:14) Oximetry (06/02/17 20:14) Oxygen Administration (06/02/17 20:14) Sodium Chloride 0.9% Flush (Ns Flush) (06/02/17 20:15) Chest, Pa & Lat (06/02/17 20:14) B-Type Natriuretic Peptide (06/02/17 20:14) Furosemide Inj (Lasix Inj) (06/02/17 20:15) Furosemide Inj (Lasix Inj) (06/02/17 22:00) Labs Laboratory Tests Test 06/02/17 20:29 White Blood Count 9.4 TH/MM3 Red Blood Count 4.16 MIL/MM3 Hemoglobin 10.4 GM/DL Hematocrit 33.3 % Mean Corpuscular Volume 80.1 FL Mean Corpuscular Hemoglobin 25.1 PG Mean Corpuscular Hemoglobin 31.3 % Concent Red Cell Distribution Width 15.9 % Platelet Count 299 TH/MM3 Mean Platelet Volume 8.1 FL Neutrophils (%) (Auto) 75.7 % Lymphocytes (%) (Auto) 9.6 % Monocytes (%) (Auto) 8.6 % Eosinophils (%) (Auto) 5.4 % Basophils (%) (Auto) 0.7 % Neutrophils # (Auto) 7.1 TH/MM3 Lymphocytes # (Auto) 0.9 TH/MM3 Monocytes # (Auto) 0.8 TH/MM3 Eosinophils # (Auto) 0.5 TH/MM3 Basophils # (Auto) 0.1 TH/MM3 CBC Comment DIFF FINAL Differential Comment Sodium Level 134 MEQ/L Potassium Level 5.1 MEQ/L Chloride Level 97 MEQ/L Carbon Dioxide Level 29.6 MEQ/L Anion Gap 7 MEQ/L Blood Urea Nitrogen 23 MG/DL Creatinine 0.89 MG/DL Estimat Glomerular Filtration 83 ML/MIN Rate Random Glucose 147 MG/DL Calcium Level 9.0 MG/DL Magnesium Level 2.0 MG/DL Total Bilirubin 1.5 MG/DL Aspartate Amino Transf 37 U/L (AST/SGOT) Alanine Aminotransferase 25 U/L (ALT/SGPT) Alkaline Phosphatase 72 U/L Total Creatine Kinase 64 U/L Troponin I LESS THAN 0.02 NG/ML B-Type Natriuretic Peptide 1054 PG/ML Total Protein 7.1 GM/DL Albumin 3.5 GM/DL MDM Medical Decision Making Medical Screen Exam Complete: Yes Emergency Medical Condition: Yes Medical Record Reviewed: Yes Interpretation(s) The chest x-ray shows pulmonary edema. The BNP is 1054. The BUN is 23 and GFR is 83 with a total bilirubin 1.5 and sodium 134 but is otherwise normal. The cardiac enzymes are normal. The CBC shows a mild anemia with a hemoglobin of 10.4 and hematocrit of 33.2. Differential Diagnosis Pulmonary edema from blood transfusion, pneumonia, congestive heart failure Narrative Course The patient appears to have pulmonary edema from the blood transfusion and fluid overload. The patient is put out over 2000 cc of urine and he feels "great". He needs no further diuretics at this time. Diagnosis Primary Impression: Fluid overload due to blood transfusion Additional Instructions: There is no need to take any further diuretics at this time. Follow-up with your primary care physician this week or next week. Disposition: 01 DISCHARGE HOME Condition: Stable David Travis MD Jun 02, 2017 20:20
[2017-06-02 20:49] LABS: AUTOMATED NEUTROPHIL # 7.1 TH/MM3 (1.8-7.7); BASOPHIL # 0.1 TH/MM3 (0-0.2); BASOPHIL % 0.7 % (0.0-2.0); EOSINOPHIL # 0.5 TH/MM3 (0-0.4); EOSINOPHIL % 5.4 % (0.0-4.0); HEMATOCRIT 33.3 % (39.0-51.0); LYMPH % 9.6 % (9.0-44.0); LYMPHOCYTE # 0.9 TH/MM3 (1.0-4.8); MEAN CELL VOLUME 80.1 FL (80.0-100.0); MEAN CORPUSCULAR HEMOGLOBIN 25.1 PG (27.0-34.0); MEAN CORPUSCULAR HGB CONC 31.3 % (32.0-36.0); MONO % 8.6 % (0.0-8.0); NEUT % 75.7 % (16.0-70.0); PLATELET COUNT 299 TH/MM3 (150-450); RED BLOOD COUNT 4.16 MIL/MM3 (4.50-5.90); RED CELL DISTRIBUTION WIDTH 15.9 % (11.6-17.2); WHITE BLOOD COUNT 9.4 TH/MM3 (4.0-11.0)
[2017-06-02 20:56] LABS: HEMO FLAGS DIFF FINAL
[2017-06-02 20:58] LABS: CHLORIDE 97 MEQ/L (98-107); SODIUM (NA) 134 MEQ/L (136-145)
[2017-06-02 21:01] LABS: ANION GAP 7 MEQ/L (5-15); BICARBONATE 29.6 MEQ/L (21.0-32.0)
[2017-06-02 21:02] VITALS: BP 154/75; PULSE 124; RESP 19; TEMP 97.4; O2SAT 98
[2017-06-02 21:02] LABS: BLOOD UREA NITROGEN 23 MG/DL (7-18)
[2017-06-02 21:04] LABS: ALT (GPT) 25 U/L (12-78)
[2017-06-02 21:05] LABS: AST (GOT) 37 U/L (15-37); GLOMERULAR FILTRATION RATE 83 ML/MIN (>89)
[2017-06-02 21:06] LABS: TOTAL BILIRUBIN ADULT 1.5 MG/DL (0.2-1.0)
[2017-06-02 21:08] LABS: ALKALINE PHOSPHATASE 72 U/L (45-117)
--- NOTE | 2017-06-02 21:23 | RADRPT ---
EXAM DATE/TIME: 06/02/2017 20:56 [facility] COMPARISON: CHEST SINGLE AP, March 28, 2017, 19:48. INDICATIONS : Short of breath. MEDICAL HISTORY : Myocardial infarction. Cardiovascular disease. Diabetes mellitus type 2. Anemia. SURGICAL HISTORY : None. ENCOUNTER: Initial ACUITY: 4 - 6 days PAIN SCORE: 0/10 LOCATION: Bilateral chest FINDINGS: PA and lateral views of the chest demonstrate bilateral mostly basilar airspace disease and small eff usions. End findings may represent mild pulmonary edema but cannot exclude infection. No pneumothorax . CONCLUSION: 1. Bilateral interstitial prominence and mostly basal airspace disease with pleural effusions. Differ ential diagnosis includes edema and infection. Keith Lopez MD on June 02, 2017 at 21:21 Board Certified Radiologist. This report was verified electronically.
[2017-06-02 21:29] LABS: CREATINE KINASE 64 U/L (39-308); POTASSIUM 5.1 MEQ/L (3.5-5.1)
[2017-06-02 22:26] VITALS: BP 135/64; PULSE 105; RESP 18; TEMP 97.7; O2SAT 99
--- NOTE | 2017-06-03 08:24 | EKG ---
Date Performed: 06/02/2017 Time Performed: 20:24:38 PTAGE: 77 years EKG: SINUS TACHYCARDIA LOW QRS VOLTAGE IN PRECORDIAL LEADS POSSIBLE RIGHT VENTRICULAR CONDUCTION DELAY ANTEROSEPTAL MYOCARDIAL INFARCTION ABNORMAL ECG PREVIOUS TRACING : 03/28/2017 19.32 DOCTOR: Mak Rainey Interpretating Date/Time 06/03/2017 08:23:12
== END 2017-06-02 23:10 | disposition home or self-care (01) ==
LOC: PHED 19:46
DX: E87.70 Fluid overload, unspecified (principal); D64.9 Anemia, unspecified; R00.0 Tachycardia, unspecified; E78.00 Pure hypercholesterolemia, unspecified; E11.9 Type 2 diabetes mellitus without complications; I10 Essential (primary) hypertension; I25.2 Old myocardial infarction; Z95.5 Presence of coronary angioplasty implant and graft
CPT/HCPCS: 71020; 80053; 82550; 83735; 83880; 84484; 85025; 93005; 96374; 96376; 99285; J1940

== ENCOUNTER 2017-06-20 05:56 | Inpatient (IN) | payer OTHER, MEDICARE ==
[~2017-06-20 05:56] MED LIST changes: +ASCO100016; -FERR325C PO; -WHEA1POW13 PO
[2017-06-20] MEDS ORDERED: SODIUM CHLORIDE 0.9% FLUSH 10 ML FLUSH IVF PRN (06:15)
[2017-06-20 06:25] VITALS: BP_SYST 112; BP_DIAS 56; BP_DIAS 58; PULSE 100; PULSE 99; RESP 24; O2SAT 95
--- NOTE | 2017-06-20 06:25 | PD ---
HPI Chief Complaint: chest pain Time Seen by Provider: 06:06 Travel History International Travel<30 days: No Contact w/Intl Traveler<30days: No Traveled to known affect area: No History of Present Illness HPI 77-year-old male presents to the emergency department by private transportation for complaint of retrosternal chest pain that is worsened by deep inspiratory effort. Patient reports that last evening after taking his evening dose of potassium and Lasix he felt discomfort develop in his chest and sensation of a sore throat. Patient states that he did not choke on any of his medications. Patient was not developing any nausea or vomiting and was able to take oral fluids well after the discomfort develop in his chest. Patient continued to feel as if perhaps the tablets were stuck in the esophagus. Patient did not notice any increased shortness of breath no sweats no referred neck jaw back shoulder or arm pain. Also no abdominal pain. Patient states she was able to sleep for approximately 30 minutes and then awakened with increasing pain and noted that if he would stand upright or stretch his symptoms seemed to dissipate. Patient rates his pain 1-2/10 if his breathing is shallow but with deep inspiratory effort pain increases to 8-9/10. Patient has history of CAD with previous cardiac catheterization and angioplasty myocardial infarction dyslipidemia hypertension CHF diabetes supplemental O2 use and severe anemia of unclear etiology. Patient has had multiple upper and lower endoscopies to try to identify source of GI blood loss. Patient has not noticed any orthopnea or PND. Patient was recently seen in the emergency department 06/02/17 for volume overload secondary to symptoms post blood transfusion for episode of anemia. Patient is not reporting lower extremity pain or swelling. No protracted bedrest no surgical procedure and no long distance travel. No prior history of clotting disorder or DVT/PE. Patient takes aspirin daily. Patient did receive blood transfusion 2 units on Thursday. Negative egd and colonoscpy, camera test and bone marrow biopsy as well as discontinued supplemental iron. PFSH Past Medical History Narrative Medical CAD with previous cardiac catheterization stents x2 myocardial infarction dyslipidemia hypertension "volume overload" sepsis respiratory failure w/ hypoxemia diabetes anemia inguinal herniorrhaphy pilonidal cyst; no tobacco use nursing notes reviewed Hx Anticoagulant Therapy: Yes (ASA) Arthritis: No Asthma: No Autoimmune Disease: No Blood Disorders: No Anxiety: No Depression: No Cancer: No Cardiac Catheterization: Yes (2 stents) Cardiovascular Problems: Yes High Cholesterol: Yes Chemotherapy: No Chest Pain: No Congestive Heart Failure: No COPD: No Cerebrovascular Accident: No Diabetes: Yes Diminished Hearing: No Endocrine: No Gastrointestinal Disorders: No GERD: No Genitourinary: No Hiatal Hernia: No Hypertension: Yes Immune Disorder: No Kidney Stones: No Musculoskeletal: Yes Neurologic: No Psychiatric: No Reproductive: No Respiratory: No Migraines: No Myocardial Infarction: Yes Radiation Therapy: No Renal Failure: No Seizures: No Sickle Cell Disease: No Sleep Apnea: No Thyroid Disease: No Ulcer: No Past Surgical History Abdominal Surgery: Yes (inguinal hernia repair) AICD: No Arteriovenous Shunt: No Cardiac Surgery: Yes (cardiac 2 stents 2002) Ear Surgery: No Endocrine Surgery: No Eye Surgery: No Genitourinary Surgery: No Gynecologic Surgery: No Insulin Pump: No Joint Replacement: No Oral Surgery: No Pacemaker: No Thoracic Surgery: Yes (Right artery "cleaning") Other Surgery: Yes (pilonidal cyst) Social History Alcohol Use: No Tobacco Use: No (quit 2001) Substance Use: No Allergies-Medications (Allergen,Severity, Reaction): Coded Allergies: No Known Allergies (Verified , 06/20/17) Reported Meds & Prescriptions Reported Meds & Active Scripts Active Pantoprazole (Pantoprazole Sodium) 40 Mg Tab 40 Mg PO DAILY Oxygen tank (Oxygen) 1 Ea Tank 2 Liter SHAKEEL.CANULA CONTINUOUS Oxygen Concentrator Portable Gaseous 2 L/min via Nasal Cannula Continuous For 99 months Aspirin 81 Mg Chew 81 Mg CHEW DAILY 30 Days Reported Vitamin C (Ascorbic Acid) 1,000 Mg Tablet.er Losartan (Losartan Potassium) 25 Mg Tab 25 Mg PO BID One Daily (Multiple Vitamin) 1 Tab 1 Tab PO DAILY Vitamin D3 (Cholecalciferol) 1,000 Unit Tab 1,000 Units PO BID Metoprolol Tartrate 50 Mg Tab 50 Mg PO BID Atorvastatin (Atorvastatin Calcium) 40 Mg Tab 40 Mg PO HS Metformin (Metformin HCl) 500 Mg Tab 500 Mg PO BID With meals Review of Systems Except as stated in HPI: all other systems reviewed are Neg Physical Exam Narrative GENERAL: Well-developed elderly male in no acute distress no respiratory distress SKIN: Warm and dry. HEAD: Normocephalic. EYES: No scleral icterus. Conjunctival pallor No injection or drainage. NECK: Supple, trachea midline. No JVD or lymphadenopathy. CARDIOVASCULAR: Regular rate and rhythm without murmurs, gallops, or rubs. RESPIRATORY: Breath sounds equal bilaterally. No accessory muscle use. GASTROINTESTINAL: Abdomen soft, non-tender, nondistended. MUSCULOSKELETAL: No cyanosis, or edema. Radial and dorsalis pedis pulses 2+ to palpation bilaterally. BACK: Nontender without obvious deformity. No CVA tenderness. Data Data Last Documented VS Vital Signs Date Time Temp Pulse Resp B/P (MAP) Pulse Ox O2 Delivery O2 Flow Rate FiO2 06/20/17 06:42 97 20 124/72 (89) 98 06/20/17 06:25 Nasal Cannula 2.00 Orders Orders Electrocardiogram (06/20/17 06:06) Basic Metabolic Panel (Bmp) (06/20/17 06:06) Ckmb (Isoenzyme) Profile (06/20/17 06:06) Complete Blood Count With Diff (06/20/17 06:06) Magnesium (Mg) (06/20/17 06:06) Prothrombin Time / Inr (Pt) (06/20/17 06:06) Act Partial Throm Time (Ptt) (06/20/17 06:06) Troponin I (06/20/17 06:06) Chest, Single Ap (06/20/17 06:06) Ecg Monitoring (06/20/17 06:06) Bilateral Bp Monitoring (06/20/17 06:06) Iv Access Insert/Monitor (06/20/17 06:06) Oximetry (06/20/17 06:06) Oxygen Administration (06/20/17 06:06) Sodium Chloride 0.9% Flush (Ns Flush) (06/20/17 06:15) B-Type Natriuretic Peptide (06/20/17 06:06) Type And Screen (06/20/17 06:09) Lactic Acid Sepsis Protocol (06/20/17 06:31) Blood Culture (06/20/17 06:31) Sodium Chlorid 0.9% 500 Ml Inj (Ns 500 M (06/20/17 06:45) D-Dimer (06/20/17 06:48) Pantoprazole Inj (Protonix Inj) (06/20/17 07:00) Sodium Chloride 0.9... W/Pantoprazole In (06/20/17 07:55) Labs Laboratory Tests Test 06/20/17 06:20 White Blood Count 12.1 TH/MM3 Red Blood Count 3.49 MIL/MM3 Hemoglobin 8.5 GM/DL Hematocrit 27.5 % Mean Corpuscular Volume 78.6 FL Mean Corpuscular Hemoglobin 24.5 PG Mean Corpuscular Hemoglobin Concent 31.1 % Red Cell Distribution Width 16.8 % Platelet Count 410 TH/MM3 Mean Platelet Volume 7.1 FL Neutrophils (%) (Auto) 83.9 % Lymphocytes (%) (Auto) 5.7 % Monocytes (%) (Auto) 8.0 % Eosinophils (%) (Auto) 1.8 % Basophils (%) (Auto) 0.6 % Neutrophils # (Auto) 10.1 TH/MM3 Lymphocytes # (Auto) 0.7 TH/MM3 Monocytes # (Auto) 1.0 TH/MM3 Eosinophils # (Auto) 0.2 TH/MM3 Basophils # (Auto) 0.1 TH/MM3 CBC Comment AUTO DIFF Prothrombin Time 11.5 SEC Prothromb Time International Ratio 1.0 RATIO Activated Partial Thromboplast Time 27.8 SEC Blood Urea Nitrogen 41 MG/DL Creatinine 0.95 MG/DL Random Glucose 137 MG/DL Calcium Level 9.2 MG/DL Magnesium Level 2.1 MG/DL Sodium Level 135 MEQ/L Potassium Level 4.1 MEQ/L Chloride Level 95 MEQ/L Carbon Dioxide Level 30.7 MEQ/L Anion Gap 9 MEQ/L Estimat Glomerular Filtration Rate 77 ML/MIN Total Creatine Kinase 45 U/L Troponin I LESS THAN 0.02 NG/ML B-Type Natriuretic Peptide 722 PG/ML MDM Medical Decision Making Medical Screen Exam Complete: Yes Emergency Medical Condition: Yes Medical Record Reviewed: Yes Differential Diagnosis Dyspnea, hypoxemia, pneumonia, PE, ACS, CHF, sepsis, anemia Narrative Course Patient placed on senior electrical estimator IV access obtained specimens collected and sent for resulting; upon patient initially being placed on monitor heart rate was 98 blood pressure systolic was 93 and room air O2 saturation was 81%; patient reported that he was not on his supplemental oxygen 2 L/m nasal cannula at all times patient was placed immediately on supplemental oxygen and O2 saturation increased to 95%. Patient denies any shortness of breath. Patient is unclear as to why he required supplemental oxygen but denies history of COPD and no report of pulmonary hypertension EKG sinus rhythm rate [address] elevation or injury pattern noted QS noted anteroseptally care signed over to Sara Chris MD Jun 20, 2017 06:25
[2017-06-20 06:27] LABS: AUTOMATED NEUTROPHIL # 10.1 TH/MM3 (1.8-7.7); BASOPHIL # 0.1 TH/MM3 (0-0.2); BASOPHIL % 0.6 % (0.0-2.0); EOSINOPHIL # 0.2 TH/MM3 (0-0.4); EOSINOPHIL % 1.8 % (0.0-4.0); HEMATOCRIT 27.5 % (39.0-51.0); LYMPH % 5.7 % (9.0-44.0); LYMPHOCYTE # 0.7 TH/MM3 (1.0-4.8); MEAN CELL VOLUME 78.6 FL (80.0-100.0); MEAN CORPUSCULAR HEMOGLOBIN 24.5 PG (27.0-34.0); MEAN CORPUSCULAR HGB CONC 31.1 % (32.0-36.0); NEUT % 83.9 % (16.0-70.0); PLATELET COUNT 410 TH/MM3 (150-450); RED BLOOD COUNT 3.49 MIL/MM3 (4.50-5.90); RED CELL DISTRIBUTION WIDTH 16.8 % (11.6-17.2); WHITE BLOOD COUNT 12.1 TH/MM3 (4.0-11.0)
[2017-06-20 06:30] LABS: HEMO FLAGS AUTO DIFF
[2017-06-20 06:36] LABS: CHLORIDE 95 MEQ/L (98-107); POTASSIUM 4.1 MEQ/L (3.5-5.1); SODIUM (NA) 135 MEQ/L (136-145)
[2017-06-20 06:39] LABS: ANION GAP 9 MEQ/L (5-15); BICARBONATE 30.7 MEQ/L (21.0-32.0); BLOOD UREA NITROGEN 41 MG/DL (7-18); MAGNESIUM 2.1 MG/DL (1.5-2.5)
[2017-06-20 06:40] LABS: APTT (PATIENT) 27.8 SEC (24.3-30.1); PROTHROMBIN TIME - PATIENT 11.5 SEC (9.8-11.6)
[2017-06-20 06:42] VITALS: BP 124/72; PULSE 97; RESP 20; O2SAT 98
[2017-06-20 06:43] LABS: GLOMERULAR FILTRATION RATE 77 ML/MIN (>89)
[2017-06-20] MEDS ORDERED: SODIUM CHLORID 0.9% 500 ML INJ 500 ML IV ONE (06:45)
--- NOTE | 2017-06-20 06:45 | RADRPT ---
EXAM DATE/TIME: 06/20/2017 06:21 [facility] COMPARISON: No previous studies available for comparison. INDICATIONS : Chest pain. MEDICAL HISTORY : None. SURGICAL HISTORY : None. ENCOUNTER: Initial ACUITY: 1 day PAIN SCORE: 8/10 LOCATION: Bilateral chest FINDINGS: A single view of the chest demonstrates the lungs to be symmetrically aerated without evidence of mas s, infiltrate or effusion other than some blunting of the right costophrenic angle laterally. The ca rdiomediastinal contours are unremarkable. Osseous structures are intact. CONCLUSION: Blunting of the costophrenic angles right greater than left. Lungs are grossly clear Alexandro Weiner MD on June 20, 2017 at 6:43 Board Certified Radiologist. This report was verified electronically.
[2017-06-20 06:59] LABS: CREATINE KINASE 45 U/L (39-308)
[2017-06-20] MEDS ORDERED: PANTOPRAZOLE INJ 80 MG in SODIUM CHLORIDE 0.9% INJ 35 ML IV ONE (07:00)
[2017-06-20 07:25] LABS: SCAN/DIFF AUTO DIFF CONFIRMED
[2017-06-20] MEDS ORDERED: IOHEXOL 350 MG/ML 10 ML VIAL (for RAD DIAG) IVCONTRAST ONE (07:45)
--- NOTE | 2017-06-20 07:48 | RADRPT ---
EXAM DATE/TIME: 06/20/2017 07:30 [facility] COMPARISON: CHEST SINGLE AP, November 19, 2016, 9:37. CHEST SINGLE AP, December 12, 2016, 9:26. INDICATIONS : Mid chest pain when patients breaths in. IV CONTRAST: 75 cc Omnipaque 350 (iohexol) IV RADIATION DOSE: 18.09 CTDIvol (mGy) MEDICAL HISTORY : Cardiovascular disease. Renal disease, dyspnea. SURGICAL HISTORY : Recent fluid build up. ENCOUNTER: Initial ACUITY: 1 week PAIN SCALE: 6/10 LOCATION: middle chest TECHNIQUE: Volumetric scanning of the chest was performed using a pulmonary embolism protocol MIP images were re constructed. Using automated exposure control and adjustment of the mA and/or kV according to patien t size, radiation dose was kept as low as reasonably achievable to obtain optimal diagnostic quality images. DICOM format image data is available electronically for review and comparison. Follow-up recommendations for detected pulmonary nodules are based at a minimum on nodule size and pa tient risk factors according to Fleischner Society Guidelines. FINDINGS: PULMONARY ARTERIES: No filling defects are seen in the pulmonary arteries through the segmental level. LUNGS: There is diffuse increased interstitial markings bilaterally characteristic of pulmonary edema. There is a 1.7 cm pulmonary nodule with a central calcification characteristic of a Ghon complex in the mi d left lung.. PLEURAE: There are bilateral pleural effusions, right greater than left. MEDIASTINUM: Several nonspecific mildly prominent mediastinal lymph nodes. The largest measures 2 mm in the pretra cheal space. MUSCULOSKELETAL: Within normal limits for patient age. MISCELLANEOUS: The visualized upper abdominal organs demonstrate no acute abnormality. CONCLUSION: 1. No evidence of pulmonary embolism 2. Bilateral pulmonary edema with bilateral effusions, right greater than left. 3. 1.7 cm Ghon complex mid left lung. Trey Genao MD on June 20, 2017 at 7:42 Board Certified Radiologist. This report was verified electronically.
[2017-06-20 07:55] VITALS: BP 129/63; PULSE 105; RESP 18; O2SAT 98
[2017-06-20] MEDS ORDERED: PANTOPRAZOLE INJ 80 MG in SODIUM CHLORIDE 0.9% INJ 100 ML IV SCH (07:55)
[2017-06-20] MEDS ORDERED: FUROSEMIDE 20 MG/2 ML VIAL IV PUSH ONE (08:00)
--- NOTE | 2017-06-20 08:09 | PD ---
Physical Exam Narrative GENERAL: Well-nourished, well-developed patient. SKIN: Warm and dry. HEAD: Normocephalic and atraumatic. EYES: No injection or drainage. ENT: No nasal drainage noted. NECK: Supple, trachea midline. CARDIOVASCULAR: Regular rate and rhythm RESPIRATORY: no increased effort. No accessory muscle use. NEUROLOGICAL: Awake. moves all extremities. Normal speech. Data Data Last Documented VS Vital Signs Date Time Temp Pulse Resp B/P (MAP) Pulse Ox O2 Delivery O2 Flow Rate FiO2 06/20/17 07:55 105 18 129/63 (85) 98 Nasal Cannula 2.00 Orders Orders Electrocardiogram (06/20/17 06:06) Basic Metabolic Panel (Bmp) (06/20/17 06:06) Ckmb (Isoenzyme) Profile (06/20/17 06:06) Complete Blood Count With Diff (06/20/17 06:06) Magnesium (Mg) (06/20/17 06:06) Prothrombin Time / Inr (Pt) (06/20/17 06:06) Act Partial Throm Time (Ptt) (06/20/17 06:06) Troponin I (06/20/17 06:06) Chest, Single Ap (06/20/17 06:06) Ecg Monitoring (06/20/17 06:06) Bilateral Bp Monitoring (06/20/17 06:06) Iv Access Insert/Monitor (06/20/17 06:06) Oximetry (06/20/17 06:06) Oxygen Administration (06/20/17 06:06) Sodium Chloride 0.9% Flush (Ns Flush) (06/20/17 06:15) B-Type Natriuretic Peptide (06/20/17 06:06) Type And Screen (06/20/17 06:09) Lactic Acid Sepsis Protocol (06/20/17 06:31) Blood Culture (06/20/17 06:31) Sodium Chlorid 0.9% 500 Ml Inj (Ns 500 M (06/20/17 06:45) Pantoprazole Inj (Protonix Inj) (06/20/17 07:00) Sodium Chloride 0.9... W/Pantoprazole In (06/20/17 07:55) D-Dimer (06/20/17 06:20) Ct Pulmonary Angiogram (06/20/17 ) Furosemide Inj (Lasix Inj) (06/20/17 08:00) Iohexol 350 Inj (Omnipaque 350 Inj) (06/20/17 07:45) Admit Order (Ed Use Only) (06/20/17 08:21) Labs Laboratory Tests Test 06/20/17 06:20 06/20/17 07:05 White Blood Count 12.1 TH/MM3 Red Blood Count 3.49 MIL/MM3 Hemoglobin 8.5 GM/DL Hematocrit 27.5 % Mean Corpuscular Volume 78.6 FL Mean Corpuscular Hemoglobin 24.5 PG Mean Corpuscular Hemoglobin Concent 31.1 % Red Cell Distribution Width 16.8 % Platelet Count 410 TH/MM3 Mean Platelet Volume 7.1 FL Neutrophils (%) (Auto) 83.9 % Lymphocytes (%) (Auto) 5.7 % Monocytes (%) (Auto) 8.0 % Eosinophils (%) (Auto) 1.8 % Basophils (%) (Auto) 0.6 % Neutrophils # (Auto) 10.1 TH/MM3 Lymphocytes # (Auto) 0.7 TH/MM3 Monocytes # (Auto) 1.0 TH/MM3 Eosinophils # (Auto) 0.2 TH/MM3 Basophils # (Auto) 0.1 TH/MM3 CBC Comment AUTO DIFF Differential Comment AUTO DIFF CONFIRMED Prothrombin Time 11.5 SEC Prothromb Time International Ratio 1.0 RATIO Activated Partial Thromboplast Time 27.8 SEC D-Dimer Quantitative (PE/DVT) 0.71 MG/L FEU Blood Urea Nitrogen 41 MG/DL Creatinine 0.95 MG/DL Random Glucose 137 MG/DL Calcium Level 9.2 MG/DL Magnesium Level 2.1 MG/DL Sodium Level 135 MEQ/L Potassium Level 4.1 MEQ/L Chloride Level 95 MEQ/L Carbon Dioxide Level 30.7 MEQ/L Anion Gap 9 MEQ/L Estimat Glomerular Filtration Rate 77 ML/MIN Total Creatine Kinase 45 U/L Troponin I LESS THAN 0.02 NG/ML B-Type Natriuretic Peptide 722 PG/ML Lactic Acid Level 1.1 mmol/L [facility] Supervised Visit with SARWAT: No Interpretation(s) Last 24 hours Impressions Chest X-Ray 06/20/1706 Signed Impressions: Service Date/Time: Tuesday, June 20, 2017 06:21 - CONCLUSION: Blunting of the costophrenic angles right greater than left. Lungs are grossly clear Alexandro Weiner MD CT Angiography 06/20/17 0000 Signed Impressions: Service Date/Time: Tuesday, June 20, 2017 07:30 - CONCLUSION: 1. No evidence of pulmonary embolism 2. Bilateral pulmonary edema with bilateral effusions, right greater than left. 3. 1.7 cm Ghon complex mid left lung. Trey Genao MD Narrative Course Signed over to me to follow CT and admit. CT without PE shows signs of CHF, small dose 20 mg of Lasix given initial hypotension. Patient updated and agrees to admission Physician Communication Physician Communication dr garcia agrees to intermediate care and requests protonix drip held for now Diagnosis Primary Impression: Acute pulmonary edema Additional Impressions: GI bleed Qualified Codes: K92.2 - Gastrointestinal hemorrhage, unspecified Anemia Qualified Codes: D64.9 - Anemia, unspecified Admitting Information Admitting Physician Requests: Admit Val Rai MD Jun 20, 2017 08:09
[2017-06-20] MEDS ORDERED: SENNOSIDES 8.6 MG TAB PO PRN (08:45)
[2017-06-20] MEDS ORDERED: LACTULOSE SYRUP 20 GM/30 ML CUP PO PRN (08:45)
[2017-06-20] MEDS ORDERED: ACETAMINOPHEN 325 MG TAB PO PRN ×2 (08:45)
[2017-06-20] MEDS ORDERED: NITROGLYCERIN 0.4 MG SL 25 TABS/BTL SL PRN (08:45)
[2017-06-20] MEDS ORDERED: SODIUM CHLORIDE 0.9% FLUSH 10 ML FLUSH IV FLUSH PRN (08:45)
[2017-06-20] MEDS ORDERED: MAGNESIUM HYDROXIDE SUSP 30 ML CUP PO PRN (08:45)
[2017-06-20] MEDS ORDERED: NALOXONE HCL 0.4 MG/ML AMP IV PRN (08:45)
[2017-06-20] MEDS ORDERED: DEXTROSE 50% IN WATER 50 ML VIAL(D50) IV PRN (08:45)
[2017-06-20] MEDS ORDERED: GLUCAGON 1 MG/ML VIAL OTHER PRN (08:45)
[2017-06-20] MEDS ORDERED: ONDANSETRON HCL 4 MG/2 ML VIAL IVP PRN (08:45)
[2017-06-20] MEDS ORDERED: BISACODYL 10 MG SUPP RECTAL PRN (08:45)
[2017-06-20 08:56] VITALS: O2SAT 97
[2017-06-20] MEDS ORDERED: PANTOPRAZOLE SODIUM 40 MG VIAL IV PUSH SCH (09:00)
[2017-06-20] MEDS ORDERED: DOCUSATE SODIUM 50 MG/SENNA 8.6 MG TAB PO SCH (09:00)
[2017-06-20] MEDS ORDERED: SODIUM CHLORIDE 0.9% FLUSH 10 ML FLUSH IV FLUSH SCH (09:00)
[2017-06-20 09:11] VITALS: BP 119/61; PULSE 99; RESP 18; O2SAT 98
--- NOTE | 2017-06-20 09:55 | HHI.PR ---
Addendum to Inpatient Note Additional Information Was informed by ED pt signed out AMA and already left. Pt not seen Cooper Mcginnis MD Jun 20, 2017 09:55
[2017-06-20] MEDS ORDERED: INSULIN ASPART SUPPLEMENTAL SCALE SQ SCH (11:00)
--- NOTE | 2017-06-20 15:39 | EKG ---
Date Performed: 06/20/2017 Time Performed: 06:05:07 PTAGE: 77 years EKG: Sinus rhythm POSSIBLE RIGHT VENTRICULAR CONDUCTION DELAY ANTEROSEPTAL MYOCARDIAL INFARCTION ABNORMAL ECG Compared to prior tracing no significant change DOCTOR: Vasu Fitzpatrick Interpretating Date/Time 06/20/2017 15:37:20
[2017-06-20] MEDS ORDERED: ATORVASTATIN 40 MG TAB PO SCH (21:00)
== END 2017-06-20 09:47 | disposition left against medical advice (07) | DRG 293 ==
LOC: PHED 05:56 → PHEDA 08:24
PROVIDERS: ADMIT Internal Medicine; ATTEND Internal Medicine
DX: I11.0 Hypertensive heart disease with heart failure (principal); Z99.81 Dependence on supplemental oxygen; E11.9 Type 2 diabetes mellitus without complications; E78.5 Hyperlipidemia, unspecified; D64.9 Anemia, unspecified; I25.2 Old myocardial infarction; I50.9 Heart failure, unspecified; I25.10 Atherosclerotic heart disease of native coronary artery without angina pectoris; Z79.82 Long term (current) use of aspirin; Z87.891 Personal history of nicotine dependence; Z79.84 Long term (current) use of oral hypoglycemic drugs; Z95.5 Presence of coronary angioplasty implant and graft
CPT/HCPCS: 71010; 71275; 80048; 82550; 83605; 83735; 83880; 84484; 85025; 85379; 85610; 85730; 86850; 86900; 86901; 87040; 93005; 96365; 96375; C9113; J1940; Q9967

== ENCOUNTER 2017-09-18 11:43 | Inpatient (IN) | payer OTHER, MEDICARE ==
[~2017-09-18] VITALS: Ht 188 cm; Wt 91.9 kg
[2017-09-18] VITALS (7 sets, daily range): BP systolic 116–131; BP diastolic 57–71; PULSE 57–104; RESP 14–22; TEMP 96.9–98.7; O2SAT 88–98
[~2017-09-18 11:43] MED LIST changes: -ASCO100016; +ASCO100029; +ASPI-516 CHEW; -ASPI81CH CHEW
[2017-09-18] MEDS ORDERED: FUROSEMIDE 100 MG/10 ML VIAL IVP ONE (12:15)
[2017-09-18] MEDS ORDERED: SODIUM CHLORIDE 0.9% FLUSH 10 ML FLUSH IVF PRN (12:15)
[2017-09-18 12:28] LABS: AUTOMATED NEUTROPHIL # 15.2 TH/MM3 (1.8-7.7); BASOPHIL # 0.2 TH/MM3 (0-0.2); BASOPHIL % 1.4 % (0.0-2.0); EOSINOPHIL # 0.1 TH/MM3 (0-0.4); EOSINOPHIL % 0.8 % (0.0-4.0); HEMATOCRIT 31.1 % (39.0-51.0); LYMPHOCYTE # 0.7 TH/MM3 (1.0-4.8); MEAN CELL VOLUME 81.2 FL (80.0-100.0); MEAN CORPUSCULAR HEMOGLOBIN 25.6 PG (27.0-34.0); MEAN CORPUSCULAR HGB CONC 31.6 % (32.0-36.0); MONO % 8.8 % (0.0-8.0); PLATELET COUNT 517 TH/MM3 (150-450); RED BLOOD COUNT 3.83 MIL/MM3 (4.50-5.90); RED CELL DISTRIBUTION WIDTH 21.5 % (11.6-17.2); WHITE BLOOD COUNT 17.8 TH/MM3 (4.0-11.0)
[2017-09-18 12:31] LABS: HEMO FLAGS DIFF FINAL
[2017-09-18 12:32] LABS: CHLORIDE 90 MEQ/L (98-107); POTASSIUM 4.4 MEQ/L (3.5-5.1); SODIUM (NA) 130 MEQ/L (136-145)
[2017-09-18 12:35] LABS: ANION GAP 8 MEQ/L (5-15); BICARBONATE 31.9 MEQ/L (21.0-32.0); BLOOD UREA NITROGEN 29 MG/DL (7-18)
[2017-09-18 12:38] LABS: GLOMERULAR FILTRATION RATE 72 ML/MIN (>89)
--- NOTE | 2017-09-18 12:47 | RADRPT ---
EXAM DATE/TIME: 09/18/2017 12:29 [facility] COMPARISON: CHEST SINGLE AP, June 20, 2017, 6:21. INDICATIONS : Short of breath MEDICAL HISTORY : Myocardial infarction. Cardiovascular disease. Renal disease, dyspnea SURGICAL HISTORY : Coronary artery stent. ENCOUNTER: Initial ACUITY: 1 day PAIN SCORE: 0/10 LOCATION: Bilateral chest FINDINGS: A single portable frontal view the chest shows small bilateral pleural effusions with bibasilar intra lobular opacities. These are in part due to compressive atelectasis. Interstitial prominence is also seen involving both lungs more pronounced within the bases. Heart is mildly enlarged. CONCLUSION: Radiographic findings most consistent with pulmonary edema. Dale Ram Jr., MD on September 18, 2017 at 12:44 Board Certified Radiologist. This report was verified electronically.
--- NOTE | 2017-09-18 13:17 | PD ---
HPI Chief Complaint: Respiratory Symptoms Time Seen by Provider: 11:57 Travel History International Travel<30 days: No Contact w/Intl Traveler<30days: No Traveled to known affect area: No History of Present Illness HPI 77-year-old male arrives complaining shortness of breath for the past 2 days. He reports compliance Lasix. He reports a 2 unit blood transfusion by Dr. Tobar 3 days prior. He reports not receiving his typical lasix shot after blood transfusion. No cough or chest pain. + BIANCHI. + Orthopnea. LE edema is stable per patient. No GI bleeding or hematuria. No fever. PFSH Past Medical History Hx Anticoagulant Therapy: Yes (ASA) Arthritis: No Asthma: No Autoimmune Disease: No Blood Disorders: No Anxiety: No Depression: No Cancer: No Cardiac Catheterization: Yes (2 STENTS) Cardiovascular Problems: Yes High Cholesterol: Yes Chemotherapy: No Chest Pain: No Congestive Heart Failure: Yes COPD: No Cerebrovascular Accident: No Diabetes: Yes Patient Takes Glucophage: Yes Diminished Hearing: No Endocrine: No Gastrointestinal Disorders: No GERD: No Genitourinary: No Headaches: No Hiatal Hernia: No Hypertension: Yes Immune Disorder: No Kidney Stones: No Musculoskeletal: Yes Neurologic: No Psychiatric: No Reproductive: No Respiratory: No Migraines: No Myocardial Infarction: Yes Radiation Therapy: No Renal Failure: No Seizures: No Sickle Cell Disease: No Sleep Apnea: No Thyroid Disease: No Ulcer: No Past Surgical History Abdominal Surgery: Yes AICD: No Arteriovenous Shunt: No Cardiac Surgery: Yes Coronary Stent: Yes Ear Surgery: No Endocrine Surgery: No Eye Surgery: No Genitourinary Surgery: No Gynecologic Surgery: No Insulin Pump: No Joint Replacement: No Oral Surgery: No Pacemaker: No Thoracic Surgery: Yes Other Surgery: Yes Social History Alcohol Use: No Tobacco Use: No (QUIT 2001) Substance Use: No Allergies-Medications (Allergen,Severity, Reaction): Coded Allergies: No Known Allergies (Verified Adverse Reaction, Unknown, 09/18/17) Reported Meds & Prescriptions Reported Meds & Active Scripts Active Pantoprazole (Pantoprazole Sodium) 40 Mg Tab 40 Mg PO DAILY Oxygen tank (Oxygen) 1 Ea Tank 2 Liter SHAKEEL.CANULA CONTINUOUS Oxygen Concentrator Portable Gaseous 2 L/min via Nasal Cannula Continuous For 99 months Aspirin 81 Mg Chew 81 Mg CHEW DAILY 30 Days Reported Vitamin C (Ascorbic Acid) 1,000 Mg Tablet.er One Daily (Multiple Vitamin) 1 Tab 1 Tab PO DAILY Vitamin D3 (Cholecalciferol) 1,000 Unit Tab 1,000 Units PO BID Metoprolol Tartrate 50 Mg Tab 50 Mg PO BID Atorvastatin (Atorvastatin Calcium) 40 Mg Tab 80 Mg PO HS Metformin (Metformin HCl) 500 Mg Tab 500 Mg PO BID With meals Review of Systems Except as stated in HPI: all other systems reviewed are Neg General / Constitutional: No: Fever Cardiovascular: No: Chest Pain or Discomfort Respiratory: Positive: Shortness of Breath, Orthopnea Physical Exam Narrative GENERAL: 77 yo M, WNWD, moderate respiratory distress SKIN: Warm and dry. HEAD: Atraumatic. Normocephalic. EYES: Pupils equal and round. No scleral icterus. No injection or drainage. ENT: No nasal bleeding or discharge. Mucous membranes pink and moist. NECK: Trachea midline. No JVD. CARDIOVASCULAR: Regular rate and rhythm. RESPIRATORY: No accessory muscle use. Clear to auscultation. Breath sounds equal bilaterally. GASTROINTESTINAL: Rales at beses. Minimal dyspnea at rest. MUSCULOSKELETAL: Extremities without clubbing, cyanosis. 2+ pitting edema bilaterally lower extremities without asymetry warmth induration or sign of dvt otherwise. No obvious deformities. NEUROLOGICAL: Awake and alert. No obvious cranial nerve deficits. Motor grossly within normal limits. Five out of 5 muscle strength in the arms and legs. Normal speech. PSYCHIATRIC: Appropriate mood and affect; insight and judgment normal. Data Data Last Documented VS Vital Signs Date Time Temp Pulse Resp B/P (MAP) Pulse Ox O2 Delivery O2 Flow Rate FiO2 09/18/17 12:54 98.7 95 20 117/63 (81) 97 Nasal Cannula 2.00 VS reviewed Orders Orders Complete Blood Count With Diff (09/18/17 12:03) Basic Metabolic Panel (Bmp) (09/18/17 12:03) B-Type Natriuretic Peptide (09/18/17 12:03) Troponin I (09/18/17 12:03) Iv Access Insert/Monitor (09/18/17 12:03) Electrocardiogram (09/18/17 12:03) Ecg Monitoring (09/18/17 12:03) Oximetry (09/18/17 12:03) Oxygen Administration (09/18/17 12:03) Chest, Single Ap (09/18/17 12:03) Sodium Chloride 0.9% Flush (Ns Flush) (09/18/17 12:15) Furosemide Inj (Lasix Inj) (09/18/17 12:15) Labs Laboratory Tests Test 09/18/17 12:05 White Blood Count 17.8 TH/MM3 Red Blood Count 3.83 MIL/MM3 Hemoglobin 9.8 GM/DL Hematocrit 31.1 % Mean Corpuscular Volume 81.2 FL Mean Corpuscular Hemoglobin 25.6 PG Mean Corpuscular Hemoglobin Concent 31.6 % Red Cell Distribution Width 21.5 % Platelet Count 517 TH/MM3 Mean Platelet Volume 8.1 FL Neutrophils (%) (Auto) 85.0 % Lymphocytes (%) (Auto) 4.0 % Monocytes (%) (Auto) 8.8 % Eosinophils (%) (Auto) 0.8 % Basophils (%) (Auto) 1.4 % Neutrophils # (Auto) 15.2 TH/MM3 Lymphocytes # (Auto) 0.7 TH/MM3 Monocytes # (Auto) 1.6 TH/MM3 Eosinophils # (Auto) 0.1 TH/MM3 Basophils # (Auto) 0.2 TH/MM3 CBC Comment DIFF FINAL Differential Comment Blood Urea Nitrogen 29 MG/DL Creatinine 1.00 MG/DL Random Glucose 186 MG/DL Calcium Level 8.3 MG/DL Sodium Level 130 MEQ/L Potassium Level 4.4 MEQ/L Chloride Level 90 MEQ/L Carbon Dioxide Level 31.9 MEQ/L Anion Gap 8 MEQ/L Estimat Glomerular Filtration Rate 72 ML/MIN Troponin I LESS THAN 0.02 NG/ML B-Type Natriuretic Peptide 1842 PG/ML MDM Medical Decision Making Medical Screen Exam Complete: Yes Emergency Medical Condition: Yes Differential Diagnosis chf exacerbation, anemia, copd, pna Narrative Course CBC & BMP Diagram 09/18/17 12:05 Calcium Level 8.3 L Last 24 hours Impressions Chest X-Ray 09/18/17 1203 Signed Impressions: Service Date/Time: Monday, September 18, 2017 12:29 - CONCLUSION: Radiographic findings most consistent with pulmonary edema. Dale Ram Jr., MD BNP 1800 60 IV lasix with approx 600ml urine produced. No cough fever or chest pain and pna is considered less likely Admission for CHF exacerbation likely 2/2 blood transfusion without lasix injection as is typical for patient d/w Dr Andrade Diagnosis Primary Impression: CHF (congestive heart failure) Qualified Codes: I50.9 - Heart failure, unspecified Admitting Information Admitting Physician Requests: Observation Garry Moore MD Sep 18, 2017 13:17
--- NOTE | 2017-09-18 13:28 | HHI.HP ---
[facility] Chaka Greenwood MD Admission Diagnosis Diagnoses: (1) Acute on chronic diastolic CHF (congestive heart failure) Chief Complaint: Shortness of breath Travel History International Travel<30 Days: No Contact w/Intl Traveler <30 Da: No Traveled to Known Affected Are: No History of Present Illness 77-year-old man with past medical history of CHF, hypertension, multiple transfusions associated with GI bleeding recent to the ED for evaluation of shortness of breath 3 days duration. Patient states, symptoms started right after his blood transfusion on 09/11/17 when he was given 2 units packed red blood cell. He reports not having received any diuretic in between transfusion. Patient states thereafter he became tired, short of breath with increasing lower extremity edema. Denies any chest pain. BNP on admission 1800 + Review of Systems Except as stated in HPI: all other systems reviewed are Neg Past Family Social History Past Medical History chronic respiratory failure, diastolic heart failure, coronary artery disease status post stents, hyperlipidemia, diabetes mellitus, hypertension Past Surgical History Right CEA Hernia repair Reported Medications Pantoprazole (Pantoprazole Sodium) 40 Mg Tab 40 Mg PO DAILY Oxygen tank (Oxygen) 1 Ea Tank 2 Liter SHAKEEL.CANULA CONTINUOUS Oxygen Concentrator Portable Gaseous 2 L/min via Nasal Cannula Continuous For 99 months Aspirin 81 Mg Chew 81 Mg CHEW DAILY 30 Days Reported Vitamin C (Ascorbic Acid) 1,000 Mg Tablet.er One Daily (Multiple Vitamin) 1 Tab 1 Tab PO DAILY Vitamin D3 (Cholecalciferol) 1,000 Unit Tab 1,000 Units PO BID Metoprolol Tartrate 50 Mg Tab 50 Mg PO BID Atorvastatin (Atorvastatin Calcium) 40 Mg Tab 80 Mg PO HS Metformin (Metformin HCl) 500 Mg Tab 500 Mg PO BID With meals Allergies: Coded Allergies: No Known Allergies (Verified Allergy, Unknown, 09/18/17) Family History Denies any family history of heart disease, cancer Social History Alcohol Use: No Tobacco Use: No (QUIT 2001) Substance Use: No Physical Exam Vital Signs Vital Signs Date Time Temp Pulse Resp B/P (MAP) Pulse Ox O2 Delivery O2 Flow Rate FiO2 09/18/17 12:54 98.7 95 20 117/63 (81) 97 Nasal Cannula 2.00 09/18/17 12:19 96 Nasal Cannula 2.00 09/18/17 12:19 96 Room Air 09/18/17 11:54 98.7 97 22 131/71 (91) 88 Physical Exam GENERAL: This is a well-nourished, well-developed patient, in no apparent distress. SKIN: No rashes, ecchymoses or lesions. Cool and dry. HEAD: Atraumatic. Normocephalic. No temporal or scalp tenderness. EYES: Pupils equal round and reactive. Extraocular motions intact. No scleral icterus. No injection or drainage. ENT: Nose without bleeding, purulent drainage or septal hematoma. Throat without erythema, tonsillar hypertrophy or exudate. Uvula midline. Airway patent. NECK: Trachea midline. No JVD or lymphadenopathy. Supple, nontender, no meningeal signs. CARDIOVASCULAR: Regular rate and rhythm without murmurs, gallops, or rubs. RESPIRATORY: Clear to auscultation. Breath sounds equal bilaterally. No wheezes , rales, or rhonchi. GASTROINTESTINAL: Abdomen soft, non-tender, nondistended. No hepato-splenomegaly , or palpable masses. No guarding. MUSCULOSKELETAL: Extremities without clubbing, cyanosis. +Trace edema BLE. No joint tenderness, effusion, or edema noted. No calf tenderness. Negative Homans sign bilaterally. NEUROLOGICAL: Awake and alert. Cranial nerves II through XII intact. Motor and sensory grossly within normal limits. Five out of 5 muscle strength in all muscle groups. Normal speech. Laboratory Laboratory Tests Test 09/18/17 12:05 White Blood Count 17.8 Red Blood Count 3.83 Hemoglobin 9.8 Hematocrit 31.1 Mean Corpuscular Volume 81.2 Mean Corpuscular Hemoglobin 25.6 Mean Corpuscular Hemoglobin Concent 31.6 Red Cell Distribution Width 21.5 Platelet Count 517 Mean Platelet Volume 8.1 Neutrophils (%) (Auto) 85.0 Lymphocytes (%) (Auto) 4.0 Monocytes (%) (Auto) 8.8 Eosinophils (%) (Auto) 0.8 Basophils (%) (Auto) 1.4 Neutrophils # (Auto) 15.2 Lymphocytes # (Auto) 0.7 Monocytes # (Auto) 1.6 Eosinophils # (Auto) 0.1 Basophils # (Auto) 0.2 CBC Comment DIFF FINAL Differential Comment Blood Urea Nitrogen 29 Creatinine 1.00 Random Glucose 186 Calcium Level 8.3 Sodium Level 130 Potassium Level 4.4 Chloride Level 90 Carbon Dioxide Level 31.9 Anion Gap 8 Estimat Glomerular Filtration Rate 72 Troponin I LESS THAN 0.02 B-Type Natriuretic Peptide 1842 Result Diagram: 09/18/17 1205 09/18/17 1205 Imaging Last Impressions Chest X-Ray 09/18/17 1203 Signed Impressions: Service Date/Time: Monday, September 18, 2017 12:29 - CONCLUSION: Radiographic findings most consistent with pulmonary edema. MD Suma Adams Jr. VTE Risk Assessment Caprinnikolas VTE Risk Assessment: Mod/High Risk (score >= 2) Caprini Risk Assessment Model Point Value = 1 Point Value = 2 Point Value = 3 Point Value = 5 Age 41-60 Minor surgery BMI > 25 kg/m2 Swollen legs Varicose veins or History of unexplained or recurrent spontaneous Oral contraceptives or hormone replacement Sepsis (< 1 month) Serious lung disease, including pneumonia (< 1 month) Abnormal pulmonary function Acute myocardial infarction Congestive heart failure (< 1 month) History of inflammatory bowel disease Medical patient at bed rest Age 61-74 Arthroscopic surgery Major open surgery (> 45 min) Laparoscopic surgery (> 45 min) Malignancy Confined to bed (> 72 hours) Immobilizing plaster cast Central venous access Age >= 75 History of VTE Family history of VTE Factor V Leiden Prothrombin [id number] Lupus anticoagulant Anticardiolipin antibodies Elevated serum homocysteine Heparin-induced thrombocytopenia Other congenital or acquired thrombophilia Stroke (< 1 month) Elective arthroplasty Hip, pelvis, or leg fracture Acute spinal cord injury (< 1 month) Prophylaxis Regimen Total Risk Factor Score Risk Level Prophylaxis Regimen 0-1 Low Early ambulation 2 Moderate Order ONE of the following: *Sequential Compression Device (SCD) *Heparin 5000 units SQ BID 3-4 Higher Order ONE of the following medications: *Heparin 5000 units SQ TID *Enoxaparin/Lovenox 40 mg SQ daily (WT < 150 kg, CrCl > 30 mL/min) *Enoxaparin/Lovenox 30 mg SQ daily (WT < 150 kg, CrCl > 10-29 mL/min) *Enoxaparin/Lovenox 30 mg SQ BID (WT < 150 kg, CrCl > 30 mL/min) AND/OR *Sequential Compression Device (SCD) 5 or more Highest Order ONE of the following medications: *Heparin 5000 units SQ TID (Preferred with Epidurals) *Enoxaparin/Lovenox 40 mg SQ daily (WT < 150 kg, CrCl > 30 mL/min) *Enoxaparin/Lovenox 30 mg SQ daily (WT < 150 kg, CrCl > 10-29 mL/min) *Enoxaparin/Lovenox 30 mg SQ BID (WT < 150 kg, CrCl > 30 mL/min) AND *Sequential Compression Device (SCD) Assessment and Plan Problem List: (1) Acute on chronic diastolic CHF (congestive heart failure) ICD Code: I50.33 - Acute on chronic diastolic (congestive) heart failure Assessment and Plan 77-year-old man with a history of Acute on chronic diastolic CHF exacerbation Chest x-ray noted and review by me with radiographic findings most consistent with pulmonary edema ACS rule out per protocol with serial cardiac enzyme and EKG Status post Lasix 60 mg IV 1 in ED, start Lasix 40 mg IV every 12 hours, CHF education, strict I's and O's Check 2-D echo Leukocytosis Unlikely infectious etiology Continue to monitor Diabetes type 2 Start insulin sliding scale and resume oral hypoglycemic agent Check A1c Hyperlipidemia Resume statin Check lipid profile Normochromic normocytic anemia H&H stable, continue to monitor Hypertension Resume Lopressor, Vasotec when necessary CAD Chronic, stable DVT prophylaxis: Heparin Code Status Full code Discussed Condition With Patient, ED physician Physician Certification 2 Midnight Certification Type: Admission for Inpatient Services Order for Inpatient Services The services are ordered in accordance with Medicare regulations or non- Medicare payer requirements, as applicable. In the case of services not specified as inpatient-only, they are appropriately provided as inpatient services in accordance with the 2-midnight benchmark. Estimated LOS (days): 2 days is the estimated time the patient will need to remain in the hospital, assuming treatment plan goals are met and no additional complications. Post-Hospital Plan: Not yet determined Steve Jin MD Sep 18, 2017 13:28
[2017-09-18] MEDS ORDERED: RESP: ALBUTEROL 2.5 MG/IPRATROPIUM 0.5 MG NEB (PRN) NEB (13:30)
[2017-09-18] MEDS ORDERED: ENALAPRILAT 2.5 MG/2 ML VIAL IV PUSH PRN (13:30)
[2017-09-18] MEDS ORDERED: GLUCAGON 1 MG/ML VIAL OTHER PRN (13:30)
[2017-09-18] MEDS ORDERED: SODIUM CHLORIDE 0.9% FLUSH 10 ML FLUSH IV FLUSH PRN (13:30)
[2017-09-18] MEDS ORDERED: DEXTROSE 50% IN WATER 50 ML VIAL(D50) IV PUSH PRN (13:30)
[2017-09-18] MEDS: HEPARIN SODIUM - SQ 10,000 UNITS/ML VIAL SQ SCH ×2 (13:48→23:28)
[2017-09-18] MEDS ORDERED: KLOR20TA3 PO (14:48)
[2017-09-18] MEDS ORDERED: FURO40TA PO (14:48)
[2017-09-18 17:14] LABS: CHLORIDE 90 MEQ/L (98-107); POTASSIUM 3.9 MEQ/L (3.5-5.1); SODIUM (NA) 131 MEQ/L (136-145)
[2017-09-18 17:18] LABS: ANION GAP 7 MEQ/L (5-15); BICARBONATE 33.9 MEQ/L (21.0-32.0); BLOOD UREA NITROGEN 28 MG/DL (7-18)
[2017-09-18 17:21] LABS: ALT (GPT) 29 U/L (12-78); AST (GOT) 24 U/L (15-37); GLOMERULAR FILTRATION RATE 79 ML/MIN (>89)
[2017-09-18 17:23] LABS: TOTAL BILIRUBIN ADULT 0.8 MG/DL (0.2-1.0)
[2017-09-18 17:24] LABS: ALKALINE PHOSPHATASE 95 U/L (45-117)
[2017-09-18] MEDS: INSULIN ASPART SUPPLEMENTAL SCALE SQ SCH ×2 (17:29→21:00)
[2017-09-18] MEDS: metFORMIN HCL 500 MG TAB PO SCH (17:30)
[2017-09-18] MEDS: FUROSEMIDE 40 MG/4 ML VIAL IVP SCH (17:30)
[2017-09-18] MEDS ORDERED: ATORVASTATIN 40 MG TAB PO SCH (21:00)
[2017-09-18] MEDS: METOPROLOL TARTRATE 50 MG TAB PO SCH (21:19)
[2017-09-18] MEDS: SODIUM CHLORIDE 0.9% FLUSH 10 ML FLUSH IV FLUSH SCH (21:19)
[2017-09-18] MEDS ORDERED: diphenhydrAMINE HCL 25 MG CAP PO PRN (23:15)
[2017-09-19 01:17] VITALS: BP 125/76; PULSE 100; RESP 22; TEMP 98.2; O2SAT 97
[2017-09-19 04:26] VITALS: BP 120/71; PULSE 91; RESP 20; TEMP 97.9; O2SAT 96
[2017-09-19 08:00] VITALS: BP 136/67; PULSE 100; PULSE 109; RESP 20; TEMP 98.1; O2SAT 99
[2017-09-19] MEDS: INSULIN ASPART SUPPLEMENTAL SCALE SQ SCH ×2 (08:30→12:00)
[2017-09-19] MEDS: METOPROLOL TARTRATE 50 MG TAB PO SCH (08:31)
[2017-09-19] MEDS: FUROSEMIDE 40 MG/4 ML VIAL IVP SCH (08:31)
[2017-09-19] MEDS: metFORMIN HCL 500 MG TAB PO SCH (08:31)
[2017-09-19] MEDS: SODIUM CHLORIDE 0.9% FLUSH 10 ML FLUSH IV FLUSH SCH (08:35)
[2017-09-19] MEDS ORDERED: PANTOPRAZOLE SOD 40 MG DELAYED RELEASE TAB PO SCH (09:00)
[2017-09-19] MEDS ORDERED: ASPIRIN 81 MG CHEW TAB CHEW SCH (09:00)
[2017-09-19] MEDS ORDERED: POTASSIUM CHLORIDE 20 MEQ CONTROLLED RELEASE TAB PO SCH (09:00)
[2017-09-19 09:24] LABS: HDL CHOLESTEROL 31.8 MG/DL (40.0-60.0); LDL CHOLESTEROL 18 MG/DL (0-99)
[2017-09-19] MEDS ORDERED: PNEUMOCOCCAL POLYVALENT INJ 25 MCG/0.5 ML SYR IM ONE (10:00)
[2017-09-19] MEDS: HEPARIN SODIUM - SQ 10,000 UNITS/ML VIAL SQ SCH (10:37)
--- NOTE | 2017-09-19 11:22 | HHI.PR ---
Subjective Remarks Follow-up CHF exacerbation 09/19/17-patient seen and examined reports significant improvement or shortness of breath. Still has some slight lower extremities edema Objective Vitals Vital Signs Date Time Temp Pulse Resp B/P (MAP) Pulse Ox O2 Delivery O2 Flow Rate FiO2 09/19/17 08:00 98.1 100 20 136/67 (90) 99 09/19/17 04:26 97.9 91 20 120/71 (87) 96 09/19/17 01:17 98.2 100 22 125/76 (92) 97 09/18/17 23:00 104 09/18/17 20:29 97.6 93 20 116/57 (76) 95 09/18/17 17:46 57 09/18/17 16:00 96.9 95 14 117/68 (84) 98 09/18/17 14:07 09/18/17 12:54 98.7 95 20 117/63 (81) 97 Nasal Cannula 2.00 09/18/17 12:19 96 Nasal Cannula 2.00 09/18/17 12:19 96 Room Air 09/18/17 11:54 98.7 97 22 131/71 (91) 88 I/O 09/18/17 09/18/17 09/18/17 09/19/17 09/19/17 09/19/17 06:59 14:59 22:59 06:59 14:59 22:59 Intake Total 240 ml Balance 240 ml Intake Oral 240 ml # Voids 3 3 # Bowel Movements 0 0 Result Diagram: 09/18/17 1205 09/18/17 1650 Imaging Last Impressions Chest X-Ray 09/18/17 1203 Signed Impressions: Service Date/Time: Monday, September 18, 2017 12:29 - CONCLUSION: Radiographic findings most consistent with pulmonary edema. Dale Ram Jr., MD Objective Remarks GENERAL: NAD SKIN: Warm and dry. HEAD: Normocephalic. EYES: No scleral icterus. No injection or drainage. NECK: Supple, trachea midline. No JVD or lymphadenopathy. CARDIOVASCULAR: Regular rate and rhythm without murmurs, gallops, or rubs. RESPIRATORY: Breath sounds equal bilaterally. No accessory muscle use. GASTROINTESTINAL: Abdomen soft, non-tender, nondistended. MUSCULOSKELETAL: No cyanosis; +Trace edema. BACK: Nontender without obvious deformity. No CVA tenderness. A/P Problem List: (1) Acute on chronic diastolic CHF (congestive heart failure) ICD Code: I50.33 - Acute on chronic diastolic (congestive) heart failure Assessment and Plan 77-year-old man with a history of Acute on chronic diastolic CHF exacerbation Chest x-ray with radiographic findings most consistent with pulmonary edema ACS ruled out per protocol with serial cardiac enzyme and EKG Status post Lasix 60 mg IV 1 in ED, Switch Lasix to 40 mg PO every 12 hours , CHF education, strict I's and O's 2-D echo echo Leukocytosis Unlikely infectious etiology Continue to monitor Diabetes type 2 insulin sliding scale and oral hypoglycemic agent A1c pending Hyperlipidemia Currently on statin LDL 18 Normochromic normocytic anemia H&H stable, continue to monitor Hypertension On Lopressor, Vasotec when necessary CAD Chronic, stable DVT prophylaxis: Heparin Steve Jin MD Sep 19, 2017 11:22
[2017-09-19 12:00] VITALS: BP 127/64; PULSE 96; RESP 20; TEMP 97.6; O2SAT 98
--- NOTE | 2017-09-19 13:52 | ECHRPT ---
Indication: heart failure CONCLUSIONS The left ventricular systolic function is severely reduced with an estimated ejection fraction in th e range of 25-30%. Mild concentric left ventricular hypertrophy. Wall motion abnormality with akinesis of the anterior, anterolateral and apical segments. Mild mitral valve regurgitation. Trace aortic valve regurgitation. There is mild tricuspid valve regurgitation. Moderate size left sided pleural effusion. BP: / HR: Rhythm: MEASUREMENTS (Male / Female) Normal Values Technical Quality:Good 2D ECHO LV Diastolic Diameter PLAX 5.1 cm 4.2 - 5.9 / 3.9 - 5.3 cm LV Systolic Diameter PLAX 4.7 cm IVS Diastolic Thickness 1.5 cm 0.6 - 1.0 / 0.6 - 0.9 cm LVPW Diastolic Thickness 1.2 cm 0.6 - 1.0 / 0.6 - 0.9 cm LV Relative Wall Thickness 0.5 RV Internal Dim ED PLAX 3.3 cm M-MODE Aortic Root Diameter MM 3.5 cm LA Systolic Diameter MM 3.9 cm LA Ao Ratio MM 1.1 AV Cusp Separation MM 2.2 cm DOPPLER LV E' Lateral Velocity 7.3 cm/s LV E' Septal Velocity 7.1 cm/s TR Peak Velocity 352.0 cm/s TR Peak Gradient 49.6 mmHg Right Atrial Pressure 10.0 mmHg Pulmonary Artery Systolic Pressu 59.6 mmHg Right Ventricular Systolic Press 59.6 mmHg FINDINGS LEFT VENTRICLE The left ventricular systolic function is severely reduced with an estimated ejection fraction in th e range of 25-30%. Mild concentric left ventricular hypertrophy. Wall motion abnormality with akinesis of the anterior, anterolateral and apical segments RIGHT VENTRICLE The right ventricular size is normal. The right ventricular systoilc function is mildly decreased. LEFT ATRIUM The left atrial size is upper limits of normal. RIGHT ATRIUM The right atrial size is mildly dilated. ATRIAL SEPTUM Normal atrial septal thickness. AORTA The aortic root and proximal ascending aorta are normal in size on limited imaging. MITRAL VALVE Structurally normal mitral valve. Mild mitral valve regurgitation. The mitral valve regurgitation jet is directed centrally due to poor leaflet coaptation. No mitral valve stenosis. AORTIC VALVE Trileaflet aortic valve. No aortic valve stenosis. Trace aortic valve regurgitation. TRICUSPID VALVE There is mild tricuspid valve regurgitation. The estimated pulmonary arterial pressure is 59.6 mmHg. Structurally normal tricuspid valve. PULMONARY VALVE Trivial pulmonary valve regurgitation. VESSELS The inferior vena cava is normal in size. PERICARDIUM No pericardial effusion. Moderate size left sided pleural effusion. Reginaldo Moore DO (Electronically Signed) Final Date:19 September 2017 13:51
--- NOTE | 2017-09-19 15:07 | HHI.PR ---
Addendum to Inpatient Note Addendum Reason: Additional Documentation Additional Information EF of 25-30% Will discharge home on by mouth Lasix Discharge patient to home Condition on discharge: Improved Regular Diet as tolerated Ad Chelly activity Rx written:see EMR Follow-up with primary care physician in 1week Steve Jin MD Sep 19, 2017 15:07
--- NOTE | 2017-09-19 15:11 | EKG ---
Date Performed: 09/18/2017 Time Performed: 18:16:57 PTAGE: 77 years EKG: SINUS TACHYCARDIA WITH OCCASIONAL VENTRICULAR PREMATURE COMPLEXES POSSIBLE RIGHT VENTRICULA R CONDUCTION DELAY ANTERIOR MYOCARDIAL INFARCTION ABNORMAL ECG PREVIOUS TRACING : 09/18/2017 11.52 Compared to the previous tracing, rate has increased DOCTOR: Reginaldo Moore Interpretating Date/Time 09/19/2017 15:11:00
[2017-09-19 15:15] VITALS: PULSE 67
--- NOTE | 2017-09-19 18:07 | EKG ---
Date Performed: 09/18/2017 Time Performed: 11:52:29 PTAGE: 77 years EKG: Sinus rhythm INCOMPLETE RIGHT BUNDLE BRANCH BLOCK ANTERIOR MYOCARDIAL INFARCTION ABNORMAL ECG INTERPRETATION BASE D ON A DEFAULT AGE OF 40 YEARS Compared to the PREVIOUS TRACING 06/20/17, no significant change DOCTOR: Reginaldo Moore Interpretating Date/Time 09/19/2017 18:06:35
== END 2017-09-19 15:35 | disposition home or self-care (01) | DRG 292 ==
LOC: PHED 11:43 → PHEDA 13:27 → PH3A 14:04
PROVIDERS: ADMIT Hospitalist; ATTEND Hospitalist
DX: I11.0 Hypertensive heart disease with heart failure (principal); J96.10 Chronic respiratory failure, unspecified whether with hypoxia or hypercapnia; Z99.81 Dependence on supplemental oxygen; E11.9 Type 2 diabetes mellitus without complications; E78.5 Hyperlipidemia, unspecified; D64.9 Anemia, unspecified; I50.33 Acute on chronic diastolic (congestive) heart failure; D72.829 Elevated white blood cell count, unspecified; I25.2 Old myocardial infarction; I25.10 Atherosclerotic heart disease of native coronary artery without angina pectoris; Z23 Encounter for immunization; Z79.84 Long term (current) use of oral hypoglycemic drugs; Z87.891 Personal history of nicotine dependence; Z95.5 Presence of coronary angioplasty implant and graft
CPT/HCPCS: 36430; 71010; 80048; 80053; 80061; 82948; 83880; 84484; 85025; 86920; 90471; 90732; 93005; 93306; 96374; G0009; J1644; J1815; J1940; J7050; P9016

== ENCOUNTER 2017-09-27 20:01 | Inpatient (IN) | payer OTHER, MEDICARE ==
[~2017-09-27] VITALS: Ht 188 cm; Wt 99.5 kg
[2017-09-27] VITALS (8 sets, daily range): BP systolic 90–110; BP diastolic 55–71; PULSE 83–99; RESP 16–17; TEMP 97.4–98.2; O2SAT 95–100
[~2017-09-27 20:01] MED LIST changes: +FURO40TA PO; +KLOR20TA3 PO; -LOSA25TA PO; -PANT40TA3 PO
[2017-09-27] MEDS ORDERED: PANTOPRAZOLE SODIUM 40 MG VIAL IV PUSH ONE (21:00)
[2017-09-27] MEDS ORDERED: SODIUM CHLOR 0.9% 250 ML INJ 250 ML IV ONE ×2 (21:00→23:30)
[2017-09-27] MEDS ORDERED: SODIUM CHLORIDE 0.9% FLUSH 10 ML FLUSH IVF PRN (21:00)
--- NOTE | 2017-09-27 21:17 | PD ---
HPI Chief Complaint: General Weakness Time Seen by Provider: 21:10 Travel History International Travel<30 days: No Contact w/Intl Traveler<30days: No Traveled to known affect area: No History of Present Illness HPI 77-year-old male presents to the emergency department for one week of progressively worsening generalized weakness dyspnea at rest as well as with exertion but no orthopnea or pedal edema with history of CHF but no orthopnea or PND and no chest pain. Patient also has history of upper GI bleed and chronic anemia. No recent transfusions. Patient is concerned about his blood count. Patient denies fever or chills. Patient is also had epigastric pain. Patient denies chest pain. No report of diaphoresis or referred neck jaw back shoulder or arm pain. Patient has had only one episode of small amount of emesis which was not bilious hematemesis or coffee-ground emesis and denies any black or tarry stools. Patient's had small amount of bowel movements and has had some abdominal distention and abdominal pain. Patient denies any known history of colitis or diverticulitis and no recent antibiotic use. No dysuria frequency or urgency. Patient rates his abdominal pain is 2/10 in intensity. Patient has not contacted his managing primary care provider but due to progressive worsening generalized weakness decided to come to the emergency room at this time. PFSH Past Medical History Narrative Medical Aspirin use dyslipidemia CHF diabetes GI bleed chronic anemia with multiple transfusions valvular heart disease hypertension CAD cardiac catheterization with stent placement 2 myocardial infarction; no tobacco use, no alcohol use; nursing notes reviewed Hx Anticoagulant Therapy: Yes (ASA) Anemia: Yes (FREQUENT BLOOD TRANSFUSIONS) Arthritis: No Asthma: No Autoimmune Disease: No Blood Disorders: No Anxiety: No Depression: No Heart Rhythm Problems: Yes (pt says has leaky valve) Cancer: No Cardiac Catheterization: Yes (2 STENTS) Cardiovascular Problems: Yes (HTN, CHF) High Cholesterol: Yes Chemotherapy: No Chest Pain: No Congestive Heart Failure: Yes COPD: No Cerebrovascular Accident: No Diabetes: Yes (2) Patient Takes Glucophage: Yes Diminished Hearing: No Endocrine: Yes Gastrointestinal Disorders: Yes (GI bleed ) GERD: No Genitourinary: No Headaches: No Hiatal Hernia: No Hypertension: Yes Immune Disorder: No Kidney Stones: No Musculoskeletal: No Neurologic: No Psychiatric: No Reproductive: No Respiratory: Yes Migraines: No Myocardial Infarction: Yes Radiation Therapy: No Renal Failure: No Seizures: No Sickle Cell Disease: No Sleep Apnea: No Thyroid Disease: No Ulcer: No Past Surgical History Abdominal Surgery: Yes (hernial repair ) AICD: No Arteriovenous Shunt: No Cardiac Surgery: Yes (2 stents ) Coronary Stent: Yes Ear Surgery: No Endocrine Surgery: No Eye Surgery: No Genitourinary Surgery: No Gynecologic Surgery: No Insulin Pump: No Joint Replacement: No Oral Surgery: No Pacemaker: No Thoracic Surgery: No Other Surgery: Yes Social History Alcohol Use: No Tobacco Use: No (QUIT 2001) Substance Use: No Allergies-Medications (Allergen,Severity, Reaction): Coded Allergies: No Known Allergies (Verified Allergy, Unknown, 09/27/17) Reported Meds & Prescriptions Reported Meds & Active Scripts Active Oxygen tank (Oxygen) 1 Ea Tank 2 Liter SHAKEEL.CANULA CONTINUOUS Oxygen Concentrator Portable Gaseous 2 L/min via Nasal Cannula Continuous For 99 months Aspirin 81 Mg Chew 81 Mg CHEW DAILY 30 Days Reported Furosemide 40 Mg Tab 40 Mg PO DAILY Klor-Con M20 (Potassium Chloride Microencaps) 20 Meq Tab 20 Meq PO DAILY One Daily (Multiple Vitamin) 1 Tab 1 Tab PO DAILY Vitamin D3 (Cholecalciferol) 1,000 Unit Tab 1,000 Units PO BID Metoprolol Tartrate 50 Mg Tab 50 Mg PO BID Atorvastatin (Atorvastatin Calcium) 40 Mg Tab 80 Mg PO HS Metformin (Metformin HCl) 500 Mg Tab 500 Mg PO BID With meals Review of Systems Except as stated in HPI: all other systems reviewed are Neg General / Constitutional: No: Fever, Chills HENT: No: Congestion Cardiovascular: No: Chest Pain or Discomfort Respiratory: Positive: Shortness of Breath, No: Cough, Wheezing, Orthopnea Gastrointestinal: Positive: Nausea, Vomiting (x1), Abdominal Pain, Loss of Appetite, No: Diarrhea, Hematemesis, Hematochezia, Constipation Genitourinary: No: Urgency, Frequency, Dysuria, Hematuria Musculoskeletal: Positive: Edema (pedal), No: Myalgias, Arthralgias Skin: No Rash Neurologic: No: Weakness Psychiatric: No: Anxiety Hematologic/Lymphatic: No: Lymph Node Enlargement Physical Exam Narrative GENERAL: Well-developed well-nourished elderly male pale in no acute distress no respiratory distress resting supine; BP: 90/56 SKIN: Warm and dry. HEAD: Normocephalic. EYES: No scleral icterus. Conjunctival pallor. No injection or drainage. NECK: Supple, trachea midline. No JVD or lymphadenopathy. CARDIOVASCULAR: Regular rate and rhythm without murmurs, gallops, or rubs. RESPIRATORY: Breath sounds equal bilaterally. No accessory muscle use. No rales no rhonchi or wheezing. No accessory muscle use. GASTROINTESTINAL: Abdomen soft, mild epigastric and periumbilical tenderness without guarding or rebound, nondistended. Small right upper quadrant abdominal wall ecchymotic area. Rectal exam: No hemorrhoidal tissue no fissure normal sphincter tone scant dark stool/mucus on exam glove that is Hemoccult positive MUSCULOSKELETAL: No cyanosis, bilateral pitting pedal edema. BACK: Nontender without obvious deformity. No CVA tenderness. Data Data Last Documented VS Vital Signs Date Time Temp Pulse Resp B/P (MAP) Pulse Ox O2 Delivery O2 Flow Rate FiO2 09/27/17 23:02 87 16 98/55 (69) 100 Nasal Cannula 2.00 09/27/17 22:29 98.2 Orders Orders Complete Blood Count With Diff (09/27/17 20:46) Comprehensive Metabolic Panel (09/27/17 20:46) Lipase (09/27/17 20:46) Ammonia (09/27/17 20:46) Prothrombin Time / Inr (Pt) (09/27/17 20:46) Act Partial Throm Time (Ptt) (09/27/17 20:46) Urinalysis - C+S If Indicated (09/27/17 20:46) Type And Screen (09/27/17 20:46) Chest, Single Ap (09/27/17 20:46) Ecg Monitoring (09/27/17 20:46) Iv Access Insert/Monitor (09/27/17 20:46) Oximetry (09/27/17 20:46) Sodium Chloride 0.9% Flush (Ns Flush) (09/27/17 21:00) Troponin I (09/27/17 20:46) Electrocardiogram (09/27/17 ) Blood Culture (09/27/17 20:46) Lactic Acid (09/27/17 20:46) Pantoprazole Inj (Protonix Inj) (09/27/17 21:00) Sodium Chlor 0.9% 250 Ml Inj (Ns 250 Ml (09/27/17 21:00) Piperacil-Tazo 4.5 Gm Premix (Zosyn 4.5 (09/27/17 22:00) Ct Abd/Pel W/O Iv Contrast (09/27/17 ) Urinary Catheter Insert/Apply (09/27/17 23:18) Sodium Chlor 0.9% 250 Ml Inj (Ns 250 Ml (09/27/17 23:30) B-Type Natriuretic Peptide (09/27/17 23:12) Urinary Catheter Management TOÑA.Q8H (09/27/17 23:12) Lactic Acid (09/27/17 23:20) Tylenol (Acetaminophen) (09/27/17 23:19) Hepatitis Profile (09/27/17 23:19) Admit Order (Ed Use Only) (09/27/17 ) Die Fitter / Telemetry TOÑA.Q8H (09/27/17 23:23) Diet Npo (09/28/17 Breakfast) Activity Bed Rest (09/27/17 23:23) Notify Dr: Other (09/27/17 23:23) Labs Laboratory Tests Test 09/27/17 21:00 09/27/17 23:10 White Blood Count 9.3 TH/MM3 Red Blood Count 3.54 MIL/MM3 Hemoglobin 8.5 GM/DL Hematocrit 27.0 % Mean Corpuscular Volume 76.2 FL Mean Corpuscular Hemoglobin 24.0 PG Mean Corpuscular Hemoglobin Concent 31.6 % Red Cell Distribution Width 21.5 % Platelet Count 449 TH/MM3 Mean Platelet Volume 8.7 FL Neutrophils (%) (Auto) 73.2 % Lymphocytes (%) (Auto) 7.7 % Monocytes (%) (Auto) 13.3 % Eosinophils (%) (Auto) 1.1 % Basophils (%) (Auto) 4.7 % Neutrophils # (Auto) 6.9 TH/MM3 Lymphocytes # (Auto) 0.7 TH/MM3 Monocytes # (Auto) 1.2 TH/MM3 Eosinophils # (Auto) 0.1 TH/MM3 Basophils # (Auto) 0.4 TH/MM3 CBC Comment AUTO DIFF Differential Comment AUTO DIFF CONFIRMED Platelet Estimate NORMAL Platelet Morphology Comment NORMAL Basophilic Stippling MOD Target Cells 1+ Ovalocytes 2+ Prothrombin Time 20.3 SEC Prothromb Time International Ratio 1.8 RATIO Activated Partial Thromboplast Time 30.6 SEC Blood Urea Nitrogen 117 MG/DL Creatinine 2.40 MG/DL Random Glucose 122 MG/DL Total Protein 6.5 GM/DL Albumin 2.9 GM/DL Calcium Level 8.4 MG/DL Alkaline Phosphatase 183 U/L Aspartate Amino Transf (AST/SGOT) 795 U/L Alanine Aminotransferase (ALT/SGPT) 741 U/L Total Bilirubin 1.1 MG/DL Sodium Level 124 MEQ/L Potassium Level 4.6 MEQ/L Chloride Level 83 MEQ/L Carbon Dioxide Level 28.6 MEQ/L Anion Gap 12 MEQ/L Estimat Glomerular Filtration Rate 26 ML/MIN Lactic Acid Level 4.7 mmol/L 5.3 mmol/L Ammonia 47 MCMOL/L Troponin I 0.07 NG/ML B-Type Natriuretic Peptide 1858 PG/ML Lipase 614 U/L MDM Medical Decision Making Medical Screen Exam Complete: Yes Emergency Medical Condition: Yes Medical Record Reviewed: Yes Interpretation(s) Troponin I: 0.07, mildly elevated BNP 1858 elevated Serum ammonia 47 EKG a fib with controlled ventricular rate of 90 bundle branch block prior anterior septal infarct age indeterminate Last Impressions Chest X-Ray 09/27/172045 Signed Impressions: Service Date/Time: Wednesday, September 27, 2017 21:08 - CONCLUSION: Decreased right pleural effusion, now small to moderate. Resolved left pleural effusion. Luis Juarez MD Abdomen/Pelvis CT 09/27/17 0000 Signed Impressions: Service Date/Time: Wednesday, September 27, 2017 22:12 - CONCLUSION: 1. Ascites and body wall edema/anasarca. 2. No focal abnormality seen in the abdomen or pelvis. Potential cirrhosis. 3. Right greater than left pleural effusions. Luis Juarez MD CBC & BMP Diagram 09/27/17 21:00 Total Protein 6.5, Albumin 2.9 L, Calcium Level 8.4 L, Alkaline Phosphatase 183 H, Aspartate Amino Transf (AST/SGOT) 795 H, Alanine Aminotransferase (ALT/SGPT) 741 H, Total Bilirubin 1.1 H Vital Signs Date Time Temp Pulse Resp B/P (MAP) Pulse Ox O2 Delivery O2 Flow Rate FiO2 09/27/17 23:02 87 16 98/55 (69) 100 Nasal Cannula 2.00 09/27/17 22:29 98.2 92 16 107/66 (80) 100 Nasal Cannula 2.00 09/27/17 22:15 90 101/65 (77) 09/27/17 21:33 87 16 104/65 (78) 100 Nasal Cannula 2.00 09/27/17 21:00 98.2 92 16 103/66 (78) 100 Nasal Cannula 2.00 09/27/17 20:34 83 16 90/56 (67) 97 Nasal Cannula 2.00 09/27/17 20:34 16 97 Nasal Cannula 2.00 09/27/17 20:15 97.4 99 17 110/66 (81) 95 Differential Diagnosis Generalized weakness, anemia, GI bleed, thrombocytopenia, gastritis, peptic ulcer disease, colitis, diverticulitis, carcinoma, hypoalbuminemia, sepsis Narrative Course Elderly 77-year-old male presents to the emergency department for one week of progressively worsening weakness with pedal edema without evidence of orthopnea or PND but does note dyspnea at rest as well as on exertion. Patient states he prefers to be resting supine. Patient denies fever chills. Patient has had no chest pain. Patient states that he has been taking his medications as prescribed. Patient's had poor oral intake due to abdominal discomfort. Patient rates discomfort of the abdomen to over 10 in intensity with minimal tenderness to palpation primarily epigastric and periumbilical. Patient has had decreased urine output but did urinate prior to arrival to the emergency department. Patient has not had a recent transfusion but has had a full transfusions in the past due to chronic anemia. Last hospitalization 09/18/17 patient was noted to have congestive heart failure and an ejection fracture performed at that time was 25%. Patient has been started on Lasix in the interim and has been taking the medication as prescribed. Will proceed with cardiac monitoring continues pulse oximetry IV access patient is noted to be hypotensive in view of congestive heart failure and low EF but poor oral intake will administer normal saline bolus 250 ml also specimens collected and sent for resulting chest x-ray and EKG ordered. Patient identified to have stable hemoglobin of 8.5 total white cell count is not elevated 72% neutrophils and stable platelet count; chemistries remarkable for acute renal failure patient has a BUN of 117 and a creatinine of 2.4 this is markedly increased from BUN and creatinine from 09/18/17 at which time BUN was 29 cardiac is 1.0 also patient's hemoglobin has remained approximate the same was 9.8 post transfusion 09/18/17 and is now a 0.5 patient's potassium is in normal range at 4.6 calcium is normal at 8.4 bicarbonate is in normal range at 28.6 with normal anion gap however patient does have markedly elevated lactic acid of 4.7. A 2 hour lactic acid has been ordered. Patient's LFTs are elevated concerning for transaminitis versus hepatic congestion due to volume overload. Total bilirubin is insignificantly elevated at 1.1 unlikely related to stone or mass obstructive process however lipase is elevated 614 does warrant concern for choledocholithiasis or gallstone-induced pancreatitis patient presumptively administered a one-time dose of Zosyn 4.5 g IV after blood cultures obtained. Patient has not produced urine patient is aware of recommendation for urinary catheter insertion and additional IV fluids administered Patient's case discussed with on-call soil scientist is aware of patient's presentation with poor oral intake acutely worsening renal function on diuretic therapy with peripheral edema and third spacing CT imaging was performed which shows anasarca and ascites. Patient's will be admitted to the intensive care unit per Dr. Caballero will admit to [facility] at this time although patient may require transfer later date. Ultrasound of the gallbladder has been added to patient's diagnostic imaging study. Blood sugar is stable. Critical Care Narrative Aggregate critical care time was 35 minutes. Time to perform other separately billable procedures was not included in the critical care time. My time did not include minutes spent treating any other patients simultaneously or on activities that did not directly contribute to the patient's treatment. The services I provided to this patient were to treat and/or prevent clinically significant deterioration that could result in: Respiratory failure septic shock cardiogenic shock I provided critical care services requiring my management, as noted below: Chart data review, documentation time, medication orders and management, vital sign assessments/reviewing monitor data, ordering and reviewing lab tests, ordering and interpreting/reviewing x-rays and diagnostic studies, care of the patient and discussion of the patient with the admitting physicians. [facility] Point of Care Internal Pos. & Neg. Controls: Passed Fecal Specimen Occult Blood: Positive (scant flecks positive with mucous not positive) Physician Communication Physician Communication discussed with Dr Caballero --- will accept to the soil scientist service --- admit to [facility] ICU Diagnosis Primary Impression: Acute kidney failure Additional Impressions: Anasarca Anemia Transaminitis Elevated lipase History of GI bleed H/O CHF Admitting Information Admitting Physician Requests: Admit Sara George MD Sep 27, 2017 21:17
--- NOTE | 2017-09-27 21:18 | RADRPT ---
EXAM DATE/TIME: 09/27/2017 21:08 [facility] COMPARISON: CHEST SINGLE AP, September 18, 2017, 12:29. INDICATIONS : Shortness of breath. MEDICAL HISTORY : Hypertension. Congestive heart failure. SURGICAL HISTORY : Coronary artery stent. Cardiac catheterization. ENCOUNTER: Initial ACUITY: 1 day PAIN SCORE: 0/10 LOCATION: Bilateral chest FINDINGS: Small moderate right pleural effusion again noted, slightly improved. Left pleural effusion has resol leonora. No pneumothorax. No pneumonia seen. Heart size stable, within normal limits. CONCLUSION: Decreased right pleural effusion, now small to moderate. Resolved left pleural effusion. Luis Juarez MD on September 27, 2017 at 21:15 Board Certified Radiologist. This report was verified electronically.
[2017-09-27 21:25] LABS: AUTOMATED NEUTROPHIL # 6.9 TH/MM3 (1.8-7.7); BASOPHIL # 0.4 TH/MM3 (0-0.2); BASOPHIL % 4.7 % (0.0-2.0); EOSINOPHIL # 0.1 TH/MM3 (0-0.4); EOSINOPHIL % 1.1 % (0.0-4.0); LYMPH % 7.7 % (9.0-44.0); LYMPHOCYTE # 0.7 TH/MM3 (1.0-4.8); MEAN CELL VOLUME 76.2 FL (80.0-100.0); MEAN CORPUSCULAR HGB CONC 31.6 % (32.0-36.0); MONO % 13.3 % (0.0-8.0); NEUT % 73.2 % (16.0-70.0); PLATELET COUNT 449 TH/MM3 (150-450); RED BLOOD COUNT 3.54 MIL/MM3 (4.50-5.90); RED CELL DISTRIBUTION WIDTH 21.5 % (11.6-17.2); WHITE BLOOD COUNT 9.3 TH/MM3 (4.0-11.0)
[2017-09-27 21:30] LABS: HEMO FLAGS AUTO DIFF
[2017-09-27 21:51] LABS: OVALOCYTES 2+ (NORMAL)
[2017-09-27 21:52] LABS: TARGET CELLS 1+ (NORMAL)
[2017-09-27 21:53] LABS: PLATELET ESTIMATE SMEAR NORMAL (NORMAL); PLATELET MORPHOLOGY NORMAL (NORMAL); SCAN/DIFF AUTO DIFF CONFIRMED
[2017-09-27 22:00] LABS: ALKALINE PHOSPHATASE 183 U/L (45-117); ALT (GPT) 741 U/L (12-78); ANION GAP 12 MEQ/L (5-15); AST (GOT) 795 U/L (15-37); BICARBONATE 28.6 MEQ/L (21.0-32.0); BLOOD UREA NITROGEN 117 MG/DL (7-18); CHLORIDE 83 MEQ/L (98-107); GLOMERULAR FILTRATION RATE 26 ML/MIN (>89); POTASSIUM 4.6 MEQ/L (3.5-5.1); TOTAL BILIRUBIN ADULT 1.1 MG/DL (0.2-1.0)
[2017-09-27] MEDS ORDERED: PIPERACIL-TAZO 4.5 GM PREMIX 100 ML IV ONE (22:00)
[2017-09-27 22:01] LABS: SODIUM (NA) 124 MEQ/L (136-145)
[2017-09-27 22:11] LABS: APTT (PATIENT) 30.6 SEC (24.3-30.1); INTERNATIONAL NORMALIZED RATIO 1.8 RATIO; PROTHROMBIN TIME - PATIENT 20.3 SEC (9.8-11.6)
--- NOTE | 2017-09-27 22:41 | RADRPT ---
EXAM DATE/TIME: 09/27/2017 22:12 [facility] COMPARISON: No previous studies available for comparison. INDICATIONS : Weakness. Abdomen pain. ORAL CONTRAST: No oral contrast ingested. RADIATION DOSE: 18.18 CTDIvol (mGy) MEDICAL HISTORY : Renal insufficiency, chronic. Diabetes mellitus type 2. Cardiovascular diseaseGI bleed. SURGICAL HISTORY : Hernia repair. ENCOUNTER: Initial ACUITY: 3 days PAIN SCALE: 2/10 LOCATION: Bilateral lower quadrant upper quadrant TECHNIQUE: Volumetric scanning of the abdomen and pelvis was performed. Using automated exposure control and ad justment of the mA and/or kV according to patient size, radiation dose was kept as low as reasonably achievable to obtain optimal diagnostic quality images. DICOM format image data is available electro nically for review and comparison. FINDINGS: Small liver, potentially cirrhotic. There is moderate ascites, mostly perihepatic and perisplenic. No organized fluid. Noncontrast appearance of the spleen, pancreas, adrenal glands and kidneys within normal limits. No o bstruction or acute inflammatory changes are seen at the 8 gastrointestinal tract. There is atheroscl erosis of the abdominal aorta. There is diffuse body wall edema. Bilateral lung base pleural effusions are seen, larger on the right and small on the left. There is atherosclerosis of the abdominal aorta and branch vessels. No aneurysm. CONCLUSION: 1. Ascites and body wall edema/anasarca. 2. No focal abnormality seen in the abdomen or pelvis. Potential cirrhosis. 3. Right greater than left pleural effusions. Luis Juarez MD on September 27, 2017 at 22:36 Board Certified Radiologist. This report was verified electronically.
[2017-09-27] MEDS ORDERED: PHYTONADIONE 5 MG TAB PO SCH (23:45)
[2017-09-28] VITALS (28 sets, daily range): BP systolic 90–142; BP diastolic 53–96; PULSE 89–120; RESP 11–35; TEMP 97.7–98.5; O2SAT 89–100
--- NOTE | 2017-09-28 00:24 | RADRPT ---
EXAM DATE/TIME: 09/27/2017 23:48 [place] COMPARISON: CT ABDOMEN & PELVIS W/O CONTRAST, September 27, 2017, 22:12. INDICATIONS : Acute renal failure. Elevated liver function tests. Abdominal pain. MEDICAL HISTORY : Congestive heart failure. Myocardial infarction. Hypercholesterolemia. HTN. Dyspnea. Irregular heartb eat. GI Bleed. Renal disease. Type II Diabetes. Anemia. SURGICAL HISTORY : Coronary artery stent. Cardiac cath. Hernia repair. Blood transfusions. ENCOUNTER: Initial ACUITY: 1 week PAIN SCORE: 3/10 LOCATION: Abdomen. MEASUREMENTS: LIVER: 19.2 cm length COMMON DUCT: 5 mm RIGHT KIDNEY: 12.4 x 5.5 x 5.2 cm LEFT KIDNEY: 11.3 x 4.8 x 5.6 cm SPLEEN: 12.5 cm length AORTA: 1.9cm maximal FINDINGS: LIVER: The liver is enlarged in appearance measuring up to 19.2 cm in diameter with a mildly lobular contour s. There is diffuse heterogeneity with no focal mass or ductal dilatation. There is hepatopedal blood flow in the portal vein which appears biphasic. There is a moderate amount of surrounding ascitic fl uid present. There are bilateral pleural effusions. COMMON DUCT: No intraluminal mass or stone visualized. GALLBLADDER: Normal in size and shape. The wall appears mildly thickened and there is pericholecystic fluid which may be secondary to ascites. There is no cholelithiasis. PANCREAS: The visualized portions are within normal limits. RIGHT KIDNEY: No hydronephrosis, stone or mass. LEFT KIDNEY: No hydronephrosis, stone or mass. SPLEEN: Spleen is at the upper limits of normal in size measuring up to 12.5 cm. There is no focal mass. Smal l amount of surrounding ascitic fluid. AORTA: Non aneurysmal. IVC: Within normal limits. CONCLUSION: 1. Cirrhotic appearing liver with no definite focal mass. 2. Moderate amount of ascitic fluid. 3. Bilateral pleural effusions. 4. Thickened gallbladder wall with pericholecystic fluid which may be secondary to the ascites. There is no definite cholelithiasis. 5. The spleen is at the upper limits of normal in size. Brandan Caro MD on September 28, 2017 at 0:19 Board Certified Radiologist. This report was verified electronically.
[2017-09-28 00:33] LABS: BLOOD, URINE MOD (NEG); GLUCOSE,URINE NEG (NEG); KETONE, URINE NEG (NEG); NITRITE,URINE NEG (NEG)
[2017-09-28 01:03] LABS: METHOD OF COLLECTION CATH; URINE COLOR YELLOW (YELLW/STRAW)
[2017-09-28 01:10] LABS: BACTERIA, URINE OCC /hpf; COMMENT (UR) CULTURE INDICATED; CULTURE IF INDICATED CULTURE INDICATED; GRANULAR CAST, URINE 0-2 /lpf; SQUAMOUS EPITHELIAL CELL URINE 0-3 /hpf (0-5)
[2017-09-28] MEDS: LACTULOSE SYRUP 20 GM/30 ML CUP PO SCH ×3 (01:12→20:23)
[2017-09-28] MEDS: CEFEPIME INJ 2,000 MG in SODIUM CHLORIDE 0.9% INJ 100 ML IV SCH (03:12)
[2017-09-28 03:50] LABS: ALKALINE PHOSPHATASE 165 U/L (45-117); ALT (GPT) 697 U/L (12-78); ANION GAP 12 MEQ/L (5-15); AST (GOT) 746 U/L (15-37); BICARBONATE 28.4 MEQ/L (21.0-32.0); BLOOD UREA NITROGEN 115 MG/DL (7-18); CHLORIDE 84 MEQ/L (98-107); GLOMERULAR FILTRATION RATE 25 ML/MIN (>89); MAGNESIUM 2.8 MG/DL (1.5-2.5); POTASSIUM 4.5 MEQ/L (3.5-5.1); TOTAL BILIRUBIN ADULT 1.4 MG/DL (0.2-1.0)
[2017-09-28 03:56] LABS: SODIUM (NA) 124 MEQ/L (136-145)
[2017-09-28 03:58] LABS: CKMB 8.1 NG/ML (0.5-3.6)
[2017-09-28] MEDS ORDERED: CHLORHEXIDINE GLUCONATE 2 % 1 PACK (2 CLOTHS)(extra cloths) TOPICAL PRN (06:45)
[2017-09-28] MEDS ORDERED: MISCELLANEOUS NURSING INFORMATION XX SCH (07:30)
[2017-09-28] MEDS ORDERED: CHLORHEXIDINE GLUCONATE 2 % 1 PACK (2 CLOTHS) TOP PRN (07:30)
[2017-09-28] MEDS ORDERED: GLUCAGON 1 MG/ML VIAL OTHER PRN (07:45)
[2017-09-28] MEDS ORDERED: DEXTROSE 50% IN WATER 50 ML VIAL(D50) IV PUSH PRN (07:45)
[2017-09-28] MEDS: SODIUM CHLOR 0.9% 1000 ML INJ 1,000 ML IV SCH (07:58)
[2017-09-28] MEDS ORDERED: RESP: ALBUTEROL 2.5 MG/IPRATROPIUM 0.5 MG NEB (PRN) INH (08:00)
[2017-09-28] MEDS: INSULIN NovoLIN REGULAR SUPPLEMENTAL SCALE SQ SCH ×4 (08:00→20:24)
--- NOTE | 2017-09-28 08:23 | MH ---
cc: CCList DATE OF ADMISSION: 09/27/2017 DATE OF 1940 HISTORY OF PRESENT ILLNESS The patient is a 77-year-old male with multiple comorbidities which include CHF, cardiomyopathy with an EF of 25-30%, coronary artery disease, history of upper GI bleed, cirrhosis of the liver and chronic dyslipidemia. He initially presented to [facility] ED with one week history of progressive worsening shortness of breath associated with generalized weakness. The patient also reports edema of the lower extremities. He denies any associated symptoms of chest pain, orthopnea, PND. In addition he denies any nausea or vomiting or abdominal pain. No history of cough or any constitutional symptoms. His laboratory data on arrival showed lactic acidemia with lactic acid level of 4.7, acute kidney injury with creatinine level of 2.4 and hyponatremia with a sodium level of 124. In addition, he was found to have elevate BNP at 1858 and elevated liver enzymes. In the ED the patient was given a total of 500 bolus of normal saline along with Zosyn and Protonix. He was subsequently transferred to [facility] room #508. When seen the patient is awake, alert, looks comfortable, lying in bed in no acute distress. His current blood pressure is 106/67 with a pulse of 108 and a saturation of 96% on [address] of the abdomen and pelvis was obtained last night which showed ascites, generalized anasarca, otherwise no focal abnormalities seen in the abdomen or pelvis. Ultrasound of the abdomen showed a cirrhotic-appearing liver, moderate amount of ascites. He also had a chest x-ray in the ED which showed a small right effusion. PAST MEDICAL HISTORY Significant for - 1. CHF. 2. Cardiomyopathy with EF of 25-30%. 3. History of upper GI bleed. 4. Diabetes mellitus. 5. Chronic anemia with multiple transfusions. 6. Hypertension. 7. Coronary artery disease. PAST SURGICAL HISTORY 1. Previous stent placements. 2. Previous endoscopy. 3. Previous cardiac catheterization. 4. Previous hernia repair. SOCIAL HISTORY Quit smoking in 2001, nondrinker. ALLERGIES No known drug allergies. FAMILY HISTORY Reviewed. REPORTED MEDICATIONS 1. Lasix. 2. Potassium chloride. 3. Aspirin. 4. Vitamin D3. 5. Lopressor. 6. Atorvastatin. 7. Metformin. REVIEW OF SYSTEMS As per HPI. Otherwise review of systems unremarkable. PHYSICAL EXAMINATION GENERAL: A 77-year-old male lying in bed in no acute respiratory distress. VITAL SIGNS: Afebrile with temperature of 97.8, pulse of 108-112, blood pressure 106/67, saturation 96-99% on 2 liters oxygen. HEENT: Atraumatic, normocephalic. Pupils equal, round, reactive to light and accommodation. Extraocular muscles intact. Conjunctivae pink. Nonicteric sclerae. Oral mucosa within normal limits. NECK: Supple. No JVD, adenopathy or thyromegaly. Trachea in the midline. CARDIOVASCULAR EXAM: Tachycardic. Normal S1 and S2. No murmurs, rubs, or gallops noted. PULMONARY EXAM: Bilateral equal air entry, diminished at the bases. ABDOMEN: Soft, nontender. Positive bowel sounds. EXTREMITIES: No cyanosis, clubbing. 2+ edema. NEUROLOGIC: No focal sensory deficit. LABORATORY DATA Sodium 124, potassium 4.5, chloride 28, BUN 115, creatinine 2.5, glucose 123. Lactic acid 3.6. Total bilirubin 1.4, AST 746, ALT 697, alkaline phosphatase 165. WBC 9.3, hemoglobin 8.5, hematocrit 27, platelet count 449. INR 1.8, PT 20.3, PTT 30.6. RADIOGRAPHIC STUDIES Ultrasound of the abdomen showed cirrhotic-appearing liver with moderate amount of ascites. Chest x-ray showed a small right pleural effusion. CT of the abdomen and pelvis showed ascites, no focal abnormality seen in the abdomen or pelvis. IMPRESSION 1. Dyspnea. 2. Acute renal failure. 3. Hyponatremia. 4. Lactic acidosis, trending down. 5. Elevated liver enzymes. 6. Coagulopathy. 7. Anemia. 8. Cardiomyopathy with EF of 25-30%. 9. History of upper GI bleed. 10. History of CHF/coronary artery disease. RECOMMENDATIONS 1. Monitor neuro status closely and avoid any sedatives. 2. Continue with oxygen. Maintain sats above 92%. 3. Bronchodilators in the form of DuoNeb q. 4 plus q.2 p.r.n. for shortness of breath and incentive spirometry q. 1 hour while awake. 4. The patient had echocardiogram on September 19 which showed an EF of 25-30%. 5. Serial lactic acid monitoring and gentle IV hydration. 6. Monitor renal function, I&Os and avoid nephrotoxins. 7. We will place on gentle hydration, NS at 42 mL/hour. Monitor sodium level closely. We will check serum and urine osmolality and consult nephrology service. Also will check baseline TSH level. His hyponatremia is likely secondary to CHF/cardiomyopathy. 8. Keep n.p.o. for now and continue with Protonix 40 mg daily for GI prophylaxis. 9. Monitor LFTs, coagulation profile. Continue with vitamin K 10 mg daily for three days. 10. We will proceed with ultrasound0-gluided paracentesis and we will send peritoneal fluid for culture and analysis. 11. Place on empiric antibiotics in the form of cefepime and monitor of signs of infection which include fever and WBC. Follow up on urine and blood cultures which were performed in the ED. 12. Place on sliding scale insulin with Accu-Cheks q. 4 hours for glycemic control to maintain euglycemia. 13. GI prophylaxis with Protonix 40 mg daily and DVT prophylaxis with SCDs. We will hold off an chemical anticoagulation prophylaxis for now given history of GI bleed. 14. Further recommendations will be based on hospital course. MD KJ Salinas/RIAN /7:37 AM /7:50 AM
[2017-09-28] MEDS: RESP: ALBUTEROL 2.5 MG/IPRATROPIUM 0.5 MG NEB (SCH) INH ×4 (08:25→19:43)
[2017-09-28] MEDS: PANTOPRAZOLE SODIUM 40 MG VIAL IV PUSH SCH (08:40)
[2017-09-28] MEDS: CHOLECALCIFEROL (VIT D3) 1000 UNIT TAB PO SCH ×2 (08:40→20:23)
[2017-09-28] MEDS: MULTIVITAMIN TAB PO SCH (08:40)
[2017-09-28] MEDS: DOCUSATE SODIUM 50 MG/SENNA 8.6 MG TAB PO SCH ×2 (08:41→20:23)
[2017-09-28] MEDS ORDERED: BISACODYL 10 MG SUPP RECTAL PRN (09:00)
[2017-09-28] MEDS ORDERED: SENNOSIDES 8.6 MG TAB PO PRN (09:00)
[2017-09-28] MEDS ORDERED: LACTULOSE SYRUP 20 GM/30 ML CUP PO PRN (09:00)
[2017-09-28] MEDS ORDERED: MAGNESIUM HYDROXIDE SUSP 30 ML CUP PO PRN (09:00)
[2017-09-28 09:13] LABS: AUTOMATED NEUTROPHIL # 11.7 TH/MM3 (1.8-7.7); BASOPHIL % 0.2 % (0.0-2.0); EOSINOPHIL % 0.3 % (0.0-4.0); HEMO FLAGS DIFF FINAL; LYMPH % 3.9 % (9.0-44.0); LYMPHOCYTE # 0.6 TH/MM3 (1.0-4.8); MEAN CELL VOLUME 76.7 FL (80.0-100.0); MEAN CORPUSCULAR HEMOGLOBIN 23.8 PG (27.0-34.0); MONO % 14.3 % (0.0-8.0); NEUT % 81.3 % (16.0-70.0); PLATELET COUNT 356 TH/MM3 (150-450); RED BLOOD COUNT 3.26 MIL/MM3 (4.50-5.90); RED CELL DISTRIBUTION WIDTH 22.7 % (11.6-17.2); WHITE BLOOD COUNT 14.3 TH/MM3 (4.0-11.0)
[2017-09-28 09:16] LABS: PROTHROMBIN TIME - PATIENT 20.4 SEC (9.8-11.6)
[2017-09-28] MEDS: PHYTONADIONE 5 MG/SWFI 5 ML ORAL SYR PO SCH (11:31)
--- NOTE | 2017-09-28 12:13 | PD.CONS ---
HPI Consult Requested By Reason for Consult Acute renal insufficiency. Primary Care Physician Chaka Greenwood MD History of Present Illness 77-year-old male with a history of multiple medical problems including chronic anemia apparently related to chronic GI bleeding. Records indicated source unknown however today the patient indicated that lesions were noted in the small bowel somewhat which were cauterized recently. Details not available. Patient also has a history of a severe cardiomyopathy with ejection fraction said to be only 25-30% by echocardiogram September 19, 2017. Patient sees Dr. Arguello the slate splitting supervisor. Patient denies any history of cirrhosis however imaging studies i.e. ultrasound and CT scan are both suggestive of same. Patient upsets within history of increasing lower extremity edema and abdominal distention. Imaging studies on presentation revealing ascites and pleural effusion. Patient denies using NSAIDs at home for analgesia. Uses Tylenol occasionally. No evidence of hydronephrosis on ultrasound. Patient was on metformin prior to admission. Review of Systems Constitutional: COMPLAINS OF: Fatigue, DENIES: Diaphoretic episodes, Fever, Weight gain, Weight loss, Chills, Dizziness, Change in appetite, Night Sweats Respiratory: COMPLAINS OF: Shortness of breath, DENIES: Apneas, Cough, Snoring , Wheezing, Hemoptysis, Sputum production Cardiovascular: COMPLAINS OF: Lower Extremity Edema, DENIES: Chest pain, Palpitations, Syncope, Dyspnea on Exertion, PND, Orthopnea, Claudication Gastrointestinal: DENIES: Abdominal pain, Black stools, Bloody stools, Constipation, Diarrhea, Nausea, Vomiting, Difficulty Swallowing, Anorexia Musculoskeletal: DENIES: Joint pain, Muscle aches, Stiffness, Joint Swelling, Back pain, Neck pain Past Family Social History Allergies: Coded Allergies: No Known Allergies (Verified Allergy, Unknown, 09/27/17) Past Medical History Severe cardiomyopathy with ejection fraction said to be 25-30% by echocardiogram August,. Congestive heart failure Coronary disease status post PTCA. Myocardial infarction. Diabetes mellitus type 2. Chronic anemia secondary to chronic GI bleeding with recent cauterization of lesions and small bowel by history. Imaging study suggesting cirrhosis with patient denying alcohol abuse. Viral hepatitis studies negative this admission. Past Surgical History Coronary angioplasty stenting. Reported Medications Reported Meds & Active Scripts Active Oxygen tank (Oxygen) 1 Ea Tank 2 Liter SHAKEEL.CANQubulus CONTINUOUS Oxygen Concentrator Portable Gaseous 2 L/min via Nasal Cannula Continuous For 99 months Aspirin 81 Mg Chew 81 Mg CHEW DAILY 30 Days Reported Furosemide 40 Mg Tab 40 Mg PO DAILY Klor-Con M20 (Potassium Chloride Microencaps) 20 Meq Tab 20 Meq PO DAILY One Daily (Multiple Vitamin) 1 Tab 1 Tab PO DAILY Vitamin D3 (Cholecalciferol) 1,000 Unit Tab 1,000 Units PO BID Metoprolol Tartrate 50 Mg Tab 50 Mg PO BID Atorvastatin (Atorvastatin Calcium) 40 Mg Tab 80 Mg PO HS Metformin (Metformin HCl) 500 Mg Tab 500 Mg PO BID With meals Active Ordered Medications Current Medications Sodium Chloride (NS Flush) 2 ml UNSCH PRN IVF FLUSH AFTER USING IV ACCESS; Start 09/27/17 at 21:00 Pantoprazole Sodium (Protonix Inj) 40 mg ONCE ONCE IV PUSH Last administered on 09/27/17 21:21; Start 09/27/17 at 21:00; Stop 09/27/17 at 21:01; Status DC Sodium Chloride 250 ml @ 250 mls/hr BOLUS ONCE IV Last administered on 21:21; Start 09/27/17 at 21:00; Stop 09/27/17 at 21:59; Status DC Piperacillin Sod/ Tazobactam Sod 100 ml @ 200 mls/hr ONCE ONCE IV Last administered on 09/27/17 22:08; Start 09/27/17 at 22:00; Stop 09/27/17 at 22:29 ; Status DC Sodium Chloride 250 ml @ 250 mls/hr BOLUS ONCE IV Last administered on 23:27; Start 09/27/17 at 23:30; Stop 09/28/17 at 00:29; Status DC Phytonadione (Mephyton) 10 mg DAILY PO Last administered on 09/28/17 00:08; Start 09/27/17 at 23:45; Stop 09/28/17 at 09:37; Status DC Cholecalciferol (Vitamin D3) 1,000 units BID PO Last administered on 09/28/17 08:40; Start 09/28/17 at 09:00 Multivitamins (Theragran) 1 tab DAILY PO Last administered on 09/28/17 08:40; Start 09/28/17 at 09:00 Lactulose (Lactulose Liq) 30 ml BID PO Last administered on 09/28/17 08:41; Start 09/28/17 at 00:00 Cefepime HCl 2000 mg/Sodium Chloride 100 ml @ 200 mls/hr Q24H IV Last administered on 09/28/17 03:12; Start 09/28/17 at 03:00 Miscellaneous Information Patient in critical care unit? Ass... Q361D .XX Last administered on 09/28/17 06:45; Start 09/28/17 at 06:45 Chlorhexidine Gluconate (Chlorhexidine 2% Cloth) 3 pack DAILY@04 TOPICAL ; Start 09/29/17 at 04:00; Stop 10/03/17 at 04:01 Chlorhexidine Gluconate (Chlorhexidine 2% Cloth) 3 pack UNSCH PRN TOPICAL HYGIENIC CARE; Start 09/28/17 at 06:45; Stop 10/03/17 at 06:31 Albuterol/ Ipratropium (Duoneb Neb) 1 ampule Q4HR NEB INH Last administered on 09/28/17 08:25; Start 09/28/17 at 08:00 Albuterol/ Ipratropium (Duoneb Neb) 1 ampule Q2HR NEB PRN INH WHEEZING; Start 09/28/17 at 08:00 Miscellaneous Information 1 Q361D XX ; Start 09/28/17 at 07:30; Stop 09/28/17 at 07:46; Status DC Chlorhexidine Gluconate (Chlorhexidine 2% Cloth) 3 pack Taper DAILY@04 TOP ; Start 09/29/17 at 04:00; Stop 09/29/17 at 04:00; Status DC Chlorhexidine Gluconate (Chlorhexidine 2% Cloth) 3 pack UNSCH PRN TOP HYGIENIC CARE; Start 09/28/17 at 07:30; Stop 09/28/17 at 07:46; Status DC Senna/Docusate Sodium (Mitra-Colace) 1 tab BID PO Last administered on 08:41; Start 09/28/17 at 09:00 Magnesium Hydroxide (Milk Of Magnesia Liq) 30 ml Q12HR PRN PO Mild constipation ; Start 09/28/17 at 09:00 Sennosides (Senokot) 17.2 mg Q12HR PRN PO Moderate constipation; Start at 09:00 Bisacodyl (Dulcolax Supp) 10 mg DAILY PRN RECTAL SEVERE CONSITIPATION; Start 09/28/17 at 09:00 Lactulose (Lactulose Liq) 30 ml DAILY PRN PO SEVERE CONSITIPATION; Start at 09:00 Dextrose (D50w (Vial) Inj) 50 ml UNSCH PRN IV PUSH HYPOGLYCEMIA-SEE COMMENTS; Start 09/28/17 at 07:45 Glucagon (Glucagon Inj) 1 mg UNSCH PRN OTHER HYPOGLYCEMIA-SEE COMMENTS; Start 09/28/17 at 07:45 Insulin Human Regular (NovoLIN R SUPPLEMENTAL SCALE) 1 Q4HR SQ ; Start 09/28/17 at 08:00 Pantoprazole Sodium (Protonix Inj) 40 mg Q24H IV PUSH Last administered on 09/28 08:40; Start 09/28/17 at 09:00 Sodium Chloride 1,000 ml @ 42 mls/hr [id number] IV Last administered on 07:58; Start 09/28/17 at 07:45 Phytonadione (Mephyton Liq) 10 mg DAILY PO Last administered on 09/28/17 11:31 ; Start 09/28/17 at 09:00; Stop 09/29/17 at 09:00 Family History No known family history of renal disease. Social History Denying alcohol abuse at any time. Physical Exam Vital Signs Vital Signs Date Time Temp Pulse Resp B/P (MAP) Pulse Ox O2 Delivery O2 Flow Rate FiO2 09/28/17 09:00 97.7 111 15 125/64 (84) 100 09/28/17 08:25 100 Nasal Cannula 2.00 09/28/17 08:00 97.7 106 17 113/61 (78) 99 09/28/17 07:00 113 09/28/17 06:00 106 09/28/17 05:00 09/28/17 04:57 98 16 101/53 (69) 100 Nasal Cannula 2.00 09/28/17 03:15 89 16 117/68 (84) 100 Nasal Cannula 2.00 09/28/17 01:41 97.8 92 16 108/66 (80) 100 Nasal Cannula 2.00 09/28/17 01:19 89 16 90/54 (66) 100 Nasal Cannula 2.00 09/28/17 00:58 92 16 92/54 (67) 100 Nasal Cannula 2.00 09/27/17 23:45 92 16 98/71 (80) 09/27/17 23:02 87 16 98/55 (69) 100 Nasal Cannula 2.00 09/27/17 22:29 98.2 92 16 107/66 (80) 100 Nasal Cannula 2.00 09/27/17 22:15 90 101/65 (77) 09/27/17 21:33 87 16 104/65 (78) 100 Nasal Cannula 2.00 09/27/17 21:00 98.2 92 16 103/66 (78) 100 Nasal Cannula 2.00 09/27/17 20:34 83 16 90/56 (67) 97 Nasal Cannula 2.00 09/27/17 20:34 16 97 Nasal Cannula 2.00 09/27/17 20:15 97.4 99 17 110/66 (81) 95 Physical Exam GENERAL: Patient is his somewhat thin and unkept. SKIN: Warm and dry. HEAD: Normocephalic. EYES: No scleral icterus. No injection or drainage. NECK: Supple, trachea midline. No JVD or lymphadenopathy. CARDIOVASCULAR: Regular rate and rhythm without murmurs, gallops, or rubs. RESPIRATORY: Breath sounds equal bilaterally. No accessory muscle use. GASTROINTESTINAL: Abdomen soft, non-tender, distended but nontender. MUSCULOSKELETAL: No cyanosis, or 2+ pitting edema extending to the knees bilaterally. No erythema. BACK: Nontender without obvious deformity. No CVA tenderness. Laboratory Laboratory Tests Test 09/27/17 21:00 09/27/17 23:10 09/28/17 00:20 09/28/17 03:10 White Blood Count 9.3 Red Blood Count 3.54 Hemoglobin 8.5 Hematocrit 27.0 Mean Corpuscular Volume 76.2 Mean Corpuscular Hemoglobin 24.0 Mean Corpuscular Hemoglobin Concent 31.6 Red Cell Distribution Width 21.5 Platelet Count 449 Mean Platelet Volume 8.7 Neutrophils (%) (Auto) 73.2 Lymphocytes (%) (Auto) 7.7 Monocytes (%) (Auto) 13.3 Eosinophils (%) (Auto) 1.1 Basophils (%) (Auto) 4.7 Neutrophils # (Auto) 6.9 Lymphocytes # (Auto) 0.7 Monocytes # (Auto) 1.2 Eosinophils # (Auto) 0.1 Basophils # (Auto) 0.4 CBC Comment AUTO DIFF Differential Comment AUTO DIFF CONFIRMED Platelet Estimate NORMAL Platelet Morphology Comment NORMAL Basophilic Stippling MOD Target Cells 1+ Ovalocytes 2+ Prothrombin Time 20.3 Prothromb Time International Ratio 1.8 Activated Partial Thromboplast Time 30.6 Blood Urea Nitrogen 117 115 Creatinine 2.40 2.50 Random Glucose 122 123 Total Protein 6.5 6.2 Albumin 2.9 2.9 Calcium Level 8.4 8.2 Alkaline Phosphatase 183 165 Aspartate Amino Transf (AST/SGOT) 795 746 Alanine Aminotransferase (ALT/SGPT) 741 697 Total Bilirubin 1.1 1.4 Sodium Level 124 124 Potassium Level 4.6 4.5 Chloride Level 83 84 Carbon Dioxide Level 28.6 28.4 Anion Gap 12 12 Estimat Glomerular Filtration Rate 26 25 Lactic Acid Level 4.7 5.3 3.6 Ammonia 47 24 Troponin I 0.07 0.07 B-Type Natriuretic Peptide 1858 Lipase 614 622 Acetaminophen Level 2.7 Hepatitis A IgM Antibody NEGATIVE Hepatitis B Surface Antigen NEGATIVE Hepatitis B Core IgM Antibody NEGATIVE Hepatitis C Antibody NEGATIVE Urine Collection Type CATH Urine Color YELLOW Urine Turbidity CLOUDY Urine pH 5.0 Urine Specific [place] 1.022 Urine Protein 100 Urine Glucose (UA) NEG Urine Ketones NEG Urine Occult Blood MOD Urine Nitrite NEG Urine Bilirubin NEG Urine Leukocyte Esterase NEG Urine WBC 3-5 Urine Squamous Epithelial Cells 0-3 Urine Amorphous Sediment MOD Urine Bacteria OCC Urine Granular Casts 0-2 Microscopic Urinalysis Comment CULTURE INDICATED Urine Opiates Screen NEG Urine Barbiturates Screen NEG Urine Amphetamines Screen NEG Urine Benzodiazepines Screen NEG Urine Cocaine Screen NEG Urine Cannabinoids Screen NEG Phosphorus Level 3.9 Magnesium Level 2.8 Total Creatine Kinase 388 Creatine Kinase MB 8.1 Creatine Kinase MB % 2.1 Test 09/28/17 05:40 09/28/17 08:00 09/28/17 08:27 09/28/17 11:11 Nasal Screen MRSA (PCR) MRSA DETECTED White Blood Count 14.3 Red Blood Count 3.26 Hemoglobin 7.7 Hematocrit 25.0 Mean Corpuscular Volume 76.7 Mean Corpuscular Hemoglobin 23.8 Mean Corpuscular Hemoglobin Concent 31.0 Red Cell Distribution Width 22.7 Platelet Count 356 Mean Platelet Volume 8.2 Neutrophils (%) (Auto) 81.3 Lymphocytes (%) (Auto) 3.9 Monocytes (%) (Auto) 14.3 Eosinophils (%) (Auto) 0.3 Basophils (%) (Auto) 0.2 Neutrophils # (Auto) 11.7 Lymphocytes # (Auto) 0.6 Monocytes # (Auto) 2.0 Eosinophils # (Auto) 0.0 Basophils # (Auto) 0.0 CBC Comment DIFF FINAL Differential Comment Prothrombin Time 20.4 Prothromb Time International Ratio 2.0 Thyroid Stimulating Hormone 3rd Gen 5.560 Date/Time Source Procedure Growth Status 09/27/17 21:10 Blood Peripheral Aerobic Blood Culture - Preliminary NO GROWTH IN 1 DAY Resulted 09/27/17 21:10 Blood Peripheral Anaerobic Blood Culture - Preliminary NO GROWTH IN 1 DAY Resulted 09/28/17 00:20 Urine Catheterized Urine Urine Culture Pending Received Result Diagram: 09/28/1727 09/28/17309 Imaging Last 48 hours Impressions Chest X-Ray 09/27/172045 Signed Impressions: Service Date/Time: Wednesday, September 27, 2017 21:08 - CONCLUSION: Decreased right pleural effusion, now small to moderate. Resolved left pleural effusion. Luis Juarez MD Abdomen/Pelvis CT 09/27/17 0000 Signed Impressions: Service Date/Time: Wednesday, September 27, 2017 22:12 - CONCLUSION: 1. Ascites and body wall edema/anasarca. 2. No focal abnormality seen in the abdomen or pelvis. Potential cirrhosis. 3. Right greater than left pleural effusions. Luis Juarez MD Abdomen Ultrasound 09/27/17 0000 Signed Impressions: Service Date/Time: Wednesday, September 27, 2017 23:48 - CONCLUSION: 1. Cirrhotic appearing liver with no definite focal mass. 2. Moderate amount of ascitic fluid. 3. Bilateral pleural effusions. 4. Thickened gallbladder wall with pericholecystic fluid which may be secondary to the ascites. There is no definite cholelithiasis. 5. The spleen is at the upper limits of normal in size. Brandan Caro MD Assessment and Plan Problem List: (1) Acute kidney failure ICD Codes: N17.9 - Acute kidney failure, unspecified Status: Acute Plan: Most likely secondary to cardiorenal syndrome with evidence of fluid overload and a history of severely impaired ejection fraction. Coexisting hepatorenal syndrome, as a consideration but a possibility. Medications should be adjusted for the patient's estimated GFR if clinically indicated. Avoid agents with significant potential for nephrotoxicity possible including NSAIDs for analgesia, iodine contrast agents. Gadolinium is contraindicated if the GFR is below 30. Urine and serological studies as ordered. (2) Cardiorenal syndrome with renal failure ICD Codes: I13.10 - Hypertensive heart and chronic kidney disease without heart failure, with stage 1 through stage 4 chronic kidney disease, or unspecified chronic kidney disease; N19 - Unspecified kidney failure Plan: Patient also has evidence of hypoalbuminemia. Recommend attempted diuresis with IV albumin to try and improve his volume status and cardiac status. This may help to improve his azotemia. Would also suggest that we consult the patient's slate splitting supervisor Dr. Arguello. (3) Acute on chronic diastolic CHF (congestive heart failure) ICD Codes: I50.33 - Acute on chronic diastolic (congestive) heart failure Plan: As above. (4) Hyponatremia ICD Codes: E87.1 - Hypo-osmolality and hyponatremia Status: Acute Plan: Secondary to impaired free water clearance related to cardiac decompensation as well as cirrhosis. Recommend fluid restriction. Not keen on using ADH antagonist in the setting of significant hepatic dysfunction. Problem Qualifiers (1) Acute kidney failure: Qualified Codes: N17.9 - Acute kidney failure, unspecified Jamal Glass MD Sep 28, 2017 12:12
[2017-09-28 12:33] LABS: BICARBONATE 29.1 MEQ/L (21.0-32.0); POTASSIUM 4.3 MEQ/L (3.5-5.1)
[2017-09-28 12:41] LABS: CKMB 7.6 NG/ML (0.5-3.6)
[2017-09-28] MEDS ORDERED: BUMETANIDE INJ 1 MG/4 ML VIAL IV PUSH SCH (13:00)
[2017-09-28] MEDS: ALBUMIN HUMAN 25% 12.5 GM/50 ML BAGP IV SCH (13:56)
[2017-09-28] MEDS ORDERED: FUROSEMIDE 40 MG/4 ML VIAL IV PUSH SCH (18:00)
[2017-09-28 18:28] LABS: BLOOD, URINE LARGE (NEG); GLUCOSE,URINE NEG (NEG); KETONE, URINE TRACE mg/dL (NEG); NITRITE,URINE NEG (NEG); PH, URINE 5.5 (5.0-8.5); SQUAMOUS EPITHELIAL CELL URINE 3 /hpf (0-5)
[2017-09-28 18:29] LABS: URINE COLOR LIGHT-RED (YELLW/STRAW)
--- NOTE | 2017-09-28 18:33 | EKG ---
Date Performed: 09/27/2017 Time Performed: 21:14:46 PTAGE: 77 years EKG: ATRIAL FLUTTER/FIBRILLATION RIGHT BUNDLE BRANCH BLOCK ANTEROSEPTAL MYOCARDIAL INFARCTION AB NORMAL ECG Compared to PREVIOUS TRACING , patient is now in atrial flutter. PREVIOUS TRACIN09/18/2017 18.16 DOCTOR: Martha Khan Interpretating Date/Time 09/28/2017 18:32:46
[2017-09-29] VITALS (37 sets, daily range): BP systolic 110–133; BP diastolic 52–73; PULSE 115–146; RESP 10–26; TEMP 94.2–98.4; O2SAT 83–100
[2017-09-29] MEDS: RESP: ALBUTEROL 2.5 MG/IPRATROPIUM 0.5 MG NEB (SCH) INH ×7 (00:11→23:52)
[2017-09-29] MEDS: ALBUMIN HUMAN 25% 12.5 GM/50 ML BAGP IV SCH (01:00)
[2017-09-29] MEDS: INSULIN NovoLIN REGULAR SUPPLEMENTAL SCALE SQ SCH ×6 (01:19→20:00)
[2017-09-29] MEDS: CEFEPIME INJ 2,000 MG in SODIUM CHLORIDE 0.9% INJ 100 ML IV SCH (01:19)
[2017-09-29] MEDS: CHLORHEXIDINE GLUCONATE 2 % 1 PACK (2 CLOTHS)(taper/protocol) TOPICAL SCH (01:19)
[2017-09-29] MEDS ORDERED: CHLORHEXIDINE GLUCONATE 2 % 1 PACK (2 CLOTHS) TOP SCH (04:00)
[2017-09-29 04:30] LABS: AUTOMATED NEUTROPHIL # 8.3 TH/MM3 (1.8-7.7); EOSINOPHIL # 0.1 TH/MM3 (0-0.4); EOSINOPHIL % 0.6 % (0.0-4.0); HEMATOCRIT 22.9 % (39.0-51.0); HEMO FLAGS DIFF FINAL; LYMPH % 4.1 % (9.0-44.0); LYMPHOCYTE # 0.4 TH/MM3 (1.0-4.8); MEAN CELL VOLUME 76.4 FL (80.0-100.0); MEAN CORPUSCULAR HEMOGLOBIN 24.1 PG (27.0-34.0); MEAN CORPUSCULAR HGB CONC 31.6 % (32.0-36.0); MONO % 12.5 % (0.0-8.0); NEUT % 82.8 % (16.0-70.0); PLATELET COUNT 297 TH/MM3 (150-450); RED CELL DISTRIBUTION WIDTH 22.4 % (11.6-17.2)
[2017-09-29 04:46] LABS: PROTHROMBIN TIME - PATIENT 19.8 SEC (9.8-11.6)
[2017-09-29 05:03] LABS: ALKALINE PHOSPHATASE 153 U/L (45-117); TOTAL BILIRUBIN ADULT 1.9 MG/DL (0.2-1.0)
[2017-09-29 05:27] LABS: ALT (GPT) 590 U/L (12-78); ANION GAP 13 MEQ/L (5-15); AST (GOT) 613 U/L (15-37); BICARBONATE 27.5 MEQ/L (21.0-32.0); BLOOD UREA NITROGEN 110 MG/DL (7-18); CHLORIDE 85 MEQ/L (98-107); GLOMERULAR FILTRATION RATE 25 ML/MIN (>89); SODIUM (NA) 125 MEQ/L (136-145)
[2017-09-29] MEDS: SODIUM CHLOR 0.9% 1000 ML INJ 1,000 ML IV SCH ×2 (07:34→18:34)
[2017-09-29] MEDS: MULTIVITAMIN TAB PO SCH (08:23)
[2017-09-29] MEDS: PANTOPRAZOLE SODIUM 40 MG VIAL IV PUSH SCH (08:23)
[2017-09-29] MEDS: LACTULOSE SYRUP 20 GM/30 ML CUP PO SCH ×2 (08:24→20:56)
[2017-09-29] MEDS: DOCUSATE SODIUM 50 MG/SENNA 8.6 MG TAB PO SCH ×2 (08:24→20:56)
[2017-09-29] MEDS: CHOLECALCIFEROL (VIT D3) 1000 UNIT TAB PO SCH ×2 (08:24→20:57)
[2017-09-29] MEDS: FUROSEMIDE 40 MG/4 ML VIAL IV PUSH SCH ×4 (08:49→20:57)
[2017-09-29] MEDS: PHYTONADIONE 5 MG/SWFI 5 ML ORAL SYR PO SCH (08:49)
[2017-09-29] MEDS ORDERED: diphenhydrAMINE HCL 25 MG CAP PO SCH (09:30)
[2017-09-29] MEDS ORDERED: ACETAMINOPHEN 325 MG TAB PO SCH (09:30)
--- NOTE | 2017-09-29 10:55 | HHI.NPPN ---
Subjective History of Present Illness 77-year-old male with a history of multiple medical problems including chronic anemia apparently related to chronic GI bleeding. Records indicated source unknown however today the patient indicated that lesions were noted in the small bowel somewhat which were cauterized recently. Details not available. Patient also has a history of a severe cardiomyopathy with ejection fraction said to be only 25-30% by echocardiogram September 19, 2017. Patient sees Dr. Arguello the barrel bander. Patient denies any history of cirrhosis however imaging studies i.e. ultrasound and CT scan are both suggestive of same. Patient upsets within history of increasing lower extremity edema and abdominal distention. Imaging studies on presentation revealing ascites and pleural effusion. Patient denies using NSAIDs at home for analgesia. Uses Tylenol occasionally. No evidence of hydronephrosis on ultrasound. Patient was on metformin prior to admission. Interval History Patient indicated that he was feeling somewhat better today. Review of Systems Cardiovascular Cardiac: Edema Objective Data Data Vital Signs Date Time Temp Pulse Resp B/P (MAP) Pulse Ox O2 Delivery O2 Flow Rate FiO2 09/29/17 10:00 118 19 110/57 (74) 93 09/29/17 09:00 119 14 128/72 (90) 100 09/29/17 08:00 120 18 124/63 (83) 99 09/29/17 07:00 120 09/29/17 07:00 97.8 120 13 121/60 (80) 100 09/29/17 06:00 120 13 122/70 (87) 100 09/29/17 04:45 120 11 100 09/29/17 04:30 120 15 122/70 (87) 83 09/29/17 04:30 120 15 83 09/29/17 04:15 120 17 100 09/29/17 04:15 120 17 100 09/29/17 04:00 98.4 121 18 133/60 (84) 100 09/29/17 04:00 121 18 100 09/29/17 03:45 120 22 99 09/29/17 03:45 120 22 99 09/29/17 03:30 146 20 100 09/29/17 03:30 146 20 100 09/29/17 03:15 121 16 98 09/29/17 03:15 121 16 98 09/29/17 03:00 120 16 133/60 (84) 100 09/29/17 03:00 120 16 133/60 (84) 100 09/29/17 02:45 120 23 100 09/29/17 02:45 120 23 100 09/29/17 02:30 120 13 98 09/29/17 02:30 120 13 98 09/29/17 02:15 120 13 99 09/29/17 02:15 120 13 99 09/29/17 02:00 120 13 123/58 (79) 99 09/29/17 02:00 120 13 123/58 (79) 99 09/29/17 01:45 123 26 98 09/29/17 01:45 123 26 98 09/29/17 01:30 120 22 99 09/29/17 01:30 120 22 99 09/29/17 01:15 120 17 99 09/29/17 01:15 120 17 99 09/29/17 01:00 120 24 110/52 (71) 100 09/29/17 01:00 120 24 110/52 (71) 100 09/29/17 01:00 120 24 110/52 (71) 100 09/29/17 00:45 120 23 100 09/29/17 00:45 120 23 100 09/29/17 00:30 119 20 100 09/29/17 00:30 119 20 100 09/29/17 00:15 118 19 100 09/29/17 00:15 118 19 100 09/29/17 00:00 119 11 111/58 (75) 100 09/29/17 00:00 119 11 111/58 (75) 100 09/29/17 00:00 119 11 111/58 (75) 100 09/29/17 00:00 119 11 111/58 (75) 100 09/28/17 23:45 120 35 89 09/28/17 23:30 120 18 99 09/28/17 23:15 119 15 100 09/28/17 23:00 119 09/28/17 23:00 119 17 130/83 (99) 99 09/28/17 22:00 119 23 116/57 (76) 97 09/28/17 21:00 119 13 132/62 (85) 99 09/28/17 20:00 97.7 118 22 134/66 (88) 100 09/28/17 19:43 98 Nasal Cannula 2.00 09/28/17 19:00 117 13 116/68 (84) 98 09/28/17 18:00 98.5 113 11 121/66 (84) 99 09/28/17 17:00 98.5 118 14 142/68 (92) 98 09/28/17 16:00 98.4 119 16 130/64 (86) 100 09/28/17 15:00 116 09/28/17 15:00 98.0 116 21 135/96 (109) 99 09/28/17 14:00 97.9 111 11 128/65 (86) 100 09/28/17 13:00 97.8 108 12 121/58 (79) 99 09/28/17 12:00 97.8 110 14 114/65 (81) 98 09/28/17 11:00 98.1 112 16 112/64 (80) 100 -: 09/29/17 0409 09/29/17 0409 Medication Review Current Medications Sodium Chloride (NS Flush) 2 ml UNSCH PRN IVF FLUSH AFTER USING IV ACCESS; Start 09/27/17 at 21:00 Pantoprazole Sodium (Protonix Inj) 40 mg ONCE ONCE IV PUSH Last administered on 09/27/17 21:21; Start 09/27/17 at 21:00; Stop 09/27/17 at 21:01; Status DC Sodium Chloride 250 ml @ 250 mls/hr BOLUS ONCE IV Last administered on 21:21; Start 09/27/17 at 21:00; Stop 09/27/17 at 21:59; Status DC Piperacillin Sod/ Tazobactam Sod 100 ml @ 200 mls/hr ONCE ONCE IV Last administered on 09/27/17 22:08; Start 09/27/17 at 22:00; Stop 09/27/17 at 22:29 ; Status DC Sodium Chloride 250 ml @ 250 mls/hr BOLUS ONCE IV Last administered on 23:27; Start 09/27/17 at 23:30; Stop 09/28/17 at 00:29; Status DC Phytonadione (Mephyton) 10 mg DAILY PO Last administered on 09/28/17 00:08; Start 09/27/17 at 23:45; Stop 09/28/17 at 09:37; Status DC Cholecalciferol (Vitamin D3) 1,000 units BID PO Last administered on 09/29/17 08:24; Start 09/28/17 at 09:00 Multivitamins (Theragran) 1 tab DAILY PO Last administered on 09/29/17 08:23; Start 09/28/17 at 09:00 Lactulose (Lactulose Liq) 30 ml BID PO Last administered on 09/29/17 08:24; Start 09/28/17 at 00:00 Cefepime HCl 2000 mg/Sodium Chloride 100 ml @ 200 mls/hr Q24H IV Last administered on 09/29/17 01:19; Start 09/28/17 at 03:00 Miscellaneous Information Patient in critical care unit? Ass... Q361D .XX Last administered on 09/28/17 06:45; Start 09/28/17 at 06:45 Chlorhexidine Gluconate (Chlorhexidine 2% Cloth) 3 pack DAILY@04 TOPICAL Last administered on 09/29/17 01:19; Start 09/29/17 at 04:00; Stop 10/03/17 at 04:01 Chlorhexidine Gluconate (Chlorhexidine 2% Cloth) 3 pack UNSCH PRN TOPICAL HYGIENIC CARE; Start 09/28/17 at 06:45; Stop 10/03/17 at 06:31 Albuterol/ Ipratropium (Duoneb Neb) 1 ampule Q4HR NEB INH Last administered on 09/29/17 02:52; Start 09/28/17 at 08:00 Albuterol/ Ipratropium (Duoneb Neb) 1 ampule Q2HR NEB PRN INH WHEEZING; Start 09/28/17 at 08:00 Miscellaneous Information 1 Q361D XX ; Start 09/28/17 at 07:30; Stop 09/28/17 at 07:46; Status DC Chlorhexidine Gluconate (Chlorhexidine 2% Cloth) 3 pack Taper DAILY@04 TOP ; Start 09/29/17 at 04:00; Stop 09/29/17 at 04:00; Status DC Chlorhexidine Gluconate (Chlorhexidine 2% Cloth) 3 pack UNSCH PRN TOP HYGIENIC CARE; Start 09/28/17 at 07:30; Stop 09/28/17 at 07:46; Status DC Senna/Docusate Sodium (Mitra-Colace) 1 tab BID PO Last administered on 08:41; Start 09/28/17 at 09:00 Magnesium Hydroxide (Milk Of Magnesia Liq) 30 ml Q12HR PRN PO Mild constipation ; Start 09/28/17 at 09:00 Sennosides (Senokot) 17.2 mg Q12HR PRN PO Moderate constipation; Start at 09:00 Bisacodyl (Dulcolax Supp) 10 mg DAILY PRN RECTAL SEVERE CONSITIPATION; Start 09/28/17 at 09:00 Lactulose (Lactulose Liq) 30 ml DAILY PRN PO SEVERE CONSITIPATION; Start at 09:00 Dextrose (D50w (Vial) Inj) 50 ml UNSCH PRN IV PUSH HYPOGLYCEMIA-SEE COMMENTS; Start 09/28/17 at 07:45 Glucagon (Glucagon Inj) 1 mg UNSCH PRN OTHER HYPOGLYCEMIA-SEE COMMENTS; Start 09/28/17 at 07:45 Insulin Human Regular (NovoLIN R SUPPLEMENTAL SCALE) 1 Q4HR SQ Last administered on 09/29/17 08:00; Start 09/28/17 at 08:00 Pantoprazole Sodium (Protonix Inj) 40 mg Q24H IV PUSH Last administered on 09/29 08:23; Start 09/28/17 at 09:00 Sodium Chloride 1,000 ml @ 15 mls/hr Q24H IV Last administered on 09/29/17 07 :34; Start 09/28/17 at 07:45 Phytonadione (Mephyton Liq) 10 mg DAILY PO Last administered on 09/28/17 11:31 ; Start 09/28/17 at 09:00; Stop 09/29/17 at 09:00; Status DC Bumetanide (Bumex Inj) 1 mg Q12H IV PUSH ; Start 09/28/17 at 13:00; Stop at 14:04; Status DC Albumin Human (Albumin 25% Inj) 12.5 gm Q12H IV Last administered on 09/29/17 01:00; Start 09/28/17 at 13:00 Furosemide (Lasix Inj) 40 mg BID@0900,1800 IV PUSH Last administered on 17:30; Start 09/28/17 at 18:00; Stop 09/29/17 at 08:42; Status DC Furosemide (Lasix Inj) 40 mg BID@0900,1800 IV PUSH Last administered on t 08:49; Start 09/29/17 at 09:00 Diphenhydramine HCl (Benadryl) 25 mg [employer]ENTICE PO ; Start 09/29/17 at 09:30; Stop 09/29/17 at 23:59 Acetaminophen (Tylenol) 650 mg [employer]ENTICE PO ; Start 09/29/17 at 09:30; Stop 09/29 at 23:59 Physical Exam General Appearance: Malnourished Pulmonary Resp Exam: Clear Bilaterally, Breath Sounds Equal, Decreased Bases Cardiology CV Exam: Regular, Tachycardia Gastrointestinal/Abdomen GI Exam: Soft, Non-Tender Integumentary Skin Exam: Clear, Warm, Dry Extremeties Extremities Exam: Moderate Edema (lower legs and feet.) Neurologic Neuro Exam: Alert, Awake, Moving All Extremities Psychiatric Psych Exam: Appropriate Responses Assessment/Plan Discussed Condition With: Patient Problem List: (1) Acute kidney failure ICD Codes: N17.9 - Acute kidney failure, unspecified Status: Acute Plan: Most likely secondary to cardiorenal syndrome with evidence of fluid overload and a history of severely impaired ejection fraction. Coexisting hepatorenal syndrome, as a consideration but lesser consideration at this point in time.. Medications should be adjusted for the patient's estimated GFR if clinically indicated. Avoid agents with significant potential for nephrotoxicity possible including NSAIDs for analgesia, iodine contrast agents. Gadolinium is contraindicated if the GFR is below 30. Urine and serological studies as ordered. Patient had a bone marrow performed May 12, 2017 with no apparent evidence of myeloma. (2) Cardiorenal syndrome with renal failure ICD Codes: I13.10 - Hypertensive heart and chronic kidney disease without heart failure, with stage 1 through stage 4 chronic kidney disease, or unspecified chronic kidney disease; N19 - Unspecified kidney failure Plan: I will increase albumin furosemide to every 8 hourly would repeat renal panel a.m. 24-hour urine for protein. Would also suggest that we consult the patient's barrel bander Dr. Arguello. (3) Acute on chronic diastolic CHF (congestive heart failure) ICD Codes: I50.33 - Acute on chronic diastolic (congestive) heart failure Plan: As above. (4) Hyponatremia ICD Codes: E87.1 - Hypo-osmolality and hyponatremia Status: Acute Plan: Secondary to impaired free water clearance related to cardiac decompensation as well as cirrhosis. Recommend fluid restriction. Not keen on using ADH antagonist in the setting of significant hepatic dysfunction. Problem Qualifiers (1) Acute kidney failure: Qualified Codes: N17.9 - Acute kidney failure, unspecified Jamal Glass MD Sep 29, 2017 10:55
--- NOTE | 2017-09-29 11:29 | PD.CONS ---
HPI History of Present Illness This is a 77 year old male with CHF, CAD, hx UGIB who presented with weakness, loose stool, SOB, edema, anemia. he is also c/o decreased appetite in the last 2 weeks. His hgb was 8.5 on admission which is actually close to his baseline in the last 6 months. his stool was guiac pos. 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 He reports intermittently dark tarry stool. he is unable to tell me if he is having that now, nurse reports "seedy" loose stool. He had normal EGD and colonoscopy 05/2017 and negative capsule endoscopy 01/2017. he had bone marrow bx 04/2017 as part of hem/onc w/u for anemia and it was benign. His LFTs are elevated. He denies any prior hx liver problems, ETOH, or hepatitis. Imaging shows ascites, cirrhosis. Denies n/v, grayson bleeding, significant abd pain. (Lexi Llamas) PFSH Past Medical History CHF CAD UGIB cardiomyopathy EF 25-30% cirrhosis DM chronic anemia HTN Past Surgical History stent placements cardiac cath hernia repair (Lexi Llamas) Coded Allergies: No Known Allergies (Verified Allergy, Unknown, 09/27/17) Family History noncontributory Social History denies ETOH former smoker quit 15y ago no illicit drugs (Lexi Llamas) Review of Systems Constitutional: COMPLAINS OF: Fatigue, DENIES: Fever Ears, nose, mouth, throat: DENIES: Throat pain Respiratory: DENIES: Hemoptysis Cardiovascular: DENIES: Palpitations Gastrointestinal: COMPLAINS OF: Black stools, Diarrhea, DENIES: Abdominal pain , Bloody stools, Constipation, Nausea, Vomiting, Hematemesis Genitourinary: DENIES: Hematuria Musculoskeletal: DENIES: Joint Swelling Integumentary: DENIES: Jaundice Neurologic: DENIES: Headache Psychiatric: DENIES: Confusion (Lexi Llamas) GI Exam Vitals I&O Vital Signs Date Time Temp Pulse Resp B/P (MAP) Pulse Ox O2 Delivery O2 Flow Rate FiO2 09/29/17 10:00 118 19 110/57 (74) 93 09/29/17 09:00 119 14 128/72 (90) 100 12/5/17 08:00 120 18 124/63 (83) 99 09/29/17 07:00 120 09/29/17 07:00 97.8 120 13 121/60 (80) 100 09/29/17 06:00 120 13 122/70 (87) 100 09/29/17 04:45 120 11 100 09/29/17 04:30 120 15 122/70 (87) 83 09/29/17 04:30 120 15 83 09/29/17 04:15 120 17 100 09/29/17 04:15 120 17 100 09/29/17 04:00 98.4 121 18 133/60 (84) 100 09/29/17 04:00 121 18 100 09/29/17 03:45 120 22 99 09/29/17 03:45 120 22 99 09/29/17 03:30 146 20 100 09/29/17 03:30 146 20 100 09/29/17 03:15 121 16 98 09/29/17 03:15 121 16 98 09/29/17 03:00 120 16 133/60 (84) 100 09/29/17 03:00 120 16 133/60 (84) 100 09/29/17 02:45 120 23 100 09/29/17 02:45 120 23 100 09/29/17 02:30 120 13 98 09/29/17 02:30 120 13 98 09/29/17 02:15 120 13 99 09/29/17 02:15 120 13 99 09/29/17 02:00 120 13 123/58 (79) 99 09/29/17 02:00 120 13 123/58 (79) 99 09/29/17 01:45 123 26 98 09/29/17 01:45 123 26 98 09/29/17 01:30 120 22 99 09/29/17 01:30 120 22 99 09/29/17 01:15 120 17 99 09/29/17 01:15 120 17 99 09/29/17 01:00 120 24 110/52 (71) 100 09/29/17 01:00 120 24 110/52 (71) 100 09/29/17 01:00 120 24 110/52 (71) 100 09/29/17 00:45 120 23 100 09/29/17 00:45 120 23 100 09/29/17 00:30 119 20 100 09/29/17 00:30 119 20 100 09/29/17 00:15 118 19 100 09/29/17 00:15 118 19 100 09/29/17 00:00 119 11 111/58 (75) 100 09/29/17 00:00 119 11 111/58 (75) 100 09/29/17 00:00 119 11 111/58 (75) 100 09/29/17 00:00 119 11 111/58 (75) 100 09/28/17 23:45 120 35 89 09/28/17 23:30 120 18 99 09/28/17 23:15 119 15 100 09/28/17 23:00 119 09/28/17 23:00 119 17 130/83 (99) 99 09/28/17 22:00 119 23 116/57 (76) 97 09/28/17 21:00 119 13 132/62 (85) 99 09/28/17 20:00 97.7 118 22 134/66 (88) 100 09/28/17 19:43 98 Nasal Cannula 2.00 09/28/17 19:00 117 13 116/68 (84) 98 09/28/17 18:00 98.5 113 11 121/66 (84) 99 09/28/17 17:00 98.5 118 14 142/68 (92) 98 09/28/17 16:00 98.4 119 16 130/64 (86) 100 09/28/17 15:00 116 09/28/17 15:00 98.0 116 21 135/96 (109) 99 09/28/17 14:00 97.9 111 11 128/65 (86) 100 09/28/17 13:00 97.8 108 12 121/58 (79) 99 09/28/17 12:00 97.8 110 14 114/65 (81) 98 I/O 09/28/17 09/28/17 09/28/17 09/29/17 09/29/17 09/29/17 07:00 15:00 23:00 07:00 15:00 23:00 Intake Total 350 ml 360 ml 1057 ml Output Total 250 ml 610 ml 600 ml Balance 100 ml -250 ml 457 ml Intake Oral 0 ml 360 ml 140 ml IV Total 350 ml 917 ml Output Urine Total 250 ml 360 ml 600 ml Stool Total 0 ml 250 ml # Bowel Movements 1 4 Imaging Last Impressions Chest X-Ray 09/27/[id number] Signed Impressions: Service Date/Time: Wednesday, September 27, 2017 21:08 - CONCLUSION: Decreased right pleural effusion, now small to moderate. Resolved left pleural effusion. Luis Juarez MD Abdomen/Pelvis CT 09/27/17 0000 Signed Impressions: Service Date/Time: Wednesday, September 27, 2017 22:12 - CONCLUSION: 1. Ascites and body wall edema/anasarca. 2. No focal abnormality seen in the abdomen or pelvis. Potential cirrhosis. 3. Right greater than left pleural effusions. Luis Juarez MD Abdomen Ultrasound 09/27/17 0000 Signed Impressions: Service Date/Time: Wednesday, September 27, 2017 23:48 - CONCLUSION: 1. Cirrhotic appearing liver with no definite focal mass. 2. Moderate amount of ascitic fluid. 3. Bilateral pleural effusions. 4. Thickened gallbladder wall with pericholecystic fluid which may be secondary to the ascites. There is no definite cholelithiasis. 5. The spleen is at the upper limits of normal in size. Brandan Caro MD Laboratory Test 09/28/17 11:11 09/28/17 15:30 09/29/17 04:09 Blood Urea Nitrogen 116 MG/DL 110 MG/DL Creatinine 2.47 MG/DL 2.54 MG/DL Random Glucose 126 MG/DL 155 MG/DL Calcium Level 8.3 MG/DL 8.3 MG/DL Sodium Level 124 MEQ/L 125 MEQ/L Potassium Level 4.3 MEQ/L 4.0 MEQ/L Chloride Level 85 MEQ/L 85 MEQ/L Carbon Dioxide Level 29.1 MEQ/L 27.5 MEQ/L Anion Gap 10 MEQ/L 13 MEQ/L Estimat Glomerular Filtration Rate 26 ML/MIN 25 ML/MIN Serum Osmolality 311 MOSM/KG Total Creatine Kinase 346 U/L Creatine Kinase MB 7.6 NG/ML Creatine Kinase MB % 2.2 % Troponin I 0.07 NG/ML Urine Color LIGHT-RED Urine Turbidity CLOUDY Urine pH 5.5 Urine Specific [place] 1.021 Urine Protein 100 mg/dL Urine Glucose (UA) NEG mg/dL Urine Ketones TRACE mg/dL Urine Occult Blood LARGE Urine Nitrite NEG Urine Bilirubin NEG Urine Urobilinogen LESS THAN 2.0 MG/DL Urine Leukocyte Esterase LARGE Urine RBC /hpf Urine WBC 182 /hpf Urine Squamous Epithelial Cells 3 /hpf Urine Amorphous Sediment RARE Urine Osmolality 489 MOSM/KG Urine Random Creatinine 105.9 MG/DL Urine Random Sodium LESS THAN 5 MEQ/L White Blood Count 10.0 TH/MM3 Red Blood Count 3.00 MIL/MM3 Hemoglobin 7.2 GM/DL Hematocrit 22.9 % Mean Corpuscular Volume 76.4 FL Mean Corpuscular Hemoglobin 24.1 PG Mean Corpuscular Hemoglobin Concent 31.6 % Red Cell Distribution Width 22.4 % Platelet Count 297 TH/MM3 Mean Platelet Volume 8.5 FL Neutrophils (%) (Auto) 82.8 % Lymphocytes (%) (Auto) 4.1 % Monocytes (%) (Auto) 12.5 % Eosinophils (%) (Auto) 0.6 % Basophils (%) (Auto) 0.0 % Neutrophils # (Auto) 8.3 TH/MM3 Lymphocytes # (Auto) 0.4 TH/MM3 Monocytes # (Auto) 1.3 TH/MM3 Eosinophils # (Auto) 0.1 TH/MM3 Basophils # (Auto) 0.0 TH/MM3 CBC Comment DIFF FINAL Differential Comment Prothrombin Time 19.8 SEC Prothromb Time International Ratio 2.0 RATIO Total Protein 6.4 GM/DL Albumin 3.0 GM/DL Alkaline Phosphatase 153 U/L Aspartate Amino Transf (AST/SGOT) 613 U/L Alanine Aminotransferase (ALT/SGPT) 590 U/L Total Bilirubin 1.9 MG/DL 25-Hydroxy Vitamin D Total 59.1 ng/ML Complement C3 61 MG/DL Complement C4 9 MG/DL Date/Time Source Procedure Growth Status 09/27/17 21:10 Blood Peripheral Aerobic Blood Culture - Preliminary NO GROWTH IN 2 DAYS Resulted 09/27/17 21:10 Blood Peripheral Anaerobic Blood Culture - Preliminary NO GROWTH IN 2 DAYS Resulted 09/28/17 00:20 Urine Catheterized Urine Urine Culture Pending Received Physical Examination HEENT: PERRL; normocephalic; atraumatic; no jaundice. CHEST: CTA CARDIAC: tachy ABDOMEN: Soft, mildly distended, nontender; no hepatosplenomegaly; bowel sounds are present in all four quadrants. EXTREMITIES: No clubbing, cyanosis; BLE edema SKIN: pale; no rash; no jaundice. CLINICAL ABSTRACTOR: No focal deficits; alert and oriented times three. (Muriel,Lexi S DIRECTOR CLINICAL DATA) Assessment and Plan Plan ASSESSMENT - anemia - hypochromic, microcytic. hbg 8.5 on admission and has decreased. No obvious bleeding. guiac pos stool. 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 EGD/colonoscopy 05/2017 normal. had benign BM bx d/w primary - elevated LFTs, cirrhotic liver, ascites - imaging as above. infufficient ascites for drainage. denies ETOH, hx hepatitis or liver problems. on albumin, BID lasix, lactulose could be elevated d/t congestion. cause cirrhosis unclear, hep panel neg. MELD 26, DF 38, could consider pentoxifylline. WIN pending. will get liver w/u. - coagulopathy - INR 1.8 on admission. vit k - acute renal failure - nephrology following, cardiorenal. hepato renal possibility. urine Na pending - cardiomyopathy EF 25-30%, dyspnea per CCM PLAN - a1a, ceruloplasmin, AMA, ASMA, AFP - transfuse to keep hgb >8 - monitor labs - notify GI of active bleeding - consider pentoxifylline - supportive care - further recs to follow as case unfolds This pt seen by myself and Dr Hernandez and this note is written on his behalf (Lexi Llamas) Physician Comments Seen and examined with DIRECTOR CLINICAL DATA, admitted for weakness no active bleeding reported. Has had extensive smallwood for anemia in the recent past with GI and Hematology. Transfuse as needed. Smallwood for liver cirrhosis initiated. Trental 400mg po tid. Discussed with Dr. Orellana. Thank you (Sunshine Hernandez MD) Lexi Llamas Sep 29, 2017 11:29 Sunshine Hernandez MD Sep 29, 2017 14:42
[2017-09-29] MEDS: SPIRONOLACTONE 25 MG TAB PO SCH (13:08)
[2017-09-29] MEDS: ALBUMIN 25% INJ 50 ML IV SCH ×2 (13:09→20:57)
--- NOTE | 2017-09-29 13:19 | HHI.PR ---
Addendum to Inpatient Note Addendum Reason: Corrected Documentation Additional Information Critical care progress note Patient Name: Dwight Brown JR Unit Number: [id number] Date of : 1940 Patient Status: Admitted Inpatient Attending Doctor: Tiffanie Caballero MD Subjective Subjective Remarks 77-year-old male, past medical history of chronic anemia, recent upper GI bleed and EGD at [facility] and enteroscopy visualized AVMs with cauterization, severe cardiomyopathy systolic dysfunction, cirrhosis, and coronary artery disease. He initially presented to [place] ED with one week history of progressive worsening shortness of breath associated with generalized weakness, and lower extremity edema. His laboratory data on arrival showed lactic acidemia with lactic acid level of 4.7, acute kidney injury with creatinine level of 2.4 and hyponatremia with a sodium level of 124. In addition, he was found to have elevate BNP at 1858 and elevated liver enzymes. When seen the patient is awake , alert, looks comfortable, lying in bed in no acute distress. CT of the abdomen and pelvis was obtained last night which showed ascites,generalized anasarca.Ultrasound of the abdomen showed a cirrhotic-appearing liver, moderate amount of ascites. 09/29: No events overnight. Hb 7.4, 1U PRBC ordered. Pt continues to be awake, alert, oriented, but fatigued. Pt started on clear liquid diet per request. Ultrasound yesterday revealed insufficient fluid for paracentesis. Nephrology has consulted and ordered diuresis. (Marleny Delgado MD R2) Objective Objective Vitals Vital Signs Date Time Temp Pulse Resp B/P (MAP) Pulse Ox O2 Delivery O2 Flow Rate FiO2 09/29/17 06:00 120 13 122/70 (87) 100 09/29/17 04:45 120 11 100 09/29/17 04:30 120 15 122/70 (87) 83 09/29/17 04:30 120 15 83 09/29/17 04:15 120 17 100 09/29/17 04:15 120 17 100 09/29/17 04:00 98.4 121 18 133/60 (84) 100 09/29/17 04:00 121 18 100 09/29/17 03:45 120 22 99 09/29/17 03:45 120 22 99 09/29/17 03:30 146 20 100 09/29/17 03:30 146 20 100 09/29/17 03:15 121 16 98 09/29/17 03:15 121 16 98 09/29/17 03:00 120 16 133/60 (84) 100 09/29/17 03:00 120 16 133/60 (84) 100 09/29/17 02:45 120 23 100 09/29/17 02:45 120 23 100 09/29/17 02:30 120 13 98 09/29/17 02:30 120 13 98 09/29/17 02:15 120 13 99 09/29/17 02:15 120 13 99 09/29/17 02:00 120 13 123/58 (79) 99 09/29/17 02:00 120 13 123/58 (79) 99 09/29/17 01:45 123 26 98 09/29/17 01:45 123 26 98 09/29/17 01:30 120 22 99 09/29/17 01:30 120 22 99 09/29/17 01:15 120 17 99 09/29/17 01:15 120 17 99 09/29/17 01:00 120 24 110/52 (71) 100 09/29/17 01:00 120 24 110/52 (71) 100 09/29/17 01:00 120 24 110/52 (71) 100 09/29/17 00:45 120 23 100 09/29/17 00:45 120 23 100 09/29/17 00:30 119 20 100 09/29/17 00:30 119 20 100 09/29/17 00:15 118 19 100 09/29/17 00:15 118 19 100 09/29/17 00:00 119 11 111/58 (75) 100 09/29/17 00:00 119 11 111/58 (75) 100 09/29/17 00:00 119 11 111/58 (75) 100 09/29/17 00:00 119 11 111/58 (75) 100 09/28/17 23:45 120 35 89 09/28/17 23:30 120 18 99 09/28/17 23:15 119 15 100 09/28/17 23:00 119 09/28/17 23:00 119 17 130/83 (99) 99 09/28/17 22:00 119 23 116/57 (76) 97 09/28/17 21:00 119 13 132/62 (85) 99 09/28/17 20:00 97.7 118 22 134/66 (88) 100 09/28/17 19:43 98 Nasal Cannula 2.00 09/28/17 19:00 117 13 116/68 (84) 98 09/28/17 18:00 98.5 113 11 121/66 (84) 99 09/28/17 17:00 98.5 118 14 142/68 (92) 98 09/28/17 16:00 98.4 119 16 130/64 (86) 100 09/28/17 15:00 116 09/28/17 15:00 98.0 116 21 135/96 (109) 99 09/28/17 14:00 97.9 111 11 128/65 (86) 100 09/28/17 13:00 97.8 108 12 121/58 (79) 99 09/28/17 12:00 97.8 110 14 114/65 (81) 98 09/28/17 11:00 98.1 112 16 112/64 (80) 100 09/28/17 10:00 97.7 112 14 110/63 (79) 97 I/O 09/28/17 09/28/17 09/28/17 09/29/17 09/29/17 09/29/17 07:00 15:00 23:00 07:00 15:00 23:00 Intake Total 350 ml 360 ml 1057 ml Output Total 250 ml 610 ml 600 ml Balance 100 ml -250 ml 457 ml Intake Oral 0 ml 360 ml 140 ml IV Total 350 ml 917 ml Output Urine Total 250 ml 360 ml 600 ml Stool Total 0 ml 250 ml # Bowel Movements 1 4 (Marleny Delgado MD R2) Result Diagram: 09/29/179 09/29/17408 Other Results Laboratory Tests Test 09/28/17 15:30 09/29/17 04:09 Urine Color LIGHT-RED Urine Turbidity CLOUDY Urine pH 5.5 Urine Specific [place] 1.021 Urine Protein 100 mg/dL Urine Glucose (UA) NEG mg/dL Urine Ketones TRACE mg/dL Urine Occult Blood LARGE Urine Nitrite NEG Urine Bilirubin NEG Urine Urobilinogen LESS THAN 2.0 MG/DL Urine Leukocyte Esterase LARGE Urine RBC /hpf Urine WBC 182 /hpf Urine Squamous Epithelial Cells 3 /hpf Urine Amorphous Sediment RARE Urine Osmolality 489 MOSM/KG Urine Random Creatinine 105.9 MG/DL Urine Random Sodium LESS THAN 5 MEQ/L White Blood Count 10.0 TH/MM3 Red Blood Count 3.00 MIL/MM3 Hemoglobin 7.2 GM/DL Hematocrit 22.9 % Mean Corpuscular Volume 76.4 FL Mean Corpuscular Hemoglobin 24.1 PG Mean Corpuscular Hemoglobin Concent 31.6 % Red Cell Distribution Width 22.4 % Platelet Count 297 TH/MM3 Mean Platelet Volume 8.5 FL Neutrophils (%) (Auto) 82.8 % Lymphocytes (%) (Auto) 4.1 % Monocytes (%) (Auto) 12.5 % Eosinophils (%) (Auto) 0.6 % Basophils (%) (Auto) 0.0 % Neutrophils # (Auto) 8.3 TH/MM3 Lymphocytes # (Auto) 0.4 TH/MM3 Monocytes # (Auto) 1.3 TH/MM3 Eosinophils # (Auto) 0.1 TH/MM3 Basophils # (Auto) 0.0 TH/MM3 CBC Comment DIFF FINAL Differential Comment Prothrombin Time 19.8 SEC Prothromb Time International Ratio 2.0 RATIO Blood Urea Nitrogen 110 MG/DL Creatinine 2.54 MG/DL Random Glucose 155 MG/DL Total Protein 6.4 GM/DL Albumin 3.0 GM/DL Calcium Level 8.3 MG/DL Alkaline Phosphatase 153 U/L Aspartate Amino Transf (AST/SGOT) 613 U/L Alanine Aminotransferase (ALT/SGPT) 590 U/L Total Bilirubin 1.9 MG/DL Sodium Level 125 MEQ/L Potassium Level 4.0 MEQ/L Chloride Level 85 MEQ/L Carbon Dioxide Level 27.5 MEQ/L Anion Gap 13 MEQ/L Estimat Glomerular Filtration Rate 25 ML/MIN 25-Hydroxy Vitamin D Total 59.1 ng/ML Complement C3 61 MG/DL Complement C4 9 MG/DL Imaging Last 48 hours Impressions Chest X-Ray 09/27/172045 Signed Impressions: Service Date/Time: Wednesday, September 27, 2017 21:08 - CONCLUSION: Decreased right pleural effusion, now small to moderate. Resolved left pleural effusion. Luis Juarez MD Objective Remarks GENERAL: 77 y/o M, no acute distress, lying in bed with catheter and bed hamm SKIN: Warm and dry. HEAD: Normocephalic. EYES: No scleral icterus. No injection or drainage. NECK: Supple, trachea midline. No JVD or lymphadenopathy. CARDIOVASCULAR: 2/6 systolic murmur and left lower sternal border, Regular rate and rhythm without murmurs, gallops, or rubs. RESPIRATORY: Breath sounds equal bilaterally, coarse breath sounds, crackles at bases. No accessory muscle use. GASTROINTESTINAL: Abdomen soft, non-tender, nondistended. No spider angiomata, mild ascites MUSCULOSKELETAL: No cyanosis. 1+ edema of lower extremities bilaterally, dorsalis pedis pulse cannot be palpated, no erythema BACK: Nontender without obvious deformity. No CVA tenderness. NEURO: AAOx3, motor function and sensory function intact / (Marleny Delgado MD R2) Plan A/P Assessment and Plan 77-year-old male with: acute on chronic anemia, recent upper GI bleed s/p AVM cauterization in the duodenum severe cardiomyopathy systolic dysfunction coronary artery disease presented with fatigue and SOB and found to have anemia, hyponatremia, lactic acidosis, and cirrhosis. Plan: Neuro: AAOx3, Continue neuro checks per ICU protocol CV: Monitor HR and BP, keep MAP >65mmHg Continue Furosemide 40mg BID and monitor for hypotension Hold home med Lopressor Add spironolactone in view of liver cirrhosis noted on imaging Pulm: Cont with Nasal cannula 2.00L/min for O2 Sat >92% GI/liver: clear liquid diet, advance as tolerated. LFTs 613/590 CT liver: ascites, body wall edema/anasarca, no focal abnormality, potential cirrhosis U/S liver: cirrhotic appearing liver with no mass, moderate ascites, thickened gallbladder wall with perichol fluid - due to ascites? GI consulted for cirrhosis and dropping Hb with hx of recent upper GI bleed for further eval - insufficient fluid for paracentesis at this time f/u LFTs, coags Cont Protonix 40mg PO daily Cont Lactulose 30ml BID Add Spironolactone 25mg for cirrhosis (09/29) - f/u K+ closely : Creat 2.54, likely cardiorenal syndrome, monitor renal function, nephrology consulted Cont diuresis with lasix 40 IV BID Added spironolactone f/u nephro recs f/u renal labs, UA, Ucx ID: Monitor for signs of infxn (temp & WBC), WBC 14 on 09/28 --> WBC 10 on 09/29, lactic acid trending down Did not have sufficient ascites fluid for pericentesis to r/o SBP at this time Cont emperical abx Cefepime 2g q24h (09/28) blood cx NGTD f/u urine cx Endocrine: SSI (Novalin Regular) for glycemic control as needed cont accu-checks q4h Heme: Hb 7.2 (Hb 8.5 on admission), transfuse 1U PRBC f/u post-transfusion CBC Electrolytes: hyponatremia- likely due to CHF, diuretics f/u Na closely, f/u urine osmolaltiy f/u nephro recs TSH 5.6 (H) Prophylaxis: Cont Protonix GI prophylaxis No DVT prophylaxis at this time, recent GI bleed Cont SCDs (Marleny Delgado MD R2) Assessment and Plan Patient seen and examined earlier. Discussed findings assessment and plan with Dr. García as outlined above. Agree with above plan of care. Patient will be transferred to hospitalist service and transferred out of ICU for further medical management. Discussed with GI - Dr Claudio who was consulted for history of recent GI bleed and new diagnosis of cirrhosis. Being transfused 1 unit PRBCs today. (Hakeem Orellana MD) Hakeem Orellana MD Sep 29, 2017 13:19
[2017-09-29] MEDS: METOPROLOL TARTRATE 50 MG TAB PO SCH (20:57)
[2017-09-30] VITALS (8 sets, daily range): BP systolic 81–113; BP diastolic 51–71; PULSE 97–113; RESP 16–17; TEMP 95.4–97.9; O2SAT 93–96
[2017-09-30] MEDS: RESP: ALBUTEROL 2.5 MG/IPRATROPIUM 0.5 MG NEB (SCH) INH ×5 (03:15→20:31)
[2017-09-30] MEDS: CEFEPIME INJ 2,000 MG in SODIUM CHLORIDE 0.9% INJ 100 ML IV SCH (03:55)
[2017-09-30] MEDS: CHLORHEXIDINE GLUCONATE 2 % 1 PACK (2 CLOTHS)(taper/protocol) TOPICAL SCH (04:00)
[2017-09-30] MEDS: INSULIN NovoLIN REGULAR SUPPLEMENTAL SCALE SQ SCH ×3 (04:00→08:00)
[2017-09-30] MEDS: FUROSEMIDE 40 MG/4 ML VIAL IV PUSH SCH ×3 (04:59→13:24)
[2017-09-30] MEDS: ALBUMIN 25% INJ 50 ML IV SCH ×2 (05:00→13:23)
[2017-09-30] MEDS: SPIRONOLACTONE 25 MG TAB PO SCH (08:43)
[2017-09-30] MEDS: MULTIVITAMIN TAB PO SCH (08:43)
[2017-09-30] MEDS: CHOLECALCIFEROL (VIT D3) 1000 UNIT TAB PO SCH ×2 (08:43→21:15)
[2017-09-30] MEDS: DOCUSATE SODIUM 50 MG/SENNA 8.6 MG TAB PO SCH ×2 (08:43→21:00)
[2017-09-30] MEDS: PANTOPRAZOLE SOD 40 MG DELAYED RELEASE TAB PO SCH (08:44)
[2017-09-30] MEDS: METOPROLOL TARTRATE 50 MG TAB PO SCH ×2 (08:44→21:14)
[2017-09-30] MEDS: LACTULOSE SYRUP 20 GM/30 ML CUP PO SCH ×2 (08:44→21:15)
[2017-09-30] MEDS ORDERED: PILL SPLITTER OTHER PRN (09:00)
[2017-09-30] MEDS: CYCLOBENZAPRINE HCL 10 MG TAB PO PRN (10:37)
--- NOTE | 2017-09-30 10:53 | MB ---
cc: JOVANNY RIZVI M.D. DATE OF CONSULTATION: 09/30/2017 REASON FOR CONSULTATION Evaluation of CHF. HISTORY OF PRESENT ILLNESS Dwight Brown is a 77-year-old man, patient Dr. Shane Oliveira'merly. He came to the hospital with shortness of breath, weakness and severe edema. He is on IV diuretics and he is not dropping weight. In fact his I's and O's show that he has gained weight. He has severely impaired LV function. Ejection fraction on his echo of September 19 was reported as 25-30% on the basis of a previous anteroapical infarct. He had an anteroapical infarct in 2004 and had drug-eluting stent placement in the LAD. The patient denies any chest pain and he has had lower extremity edema, abdominal swelling and shortness of breath that is worse with lying down. His course is complicated also by cirrhosis of the liver, renal failure and new onset atrial fibrillation that was seen on the admitting EKG. His heart rate has been up and he was started on metoprolol yesterday. MEDICATIONS His current medications include: 1. Protonix. 2. Metoprolol 50 mg b.i.d. 3. Lasix 40 mg IV q.8h. 4. Human albumin. 5. Spirolactone 25 mg daily. ALLERGIES HE HAS HAD A PRIOR JALYN INHIBITOR INDUCED COUGH. PAST SURGICAL HISTORY Right carotid endarterectomy. SOCIAL HISTORY He is an ex-smoker, quit many years ago. PAST MEDICAL HISTORY 1. Ischemic cardiomyopathy. 2. Upper GI bleed. 3. Cirrhosis of the liver. 4. Dyslipidemia. 5. Anasarca. 6. Ascites. 7. Diabetes. 8. Jejunal and duodenal AVMs. PHYSICAL EXAMINATION GENERAL: A well-developed white male who does not appear to be in any acute distress. VITAL SIGNS: Vital signs are charted. His heart rate is intermittently elevated. HEENT: Exam is unremarkable. NECK: No jugular venous distention. There is a right carotid endarterectomy scar. There are no carotid bruits. CHEST: Diminished breath sounds at the bases. CARDIAC: PMI is displaced to the anterior axillary line. Normal first and second heart sounds, normal second heart sound. Irregular rate and rhythm. An S3 gallop is present. There is also a 1/6 systolic murmur. ABDOMEN: Distended and somewhat tense, cannot appreciate organomegaly. EXTREMITIES: Marked lower extremity edema up to the knees with a very tight edema in his lower legs. LABORATORY Severely abnormal BUN and creatinine at 110 at 25. Sodium level is only 125. Hematocrit is only 22.9. Troponin is nonspecific at 0.07. AST is elevated at 613, ALT elevated at 590. EKG EKG from September 27 showed atrial fibrillation/flutter with a heart rate of 90. IMPRESSION Severely ill 77-year-old man who has multiorgan dysfunction. He has a severe ischemic cardiomyopathy, severely impaired renal function. He has severe cirrhosis of the liver. Appears to have severe kidney disease. He is fluid overloaded and is not responding well to diuretics. He is in atrial fibrillation which is new from August. RECOMMENDATIONS Agree with the fact that he has been placed on metoprolol. I have ordered cardiac telemetry. Blood pressure is somewhat low so I do not think I can go up on the dose at this point. Regarding his fluid overload and heart failure he already has diuretics ordered and he is not responding well to them and this is a very poor prognostic sign. He may at some point need hemodialysis and he is being followed actively by nephrology. Regarding adding in a loading agent to help with the low ejection fraction, right his BUN and creatinine preclude the use of an JALYN or ARB. We could consider hydralazine and Isordil but blood pressure is not high enough to support the use of these medicines at this time. Prognosis is guarded to poor. Further therapy to be determined. MD LAURA Redding/MERCEDES /10:07 AM /10:14 AM
[2017-09-30 11:19] LABS: AUTOMATED NEUTROPHIL # 10.8 TH/MM3 (1.8-7.7); BASOPHIL % 0.1 % (0.0-2.0); EOSINOPHIL # 0.1 TH/MM3 (0-0.4); EOSINOPHIL % 0.8 % (0.0-4.0); HEMATOCRIT 28.9 % (39.0-51.0); LYMPH % 4.9 % (9.0-44.0); LYMPHOCYTE # 0.6 TH/MM3 (1.0-4.8); MEAN CELL VOLUME 78.2 FL (80.0-100.0); MEAN CORPUSCULAR HEMOGLOBIN 24.6 PG (27.0-34.0); MEAN CORPUSCULAR HGB CONC 31.5 % (32.0-36.0); MONO % 9.5 % (0.0-8.0); NEUT % 84.7 % (16.0-70.0); PLATELET COUNT 262 TH/MM3 (150-450); RED CELL DISTRIBUTION WIDTH 22.7 % (11.6-17.2); WHITE BLOOD COUNT 12.8 TH/MM3 (4.0-11.0)
[2017-09-30 11:25] LABS: HEMO FLAGS AUTO DIFF
[2017-09-30 12:00] LABS: POTASSIUM 3.8 MEQ/L (3.5-5.1)
[2017-09-30 12:20] LABS: ACANTHOCYTES OCC (NORMAL); OVALOCYTES 1+ (NORMAL); SCAN/DIFF AUTO DIFF CONFIRMED; TEARDROP RBCS 1+ (NORMAL)
--- NOTE | 2017-09-30 13:54 | PD.CONS ---
History of Present Illness Service Infectious disease Consult Requested By Dr Mcginnis Reason for Consult Evaluate patient with positive blood culture Primary Care Physician Chaka Greenwood MD Diagnoses: History of Present Illness Patient seen and examined. Records reviewed. Patient is a 77-year-old male, presented to the hospital complaining of one- week history of progressive worsening of shortness of breath as well as generalized weakness. He also noted bilateral lower extremity swelling. He has not had any respiratory complaint as far as congestion, cough, or chest pain. He has not had any nausea or vomiting, or any abdominal pain. On presentation he had elevated creatinine in elevated lactic acid. His B natruretic peptide was elevated at 1858 and his LFTs were elevated. 1 out of the 2 blood culture from the emergency room is growing staph epidermidis. Patient's initial imaging study showed bilateral pleural effusion, as well as ascites. Subsequent evaluation showed improvement in his effusions. The amount of ascites is probably not enough to do a paracentesis. Imaging studies also showed some suggestion of liver cirrhosis. Patient has not been febrile. Infectious disease consultation has been requested to evaluate the patient. Review of Systems Constitutional: COMPLAINS OF: Fatigue, DENIES: Fever, Chills, Night Sweats Eyes: DENIES: Eye pain Ears, nose, mouth, throat: DENIES: Nasal discharge, Oral lesions, Throat pain, Hoarseness, Sinus Pain Respiratory: COMPLAINS OF: Shortness of breath, DENIES: Cough, Sputum production Cardiovascular: COMPLAINS OF: Lower Extremity Edema, DENIES: Chest pain Gastrointestinal: DENIES: Abdominal pain, Diarrhea, Nausea, Vomiting, Difficulty Swallowing Genitourinary: DENIES: Hematuria, Dysuria, Nocturia Musculoskeletal: DENIES: Joint pain, Back pain Integumentary: DENIES: Abnormal pigmentation, Rash Neurologic: DENIES: Headache, Localized weakness Psychiatric: DENIES: Hallucinations Past Family Social History Allergies: Coded Allergies: No Known Allergies (Verified Allergy, Unknown, 09/27/17) Past Medical History Severe cardiomyopathy with ejection fraction said to be 25-30% by echocardiogram August,. Congestive heart failure Coronary disease status post PTCA. Myocardial infarction. Diabetes mellitus type 2. Chronic anemia secondary to chronic GI bleeding with recent cauterization of lesions and small bowel by history. Imaging study suggesting cirrhosis with patient denying alcohol abuse. Viral hepatitis studies negative this admission. Past Surgical History Cardiac catheter with stenting Active Ordered Medications Current Medications Medications (Trade) Dose Ordered Sig/Kell Route Start Time Stop Time Status Last Admin (NS Flush) 2 ml UNSCH PRN IVF 09/27/17 21:00 (Vitamin D3) 1,000 units BID PO 09/28/17 09:00 09/30/17 08:43 (Theragran) 1 tab DAILY PO 09/28/17 09:00 09/30/17 08:43 (Lactulose Liq) 30 ml BID PO 09/28/17 00:00 09/30/17 08:44 Cefepime HCl 2000 mg/Sodium Chloride 100 ml @ 200 mls/hr Q24H IV 09/28/17 03:00 09/30/17 03:55 Miscellaneous Information Patient in critical care unit? Ass... [id number] .XX 09/28/17 06:45 09/28/17 06:45 (Chlorhexidine 2% Cloth) 3 pack DAILY@04 TOPICAL 09/29/17 04:00 10/03/17 04:01 09/29/17 01:19 (Chlorhexidine 2% Cloth) 3 pack UNSCH PRN TOPICAL 09/28/17 06:45 10/03/17 06:31 (Duoneb Neb) 1 ampule Q4HR NEB INH 09/28/17 08:00 09/29/17 02:52 (Duoneb Neb) 1 ampule Q2HR NEB PRN INH 09/28/17 08:00 (Mitra-Colace) 1 tab BID PO 09/28/17 09:00 09/28/17 08:41 (Milk Of Magnesia Liq) 30 ml Q12HR PRN PO 09/28/17 09:00 (Senokot) 17.2 mg Q12HR PRN PO 09/28/17 09:00 (Dulcolax Supp) 10 mg DAILY PRN RECTAL 09/28/17 09:00 (Lactulose Liq) 30 ml DAILY PRN PO 09/28/17 09:00 (D50w (Vial) Inj) 50 ml UNSCH PRN IV PUSH 09/28/17 07:45 (Glucagon Inj) 1 mg UNSCH PRN OTHER 09/28/17 07:45 (Lasix Inj) 40 mg Q8HR IV PUSH 09/29/17 14:00 09/30/17 13:24 Albumin Human 50 ml @ 60 mls/hr Q8HR IV 09/29/17 14:00 09/30/17 13:23 (Aldactone) 25 mg DAILY PO 09/29/17 12:00 09/30/17 08:43 (Protonix) 40 mg DAILY PO 09/30/17 09:00 09/30/17 08:44 (Lopressor) 50 mg BID PO 09/29/17 21:00 09/30/17 08:44 (Flexeril) 5 mg Q8H PRN PO 09/30/17 08:45 09/30/17 10:37 (Pill Splitter) 1 ea UNSCH PRN OTHER 09/30/17 09:00 Family History Noncontributory Social History Ex-smoker Denies alcohol abuse Denies illicit drugs Physical Exam Vital Signs Vital Signs Date Time Temp Pulse Resp B/P (MAP) Pulse Ox O2 Delivery O2 Flow Rate FiO2 09/30/17 12:00 97.9 97 16 99/59 (72) 93 09/30/17 08:17 93 Nasal Cannula 2.00 09/30/17 08:00 97.7 102 16 102/71 (81) 95 09/30/17 04:00 95.9 113 17 81/51 (61) 96 105/64 (78) 09/30/17 00:00 95.4 108 17 104/65 (78) 95 09/29/17 20:13 94 Nasal Cannula 2.00 09/29/17 20:00 94.2 115 18 122/66 (84) 97 09/29/17 17:56 98.1 119 16 120/73 (89) 94 09/29/17 16:00 120 15 118/62 (80) 99 09/29/17 15:00 120 09/29/17 15:00 97.7 120 12 120/57 (78) 98 09/29/17 14:35 97.7 118 10 118/59 99 09/29/17 14:00 118 12 114/55 (74) 100 Physical Exam GENERAL: Patient is a well-nourished, well-developed male, awake and alert, not in respiratory distress. SKIN: Cool and dry. No generalized rash, no ecchymoses and no evidence of embolic lesions. HEAD: Atraumatic. Normocephalic. No temporal wasting, or tenderness. EYES: Ceres conjunctiva. No petechia or hemorrhage. Pupils equal, round and reactive to light. Extraocular movements full and intact. No scleral icterus. No injection or drainage. EARS, NOSE AND THROAT: Nose without bleeding or purulent nasal discharge. No sinus tenderness. Mucous membranes pink and moist. No oral lesions noted. No exudate. No oral thrush. NECK: Trachea midline. Supple and not tender, no meningeal signs CARDIOVASCULAR: Regular rate and rhythm. No murmurs, rubs or gallops heard RESPIRATORY: Clear to auscultation. Breath sounds equal bilaterally. No rales , wheezing or rhonchi. Decreased at the bases. ABDOMEN: Soft, non-tender, mildly distended. Bowel sounds present and normoactive. No guarding. No rebound. No organomegaly. EXTREMITIES: No clubbing, cyanosis. Has bilateral pedal edema. No joint effusion, has good ROM. No calf tenderness. NEUROLOGICAL: Awake and alert. Cranial nerves grossly intact. Motor grossly within normal limits. PSYCHIATRIC: Normal affect, calm and cooperative. LINE: No evidence of infection Laboratory Laboratory Tests Test 09/30/17 09:52 White Blood Count 12.8 Red Blood Count 3.70 Hemoglobin 9.1 Hematocrit 28.9 Mean Corpuscular Volume 78.2 Mean Corpuscular Hemoglobin 24.6 Mean Corpuscular Hemoglobin Concent 31.5 Red Cell Distribution Width 22.7 Platelet Count 262 Mean Platelet Volume 9.0 Neutrophils (%) (Auto) 84.7 Lymphocytes (%) (Auto) 4.9 Monocytes (%) (Auto) 9.5 Eosinophils (%) (Auto) 0.8 Basophils (%) (Auto) 0.1 Neutrophils # (Auto) 10.8 Lymphocytes # (Auto) 0.6 Monocytes # (Auto) 1.2 Eosinophils # (Auto) 0.1 Basophils # (Auto) 0.0 CBC Comment AUTO DIFF Differential Comment AUTO DIFF CONFIRMED Tear Drop Cells 1+ Ovalocytes 1+ Acanthocytes OCC Blood Urea Nitrogen 105 Creatinine 2.62 Random Glucose 86 Albumin 3.3 Calcium Level 8.8 Phosphorus Level 4.6 Sodium Level 122 Potassium Level 3.8 Chloride Level 83 Carbon Dioxide Level 26.0 Anion Gap 13 Estimat Glomerular Filtration Rate 24 Tumor Marker Alpha Fetoprotein 3.5 Date/Time Source Procedure Growth Status 09/27/17 21:10 Blood Peripheral Aerobic Blood Culture - Preliminary NO GROWTH IN 3 DAYS Resulted 09/27/17 21:10 Blood Peripheral Anaerobic Blood Culture - Preliminary NO GROWTH IN 3 DAYS Resulted 09/28/17 00:20 Urine Catheterized Urine Urine Culture - Final NO GROWTH IN 48 HOURS. Complete Result Diagram: 09/30/17 0952 09/30/17 0952 Imaging RADIOLOGY STUDIES/FILMS REVIEWED Chest X-Ray 09/27/172045 Signed Impressions: Service Date/Time: Wednesday, September 27, 2017 21:08 - CONCLUSION: Decreased right pleural effusion, now small to moderate. Resolved left pleural effusion. Luis Juarez MD Abdomen/Pelvis CT 09/27/17 0000 Signed Impressions: Service Date/Time: Wednesday, September 27, 2017 22:12 - CONCLUSION: 1. Ascites and body wall edema/anasarca. 2. No focal abnormality seen in the abdomen or pelvis. Potential cirrhosis. 3. Right greater than left pleural effusions. Luis Juarez MD Abdomen Ultrasound 09/27/17 0000 Signed Impressions: Service Date/Time: Wednesday, September 27, 2017 23:48 - CONCLUSION: 1. Cirrhotic appearing liver with no definite focal mass. 2. Moderate amount of ascitic fluid. 3. Bilateral pleural effusions. 4. Thickened gallbladder wall with pericholecystic fluid which may be secondary to the ascites. There is no definite cholelithiasis. 5. The spleen is at the upper limits of normal in size. Brandan Caro MD Assessment and Plan Assessment and Plan IMPRESSION One (+) BC with Staph epi on admission, C/W contamination (+) UA, no symptoms, C/S negative Cirrhosis on imaging studies Renal insufficiency RECOMMENDATION Stop Cefepime Repeat UA and C/S No need to Rx one (+) BC Will follow new C/S and make further recommendations Monitor progress I will follow along with you Thank you for this consultation Discussed Condition With Explained plan to the patient Sera Srivastava MD Sep 30, 2017 13:54
[2017-09-30 15:47] LABS: URINE TOTAL PROTEIN TIMED 58.3 MG/DL
--- NOTE | 2017-09-30 16:01 | HHI.NPPN ---
Subjective History of Present Illness 77-year-old male with a history of multiple medical problems including chronic anemia apparently related to chronic GI bleeding. Records indicated source unknown however today the patient indicated that lesions were noted in the small bowel somewhat which were cauterized recently. Details not available. Patient also has a history of a severe cardiomyopathy with ejection fraction said to be only 25-30% by echocardiogram September 19, 2017. Patient sees Dr. Arguello the career specialist. Patient denies any history of cirrhosis however imaging studies i.e. ultrasound and CT scan are both suggestive of same. Patient upsets within history of increasing lower extremity edema and abdominal distention. Imaging studies on presentation revealing ascites and pleural effusion. Patient denies using NSAIDs at home for analgesia. Uses Tylenol occasionally. No evidence of hydronephrosis on ultrasound. Patient was on metformin prior to admission. Interval History Patient lying comfortably in bed. No verbal complaints. Review of Systems Cardiovascular Cardiac: Edema Objective Data Data 09/30/17 10/01/17 19:00 07:00 Intake Total 132 ml Output Total 350 ml Balance -218 ml IV Total 132 ml Output Urine Total 350 ml Vital Signs Date Time Temp Pulse Resp B/P (MAP) Pulse Ox O2 Delivery O2 Flow Rate FiO2 09/30/17 12:00 97.9 97 16 99/59 (72) 93 09/30/17 08:17 93 Nasal Cannula 2.00 09/30/17 08:00 97.7 102 16 102/71 (81) 95 09/30/17 04:00 95.9 113 17 81/51 (61) 96 105/64 (78) 09/30/17 00:00 95.4 108 17 104/65 (78) 95 09/29/17 20:13 94 Nasal Cannula 2.00 09/29/17 20:00 94.2 115 18 122/66 (84) 97 09/29/17 17:56 98.1 119 16 120/73 (89) 94 09/29/17 16:00 120 15 118/62 (80) 99 -: 09/30/17 0952 09/30/17 0952 Physical Exam General Appearance: Malnourished Pulmonary Resp Exam: Clear Bilaterally, Breath Sounds Equal, Decreased Bases Cardiology CV Exam: Regular Gastrointestinal/Abdomen GI Exam: Soft, Non-Tender Integumentary Skin Exam: Clear, Warm, Dry Extremeties Extremities Exam: Moderate Edema (lower legs and feet.) Neurologic Neuro Exam: Alert, Awake, Moving All Extremities Psychiatric Psych Exam: Appropriate Responses Assessment/Plan Discussed Condition With: Patient Problem List: (1) Acute kidney failure ICD Codes: N17.9 - Acute kidney failure, unspecified Status: Acute Plan: Cardiology consultation reviewed. Agree response to diuretic therapy suboptimal. Very difficult situation in the setting of cirrhosis, severe cardiomyopathy and now severe renal insufficiency with relatively low blood pressure limiting therapeutic options from a cardiac point of view. I discussed with the patient severity of his multiorgan pathology and the possibility that he may develop worsening azotemia with intractable CHF. Dialysis is not indicated presently as discussed with him but it may become a consideration if he develops worsening azotemia/fluid retention. He is not keen on considering dialytic support in the future should he develop worsening azotemia. He was advised to consider prognostic issues as well as quality of life issues in case renal placement therapy does become a consideration. Hyponatremia is a poor prognostic indicator in the setting of CHF. At this point in time discontinue IV albumin and continue diuretic therapy with by mouth bumetanide. Patient's respiratory status does appear to have improved and I'm not keen on more aggressive diuresis at this point in time given the relatively low blood pressure and severe azotemia. Medications should be adjusted for the patient's estimated GFR if clinically indicated. Avoid agents with significant potential for nephrotoxicity possible including NSAIDs for analgesia, iodine contrast agents. Gadolinium is contraindicated if the GFR is below 30. Serum complement levels noted to be low however most likely related to hepatic disease. Await results of 24-hour urine protein. Patient had a bone marrow performed May 12, 2017 with no apparent evidence of myeloma. (2) Cardiorenal syndrome with renal failure ICD Codes: I13.10 - Hypertensive heart and chronic kidney disease without heart failure, with stage 1 through stage 4 chronic kidney disease, or unspecified chronic kidney disease; N19 - Unspecified kidney failure Plan: (3) Acute on chronic diastolic CHF (congestive heart failure) ICD Codes: I50.33 - Acute on chronic diastolic (congestive) heart failure Plan: As above. (4) Hyponatremia ICD Codes: E87.1 - Hypo-osmolality and hyponatremia Status: Acute Plan: Secondary to impaired free water clearance related to cardiac decompensation as well as cirrhosis. Recommend fluid restriction. Not keen on using ADH antagonist in the setting of significant hepatic dysfunction. Problem Qualifiers (1) Acute kidney failure: Qualified Codes: N17.9 - Acute kidney failure, unspecified Jamal Glass MD Sep 30, 2017 16:01
--- NOTE | 2017-09-30 16:47 | HHI.PR ---
Subjective Remarks Consulted by critical care medicine for transfer care and medical management. Chart reviewed. Seen with son. Discussed with RN. Denies headache, dizziness and weakness. Improving shortness of breath Objective Vitals Vital Signs Date Time Temp Pulse Resp B/P (MAP) Pulse Ox O2 Delivery O2 Flow Rate FiO2 09/30/17 12:00 97.9 97 16 99/59 (72) 93 09/30/17 08:17 93 Nasal Cannula 2.00 09/30/17 08:00 97.7 102 16 102/71 (81) 95 09/30/17 04:00 95.9 113 17 81/51 (61) 96 105/64 (78) 09/30/17 00:00 95.4 108 17 104/65 (78) 95 09/29/17 20:13 94 Nasal Cannula 2.00 09/29/17 20:00 94.2 115 18 122/66 (84) 97 09/29/17 17:56 98.1 119 16 120/73 (89) 94 I/O 09/29/17 09/29/17 09/29/17 09/30/17 09/30/17 09/30/17 07:00 15:00 23:00 07:00 15:00 23:00 Intake Total 1057 ml 575 ml 2075 ml 653 ml 132 ml Output Total 600 ml 1300 ml 240 ml 350 ml Balance 457 ml 575 ml 775 ml 413 ml -218 ml Intake Oral 140 ml 1500 ml 240 ml IV Total 917 ml 50 ml 125 ml 413 ml 132 ml Albumin 50 ml Packed Cells 400 ml 400 ml Blood Product IV Normal Saline Flush 125 ml Output Urine Total 600 ml 550 ml 240 ml 350 ml Stool Total 750 ml # Bowel Movements 4 Result Diagram: 09/30/17 0952 09/30/1752 Imaging Last Impressions Chest X-Ray 09/27/172045 Signed Impressions: Service Date/Time: Wednesday, September 27, 2017 21:08 - CONCLUSION: Decreased right pleural effusion, now small to moderate. Resolved left pleural effusion. Luis Juarez MD Abdomen/Pelvis CT 09/27/17 0000 Signed Impressions: Service Date/Time: Wednesday, September 27, 2017 22:12 - CONCLUSION: 1. Ascites and body wall edema/anasarca. 2. No focal abnormality seen in the abdomen or pelvis. Potential cirrhosis. 3. Right greater than left pleural effusions. Luis Juarez MD Abdomen Ultrasound 09/27/17 0000 Signed Impressions: Service Date/Time: Wednesday, September 27, 2017 23:48 - CONCLUSION: 1. Cirrhotic appearing liver with no definite focal mass. 2. Moderate amount of ascitic fluid. 3. Bilateral pleural effusions. 4. Thickened gallbladder wall with pericholecystic fluid which may be secondary to the ascites. There is no definite cholelithiasis. 5. The spleen is at the upper limits of normal in size. Brandan Caro MD Objective Remarks GENERAL: 77 y/o M, no acute distress, lying in bed in no distress SKIN: Warm and dry. CARDIOVASCULAR: 2/6 systolic murmur and left lower sternal border, Regular rate and rhythm without murmurs, gallops, or rubs. RESPIRATORY: Breath sounds equal bilaterally, coarse breath sounds, crackles at bases. No accessory muscle use. GASTROINTESTINAL: Abdomen soft, non-tender, nondistended. No spider angiomata, mild ascites MUSCULOSKELETAL: No cyanosis. 1+ edema of lower extremities bilaterally, d no erythema BACK: Nontender without obvious deformity. No CVA tenderness. NEURO: AAOx3, motor function and sensory function intact 5/5 A/P Problem List: (1) Cardiorenal syndrome with renal failure ICD Code: I13.10 - Hypertensive heart and chronic kidney disease without heart failure, with stage 1 through stage 4 chronic kidney disease, or unspecified chronic kidney disease; N19 - Unspecified kidney failure (2) Hyponatremia ICD Code: E87.1 - Hypo-osmolality and hyponatremia Status: Acute (3) CHF (congestive heart failure) ICD Code: I50.9 - Heart failure, unspecified Status: Acute (4) Acute on chronic clinical systolic heart failure ICD Code: I50.23 - Acute on chronic systolic (congestive) heart failure Assessment and Plan 77-year-old male with: Acute on chronic anemia, recent upper GI bleed s/p 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 Improved status post transfusion. Repeat CBC in the morning Severe cardiomyopathy systolic dysfunction . Continue diuresis with Bumex (may need drip) and BB. Unable to start ARB or JALYN inhibitor secondary to acute kidney injury. Patient's claim processor has been consulted Acute kidney injury with cardiorenal syndrome. Nonoliguric. Worsening renal function IV Lasix discontinued and started on Bumex. May need hemodialysis. Nephrology following Acute transaminitis with possible hepatorenal syndrome. Cirrhosis on imaging study etiology not known. Work up underway. Statin has been discontinued Hyponatremia secondary to above. This signifies poor prognosis. Consider palliative care consult Fluid restriction. Seizure precautions. Per renal In addition patient has Coronary artery disease and chronic respiratory failure on home O2. Restart aspirin if ok with GI and BB New onset A. fib/flutter. CVR. Continue Lopressor and monitor on telemetry. Patient already coagulopathic from liver cirrhosis. Patient will be on aspirin Staph epi bacteremia consistent with contamination. Antibiotic discontinued by ID. Lactic acidosis 2/2 above no evidence of infection. Rpt UA ordered ucx NGTD Cont Protonix GI prophylaxis No DVT prophylaxis at this time, recent GI bleed. Cont SCDs Discussed with critical care medicine. Patient will be closely monitored on telemetry. He may need to be transferred back to ICU Discharge Planning Not ready for dc Cooper Mcginnis MD Sep 30, 2017 16:47
[2017-09-30] MEDS: BUMETANIDE 1 MG TAB PO SCH (17:59)
--- NOTE | 2017-09-30 18:00 | HHI.GIFU ---
Subjective Remarks Pt is OOB in chair, family at bedside. He denies any abdominal pain. Noted to have 3 BMs today, all of which have been loose. Denies N/V. Abdomen seems firm and distended but pt states this seems normal for him. (Pamela Villa) Objective Vitals I&O Vital Signs Date Time Temp Pulse Resp B/P (MAP) Pulse Ox O2 Delivery O2 Flow Rate FiO2 09/30/17 16:00 97.7 101 16 109/62 (78) 95 09/30/17 12:00 97.9 97 16 99/59 (72) 93 09/30/17 08:17 93 Nasal Cannula 2.00 09/30/17 08:00 97.7 102 16 102/71 (81) 95 09/30/17 04:00 95.9 113 17 81/51 (61) 96 105/64 (78) 09/30/17 00:00 95.4 108 17 104/65 (78) 95 09/29/17 20:13 94 Nasal Cannula 2.00 09/29/17 20:00 94.2 115 18 122/66 (84) 97 09/29/17 17:56 98.1 119 16 120/73 (89) 94 I/O 09/29/17 09/29/17 09/29/17 09/30/17 09/30/17 09/30/17 07:00 15:00 23:00 07:00 15:00 23:00 Intake Total 1057 ml 575 ml 2075 ml 653 ml 132 ml Output Total 600 ml 1300 ml 240 ml 350 ml Balance 457 ml 575 ml 775 ml 413 ml -218 ml Intake Oral 140 ml 1500 ml 240 ml IV Total 917 ml 50 ml 125 ml 413 ml 132 ml Albumin 50 ml Packed Cells 400 ml 400 ml Blood Product IV Normal Saline Flush 125 ml Output Urine Total 600 ml 550 ml 240 ml 350 ml Stool Total 750 ml # Bowel Movements 4 Laboratory Laboratory Tests Test 09/30/17 09:52 09/30/17 13:45 White Blood Count 12.8 Red Blood Count 3.70 Hemoglobin 9.1 Hematocrit 28.9 Mean Corpuscular Volume 78.2 Mean Corpuscular Hemoglobin 24.6 Mean Corpuscular Hemoglobin Concent 31.5 Red Cell Distribution Width 22.7 Platelet Count 262 Mean Platelet Volume 9.0 Neutrophils (%) (Auto) 84.7 Lymphocytes (%) (Auto) 4.9 Monocytes (%) (Auto) 9.5 Eosinophils (%) (Auto) 0.8 Basophils (%) (Auto) 0.1 Neutrophils # (Auto) 10.8 Lymphocytes # (Auto) 0.6 Monocytes # (Auto) 1.2 Eosinophils # (Auto) 0.1 Basophils # (Auto) 0.0 CBC Comment AUTO DIFF Differential Comment AUTO DIFF CONFIRMED Tear Drop Cells 1+ Ovalocytes 1+ Acanthocytes OCC Blood Urea Nitrogen 105 Creatinine 2.62 Random Glucose 86 Albumin 3.3 Calcium Level 8.8 Phosphorus Level 4.6 Sodium Level 122 Potassium Level 3.8 Chloride Level 83 Carbon Dioxide Level 26.0 Anion Gap 13 Estimat Glomerular Filtration Rate 24 Tumor Marker Alpha Fetoprotein 3.5 Urine Total Volume 24 Hours 1050 Urine Total Protein 24 Hour 612 Date/Time Source Procedure Growth Status 09/27/17 21:10 Blood Peripheral Aerobic Blood Culture - Preliminary NO GROWTH IN 3 DAYS Resulted 09/27/17 21:10 Blood Peripheral Anaerobic Blood Culture - Preliminary NO GROWTH IN 3 DAYS Resulted 09/28/17 00:20 Urine Catheterized Urine Urine Culture - Final NO GROWTH IN 48 HOURS. Complete Imaging Last Impressions Chest X-Ray 09/27/172045 Signed Impressions: Service Date/Time: Wednesday, September 27, 2017 21:08 - CONCLUSION: Decreased right pleural effusion, now small to moderate. Resolved left pleural effusion. Luis Juarez MD Abdomen/Pelvis CT 09/27/17 0000 Signed Impressions: Service Date/Time: Wednesday, September 27, 2017 22:12 - CONCLUSION: 1. Ascites and body wall edema/anasarca. 2. No focal abnormality seen in the abdomen or pelvis. Potential cirrhosis. 3. Right greater than left pleural effusions. Luis Juarez MD Abdomen Ultrasound 09/27/17 0000 Signed Impressions: Service Date/Time: Wednesday, September 27, 2017 23:48 - CONCLUSION: 1. Cirrhotic appearing liver with no definite focal mass. 2. Moderate amount of ascitic fluid. 3. Bilateral pleural effusions. 4. Thickened gallbladder wall with pericholecystic fluid which may be secondary to the ascites. There is no definite cholelithiasis. 5. The spleen is at the upper limits of normal in size. Brandan Caro MD Physical Exam HEENT: Normocephalic; atraumatic CHEST: CTA CARDIAC: RRR ABDOMEN: Firm, distended, nontender; no hepatosplenomegaly; bowel sounds active x 4. EXTREMITIES: No clubbing, cyanosis, or edema. SKIN: Normal; no rash; no jaundice. BAND SAWMILL OPERATOR: No focal deficits; alert and oriented times three. (Pamela Villa) Assessment and Plan Plan ASSESSMENT - Anemia - hypochromic, microcytic. Guaiac pos stool. 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 EGD/colonoscopy 05/2017 normal. H/H 9.1/28.9 S/P 1 U PRBC - Elevated LFTs, cirrhotic liver, ascites - imaging as above. insufficient ascites for drainage. denies ETOH, hx hepatitis or liver problems. Hep panel neg. MELD 26, DF 38, WIN negative. ASMA, AMA, ceruloplasmin, Alpha- a antitrypsin, AFP pending. Pentoxifylline. Bumetanide. Lactulose. - Acute renal failure - nephrology following, cardiorenal. hepato renal possibility. urine Na pending - cardiomyopathy EF 25-30%, dyspnea per CCM PLAN - a1a, ceruloplasmin, AMA, ASMA, AFP pending - Monitor labs - Transfuse to keep hgb >8 - monitor labs - Notify GI of active bleeding - Start pentoxifylline - Supportive care - Further recs to follow as case unfolds This pt has been seen and examined by myself and Dr. Hernandez and this note is written on his behalf (Pamela Villa) Physician Comments Seen and examined with DARIUS, no active bleeding reported. Monitor labs. Recent gi pichardo noted. Liver pichardo in progress. (Sunshine Hernandez MD) Pamela Villa Sep 30, 2017 18:00 Sunshine Hernandez MD Sep 30, 2017 18:32
[2017-09-30] MEDS: PENTOXIFYLLINE 400 MG CONTROLLED RELEASE TAB PO SCH (22:24)
[2017-10-01 00:01] VITALS: BP 103/64; PULSE 104; RESP 15; TEMP 97; O2SAT 100
[2017-10-01] MEDS: CYCLOBENZAPRINE HCL 10 MG TAB PO PRN ×2 (02:48→13:14)
[2017-10-01 04:00] VITALS: BP 102/57; PULSE 106; RESP 17; TEMP 96.4; O2SAT 99
[2017-10-01] MEDS: RESP: ALBUTEROL 2.5 MG/IPRATROPIUM 0.5 MG NEB (SCH) INH ×5 (04:00→15:47)
[2017-10-01] MEDS: CHLORHEXIDINE GLUCONATE 2 % 1 PACK (2 CLOTHS)(taper/protocol) TOPICAL SCH (04:00)
[2017-10-01] MEDS: PENTOXIFYLLINE 400 MG CONTROLLED RELEASE TAB PO SCH ×2 (05:06→13:16)
[2017-10-01 07:26] LABS: AUTOMATED NEUTROPHIL # 11.4 TH/MM3 (1.8-7.7); BASOPHIL % 0.3 % (0.0-2.0); EOSINOPHIL # 0.1 TH/MM3 (0-0.4); EOSINOPHIL % 0.5 % (0.0-4.0); HEMATOCRIT 28.5 % (39.0-51.0); HEMO FLAGS DIFF FINAL; LYMPH % 3.7 % (9.0-44.0); LYMPHOCYTE # 0.5 TH/MM3 (1.0-4.8); MEAN CELL VOLUME 77.8 FL (80.0-100.0); MEAN CORPUSCULAR HEMOGLOBIN 24.9 PG (27.0-34.0); NEUT % 83.5 % (16.0-70.0); PLATELET COUNT 270 TH/MM3 (150-450); RED BLOOD COUNT 3.66 MIL/MM3 (4.50-5.90); RED CELL DISTRIBUTION WIDTH 23.3 % (11.6-17.2); WHITE BLOOD COUNT 13.7 TH/MM3 (4.0-11.0)
[2017-10-01 07:48] LABS: ALKALINE PHOSPHATASE 151 U/L (45-117); ALT (GPT) 635 U/L (12-78); ANION GAP 14 MEQ/L (5-15); AST (GOT) 813 U/L (15-37); BICARBONATE 26.1 MEQ/L (21.0-32.0); BLOOD UREA NITROGEN 116 MG/DL (7-18); CHLORIDE 82 MEQ/L (98-107); GLOMERULAR FILTRATION RATE 20 ML/MIN (>89); MAGNESIUM 2.7 MG/DL (1.5-2.5); POTASSIUM 4.3 MEQ/L (3.5-5.1)
[2017-10-01 08:00] VITALS: BP 104/63; PULSE 106; RESP 16; TEMP 95.9; O2SAT 97
[2017-10-01] MEDS: DOCUSATE SODIUM 50 MG/SENNA 8.6 MG TAB PO SCH (08:39)
[2017-10-01] MEDS: PANTOPRAZOLE SOD 40 MG DELAYED RELEASE TAB PO SCH (08:39)
[2017-10-01] MEDS: BUMETANIDE 1 MG TAB PO SCH ×2 (08:39→17:15)
[2017-10-01] MEDS: CHOLECALCIFEROL (VIT D3) 1000 UNIT TAB PO SCH (08:39)
[2017-10-01] MEDS: MULTIVITAMIN TAB PO SCH (08:39)
[2017-10-01] MEDS: METOPROLOL TARTRATE 50 MG TAB PO SCH ×2 (08:40→08:49)
[2017-10-01] MEDS: LACTULOSE SYRUP 20 GM/30 ML CUP PO SCH (08:40)
[2017-10-01] MEDS ORDERED: ASPIRIN 81 MG CHEW TAB CHEW SCH (09:00)
[2017-10-01 09:03] LABS: SODIUM (NA) 122 MEQ/L (136-145)
--- NOTE | 2017-10-01 10:34 | PD.CONS ---
Consult Service Palliative Care Consult Requested By Dr. Mcginnis Primary Care Physician Chaka Greenwood MD Reason for Consultation a. To assist with evaluation and management of symptoms including: shortness of breath, edema, physical deconditioning. b. To assist medical decision maker(s) with: better understanding of current medical conditions; weighing benefits/burdens of medical treatment options; making medical treatment decisions. HPI History of Present Illness Mr. Brown is a 77 years old male with a past medical history of CHF, cardiomyopathy with an EF of 25-30%, coronary artery disease, hypertension, history of upper GI bleed with multiple transfusions, cirrhosis of the liver and chronic dyslipidemia. Patient has had 12 hospital admissions at [facility] only since October, for anemia with multiple transfusions, CHF exacerbation, NSTEMI, pulmonary edema, pneumonia. Other hospitalizations have been at [facility]. Patient`s last hospitalization was on 09/18-09/19 for CHF exacerbation after 2 upRBC transfusion on 09/11/17. On 09/27/17presented to [facility] complaining of symptoms that had been progressively getting worse for approximately a week, which are shortness of breath, progressive generalized weakness, bilateral lower extremity edema and epigastric pain. ED course: * Vital signs: Temperature 97.4 degrees F, HR 99, BP 110/66, O2 saturation 95% * EKG revealed A. fib with controlled ventricular rate of 90 bundle-branch below prior anterior septal infarct age indeterminate. * Laboratory workup revealed WBC 9.3, hemoglobin 8.5, hematocrit 27.0, platelet count 449; sodium 124, potassium 4.6, BUN/creatinine 117/2.40, random glucose 122, lactic acid 4.7, total bilirubin 1.1, AST 795, ALT 741, ammonia 47, troponin 0.07, BNP 1858, total protein 6.5, albumin 2.9 and lipase 614 * Abdomen/pelvis CT revealed ascites and portable edema/anasarca. Potential cirrhosis. Right greater than left pleural effusions. * Abdomen ultrasound revealed cirrhotic appearing liver with no focal mass. Moderate amount of ascitic fluid. Bilateral pleural effusions. Thickened gallbladder with pericholecystic fluid, most likely secondary to ascites. * Chest x-ray revealed decreased right pleural effusion, resolved left pleural effusion * Patient noted to be hypotensive 250 mL's normal saline bolus administered * -Aerobic blood cultures revealing growth of Staphylococcus epidermidis * Patient was admitted for further work-up. Critical Care Medicine consulted on 09/27/17 and patient was transferred to [facility]. Patient`s clinical course complicated with Atrial fibrillation with RVR, acute renal failure and liver cirrhosis. Nephrology consulted on 09/28/17 for evaluation and management of acute renal insufficiency. Per nephrology,"Dialysis is not indicated presently as discussed with him but it may become a consideration if he develops worsening azotemia/ fluid retention." GI Dr Scanlon consulted on 09/29/17 and recommended Trental 400mg tid and transfusion as needed. Cardiology Dr. Arguello consulted for evaluation and management of Atrial fibrillation with RVR. Infectious disease Dr. Srivastava consulted on 09/30/17 for evaluation and management of positive blood cultures. Patient expressed to his bedside nurse today that he was tired of being sick and would not like to pursue aggressive treatment and would not want hemodialysis. Patient seen and examined in his room with his son Favian Brown in room. Patient wanted his son to stay during meeting. Patient is lethargic, oriented to self , place and situation. Patient is afebrile. SBP low 100s. O2 saturation mid to high 90s on O2 2L NC. Patient has mild respiratory distress, dyspneic with conversation and exertion. Patient denies pain except of feeling fatigued. He endorses feeling dyspneic with exertion and conversation. Updated patient and son of medical condition. Obtained psychosocial history and medical history. Patient verbalized that he has not signed any advance directives. Patient has a fair understanding of his medical condition. Patient designated his son Favian Brown as his healthcare Surrogate (HCS) and his granddaughter Mehul Us as the alternate HCS. Patient states that he has been sick all year and is tired. Patient states that he understood what the physicians has told him and he states that he does not ever want to go through hemodialysis and it won`t benefit him especially with his cardiac problems. Patient emphasized on his quality of life and states that of late his quality of life has been poor. Addressed code status, discussed risks, benefits and limitations of CPR given ongoing comorbidities, patient said " Let me go". Patient stated that even if his breathing gets worse he would never want to be intubated. He mad himself a DNR. Patient indicates that he does not want to pursue any further aggressive treatments. Introduced hospice benefits and philosophy. Patient stated that he just wants to be comfortable and peacefully. Hospice consult placed. Patient`s son supportive of patient`s decisions. . Function/Cognitive Trajectory Patient lives alone and has been independent with all his ADLs. Patient mentioned that he has been on O2 2L NC at home for a couple of months. Patient reports that for the last 3 weeks he has needed O2 all the time due to increased shortness of breath and fatigue. He also reports that he had not been able to perform most of his ADLs due to fatigue, dyspnea and weakness. Son who lives out of town reports that according to patient`s neighbor, patient has been seen mostly sitting up and was not able to even walk his dog. Patient has had 12 hospitalizations since October 2016 only. Last hospitalization 09/18/17 patient for congestive heart failure exacerbation and was noted to have an ejection fraction of 25%. Review of Systems Constitutional: COMPLAINS OF: Fatigue, Generalized weakness, DENIES: Fever, Weight gain, Chills, Change in appetite, Pain Endocrine: COMPLAINS OF: Heat/cold intolerance Eyes: DENIES: Eye inflammation Ears, nose, mouth, throat: DENIES: Nasal discharge Respiratory: COMPLAINS OF: Shortness of breath, DENIES: Cough, Hemoptysis Cardiovascular: COMPLAINS OF: Chest pain, Dyspnea on Exertion, Lower Extremity Edema, DENIES: Syncope Gastrointestinal: COMPLAINS OF: Abdominal pain, Black stools, DENIES: Diarrhea , Nausea, Vomiting Genitourinary: DENIES: Urinary incontinence Musculoskeletal: DENIES: Joint Swelling Hematologic/Lymphatics: COMPLAINS OF: Bruising, History of transfusions Past Family Social History Coded Allergies: No Known Allergies (Verified Allergy, Unknown, 09/27/17) Past Medical History CHF. Cardiomyopathy with EF of 25-30%. History of upper GI bleed. Diabetes mellitus. Chronic anemia with multiple transfusions. Hypertension. Coronary artery disease status post [place] 2004 Diverticulosis Dyslipidemia Internal hemorrhoids Gastroesophageal reflux disease BPH . Past Surgical History Stent placements. 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 Hernia repair. Cardiac cath I&D pilonidal cyst . Reported Medications Oxygen tank (Oxygen) 1 Ea Tank 2 Liter SHAKEEL.CANULA CONTINUOUS Aspirin 81 Mg Chew 81 Mg CHEW DAILY 30 Days Furosemide 40 Mg Tab 40 Mg PO DAILY Klor-Con M20 (Potassium Chloride Microencaps) 20 Meq Tab 20 Meq PO DAILY Vitamin C (Ascorbic Acid) 1,000 Mg Tablet.er One Daily (Multiple Vitamin) 1 Tab 1 Tab PO DAILY Vitamin D3 (Cholecalciferol) 1,000 Unit Tab 1,000 Units PO BID Metoprolol Tartrate 50 Mg Tab 50 Mg PO BID Atorvastatin (Atorvastatin Calcium) 40 Mg Tab 80 Mg PO HS Metformin (Metformin HCl) 500 Mg Tab 500 Mg PO BID Current Medications Medications (Trade) Dose Ordered Sig/Kell Route Start Time Stop Time Status Last Admin (NS Flush) 2 ml UNSCH PRN IVF 09/27/17 21:00 (Vitamin D3) 1,000 units BID PO 09/28/17 09:00 10/01/17 08:39 (Theragran) 1 tab DAILY PO 09/28/17 09:00 10/01/17 08:39 (Lactulose Liq) 30 ml BID PO 09/28/17 00:00 10/01/17 08:40 Miscellaneous Information Patient in critical care unit? Ass... Q361D .XX 09/28/17 06:45 09/28/17 06:45 (Chlorhexidine 2% Cloth) 3 pack DAILY@04 TOPICAL 09/29/17 04:00 10/03/17 04:01 09/29/17 01:19 (Chlorhexidine 2% Cloth) 3 pack UNSCH PRN TOPICAL 09/28/17 06:45 10/03/17 06:31 (Duoneb Neb) 1 ampule Q4HR NEB INH 09/28/17 08:00 09/30/17 20:31 (Duoneb Neb) 1 ampule Q2HR NEB PRN INH 09/28/17 08:00 (Mitra-Colace) 1 tab BID PO 09/28/17 09:00 10/01/17 08:39 (Milk Of Magnesia Liq) 30 ml Q12HR PRN PO 09/28/17 09:00 (Senokot) 17.2 mg Q12HR PRN PO 09/28/17 09:00 (Dulcolax Supp) 10 mg DAILY PRN RECTAL 09/28/17 09:00 (Lactulose Liq) 30 ml DAILY PRN PO 09/28/17 09:00 (D50w (Vial) Inj) 50 ml UNSCH PRN IV PUSH 09/28/17 07:45 (Glucagon Inj) 1 mg UNSCH PRN OTHER 09/28/17 07:45 (Protonix) 40 mg DAILY PO 09/30/17 09:00 10/01/17 08:39 (Lopressor) 50 mg BID PO 09/29/17 21:00 09/30/17 21:14 (Flexeril) 5 mg Q8H PRN PO 09/30/17 08:45 10/01/17 02:48 (Pill Splitter) 1 ea UNSCH PRN OTHER 09/30/17 09:00 (Bumetanide) 2 mg BID@,18 PO 09/30/17 18:00 10/01/17 08:39 (Aspirin Chew) 81 mg DAILY CHEW 10/01/17 09:00 (TRENtal SR) 400 mg Q8HR PO 09/30/17 22:00 10/01/17 05:06 Family History Father- of unknown cause at age 75 years Mother- at age 94- had diabetes mellitus Type 2 Brother - from complications of pneumonia Patient has 2 living sisters . Substance Use Tobacco:History of smoking-Quit in 2001 Alcohol: Denies Prescription med abuse: Denies Illicits: Denies . Psychosocial History Patient was born in [place] and he moved with his parents to [place] at the age of 7. Patient graduated from high school and has worked in the [employer] business most of his life. He has also served in the [employer] for 4 years. Patient has been 4 times and he is "permanently" from his last . Patient has three adult children, 2 sons and one daughter. 2 of his children live in [place] and his youngest son lives in [place], [place]. . Spiritual/Cultural Factors Temple. . Living Will: Never completed Health Care Surrogate: Copy in medical record Durable Power of Adjunct History Instructor: Never completed Date completed: [facility]- 09/25/2017 . Health Care Surrogate(s): HCS- Son Favian Brown-[phone] Alternate XVC-Juzzsxqwcejgz-Jrpdye, Jackey- [phone] . Family/friends goals: Son wants patient to be comfortable. Hospice consulted. . Ethical and Legal Issues None identified at this time . Physical Exam Vital Signs Date Time Temp Pulse Resp B/P (MAP) Pulse Ox O2 Delivery O2 Flow Rate FiO2 10/01/17 08:00 95.9 106 16 104/63 (77) 97 10/01/17 04:00 96.4 106 17 102/57 (72) 99 10/01/17 00:01 97.0 104 15 103/64 (77) 100 09/30/17 20:34 95 Nasal Cannula 2.00 09/30/17 20:00 97.1 106 16 113/67 (82) 96 09/30/17 16:00 97.7 101 16 109/62 (78) 95 09/30/17 12:00 97.9 97 16 99/59 (72) 93 Exam CONSTITUTIONAL/GENERAL: This is an ill-looking elderly patient in mild respiratory distress, looks fatigued and pale. TUBES/LINES/DRAINS: PIV, FC, NC SKIN: Patient looks pale. Ecchymoses on upper extremities. No wounds seen anteriorly. Skin temperature cool. Not diaphoretic. HEAD: Atraumatic. Normocephalic. EYES: Pupils equal and round and reactive. Extraocular motions intact. No scleral icterus. No injection or drainage. Fundi not examined. ENT: Hearing grossly normal. Nose without bleeding or purulent drainage. Moist oral mucosa. NECK: Trachea midline. Supple, nontender. CARDIOVASCULAR: Regular rate and rhythm without murmurs, gallops, or rubs. No JVD. Peripheral pulses symmetric. RESPIRATORY/CHEST: Symmetric, mildly labored respirations. Clear to auscultation but diminished in the bases. Breath sounds equal bilaterally. No wheezes, rales, or rhonchi. GASTROINTESTINAL: Abdomen soft, non-tender, nondistended. No guarding. Bowel sounds present. GENITOURINARY: Without palpable bladder distension. Valdez catheter in place. MUSCULOSKELETAL: Extremities without clubbing, cyanosis. No joint tenderness or effusion noted. No calf tenderness. No mottling or clubbing. Pitting edema to BLE NEUROLOGICAL: Awake, lethargic, oriented to person, place and situation. Motor and sensory grossly within normal limits. Follows commands. Moves all extremities. PSYCHIATRIC: No obvious anxiety/depression. no apparent hallucinations or other psychotic thought process. Diagnostic Tests Laboratory Laboratory Tests Test 09/28/17 11:11 09/28/17 15:30 09/29/17 04:09 09/30/17 09:52 Blood Urea Nitrogen 116 MG/DL (7-18) 110 MG/DL (7-18) 105 MG/DL (7-18) Creatinine 2.47 MG/DL (0.60-1.30) 2.54 MG/DL (0.60-1.30) 2.62 MG/DL (0.60-1.30) Random Glucose 126 MG/DL (74-106) 155 MG/DL (74-106) 86 MG/DL (74-106) Calcium Level 8.3 MG/DL (8.5-10.1) 8.3 MG/DL (8.5-10.1) 8.8 MG/DL (8.5-10.1) Sodium Level 124 MEQ/L (136-145) 125 MEQ/L (136-145) 122 MEQ/L (136-145) Potassium Level 4.3 MEQ/L (3.5-5.1) 4.0 MEQ/L (3.5-5.1) 3.8 MEQ/L (3.5-5.1) Chloride Level 85 MEQ/L (98-107) 85 MEQ/L (98-107) 83 MEQ/L (98-107) Carbon Dioxide Level 29.1 MEQ/L (21.0-32.0) 27.5 MEQ/L (21.0-32.0) 26.0 MEQ/L (21.0-32.0) Anion Gap 10 MEQ/L (5-15) 13 MEQ/L (5-15) 13 MEQ/L (5-15) Estimat Glomerular Filtration Rate 26 ML/MIN (>89) 25 ML/MIN (>89) 24 ML/MIN (>89) Serum Osmolality 311 MOSM/KG (275-295) Total Creatine Kinase 346 U/L (39-308) Creatine Kinase MB 7.6 NG/ML (0.5-3.6) Creatine Kinase MB % 2.2 % (0.0-4.0) Troponin I 0.07 NG/ML (0.02-0.05) Urine Color LIGHT-RED (YELLW/STRAW) Urine Turbidity CLOUDY (CLEAR) Urine pH 5.5 (5.0-8.5) Urine Specific [place] 1.021 (1.002-1.035) Urine Protein 100 mg/dL (NEG-TRACE) Urine Glucose (UA) NEG mg/dL (NEG) Urine Ketones TRACE mg/dL (NEG) Urine Occult Blood LARGE (NEG) Urine Nitrite NEG (NEG) Urine Bilirubin NEG (NEG) Urine Urobilinogen LESS THAN 2.0 MG/DL (LESS Urine Leukocyte Esterase LARGE (NEG) Urine RBC /hpf (0-3) Urine WBC 182 /hpf (0-5) Urine Squamous Epithelial Cells 3 /hpf (0-5) Urine Amorphous Sediment RARE Urine Osmolality 489 MOSM/KG (300-1300) Urine Random Creatinine 105.9 MG/DL Urine Random Sodium LESS THAN 5 MEQ/L White Blood Count 10.0 TH/MM3 (4.0-11.0) 12.8 TH/MM3 (4.0-11.0) Red Blood Count 3.00 MIL/MM3 (4.50-5.90) 3.70 MIL/MM3 (4.50-5.90) Hemoglobin 7.2 GM/DL (13.0-17.0) 9.1 GM/DL (13.0-17.0) Hematocrit 22.9 % (39.0-51.0) 28.9 % (39.0-51.0) Mean Corpuscular Volume 76.4 FL (80.0-100.0) 78.2 FL (80.0-100.0) Mean Corpuscular Hemoglobin 24.1 PG (27.0-34.0) 24.6 PG (27.0-34.0) Mean Corpuscular Hemoglobin Concent 31.6 % (32.0-36.0) 31.5 % (32.0-36.0) Red Cell Distribution Width 22.4 % (11.6-17.2) 22.7 % (11.6-17.2) Platelet Count 297 TH/MM3 (150-450) 262 TH/MM3 (150-450) Mean Platelet Volume 8.5 FL (7.0-11.0) 9.0 FL (7.0-11.0) Neutrophils (%) (Auto) 82.8 % (16.0-70.0) 84.7 % (16.0-70.0) Lymphocytes (%) (Auto) 4.1 % (9.0-44.0) 4.9 % (9.0-44.0) Monocytes (%) (Auto) 12.5 % (0.0-8.0) 9.5 % (0.0-8.0) Eosinophils (%) (Auto) 0.6 % (0.0-4.0) 0.8 % (0.0-4.0) Basophils (%) (Auto) 0.0 % (0.0-2.0) 0.1 % (0.0-2.0) Neutrophils # (Auto) 8.3 TH/MM3 (1.8-7.7) 10.8 TH/MM3 (1.8-7.7) Lymphocytes # (Auto) 0.4 TH/MM3 (1.0-4.8) 0.6 TH/MM3 (1.0-4.8) Monocytes # (Auto) 1.3 TH/MM3 (0-0.9) 1.2 TH/MM3 (0-0.9) Eosinophils # (Auto) 0.1 TH/MM3 (0-0.4) 0.1 TH/MM3 (0-0.4) Basophils # (Auto) 0.0 TH/MM3 (0-0.2) 0.0 TH/MM3 (0-0.2) CBC Comment DIFF FINAL AUTO DIFF Differential Comment AUTO DIFF CONFIRMED Prothrombin Time 19.8 SEC (9.8-11.6) Prothromb Time International Ratio 2.0 RATIO Total Protein 6.4 GM/DL (6.4-8.2) Albumin 3.0 GM/DL (3.4-5.0) 3.3 GM/DL (3.4-5.0) Alkaline Phosphatase 153 U/L (45-117) Aspartate Amino Transf (AST/SGOT) 613 U/L (15-37) Alanine Aminotransferase (ALT/SGPT) 590 U/L (12-78) Total Bilirubin 1.9 MG/DL (0.2-1.0) 25-Hydroxy Vitamin D Total 59.1 ng/ML (30-100) Anti-Nuclear Antibody Screen NEG (NEG) Complement C3 61 MG/DL (90-180) Complement C4 9 MG/DL (10-40) Tear Drop Cells 1+ (NORMAL) Ovalocytes 1+ (NORMAL) Acanthocytes OCC (NORMAL) Phosphorus Level 4.6 MG/DL (2.5-4.9) Tumor Marker Alpha Fetoprotein 3.5 NG/ML (0.5-8.0) Test 09/30/17 13:45 10/01/17 06:54 10/01/17 06:56 Urine Total Volume 24 Hours 1050 ML Urine Total Protein 24 Hour 612 MG/24HR (0-150) Blood Urea Nitrogen 116 MG/DL (7-18) Creatinine 3.08 MG/DL (0.60-1.30) Random Glucose 98 MG/DL (74-106) Total Protein 6.1 GM/DL (6.4-8.2) Albumin 3.1 GM/DL (3.4-5.0) Calcium Level 8.8 MG/DL (8.5-10.1) Magnesium Level 2.7 MG/DL (1.5-2.5) Alkaline Phosphatase 151 U/L (45-117) Aspartate Amino Transf (AST/SGOT) 813 U/L (15-37) Alanine Aminotransferase (ALT/SGPT) 635 U/L (12-78) Total Bilirubin 4.0 MG/DL (0.2-1.0) Sodium Level 122 MEQ/L (136-145) Potassium Level 4.3 MEQ/L (3.5-5.1) Chloride Level 82 MEQ/L (98-107) Carbon Dioxide Level 26.1 MEQ/L (21.0-32.0) Anion Gap 14 MEQ/L (5-15) Estimat Glomerular Filtration Rate 20 ML/MIN (>89) White Blood Count 13.7 TH/MM3 (4.0-11.0) Red Blood Count 3.66 MIL/MM3 (4.50-5.90) Hemoglobin 9.1 GM/DL (13.0-17.0) Hematocrit 28.5 % (39.0-51.0) Mean Corpuscular Volume 77.8 FL (80.0-100.0) Mean Corpuscular Hemoglobin 24.9 PG (27.0-34.0) Mean Corpuscular Hemoglobin Concent 32.0 % (32.0-36.0) Red Cell Distribution Width 23.3 % (11.6-17.2) Platelet Count 270 TH/MM3 (150-450) Mean Platelet Volume 9.0 FL (7.0-11.0) Neutrophils (%) (Auto) 83.5 % (16.0-70.0) Lymphocytes (%) (Auto) 3.7 % (9.0-44.0) Monocytes (%) (Auto) 12.0 % (0.0-8.0) Eosinophils (%) (Auto) 0.5 % (0.0-4.0) Basophils (%) (Auto) 0.3 % (0.0-2.0) Neutrophils # (Auto) 11.4 TH/MM3 (1.8-7.7) Lymphocytes # (Auto) 0.5 TH/MM3 (1.0-4.8) Monocytes # (Auto) 1.6 TH/MM3 (0-0.9) Eosinophils # (Auto) 0.1 TH/MM3 (0-0.4) Basophils # (Auto) 0.0 TH/MM3 (0-0.2) CBC Comment DIFF FINAL Differential Comment Result Diagram: 10/01/17 0656 10/01/17 0654 Imaging Last Impressions Chest X-Ray 09/27/172045 Signed Impressions: Service Date/Time: Wednesday, September 27, 2017 21:08 - CONCLUSION: Decreased right pleural effusion, now small to moderate. Resolved left pleural effusion. Luis Juarez MD Abdomen/Pelvis CT 09/27/17 0000 Signed Impressions: Service Date/Time: Wednesday, September 27, 2017 22:12 - CONCLUSION: 1. Ascites and body wall edema/anasarca. 2. No focal abnormality seen in the abdomen or pelvis. Potential cirrhosis. 3. Right greater than left pleural effusions. Luis Juarez MD Abdomen Ultrasound 09/27/17 0000 Signed Impressions: Service Date/Time: Wednesday, September 27, 2017 23:48 - CONCLUSION: 1. Cirrhotic appearing liver with no definite focal mass. 2. Moderate amount of ascitic fluid. 3. Bilateral pleural effusions. 4. Thickened gallbladder wall with pericholecystic fluid which may be secondary to the ascites. There is no definite cholelithiasis. 5. The spleen is at the upper limits of normal in size. Brandan Caro MD Patient/Family Conference Present at Family Conference: Patient`s son Favian Brown at bedside during meeting. . Family Conference Location: Bedside Issues Discussed: * Palliative care role, purpose, approach * Additional medical, psychosocial, and spiritual history * Patients general health, functional status, and cognitive changes in the months leading up to the current hospitalization * Patient/family understanding of the current medical problems-cirrhosis, severe cardiomyopathy and now severe renal insufficiency with relatively low blood pressure * Patient/family understanding of prognosis * Patients goals of care as best understood from advance directives and/or conversations and/or values * Current medical treatment options and benefits/burdens of those options * Likely scenarios comparing ongoing aggressive care with a transition to comfort measures only * Questions answered to the best of my ability * Introduced hospice philosophy and benefits * Palliative care contact information provided Assessment and Plan Disease Oriented Problem List: (1) Acute on chronic diastolic CHF (congestive heart failure) (2) Acute kidney failure (3) Anemia (4) Hyponatremia (5) History of GI bleed Symptom Scale: (1) Shortness of breath 0-10 Scale: Unable to quantify (2) Edema 0-10 Scale: Unable to quantify (3) Physical deconditioning 0-10 Scale: Unable to quantify Comment: Progressive. Patient has had 12 hospitalizations since October 2016 only. Last hospitalization 09/18/17 patient for congestive heart failure exacerbation and was noted to have an ejection fraction of 25%. Patient mentioned that he has been on O2 2L NC at home for a couple of months. Patient reports that for the last 3 weeks he has needed O2 all the time due to increased shortness of breath and fatigue. He also reports that he had not been able to perform most of his ADLs due to fatigue, dyspnea and weakness. Patient has not been able to even walk his dog. . Pertinent Non-Medical Issues Psychosocial:Patient was born in [place] and he moved with his parents to [place] at the age of 7. Patient graduated from high school and has worked in the [employer] business most of his life. He has also served in the [employer] for 4 years. Patient has been 4 times and he is "permanently" from his last . Patient has three adult children, 2 sons and one daughter. 2 of his children live in [place] and his youngest son lives in [place], [place]. Spiritual: Temple Legal:Patient signed HCS form today Ethical issues impacting care: Important Contacts Son-Favian Brown- [phone] HCS- Son Favian Brown-[phone] [facility]wxati, Jackey- [phone] Friend-Edgar Dominguez- [phone]/ [phone] . Prognosis Mr. Brown is a 77 years old male with a past medical history of CHF, cardiomyopathy with an EF of 25-30%, coronary artery disease, hypertension, history of upper GI bleed, cirrhosis of the liver and chronic dyslipidemia. Patient presented to [facility] on 09/27/17 complaining of symptoms that had been progressively getting worse for approximately a week which are shortness of breath, progressive generalized weakness, bilateral lower extremity edema and epigastric pain. Patient`s clinical course complicated with Atrial fibrillation with RVR, acute renal failure and liver cirrhosis. Patient` s situation is complicated with the severity of multiorgan pathology, severe cardiomyopathy, severe renal insufficiency and hypotension limiting his treatment options. With all these ongoing comorbidities, patient is at high risk for complications, deterioration and decline. Prognosis is poor. Patient is appropriate for hospice if his goals align with comfort measures only. Code Status: No Code Plan PLAN: Legal decision maker: Goals: CODE STATUS: SYMPTOMS: * Shortness of breath: Multifactorial. Patient has severe cardiomyopathy, cirrhosis with ascites and chronic anemia. Received 1upRBC on 09/29/17 for Hgb of 7.2. Today Hgb is 9.1. Patient has received Lasix which in now discontinued and is now on Bumetanide 2mg BID. Patient currently on 2LN NC with saturation in the mid to high 90s but still has mild respiratory distress. Patient also on Duonebs. * Edema: Multifactorial. Patient has acute on chronic CHF exacerbation, cirrhosis with ascites and anasarca and acte renal insufficiency. Despite use of diuretics patient continues to have edema. Dialysis is indicated in the future if patient develops worsening azotemia/fluid retention. * Physical deconditioning: Progressive. Patient has had 12 hospitalizations since October 2016 only. Last hospitalization 09/18/17 patient for congestive heart failure exacerbation and was noted to have an ejection fraction of 25%. Patient mentioned that he has been on O2 2L NC at home for a couple of months. Patient reports that for the last 3 weeks he has needed O2 all the time due to increased shortness of breath and fatigue. He also reports that he had not been able to perform most of his ADLs due to fatigue, dyspnea and weakness. Patient has not been able to even walk his dog. Recommending PT if goals are aggressive , otherwise patient will most unlikely be able to effectively participate in PT due to fatigue and increased shortness of breath. Patient decided to forgo any further aggressive treatment and only wants comfort care. Hospice consulted. . Palliative care will continue to follow the patient during hospital course as condition evolves, to assist patient/decision-maker with understanding of their medical conditions, weighing benefits/burdens of treatment options, for clarification of goals of treatment. Additionally will assist with any symptoms of palliative concern Thank you for the opportunity to participate in the care of Mr. Brown. Attestation To help prompt me to consider important information that might be impacting today's encounter and assessment, information from prior notes written by myself or my colleagues may have been "brought forward" into today's note. My signature on this note, however, is an attestation that I personally performed the exam, history, and/or decision-making noted today, and, unless otherwise indicated, the interactions with patient, family, and staff as well as the review of records all occurred today. I also attest that the listed assessment and stated plan reflect my best clinical judgment today based on the combination of historical information, prior notes, and today's exam/ interactions. When time spent is documented, it refers only to time spent today by the signer, or if indicated, combined time spent today by collaborating physician/nurse practitioner. . Fela Rivera Oct 01, 2017 10:34
--- NOTE | 2017-10-01 11:53 | HHI.GIFU ---
Subjective Remarks Pt is OOB in chair, in no apparent distress, son in room. Pt denies any N/V/ abdominal pain. Continues to have loose stool, but denies any blood or black, tarry stools. Palliative care in room. (Pamela Villa) Objective Vitals I&O Vital Signs Date Time Temp Pulse Resp B/P (MAP) Pulse Ox O2 Delivery O2 Flow Rate FiO2 10/01/17 08:00 95.9 106 16 104/63 (77) 97 10/01/17 04:00 96.4 106 17 102/57 (72) 99 10/01/17 00:01 97.0 104 15 103/64 (77) 100 09/30/17 20:34 95 Nasal Cannula 2.00 09/30/17 20:00 97.1 106 16 113/67 (82) 96 09/30/17 16:00 97.7 101 16 109/62 (78) 95 09/30/17 12:00 97.9 97 16 99/59 (72) 93 I/O 09/30/17 09/30/17 09/30/17 10/01/17 10/01/17 10/01/17 07:00 15:00 23:00 07:00 15:00 23:00 Intake Total 653 ml 132 ml 240 ml 720 ml Output Total 240 ml 350 ml 400 ml Balance 413 ml -218 ml 240 ml 320 ml Intake Oral 240 ml 240 ml 720 ml IV Total 413 ml 132 ml Output Urine Total 240 ml 350 ml 400 ml Bladder Scan Volume Amount 87 ml 183 ml # Bowel Movements 2 5 Laboratory Laboratory Tests Test 09/30/17 13:45 10/01/17 06:54 10/01/17 06:56 Urine Total Volume 24 Hours 1050 Urine Total Protein 24 Hour 612 Blood Urea Nitrogen 116 Creatinine 3.08 Random Glucose 98 Total Protein 6.1 Albumin 3.1 Calcium Level 8.8 Magnesium Level 2.7 Alkaline Phosphatase 151 Aspartate Amino Transf (AST/SGOT) 813 Alanine Aminotransferase (ALT/SGPT) 635 Total Bilirubin 4.0 Sodium Level 122 Potassium Level 4.3 Chloride Level 82 Carbon Dioxide Level 26.1 Anion Gap 14 Estimat Glomerular Filtration Rate 20 White Blood Count 13.7 Red Blood Count 3.66 Hemoglobin 9.1 Hematocrit 28.5 Mean Corpuscular Volume 77.8 Mean Corpuscular Hemoglobin 24.9 Mean Corpuscular Hemoglobin Concent 32.0 Red Cell Distribution Width 23.3 Platelet Count 270 Mean Platelet Volume 9.0 Neutrophils (%) (Auto) 83.5 Lymphocytes (%) (Auto) 3.7 Monocytes (%) (Auto) 12.0 Eosinophils (%) (Auto) 0.5 Basophils (%) (Auto) 0.3 Neutrophils # (Auto) 11.4 Lymphocytes # (Auto) 0.5 Monocytes # (Auto) 1.6 Eosinophils # (Auto) 0.1 Basophils # (Auto) 0.0 CBC Comment DIFF FINAL Differential Comment Date/Time Source Procedure Growth Status 09/27/17 21:10 Blood Peripheral Aerobic Blood Culture - Preliminary NO GROWTH IN 4 DAYS Resulted 09/27/17 21:10 Blood Peripheral Anaerobic Blood Culture - Preliminary NO GROWTH IN 4 DAYS Resulted 09/28/17 00:20 Urine Catheterized Urine Urine Culture - Final NO GROWTH IN 48 HOURS. Complete Imaging Last Impressions Chest X-Ray 09/27/172045 Signed Impressions: Service Date/Time: Wednesday, September 27, 2017 21:08 - CONCLUSION: Decreased right pleural effusion, now small to moderate. Resolved left pleural effusion. Luis Juarez MD Abdomen/Pelvis CT 09/27/17 0000 Signed Impressions: Service Date/Time: Wednesday, September 27, 2017 22:12 - CONCLUSION: 1. Ascites and body wall edema/anasarca. 2. No focal abnormality seen in the abdomen or pelvis. Potential cirrhosis. 3. Right greater than left pleural effusions. Luis Juarez MD Abdomen Ultrasound 09/27/17 0000 Signed Impressions: Service Date/Time: Wednesday, September 27, 2017 23:48 - CONCLUSION: 1. Cirrhotic appearing liver with no definite focal mass. 2. Moderate amount of ascitic fluid. 3. Bilateral pleural effusions. 4. Thickened gallbladder wall with pericholecystic fluid which may be secondary to the ascites. There is no definite cholelithiasis. 5. The spleen is at the upper limits of normal in size. Brandan Caro MD Physical Exam HEENT: Normocephalic; atraumatic CHEST: CTA CARDIAC: RRR ABDOMEN: Firm, distended, nontender; bowel sounds active x 4. EXTREMITIES: No clubbing, cyanosis, or edema. SKIN: Normal; no rash; no jaundice. [employer]ODUCTION SUPERVISOR: No focal deficits; alert and oriented times three. (Pamela Villa) Assessment and Plan Plan ASSESSMENT - Anemia - hypochromic, microcytic. Guaiac pos stool. 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 EGD/colonoscopy 05/2017 normal. H/H stable. S/P 1 U PRBC. No obvious bleeding at this time. - Elevated LFTs, cirrhotic liver, ascites - imaging as above. insufficient ascites for drainage. denies ETOH, hx hepatitis or liver problems. Hep panel neg. AFP 3.5. MELD 26, DF 38, WIN negative. ASMA, AMA, ceruloplasmin, Alpha-a antitrypsin pending. Liver enzymes continue to elevate, no clear cause. Continue Pentoxifylline. Bumetanide. Lactulose. - Acute renal failure - nephrology following, cardiorenal. hepato renal possibility. urine Na <5. - cardiomyopathy EF 25-30%, dyspnea per [facility] Palliative care meeting with pt at this time. PLAN - a1a, ceruloplasmin, AMA, ASMA, pending - Monitor labs - Transfuse to keep hgb >8 - Notify GI of active bleeding - Continue pentoxifylline - Continue Bumetanide - Continue Lactulose - Supportive care - Further recommendations to follow based on results of above This pt has been seen and examined by myself and Dr. Hernandez and this note is written on his behalf (Pamela Villa) Physician Comments Seen and examined with DARIUS, no bleeding reported. [place] in progress for liver cirrhosis. (Sunshine Hernandez MD) Pamela Villa Oct 01, 2017 11:53 Sunshine Hernandez MD Oct 01, 2017 14:28
[2017-10-01 12:00] VITALS: BP 107/66; PULSE 98; RESP 17; TEMP 97.4; O2SAT 96
--- NOTE | 2017-10-01 14:03 | HHI.PR ---
Subjective Remarks Follow-up multiorgan failure. Improving shortness of breath. Patient does not want further intervention also refusing hemodialysis. He wants comfort measures and wants hospice care. Discussed with son, RN and case management. Objective Vitals Vital Signs Date Time Temp Pulse Resp B/P (MAP) Pulse Ox O2 Delivery O2 Flow Rate FiO2 10/01/17 12:00 97.4 98 17 107/66 (80) 96 10/01/17 08:00 95.9 106 16 104/63 (77) 97 10/01/17 04:00 96.4 106 17 102/57 (72) 99 10/01/17 00:01 97.0 104 15 103/64 (77) 100 09/30/17 20:34 95 Nasal Cannula 2.00 09/30/17 20:00 97.1 106 16 113/67 (82) 96 09/30/17 16:00 97.7 101 16 109/62 (78) 95 I/O 09/30/17 09/30/17 09/30/17 10/01/17 10/01/17 10/01/17 07:00 15:00 23:00 07:00 15:00 23:00 Intake Total 653 ml 132 ml 240 ml 720 ml Output Total 240 ml 350 ml 400 ml Balance 413 ml -218 ml 240 ml 320 ml Intake Oral 240 ml 240 ml 720 ml IV Total 413 ml 132 ml Output Urine Total 240 ml 350 ml 400 ml Bladder Scan Volume Amount 87 ml 183 ml # Bowel Movements 2 5 Result Diagram: 10/01/17 0656 10/01/17 0654 Imaging Last Impressions Chest X-Ray 09/27/172045 Signed Impressions: Service Date/Time: Wednesday, September 27, 2017 21:08 - CONCLUSION: Decreased right pleural effusion, now small to moderate. Resolved left pleural effusion. Luis Juarez MD Abdomen/Pelvis CT 09/27/17 0000 Signed Impressions: Service Date/Time: Wednesday, September 27, 2017 22:12 - CONCLUSION: 1. Ascites and body wall edema/anasarca. 2. No focal abnormality seen in the abdomen or pelvis. Potential cirrhosis. 3. Right greater than left pleural effusions. Luis Juarez MD Abdomen Ultrasound 09/27/17 0000 Signed Impressions: Service Date/Time: Wednesday, September 27, 2017 23:48 - CONCLUSION: 1. Cirrhotic appearing liver with no definite focal mass. 2. Moderate amount of ascitic fluid. 3. Bilateral pleural effusions. 4. Thickened gallbladder wall with pericholecystic fluid which may be secondary to the ascites. There is no definite cholelithiasis. 5. The spleen is at the upper limits of normal in size. Brandan Caro MD Objective Remarks GENERAL: 77 y/o M, no acute distress, lying in bed in no distress SKIN: Warm and dry. CARDIOVASCULAR: 2/6 systolic murmur and left lower sternal border, Regular rate and rhythm without murmurs, gallops, or rubs. RESPIRATORY: Breath sounds equal bilaterally, coarse breath sounds, crackles at bases. No accessory muscle use. GASTROINTESTINAL: Abdomen soft, non-tender, nondistended. No spider angiomata, mild ascites MUSCULOSKELETAL: No cyanosis. 1+ edema of lower extremities bilaterally, d no erythema BACK: Nontender without obvious deformity. No CVA tenderness. NEURO: AAOx3, motor function and sensory function intact 5/5 Procedures none A/P Problem List: (1) Cardiorenal syndrome with renal failure ICD Code: I13.10 - Hypertensive heart and chronic kidney disease without heart failure, with stage 1 through stage 4 chronic kidney disease, or unspecified chronic kidney disease; N19 - Unspecified kidney failure (2) Hyponatremia ICD Code: E87.1 - Hypo-osmolality and hyponatremia Status: Acute (3) CHF (congestive heart failure) ICD Code: I50.9 - Heart failure, unspecified Status: Acute (4) Acute on chronic clinical systolic heart failure ICD Code: I50.23 - Acute on chronic systolic (congestive) heart failure Assessment and Plan 77-year-old male with: Acute on chronic anemia, recent upper GI bleed s/p 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 Improved status post transfusion. Monitor CBC Severe cardiomyopathy systolic dysfunction . Continue diuresis with Bumex (may need drip) and BB. Unable to start ARB or JALYN inhibitor secondary to acute kidney injury. Patient's tapeman has been consulted Acute kidney injury with cardiorenal syndrome. Nonoliguric. Worsening renal function IV Lasix discontinued and started on Bumex. May need hemodialysis, patient is effusion. Nephrology following Acute transaminitis with possible hepatorenal syndrome. Cirrhosis on imaging study etiology not known. Worsening liver enzymes. Work up underway. Statin has been discontinued Hyponatremia secondary to above. This signifies poor prognosis. Fluid restriction. Seizure precautions. Per renal In addition patient has Coronary artery disease and chronic respiratory failure on home O2. Restart aspirin if ok with GI and BB New onset A. fib/flutter. CVR. Continue Lopressor and monitor on telemetry. Patient already coagulopathic from liver cirrhosis. Patient will be on aspirin Staph epi bacteremia consistent with contamination. Antibiotic discontinued by ID. Lactic acidosis 2/2 above no evidence of infection. Rpt UA ordered ucx NGTD Cont Protonix GI prophylaxis No DVT prophylaxis at this time, recent GI bleed. Cont SCDs Patient does not want further intervention also refusing hemodialysis. He wants comfort measures and wants hospice care. Cooper Mcginnis MD Oct 01, 2017 14:03
--- NOTE | 2017-10-01 16:47 | HHI.DCPOC ---
Discharge Care Plan Diagnosis: (1) Acute on chronic clinical systolic heart failure Your Health Problems Are: Difficulty with ADL Exercise Tolerance Goals to Promote Your Health * To prevent worsening of your condition and complications * To maintain your health at the optimal level Directions to Meet Your Goals Take your medications as prescribed Follow your dietary instruction Follow activity as directed Keep your appointments as scheduled Take your immunizations and boosters as scheduled If your symptoms worsen call your PCP, if no PCP go to Urgent Care Center or Emergency Room Smoking is Dangerous to Your Health. Avoid second hand smoke Call the 24-hour hour crisis hotline for domestic abuse at Cooper Mcginnis MD Oct 01, 2017 16:47
--- NOTE | 2017-10-01 16:51 | HHI.DS ---
Discharge Summary Admission Date Sep 27, 2017 at 23:26 Discharge Date: Oct 01, 2017 Admitting Diagnosis ARF; anasarca; anemia; transaminitis; hyperlipasemia/pancreatitis (1) Cardiorenal syndrome with renal failure ICD Code: I13.10 - Hypertensive heart and chronic kidney disease without heart failure, with stage 1 through stage 4 chronic kidney disease, or unspecified chronic kidney disease; N19 - Unspecified kidney failure Diagnosis: Principal (2) Hyponatremia ICD Code: E87.1 - Hypo-osmolality and hyponatremia Diagnosis: Principal Status: Acute (3) CHF (congestive heart failure) ICD Code: I50.9 - Heart failure, unspecified Status: Acute (4) Acute on chronic clinical systolic heart failure ICD Code: I50.23 - Acute on chronic systolic (congestive) heart failure Diagnosis: Principal Procedures none Brief History - From Admission The patient is a 77-year-old male with multiple comorbidities which include CHF, cardiomyopathy with an EF of 25-30%, coronary artery disease, history of upper GI bleed, cirrhosis of the liver and chronic dyslipidemia. He initially presented to [facility] ED with one week history of progressive worsening shortness of breath associated with generalized weakness. The patient also reports edema of the lower extremities. He denies any associated symptoms of chest pain, orthopnea, PND. CBC/BMP: 10/01/17 0656 10/01/17 0654 Significant Findings Laboratory Tests Test 09/29/17 04:09 09/30/17 09:52 09/30/17 13:45 10/01/17 06:54 Red Blood Count 3.00 MIL/MM3 (4.50-5.90) 3.70 MIL/MM3 (4.50-5.90) Hemoglobin 7.2 GM/DL (13.0-17.0) 9.1 GM/DL (13.0-17.0) Hematocrit 22.9 % (39.0-51.0) 28.9 % (39.0-51.0) Mean Corpuscular Volume 76.4 FL (80.0-100.0) 78.2 FL (80.0-100.0) Mean Corpuscular Hemoglobin 24.1 PG (27.0-34.0) 24.6 PG (27.0-34.0) Mean Corpuscular Hemoglobin Concent 31.6 % (32.0-36.0) 31.5 % (32.0-36.0) Red Cell Distribution Width 22.4 % (11.6-17.2) 22.7 % (11.6-17.2) Neutrophils (%) (Auto) 82.8 % (16.0-70.0) 84.7 % (16.0-70.0) Lymphocytes (%) (Auto) 4.1 % (9.0-44.0) 4.9 % (9.0-44.0) Monocytes (%) (Auto) 12.5 % (0.0-8.0) 9.5 % (0.0-8.0) Neutrophils # (Auto) 8.3 TH/MM3 (1.8-7.7) 10.8 TH/MM3 (1.8-7.7) Lymphocytes # (Auto) 0.4 TH/MM3 (1.0-4.8) 0.6 TH/MM3 (1.0-4.8) Monocytes # (Auto) 1.3 TH/MM3 (0-0.9) 1.2 TH/MM3 (0-0.9) Prothrombin Time 19.8 SEC (9.8-11.6) Blood Urea Nitrogen 110 MG/DL (7-18) 105 MG/DL (7-18) 116 MG/DL (7-18) Creatinine 2.54 MG/DL (0.60-1.30) 2.62 MG/DL (0.60-1.30) 3.08 MG/DL (0.60-1.30) Random Glucose 155 MG/DL (74-106) Albumin 3.0 GM/DL (3.4-5.0) 3.3 GM/DL (3.4-5.0) 3.1 GM/DL (3.4-5.0) Calcium Level 8.3 MG/DL (8.5-10.1) Alkaline Phosphatase 153 U/L (45-117) 151 U/L (45-117) Aspartate Amino Transf (AST/SGOT) 613 U/L (15-37) 813 U/L (15-37) Alanine Aminotransferase (ALT/SGPT) 590 U/L (12-78) 635 U/L (12-78) Total Bilirubin 1.9 MG/DL (0.2-1.0) 4.0 MG/DL (0.2-1.0) Sodium Level 125 MEQ/L (136-145) 122 MEQ/L (136-145) 122 MEQ/L (136-145) Chloride Level 85 MEQ/L (98-107) 83 MEQ/L (98-107) 82 MEQ/L (98-107) Estimat Glomerular Filtration Rate 25 ML/MIN (>89) 24 ML/MIN (>89) 20 ML/MIN (>89) Complement C3 61 MG/DL (90-180) Complement C4 9 MG/DL (10-40) White Blood Count 12.8 TH/MM3 (4.0-11.0) Tear Drop Cells 1+ (NORMAL) Ovalocytes 1+ (NORMAL) [place]-6-Dsiorpllred 272 mg/dL (100 - 190) Urine Total Protein 24 Hour 612 MG/24HR (0-150) Total Protein 6.1 GM/DL (6.4-8.2) Magnesium Level 2.7 MG/DL (1.5-2.5) Test 10/01/17 06:56 White Blood Count 13.7 TH/MM3 (4.0-11.0) Red Blood Count 3.66 MIL/MM3 (4.50-5.90) Hemoglobin 9.1 GM/DL (13.0-17.0) Hematocrit 28.5 % (39.0-51.0) Mean Corpuscular Volume 77.8 FL (80.0-100.0) Mean Corpuscular Hemoglobin 24.9 PG (27.0-34.0) Red Cell Distribution Width 23.3 % (11.6-17.2) Neutrophils (%) (Auto) 83.5 % (16.0-70.0) Lymphocytes (%) (Auto) 3.7 % (9.0-44.0) Monocytes (%) (Auto) 12.0 % (0.0-8.0) Neutrophils # (Auto) 11.4 TH/MM3 (1.8-7.7) Lymphocytes # (Auto) 0.5 TH/MM3 (1.0-4.8) Monocytes # (Auto) 1.6 TH/MM3 (0-0.9) Imaging Last Impressions Chest X-Ray 09/27/172045 Signed Impressions: Service Date/Time: Wednesday, September 27, 2017 21:08 - CONCLUSION: Decreased right pleural effusion, now small to moderate. Resolved left pleural effusion. Luis Juarez MD Abdomen/Pelvis CT 09/27/17 0000 Signed Impressions: Service Date/Time: Wednesday, September 27, 2017 22:12 - CONCLUSION: 1. Ascites and body wall edema/anasarca. 2. No focal abnormality seen in the abdomen or pelvis. Potential cirrhosis. 3. Right greater than left pleural effusions. Luis Juarez MD Abdomen Ultrasound 09/27/17 0000 Signed Impressions: Service Date/Time: Wednesday, September 27, 2017 23:48 - CONCLUSION: 1. Cirrhotic appearing liver with no definite focal mass. 2. Moderate amount of ascitic fluid. 3. Bilateral pleural effusions. 4. Thickened gallbladder wall with pericholecystic fluid which may be secondary to the ascites. There is no definite cholelithiasis. 5. The spleen is at the upper limits of normal in size. Brandan Caro MD PE at Discharge GENERAL: 77 y/o M, no acute distress, lying in bed in no distress SKIN: Warm and dry. CARDIOVASCULAR: 2/6 systolic murmur and left lower sternal border, Regular rate and rhythm without murmurs, gallops, or rubs. RESPIRATORY: Breath sounds equal bilaterally, coarse breath sounds, crackles at bases. No accessory muscle use. GASTROINTESTINAL: Abdomen soft, non-tender, nondistended. No spider angiomata, mild ascites MUSCULOSKELETAL: No cyanosis. 1+ edema of lower extremities bilaterally, d no erythema BACK: Nontender without obvious deformity. No CVA tenderness. NEURO: AAOx3, motor function and sensory function intact 5/5 Hospital Course 77-year-old male with: Acute on chronic anemia, recent upper GI bleed s/p 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 Improved status post transfusion. Monitor CBC Severe cardiomyopathy systolic dysfunction . Continue diuresis with Bumex (may need drip) and BB. Unable to start ARB or JALYN inhibitor secondary to acute kidney injury. Patient's on site nurse has been consulted Acute kidney injury with cardiorenal syndrome. Nonoliguric. Worsening renal function IV Lasix discontinued and started on Bumex. May need hemodialysis, patient is effusion. Nephrology following Acute transaminitis with possible hepatorenal syndrome. Cirrhosis on imaging study etiology not known. Worsening liver enzymes. Work up underway. Statin has been discontinued Hyponatremia secondary to above. This signifies poor prognosis. Fluid restriction. Seizure precautions. Per renal In addition patient has Coronary artery disease and chronic respiratory failure on home O2. Restart aspirin if ok with GI and BB New onset A. fib/flutter. CVR. Continue Lopressor and monitor on telemetry. Patient already coagulopathic from liver cirrhosis. Patient will be on aspirin Staph epi bacteremia consistent with contamination. Antibiotic discontinued by ID. Lactic acidosis 2/2 above no evidence of infection. Rpt UA ordered ucx NGTD Cont Protonix GI prophylaxis No DVT prophylaxis at this time, recent GI bleed. Cont SCDs Patient does not want further intervention also refusing hemodialysis. He wants comfort measures and signed up for hospice care. Pt Condition on Discharge: Deteriorating Discharge Disposition: Hospice/Med Facility Discharge Time: > 30 minutes Discharge Instructions DIET: Follow Instructions for: Heart Healthy Diet Activities you can perform: Regular-No Restrictions, See Additionl Instruction Follow up Referrals: Appointment for Follow Up - Today @ Hospice Cooper Mcginnis MD Oct 01, 2017 16:51
== END 2017-10-01 19:18 | disposition hospice, inpatient (51) | DRG 682 ==
LOC: PHED 20:01 → PHEDA 23:26 → HIME 09-28 05:25 → N07B 09-29 17:02
PROVIDERS: ADMIT Internal Medicine; ATTEND Internal Medicine
PROC: 30233N1 Transfusion of Nonautologous Red Blood Cells into Peripheral Vein, Percutaneous Approach (ICD-10-PCS; principal; 2017-09-29)
DX: N17.9 Acute kidney failure, unspecified (principal); I50.43 Acute on chronic combined systolic (congestive) and diastolic (congestive) heart failure; E87.2 Acidosis; J96.10 Chronic respiratory failure, unspecified whether with hypoxia or hypercapnia; D68.9 Coagulation defect, unspecified; R18.8 Other ascites; E11.22 Type 2 diabetes mellitus with diabetic chronic kidney disease; E87.1 Hypo-osmolality and hyponatremia; I13.0 Hypertensive heart and chronic kidney disease with heart failure and stage 1 through stage 4 chronic kidney disease, or unspecified chronic kidney disease; I25.10 Atherosclerotic heart disease of native coronary artery without angina pectoris; K74.60 Unspecified cirrhosis of liver; I25.5 Ischemic cardiomyopathy; I48.91 Unspecified atrial fibrillation; E78.5 Hyperlipidemia, unspecified; I25.2 Old myocardial infarction; D50.0 Iron deficiency anemia secondary to blood loss (chronic); N18.9 Chronic kidney disease, unspecified; K21.9 Gastro-esophageal reflux disease without esophagitis; N40.0 Benign prostatic hyperplasia without lower urinary tract symptoms; Z22.322 Carrier or suspected carrier of Methicillin resistant Staphylococcus aureus; Z51.5 Encounter for palliative care; Z66 Do not resuscitate; Z79.84 Long term (current) use of oral hypoglycemic drugs; Z87.891 Personal history of nicotine dependence; Z99.81 Dependence on supplemental oxygen
CPT/HCPCS: 36430; 71010; 74176; 76700; 76937; 80048; 80053; 80069; 80074; 80307; 81001; 82103; 82105; 82140; 82306; 82390; 82550; 82552; 82570; 82728; 82948; 83520; 83540; 83550; 83605; 83690; 83735; 83880; 83930; 83935; 84100; 84157; 84300; 84443; 84484; 85025; 85610; 85730; 86038; 86160; 86255; 86403; 86850; 86900; 86901; 86920; 87040; 87086; 87186; 87205; 87641; 93005; 94640; 94664; 96361; 96365; 96375; C9113; J0692; J1940; J2543; J7030; J7050; P9016; P9047